=== PATIENT | male | born 1945 | race Caucasian/White ===

== ENCOUNTER → 2017-04-23 | Outpatient (CLI) | payer OTHER ==
[2017-04-23 12:50] LABS: Basophils # (A) 0.1 k/uL (0-0.2); Basophils % (A) 1 %; Eosinophils # (A) 0.3 k/uL (0-0.7); Eosinophils % (A) 4 %; HCT 44.3 % (39.0-53.0); Lymphocytes # (A) 2.4 k/uL (1.0-4.8); Lymphocytes % (A) 34 %; MCH 29.1 pg (25.0-35.0); MCHC 33.9 g/dL (31.0-37.0); Mean Platelet Volume 8.9; Monocytes # (A) 0.5 k/uL (0-1.0); Monocytes % (A) 7 %; Neutrophils # (A) 3.7 k/uL (1.3-7.7); Neutrophils % (A) 53 %; Platelet Count 172 k/uL (150-450); RBC 5.15 m/uL (4.30-5.90); RDW 13.3 % (11.5-15.5)
[2017-04-23 23:07] LABS: Hemoglobin A1C 8.1 % (4.0-6.0)
== END | disposition home or self-care (01) ==
LOC: LABWHC1 11:45
PROVIDERS: ATTEND Podiatrist
DX: E11.622 Type 2 diabetes mellitus with other skin ulcer (principal); L98.499 Non-pressure chronic ulcer of skin of other sites with unspecified severity
CPT/HCPCS: 36415; 83036; 84134; 85025

== ENCOUNTER 2018-03-17 07:01 | Day surgery (SDC) | payer OTHER ==
[2018-03-13 10:25] VITALS: BMI 36.6
[~2018-03-17 07:01] MED LIST: LACTATED RINGERS 1,000 ML IV SCH; LIDOCAINE 1% 20 ML VIAL (10MG/ML) FOR IV START INTRADERMA PRN
[2018-03-17 07:20] VITALS: TEMP 97.2
[2018-03-17 07:27] LABS: Glucose,Whole Blood 117 mg/dL (75-99)
[2018-03-17] MEDS ORDERED: PROPOFOL 10 MG/ML 20 ML VIAL IV ONE (08:02)
[2018-03-17] MEDS ORDERED: LIDOCAINE 1% INJ 10MG/ML (20 ML MDV) ONE (08:02)
--- NOTE | 2018-03-17 08:39 | P.PCN ---
Date of Procedure: 03/17/18 Procedure(s) Performed: Procedure: Total colonoscopy. Preoperative diagnosis: Screening for neoplasia, patient has history of polyps. Postoperative diagnosis: Poor preparation, otherwise, exam to the cecum show no obvious abnormalities. Preparation: HalfLytely prep. Sedation: Was provided by anesthesia. Brief clinical history: The patient is a 72-year-old male who is scheduled for this evaluation because of history of polyps for screening for neoplasia. His last exam was around 7 years ago. He has no abdominal complaints, bleeding or anemia. Procedure: With the patient on his left lateral decubitus position and after informed consent and adequate sedation, the perianal area was inspected and it did not show any fissures or fistulas. There were no masses felt on digital rectal examination. The Olympus CFH 190L video colonoscope was then inserted in the rectum in the usual fashion and advanced to the cecum. Unfortunately, the preparation was poor and things did not get any better as I continued to advance the endoscope. I tried to cleanse the bowel as I was withdrawing the endoscope. Where visualized, the mucosa appeared healthy. No significant polyps or tumors were seen. Certainly, with his poor preparation, small polyps and superficial pathology could have been missed. I retroflexed the endoscope in the rectum before the endoscope was withdrawn. The patient tolerated the procedure well. Plan: I summarized the findings to the patient. Because of his poor prep, I suggested repeat exam in around 2 years, possibly after a 2 day prep. He will follow up with you as planned.
[2018-03-17 08:55] VITALS: BP 150/89; PULSE 70; RESP 18
== END 2018-03-17 09:15 | disposition home or self-care (01) ==
LOC: ORWHC2ENDO 07:01
DX: Z12.11 Encounter for screening for malignant neoplasm of colon (principal); Z86.010 Personal history of colon polyps; E11.9 Type 2 diabetes mellitus without complications; E78.5 Hyperlipidemia, unspecified; I10 Essential (primary) hypertension; Z91.040 Latex allergy status; Z79.84 Long term (current) use of oral hypoglycemic drugs; Z79.1 Long term (current) use of non-steroidal anti-inflammatories (NSAID); Z79.899 Other long term (current) drug therapy
CPT/HCPCS: J2001; J2704; G0105; 45378

== ENCOUNTER → 2018-10-08 | Outpatient (CLI) | payer OTHER ==
--- NOTE | 2018-10-08 13:10 | CT ---
EXAMINATION TYPE: CT chest wo con DATE OF EXAM: 10/08/2018 COMPARISON: Chest x-ray 6 days ago. HISTORY: Shortness of breath CT DLP: 1743.4 mGycm. Automated Exposure Control for Dose Reduction was Utilized. TECHNIQUE: CT scan of the thorax is performed without IV contrast. High resolution protocol with 1 m m sequences obtained in 10 mm intervals in supine and prone technique FINDINGS: LUNGS: Right basilar linear scarring is present. Lateral lingular linear scarring is present. Backgro und mild underlying emphysematous change. No suspicious peripheral reticulation or fibrosis is identi fied. No pleural effusion or pneumothorax. No pulmonary masses. MEDIASTINUM: Lack of IV contrast is noted to limit evaluation for mediastinal and especially hilar a denopathy. There are no definitive greater than 1 cm hilar or mediastinal lymph nodes. No cardiomeg jerson is seen. Main pulmonary artery measures 3.2 cm diameter image 13, CT findings suggesting underlyi ng pulmonary artery hypertension. Adjacent ascending aorta measures 4.0 cm in diameter axial image 13 . Moderate three-vessel coronary artery calcification. Tiny pericardial effusion. OTHER: Partial visualization of cholecystectomy clips. Multilevel spurring in thoracic spine. IMPRESSION: No significant peripheral reticulation or fibrosis. Mild linear scarring right lower lobe at the diaphragm and lingula laterally. Mild underlying emphysematous change.
== END | disposition home or self-care (01) ==
LOC: RADCTMAIN 11:13
PROVIDERS: ATTEND Internal Medicine Critical Care Medicine
DX: J98.4 Other disorders of lung (principal)
CPT/HCPCS: 71250; 94060; 94726; 94729

== ENCOUNTER → 2019-01-14 | Outpatient (CLI) | payer OTHER ==
[2019-01-14 15:00] LABS: Potassium 4.4 mmol/L (3.5-5.1)
[2019-01-14 15:01] LABS: HCT 42.2 % (39.0-53.0); HGB 14.4 gm/dL (13.0-17.5); MCH 30.4 pg (25.0-35.0); MCHC 34.1 g/dL (31.0-37.0); MCV 88.9 fL (80.0-100.0); Platelet Count 198 k/uL (150-450); RBC 4.75 m/uL (4.30-5.90); RDW 12.1 % (11.5-15.5); WBC 8.1 k/uL (3.8-10.6)
== END | disposition home or self-care (01) ==
LOC: LABPAT 14:21
PROVIDERS: ATTEND Internal Medicine Interventional Cardiology
DX: Z01.812 Encounter for preprocedural laboratory examination (principal); R94.39 Abnormal result of other cardiovascular function study
CPT/HCPCS: 36415; 80051; 82565; 84520; 85027

== ENCOUNTER 2019-01-18 06:29 | Inpatient (IN) | payer OTHER ==
[~2019-01-18 06:29] MED LIST changes: +ALPRAZolam 0.25 MG TAB PO PRN; +ALPRAZolam 0.5 MG TAB PO PRN; +ASPIRIN 325 MG TAB PO STA; +ATORVASTATIN 80 MG TAB PO STA; -LACTATED RINGERS 1,000 ML IV SCH; -LIDOCAINE 1% 20 ML VIAL (10MG/ML) FOR IV START INTRADERMA PRN; +NITROGLYCERIN SL TABS 0.4 MG TAB SUBLINGUAL PRN; +SODIUM CHLORIDE 0.9% 1,000 ML in EMPTY BAG 1 BAG IV ONE
[2019-01-18 07:19] LABS: Glucose,Whole Blood 152 mg/dL (75-99)
[2019-01-18] MEDS ORDERED: SODIUM CHLORIDE 0.9% 1,000 ML IV ONE (07:21)
[2019-01-18] MEDS ORDERED: LIDOCAINE 1% INJ 10MG/ML (20 ML MDV) ONE (07:45)
[2019-01-18] MEDS ORDERED: VERAPAMIL 2.5 MG/ML 2 ML AMP ONE (07:45)
[2019-01-18] MEDS ORDERED: HEPARIN SODIUM 1,000 UN/ML (10ML VL) ONE (07:46)
[2019-01-18] MEDS ORDERED: MIDAZOLAM 2 MG/2 ML VIAL IV ONE (07:57)
[2019-01-18] MEDS ORDERED: fentaNYL (PF) 50 MCG/ML 2 ML AMP IV ONE (07:58)
[2019-01-18] MEDS ORDERED: LIDOCAINE 1% INJ 10MG/ML (20 ML MDV) SQ ONE (08:00)
[2019-01-18] MEDS: VERAPAMIL SYRINGE (5 MG/10 ML) INTRAARTER ONE ×2 (08:02→08:17)
[2019-01-18] MEDS ORDERED: HEPARIN SODIUM 1,000 UN/ML (10ML VL) IV ONE ×2 (08:02)
[2019-01-18] MEDS ORDERED: IOPAMIDOL-370 125ML BTL INJ ONE (08:18)
[2019-01-18] MEDS ORDERED: RX INFO: IV CONTRAST WAS GIVEN 1 EACH MISC MISCELLANE PRN (08:26)
[2019-01-18] MEDS ORDERED: SODIUM CHLORIDE 0.9% 1,000 ML IV SCH (08:30)
--- NOTE | 2019-01-18 09:02 | CC ---
CARDIAC CATHETERIZATION REPORT DATE OF SERVICE: January 18, 2019 PERFORMING PHYSICIAN: Bobby Koch MD. PROCEDURE PERFORMED: 1. Selective right and left coronary angiogram. 2. Left heart catheterization. INDICATION: This is a 73-year-old gentleman with diabetes, hypertension, and dyslipidemia, and family history of coronary artery disease, was experiencing symptoms of shortness of breath with exertion. He underwent myocardial perfusion imaging stress test and that revealed moderate-sized ischemia involving the anterior wall of the LV. Because of that, a heart catheterization was advised. APPROACH: Right radial artery. COMPLICATION: None. LEVEL OF SEDATION: Moderate with a sedation length of 21 minutes. PROCEDURE DESCRIPTION: After obtaining an informed consent, the patient was brought to the cardiac lab scientist. The right radial artery was cannulated using micropuncture technique, the micropuncture wire passed easily then I placed a 6-[place]izen [place] sheath in the right radial artery. After that I did give the patient 2 mg of verapamil IA and 10,000 units of heparin IV. Selective right and left coronary angiogram performed using JR4 and JL3.5 catheters. The left heart catheterization was performed using 5-[place]izen [place] pigtail catheter. The procedure was completed without any complication. SELECTIVE CORONARY ANGIOGRAM: 1. The right coronary artery is chronically occluded in the midportion and fills by collateral from the left coronary system. 2. The left main is angiographically normal. It bifurcates into left circumflex, which is a dominant left circumflex and left anterior descending artery. 3. The left circumflex is a large caliber vessel. It is a codominant vessel. The proximal circumflex appeared to have mild disease only. It gives rise into OM1, which has an ostial lesion appeared to be in the range of 80% to 90%. The mid left circumflex has a tight lesion appeared to be in the range of 99%. This is just distal to the bifurcation of second OM branch which appeared to have mild disease only. The circumflex distally appeared to be angiographically normal. 4. The LAD: The proximal LAD appeared to have mild disease only. The mid LAD appeared to have a lesion in the range of 99%. The LAD in the proximal portion gives rise into a diagonal branch which seems to be angiographically normal. The LAD distally appeared to be angiographically normal. HEMODYNAMICS: The LVEDP was 10 to 12 mmHg without significant gradient across aortic valve. CONCLUSION: 1. Severe triple-vessel coronary artery disease. 2. Normal left ventricular end-diastolic pressure. POSTPROCEDURE MANAGEMENT: 1. Consult surgery for evaluation of coronary artery bypass grafting. 2. Follow up with the patient. SHAKIRA / MARYN: [id number] /
--- NOTE | 2019-01-18 10:08 | P.GSCN ---
History of Present Illness Consult date: 01/18/19 Reason for Consult: Triple-vessel coronary artery disease Requesting physician: Bobby Koch History of present illness: This is a 73-year-old gentleman who follows on an outpatient basis at the [facility] with physician marketing assistant retail division Robyn Clemente. He has a previous medical history of hypertension, hyperlipidemia, type 2 diabetes, obesity, pancreatitis 10 years ago, kidney stones, previous tobacco dependence, and family history of premature coronary artery disease. The patient has had shortness of breath over the previous 2 years, getting progressively worse with activity. He denied shortness of breath at rest. Does state he is occasionally dizzy but denies any other symptomatology including no chest pain, no syncope, no lower extremity edema. He did have workup with Dr. Wood including pulmonary function test with FEV1 82% of predicted followed by 84% of predicted post bronchodilator. Chest x-ray demonstrated emphysematous changes. CT of the chest demonstrated triple- vessel coronary artery disease and emphysema. He was referred to Dr. Koch from [facility] for workup. He had a stress test which demonstrated reversible anterior ischemia. In addition, a transthoracic echocardiogram was completed in the cardiology office which demonstrated normal left ventricular systolic function with ejection fraction 55%, moderate concentric hypertrophy, no regional wall motion abnormalities, trace aortic regurgitation, mild mitral regurgitation, and mild tricuspid regurgitation. He was recommended to undergo heart catheterization which was completed today and which demonstrated complete occlusion of the right coronary artery, 90% stenosis of the circumflex, 80% proximal LAD stenosis with 70% mid LAD stenosis. Due to these findings Dr. Koch consulted Dr. Wiggins for recommendations for stenting versus open heart surgery. Review of Systems Review of systems was completed and was negative except as noted - Cardiovascular Reports dyspnea on exertion, Reports shortness of breath Past Medical History Past Medical History: Diabetes Mellitus, Hyperlipidemia, Hypertension Additional Past Medical History / Comment(s): PANCREATITIS (2008), SOB, kidney stones History of Any Multi-Drug Resistant Organisms: None Reported Past Surgical History: Cholecystectomy, Tonsillectomy Past Anesthesia/Blood Transfusion Reactions: No Reported Reaction Past Psychological History: No Psychological Hx Reported Smoking Status: Former smoker Past Alcohol Use History: Rare Past Drug Use History: None Reported - Past Family History Mother Family Medical History: Deep Vein Thrombosis (DVT) Sister(s) Family Medical History: Coronary Artery Disease (CAD), Deep Vein Thrombosis (DVT) Additional Family Medical History / Comment(s): sister with diagnosed coronary artery disease in her early 50s Medications and Allergies Home Medications Medication Instructions Recorded Confirmed Type Ascorbic Acid [Vitamin C] 1,000 mg PO DAILY 03/13/18 01/18/19 History Atorvastatin [Lipitor] 80 mg PO DAILY 03/13/18 01/18/19 History Fish Oil/Dha/Epa [Fish Oil 1,200 1,200 mg PO DAILY 03/13/18 01/18/19 History mg Fish Oil] Lisinopril 20 mg PO DAILY 03/13/18 01/18/19 History Multivit-Min/Folic/Vit K/Lycop 1 each PO DAILY 03/13/18 01/18/19 History [Men's Multivitamin Tablet] Naproxen 500 mg PO DAILY 03/13/18 01/18/19 History Potassium 99 mg PO DAILY 03/13/18 01/18/19 History Vitamin B Complex 1 each PO DAILY 03/13/18 01/18/19 History glipiZIDE [Glucotrol] 5 mg PO HS 03/13/18 01/18/19 History Aspirin [Adult Low Dose Aspirin EC] 81 mg PO HS 01/14/19 01/18/19 History Metoprolol Succinate (ER) [Toprol 12.5 mg PO HS 01/14/19 01/18/19 History XL] Allergies Allergy/AdvReac Type Severity Reaction Status Date / Time latex AdvReac Unknown Itching Verified 01/18/19 07:04 Surgical - Exam Vital Signs Temp Pulse Resp BP Pulse Ox 98.3 F 61 16 143/74 95 01/18/19 07:18 01/18/19 07:18 01/18/19 07:18 01/18/19 07:18 01/18/19 07:18 - General well developed, well nourished, no distress, no pain, obese - Eyes PERRL, normal ocular movement - ENT no hearing loss - Neck no masses, no bruits, trachea midline - Respiratory Lungs sounds clear bilaterally. Respirations even, nonlabored. Currently on room air with oxygen saturation 94%. No chest wall deformities. No clubbing or cyanosis present. - Cardiovascular S1, S2 present, no murmurs present. Regular rate and rhythm, sinus rhythm on telemetry. Palpable peripheral pulses bilaterally. No edema present. No calf pain or tenderness noted. Radial heart catheterization site with T band in place. - Abdomen Abdomen: soft, non tender, bowel sounds - Genitourinary Deferred - Rectum Deferred - Integumentary no rash, no growths - Neurologic normal coordination, normal sensation - Musculoskeletal normal posture - Psychiatric oriented to time, oriented to person, oriented to place, speech is normal, memory intact Results - Labs Abnormal Lab Results - Last 24 Hours (Table) 01/18/19 Range/Units 07:15 POC Glucose (mg/dL) 152 H (75-99) mg/dL - Imaging Chest x-ray: report reviewed, image reviewed CT scan - chest: report reviewed, image reviewed EKG: image reviewed Additional studies: Heart catheterization films reviewed Assessment and Plan Assessment: 1. Severe triple-vessel coronary artery disease 2. Hypertension 3. Hyperlipidemia 4. Type 2 diabetes, last hemoglobin A1c in our system 8.1% in April 2017 5. Obesity 6. Pancreatitis 10 years ago 7. Current kidney stones 8. Previous tobacco dependence with FEV1 82% of predicted, post bronchodilator 84% of predicted 9. Family history of premature coronary artery disease Plan: The patient was seen and examined at the bedside. Chart/diagnostics were reviewed. The case will be discussed in detail with Dr. Wiggins. The usual perioperative course of open heart surgery was discussed in detail with the patient and his , risks and benefits were reviewed, all questions were answered. The patient is hoping that the recommendation will be for stenting as he is not looking forward to the recovery from open heart surgery, however he does state that if he needs open heart surgery he would like to have it completed as quickly as possible. We recommend continuing to maximize medical management with aspirin, statin, beta cuauhtemoc therapy as well as BERHANE inhibitor. Patient's blood sugars need tight control. Preoperative testing was initiated. More recommendations once Dr. Wiggins has had the opportunity to review the patient's diagnostics. Thank you Dr. Koch for this consult. We look forward to working with you in the care of your patient. Time with Patient: Greater than 30
--- NOTE | 2019-01-18 10:49 | US ---
EXAMINATION TYPE: US carotid duplex BILAT DATE OF EXAM: 01/18/2019 COMPARISON: NONE CLINICAL HISTORY: preop cabg. Pre op cardiac surgery, exam done portable. EXAM MEASUREMENTS: RIGHT: Peak Systolic Velocity (PSV) cm/sec ----- Right CCA: 101.7 ----- Right ICA: 112.1 ----- Right ECA: 114.7 ICA/CCA ratio: 1.1 RIGHT: End Diastole cm/sec ----- Right CCA: 24.1 ----- Right ICA: 28.0 ----- Right ECA: 0.0 LEFT: Peak Systolic Velocity (PSV) cm/sec ----- Left CCA: 109.5 ----- Left ICA: 119.8 ----- Left ECA: 135.0 ICA/CCA ratio: 1.1 LEFT: End Diastole cm/sec ----- Left CCA: 24.1 ----- Left ICA: 43.5 ----- Left ECA: 15.5 VERTEBRALS (direction of flow): Right Vertebral: Antegrade Left Vertebral: Antegrade Rhythm: Normal Bilateral intimal thickening, no significant stenosis. IMPRESSION: Diffusely elevated velocities suggest underlying hypertension. Internal carotid artery, carotid artery ratios are within normal limits. No hemodynamically significant stenosis. Criteria for Assigning % of Stenosis / Diameter reduction (Estimation based on the indirect measurements of the internal carotid artery velocities (ICA PSV). 1. Normal (no stenosis)=ICA PSV < 125 cm/s: ratio < 2.0: ICA EDV<40 cm/s. 2. Less than 50% stenosis=ICA PSV < 125 cm/s: ratio < 2.0: ICA EDV<40 cm/s. 3. 50 to 69% stenosis=ICA PSV of 125 to 230 cm/s: ration 2.0 ? 4.0: ICA EDV 40-100 cm/s. 4. Greater than 70% stenosis to near occlusion= ICA PSV > 230 cm/s: ratio > 4.0: ICA EDV > 100 cm/s. 5. Near occlusion= ICA PSV velocities may be low or undetectable: variable ratio and ICA EDV. 6. Total occlusion=unable to detect flow.
[2019-01-18] MEDS ORDERED: MD COMMUNICATION TO PHARMACY 1 EACH MISC PO ONE ×2 (11:39)
[2019-01-18 14:10] LABS: Appearance,Urine Clear (Clear); Bacteria,Urine Rare /hpf; Bilirubin,Urine Negative (Negative); Blood,Urine Negative (Negative); Color,Urine Yellow; Glucose,Urine (UA) 3+ (Negative); Ketones,Urine Negative (Negative); Leukocyte Esterase,Urine Small (Negative); Mucus,Urine Rare /hpf; Nitrite,Urine Negative (Negative); PH, Urine 5.5 (5.0-8.0); Protein,Urine Negative (Negative); RBC,Urine 10 /hpf (0-5); Specific Gravity,Urine 1.045 (1.001-1.035)
[2019-01-18 14:47] LABS: HCT 40.3 % (39.0-53.0); HGB 14.3 gm/dL (13.0-17.5); MCH 31.6 pg (25.0-35.0); MCHC 35.6 g/dL (31.0-37.0); MCV 88.8 fL (80.0-100.0); Mean Platelet Volume 8.8; Platelet Count 176 k/uL (150-450); RBC 4.54 m/uL (4.30-5.90); RDW 12.2 % (11.5-15.5); WBC 5.6 k/uL (3.8-10.6)
--- NOTE | 2019-01-18 14:47 | P.PN ---
Progress Note - Text Progress Note Date: 01/18/19 5 meter walk test: #1 3.5 sec #2 3.44 sec #3 3.46 sec
[2019-01-18 14:54] LABS: Albumin 3.7 g/dL (3.5-5.0); Magnesium 1.9 mg/dL (1.6-2.3); Potassium 4.1 mmol/L (3.5-5.1); Total Bilirubin 1.1 mg/dL (0.2-1.3); Total Protein 6.4 g/dL (6.3-8.2)
[2019-01-18 15:06] LABS: Prothrombin Time 10.6 sec (9.0-12.0)
[2019-01-18 16:39] LABS: Glucose,Whole Blood 113 mg/dL (75-99)
[2019-01-18] MEDS: INSULIN ASPART (NovoLOG) 100 UNIT/ML VIAL SQ SCH ×2 (19:42→20:47)
[2019-01-18] MEDS: HEPARIN SODIUM,PORCINE 5,000 UNIT/ML 1 ML VIAL SQ SCH ×2 (19:53→23:41)
[2019-01-18 20:39] LABS: Glucose,Whole Blood 190 mg/dL (75-99)
[2019-01-18] MEDS ORDERED: glipiZIDE 5 MG TAB PO SCH (21:00)
[2019-01-18] MEDS ORDERED: ASPIRIN 81 MG PO SCH (21:00)
[2019-01-18] MEDS ORDERED: METOPROLOL SUCCINATE (ER) 25 MG TAB.ER.24H PO SCH (21:00)
[2019-01-18] MEDS: MUPIROCIN 2% OINT 22 GM TUBE NASAL SCH (21:30)
[2019-01-18 21:58] LABS: Hemoglobin A1C 6.3 % (4.0-6.0)
[2019-01-19 01:57] LABS: Hepatitis A Antibody IgM Non-Reactive (Non-Reactive); Hepatitis B Core IgM Non-Reactive (Non-Reactive); Hepatitis B Surface Antigen Non-Reactive (Non-Reactive); Hepatitis C IgG Antibody Non-Reactive (Non-Reactive)
[2019-01-19] MEDS ORDERED: CHLORHEXIDINE GLUCONATE 15 ML CUP MUCOUS MEM ONE (05:00)
[2019-01-19] MEDS ORDERED: MANNITOL 25% 12.5 GM/50 ML VIAL IV ONE ×2 (05:00)
[2019-01-19] MEDS ORDERED: CARDIOPLEGIC SOLN (K+ 16 MEQ/L 1,000 ML with SOD BICARB SYR 8.4% (1 MEQ/ML) 20 ML, LIDO... PERFUSION NR ×3 (05:00)
[2019-01-19] MEDS ORDERED: PROTAMINE SULFATE 250 MG in EMPTY BAG 1 BAG IV ONE (05:00)
[2019-01-19] MEDS ORDERED: ALBUMIN HUMAN 25% 50 ML in EMPTY BAG 1 BAG IVPB ONE (05:00)
[2019-01-19] MEDS ORDERED: PHENYLEPHRINE 10 MG/ML VIAL IV ONE (05:00)
[2019-01-19] MEDS ORDERED: PROPOFOL 1,000 MG in EMPTY BAG 1 BAG IV PRN (05:00)
[2019-01-19] MEDS ORDERED: LACTATED RINGERS 1,000 ML IV SCH (05:00)
[2019-01-19] MEDS ORDERED: ATORVASTATIN 10 MG TAB PO ONE (05:00)
[2019-01-19] MEDS ORDERED: METOPROLOL TARTRATE 12.5 MG TAB PO ONE (05:00)
[2019-01-19] MEDS ORDERED: CALCIUM CHLORIDE 100 MG/ML 10 ML SYRINGE IVP ONE (05:00)
[2019-01-19] MEDS ORDERED: HEPARIN SODIUM,PORCINE 5,000 UNIT in SODIUM CHLORIDE 0.9% 500 ML 500 ML IV NR (05:00)
[2019-01-19] MEDS ORDERED: PAPAVERINE 360 MG in SODIUM CHLORIDE 0.9% 90 ML IV ONE (05:00)
[2019-01-19] MEDS ORDERED: NOREPINEPHRINE 4 MG in SODIUM CHLORIDE 0.9% 250 ML IV SCH (05:00)
[2019-01-19] MEDS ORDERED: DILTIAZEM 125 MG in SODIUM CHLORIDE 0.9% 100 ML IV SCH ×2 (05:00→14:26)
[2019-01-19] MEDS ORDERED: ceFAZolin 2,000 MG in SODIUM CHLORIDE 0.9% 30 ML IVPB ONE (05:00)
[2019-01-19] MEDS ORDERED: PROTAMINE SULFATE 10 MG/ML 25 ML VIAL IV ONE ×2 (05:00→07:32)
[2019-01-19] MEDS ORDERED: TRANEXAMIC ACID 2,000 MG in SODIUM CHLORIDE 0.9% 80 ML IV ONE (05:00)
[2019-01-19] MEDS ORDERED: INSULIN REGULAR 100 UNIT in SODIUM CHLORIDE 0.9% 100 ML IV SCH (05:00)
[2019-01-19] MEDS ORDERED: ceFAZolin 3 GM in SODIUM CHLORIDE 0.9% 30 ML IVPB ONE (05:00)
[2019-01-19] MEDS ORDERED: NITROGLYCERIN-D5W PMX 25 MG/250 ML BTL IV ONE (05:00)
[2019-01-19] MEDS ORDERED: SODIUM BICARB 8.4% 50 ML SYR (1 MEQ/ML) IV ONE (05:00)
[2019-01-19] MEDS ORDERED: ALBUMIN HUMAN 5% 500 ML in EMPTY BAG 1 BAG IVPB ONE ×6 (05:00)
[2019-01-19] MEDS ORDERED: CLEVIDIPINE BUTYRATE 25 MG in EMPTY BAG 1 BAG IV SCH (05:00)
[2019-01-19] MEDS ORDERED: HEPARIN SODIUM 1,000 UN/ML (10ML VL) IV ONE (05:00)
[2019-01-19] MEDS ORDERED: ASPIRIN 81 MG PO ONE (05:00)
[2019-01-19] MEDS ORDERED: PHENYLEPHRINE 40 MG in SODIUM CHLORIDE 0.9% 250 ML IV ONE (05:00)
[2019-01-19] MEDS ORDERED: MAGNESIUM SULFATE SYG 4.06 MEQ/ML SYRINGE IV ONE (05:00)
[2019-01-19] MEDS ORDERED: ceFAZolin 1,000 MG in SODIUM CHLORIDE 0.9% IRRIGATIO 1,000 ML IRRIGATION ONE (05:00)
[2019-01-19 05:32] LABS: Basophils % (A) 1 %; Eosinophils # (A) 0.4 k/uL (0-0.7); Eosinophils % (A) 5 %; HCT 40.3 % (39.0-53.0); HGB 14.1 gm/dL (13.0-17.5); Lymphocytes # (A) 2.3 k/uL (1.0-4.8); Lymphocytes % (A) 31 %; MCHC 34.9 g/dL (31.0-37.0); Mean Platelet Volume 8.5; Monocytes # (A) 0.5 k/uL (0-1.0); Monocytes % (A) 6 %; Neutrophils # (A) 4.1 k/uL (1.3-7.7); Neutrophils % (A) 55 %; Platelet Count 163 k/uL (150-450); RBC 4.54 m/uL (4.30-5.90); RDW 12.1 % (11.5-15.5); WBC 7.5 k/uL (3.8-10.6)
[2019-01-19 05:40] LABS: Partial Thromboplastin Time 25.5 sec (22.0-30.0); Prothrombin Time 10.9 sec (9.0-12.0)
[2019-01-19 05:55] LABS: Albumin 3.7 g/dL (3.5-5.0); Calcium 9.1 mg/dL (8.4-10.2); Potassium 4.1 mmol/L (3.5-5.1); Total Bilirubin 1.4 mg/dL (0.2-1.3); Total Protein 6.3 g/dL (6.3-8.2)
[2019-01-19] MEDS ORDERED: PANTOPRAZOLE 40 MG TABLET PO SCH (07:30)
[2019-01-19] MEDS ORDERED: MIDAZOLAM 2 MG/2 ML VIAL ONE (07:32)
[2019-01-19] MEDS ORDERED: SUCCINYLCHOLINE CHLORIDE VIAL 200 MG/10 ML VIAL IV ONE (07:32)
[2019-01-19] MEDS ORDERED: PROPOFOL 10 MG/ML 20 ML VIAL IV ONE (07:32)
[2019-01-19] MEDS ORDERED: VECURONIUM 10 MG VIAL IV ONE (07:32)
[2019-01-19] MEDS ORDERED: SODIUM CHLORIDE 0.9% IRRIG 1,000 ML BTL IRRIGATION ONE (07:32)
[2019-01-19] MEDS ORDERED: ALBUMIN HUMAN 5% (25gm) 500 ML VIAL IVPB ONE (07:32)
[2019-01-19] MEDS ORDERED: POTASSIUM CHLORIDE OPEN HEART 20 MEQ/50 ML BAG IVPB ONE (07:32)
[2019-01-19] MEDS ORDERED: INSULIN REGULAR 100 UNIT/ML VIAL ONE (07:32)
[2019-01-19] MEDS ORDERED: NITROGLYCERIN-D5W PMX 50 MG/250 ML BOTTLE IV ONE (07:32)
[2019-01-19] MEDS ORDERED: fentaNYL (PF) 50 MCG/ML 50 ML VIAL ONE (07:32)
[2019-01-19] MEDS ORDERED: HEPARIN SODIUM,PORCINE 10,000 UNIT/ML 1 ML VIAL ONE (07:32)
--- NOTE | 2019-01-19 08:20 | P.CONS ---
History of Present Illness - History of Present Illness This is a pleasant 73 years old male with past medical history of coronary ar ritika disease, diabetes mellitus, hyperlipidemia, hypertension, kidney stone, HISTORY of pancreatitis, ex-smoker, pulmonary hypertension. patient was admitted for myocardial revascularization for his triple-vessel coronary artery disease. Patient has chronic dyspnea and his been evaluated by instructional technology specialist showing positive stress test with reversible anterior ischemia, ejection fraction of 55% with moderate concentric left ventricular hypertrophy. Recent cardiac cath showing 100% occlusion of the RCA, 90% stenosis of the circumflex artery, and 80% stenosis of the LAD. Patient is scheduled for surgery today, he has recent CAT scan of the chest showing moderate 3 vessel coronary artery calcification and pulmonary hypertension with emphysematous changes Carotid Doppler showing no significant stenosis, however there is no mention if there is a plaque or not. This morning patient denies chest pain or dyspnea. No abdominal pain or nausea vomiting. Vitas looks stable. Labs were reviewed showing unremarkable CBC, INR, BMP, liver enzymes. Bilirubin is 1.4, triglycerides 218. Hepatitis panel was nonreactive. Urinalysis showed specific gravity of 1.045 and small leukocyte esterase. Review of Systems CONSTITUTIONAL: No fever, no malaise, no fatigue. HEENT: No recent visual problems or hearing problems. Denied any sore throat. CARDIOVASCULAR: No orthopnea, PND, no palpitations, no syncope. PULMONARY: No shortness of breath, no cough, no hemoptysis. GASTROINTESTINAL: No diarrhea, no nausea, no vomiting, no abdominal pain. Normoactive bowel sounds. NEUROLOGICAL: No headaches, no weakness, no numbness. HEMATOLOGICAL: Denies any bleeding or petechiae. GENITOURINARY: Denies any burning micturition, frequency, or urgency. MUSCULOSKELETAL/RHEUMATOLOGICAL: Denies any joint pain, swelling, or any muscle pain. ENDOCRINE: Denies any polyuria or polydipsia. Past Medical History Past Medical History: Coronary Artery Disease (CAD), Diabetes Mellitus, Hyperlipidemia, Hypertension Additional Past Medical History / Comment(s): PANCREATITIS (2008), SOB, kidney stones History of Any Multi-Drug Resistant Organisms: None Reported Past Surgical History: Cholecystectomy, Tonsillectomy Past Anesthesia/Blood Transfusion Reactions: No Reported Reaction Past Psychological History: No Psychological Hx Reported Smoking Status: Former smoker Past Alcohol Use History: Rare Additional Past Alcohol Use History / Comment(s): QUIT SMOKING 10 YRS AGO (2008), was a "some day" smoker-since age 14 Past Drug Use History: None Reported - Past Family History Mother Family Medical History: Deep Vein Thrombosis (DVT) Sister(s) Family Medical History: Coronary Artery Disease (CAD), Deep Vein Thrombosis (DVT) Additional Family Medical History / Comment(s): sister with diagnosed coronary artery disease in her early 50s Father Family Medical History: Coronary Artery Disease (CAD), Hyperlipidemia, Hypertension Additional Family Medical History / Comment(s): CABG Medications and Allergies Home Medications Medication Instructions Recorded Confirmed Type Ascorbic Acid [Vitamin C] 1,000 mg PO DAILY 03/13/18 01/18/19 History Atorvastatin [Lipitor] 80 mg PO DAILY 03/13/18 01/18/19 History Fish Oil/Dha/Epa [Fish Oil 1,200 1,200 mg PO DAILY 03/13/18 01/18/19 History mg Fish Oil] Lisinopril 20 mg PO DAILY 03/13/18 01/18/19 History Multivit-Min/Folic/Vit K/Lycop 1 each PO DAILY 03/13/18 01/18/19 History [Men's Multivitamin Tablet] Naproxen 500 mg PO DAILY 03/13/18 01/18/19 History Potassium 99 mg PO DAILY 03/13/18 01/18/19 History Vitamin B Complex 1 each PO DAILY 03/13/18 01/18/19 History glipiZIDE [Glucotrol] 5 mg PO HS 03/13/18 01/18/19 History Aspirin [Adult Low Dose Aspirin EC] 81 mg PO HS 01/14/19 01/18/19 History Metoprolol Succinate (ER) [Toprol 12.5 mg PO HS 01/14/19 01/18/19 History XL] Allergies Allergy/AdvReac Type Severity Reaction Status Date / Time latex AdvReac Unknown Itching Verified 01/18/19 07:04 Physical Exam Vitals: Vital Signs Temp Pulse Pulse Pulse Resp BP BP 01/19/19 06:38 01/19/19 04:00 97.6 F 65 19 121/75 01/19/19 00:00 97.7 F 55 L 12 122/68 01/18/19 20:00 97.5 F L 57 L 12 127/67 01/18/19 18:00 61 21 124/82 01/18/19 17:00 58 L 14 127/68 01/18/19 16:00 58 L 56 L 16 123/64 01/18/19 15:07 62 16 123/64 01/18/19 12:11 62 16 135/67 01/18/19 11:11 60 16 123/73 01/18/19 10:11 62 16 126/72 01/18/19 09:41 60 16 128/70 01/18/19 09:11 64 16 124/68 01/18/19 08:56 64 16 124/68 01/18/19 08:41 58 L 16 125/67 01/18/19 08:27 61 16 129/65 01/18/19 07:18 98.3 F 61 16 143/74 BP BP BP Pulse Ox 01/19/19 06:38 150/75 142/72 01/19/19 04:00 96 01/19/19 00:00 95 01/18/19 20:00 95 01/18/19 18:00 96 01/18/19 17:00 96 01/18/19 16:00 96 01/18/19 15:07 94 L 01/18/19 12:11 96 01/18/19 11:11 97 01/18/19 10:11 96 01/18/19 09:41 96 01/18/19 09:11 95 01/18/19 08:56 94 L 01/18/19 08:41 01/18/19 08:27 92 L 01/18/19 07:18 146/79 95 Intake and Output 01/18/19 01/19/19 01/19/19 22:59 06:59 14:59 Intake Total 1500 50 Output Total 0 0 Balance 1500 50 Intake: IV 700 50 Intake, IV Titration 300 Amount Sodium Chloride 0.9% 1, 300 000 ml @ 75 mls/hr IV . [id number] [facility] Rx#:[id number] Oral 500 Output: Urine 0 0 Other: # Voids 2 Weight 124.8 kg GENERAL: The patient is alert and oriented x3, not in any acute distress. Well developed, well nourished. HEENT: Pupils are round and equally reacting to light. EOMI. No scleral icterus. No conjunctival pallor. Normocephalic, atraumatic. No pharyngeal erythema. No thyromegaly. CARDIOVASCULAR: S1 and S2 present. No murmurs, rubs, or gallops. PULMONARY: Chest is clear to auscultation, no wheezing or crackles. ABDOMEN: Soft, nontender, nondistended, normoactive bowel sounds. No palpable organomegaly. MUSCULOSKELETAL: No joint swelling or deformity. EXTREMITIES: No cyanosis, clubbing, or pedal edema. NEUROLOGICAL: Gross neurological examination did not reveal any focal deficits. SKIN: No rashes. No petechiae Results CBC & Chem 7: 01/19/19 05:21 01/19/19 05:21 Labs: Abnormal Lab Results - Last 24 Hours (Table) 01/18/19 01/18/19 01/18/19 Range/Units 07:15 13:10 14:10 Sodium (137-145) mmol/L Glucose (74-99) mg/dL POC Glucose (mg/dL) 152 H (75-99) mg/dL Hemoglobin A1c 6.3 H (4.0-6.0) % Total Bilirubin (0.2-1.3) mg/dL Triglycerides (<150) mg/dL HDL Cholesterol (40-60) mg/dL Ur Specific [place] 1.045 H (1.001-1.035) Urine Glucose (UA) 3+ H (Negative) Ur Leukocyte Esterase Small H (Negative) Urine RBC 10 H (0-5) /hpf Urine WBC 6 H (0-5) /hpf Urine Bacteria Rare H (None) /hpf Urine Mucus Rare H (None) /hpf Crossmatch 01/18/19 01/18/19 01/18/19 Range/Units 14:10 15:20 16:38 Sodium (137-145) mmol/L Glucose 147 H (74-99) mg/dL POC Glucose (mg/dL) 113 H (75-99) mg/dL Hemoglobin A1c (4.0-6.0) % Total Bilirubin (0.2-1.3) mg/dL Triglycerides (<150) mg/dL HDL Cholesterol (40-60) mg/dL Ur Specific [place] (1.001-1.035) Urine Glucose (UA) (Negative) Ur Leukocyte Esterase (Negative) Urine RBC (0-5) /hpf Urine WBC (0-5) /hpf Urine Bacteria (None) /hpf Urine Mucus (None) /hpf Crossmatch See Detail 01/18/19 01/19/19 Range/Units 20:38 05:21 Sodium 136 L (137-145) mmol/L Glucose 105 H (74-99) mg/dL POC Glucose (mg/dL) 190 H (75-99) mg/dL Hemoglobin A1c (4.0-6.0) % Total Bilirubin 1.4 H (0.2-1.3) mg/dL Triglycerides 218 H (<150) mg/dL HDL Cholesterol 25 L (40-60) mg/dL Ur Specific [place] (1.001-1.035) Urine Glucose (UA) (Negative) Ur Leukocyte Esterase (Negative) Urine RBC (0-5) /hpf Urine WBC (0-5) /hpf Urine Bacteria (None) /hpf Urine Mucus (None) /hpf Crossmatch Microbiology - Last 24 Hours (Table) 01/18/19 10:51 Nasal Screen MRSA/MSSA - Preliminary Nasal Swab Assessment and Plan Assessment: Triple-vessel coronary artery disease , plan to have cardiac revascularization surgery on 01/19/2019 Mild emphysema Pulmonary hypertension Diabetes mellitus Hypertension Hyperlipidemia History of coronary artery disease Kidney stones History of bowel obstruction History of cholecystectomy History of tonsillectomy Plan: This is a pleasant 73 years old male was scheduled for cardiac or vascular surgery today. Patient to have some risk from surgery. Labs and medication were reviewed.. Continue same treatment. Continue with symptomatic treatment. Resume home medication. Monitor lytes and vitals. DVT and GI prophylaxis. Further recommendations of the clinical course of the patient DVT prophylaxis: Subcutaneous heparin GI Prophylaxis Protonix Prognosis is guarded
[2019-01-19 08:43] LABS: ABG Glucose Whole Blood 131 mg/dL (75-99); ABG HCO3 26 mmol/L (21-25); ABG Ionized Calcium 4.6 mg/dL (4.5-5.3); ABG Lactic Acid Whole Blood 1.4 mmol/L (0.5-1.6); ABG PCO2 41 mmHg (35-45); ABG PH 7.41 (7.35-7.45); ABG PO2 83 mmHg (83-108); ABG Potassium Whole Blood 4.3 mmol/L (3.4-4.5); ABG Sodium Whole Blood 138 mmol/L (135-146); ABG TCO2 27 mmol/L (19-24)
[2019-01-19] MEDS ORDERED: NON FORMULARY DRUG (Vitamin B Complex [Vitamin B Complex] 1 EACH) PO SCH (09:00)
[2019-01-19] MEDS ORDERED: ATORVASTATIN 80 MG TAB PO SCH (09:00)
[2019-01-19] MEDS ORDERED: MULTIVITAMINS, THERA 1 EACH TAB PO SCH (09:00)
[2019-01-19] MEDS ORDERED: ASCORBIC ACID 500 MG TAB PO SCH (09:00)
[2019-01-19] MEDS ORDERED: POTASSIUM CHLORIDE ER 10 MEQ TAB.ER.PRT PO SCH (09:00)
[2019-01-19] MEDS ORDERED: DILTIAZEM 5 MG/ML 5 ML VIAL IVP STA (09:02)
[2019-01-19] MEDS ORDERED: DILTIAZEM 125 MG in SODIUM CHLORIDE 0.9% 100 ML IV ONE (09:15)
[2019-01-19 10:22] LABS: ABG Base Excess -0.6 mmol/L; ABG Glucose Whole Blood 222 mg/dL (75-99); ABG HCO3 26 mmol/L (21-25); ABG Hematocrit 39 % (34.0-46.0); ABG Ionized Calcium 4.7 mg/dL (4.5-5.3); ABG Lactic Acid Whole Blood 1.2 mmol/L (0.5-1.6); ABG Oxygen Saturation 99.3 % (94-97); ABG PCO2 49 mmHg (35-45); ABG PH 7.33 (7.35-7.45); ABG PO2 153 mmHg (83-108); ABG Potassium Whole Blood 4.6 mmol/L (3.4-4.5); ABG Sodium Whole Blood 138 mmol/L (135-146); ABG TCO2 27 mmol/L (19-24)
[2019-01-19 10:56] LABS: ABG Base Excess -0.5 mmol/L; ABG Glucose Whole Blood 222 mg/dL (75-99); ABG HCO3 25 mmol/L (21-25); ABG Hematocrit 39 % (34.0-46.0); ABG Ionized Calcium 4.6 mg/dL (4.5-5.3); ABG Lactic Acid Whole Blood 1.2 mmol/L (0.5-1.6); ABG Oxygen Saturation 99.4 % (94-97); ABG PCO2 43 mmHg (35-45); ABG PH 7.37 (7.35-7.45); ABG PO2 144 mmHg (83-108); ABG Potassium Whole Blood 4.2 mmol/L (3.4-4.5); ABG Sodium Whole Blood 138 mmol/L (135-146); ABG TCO2 26 mmol/L (19-24)
[2019-01-19 11:34] LABS: ABG Base Excess -1.3 mmol/L; ABG Glucose Whole Blood 202 mg/dL (75-99); ABG HCO3 25 mmol/L (21-25); ABG Hematocrit 36 % (34.0-46.0); ABG Ionized Calcium 4.5 mg/dL (4.5-5.3); ABG Oxygen Saturation 99.4 % (94-97); ABG PCO2 45 mmHg (35-45); ABG PH 7.35 (7.35-7.45); ABG PO2 137 mmHg (83-108); ABG Sodium Whole Blood 138 mmol/L (135-146); ABG TCO2 26 mmol/L (19-24)
[2019-01-19 12:05] LABS: ABG Glucose Whole Blood 190 mg/dL (75-99); ABG HCO3 24 mmol/L (21-25); ABG Hematocrit 35 % (34.0-46.0); ABG Ionized Calcium 4.5 mg/dL (4.5-5.3); ABG Lactic Acid Whole Blood 1.2 mmol/L (0.5-1.6); ABG Oxygen Saturation 99.5 % (94-97); ABG PCO2 42 mmHg (35-45); ABG PH 7.35 (7.35-7.45); ABG PO2 171 mmHg (83-108); ABG Potassium Whole Blood 3.8 mmol/L (3.4-4.5); ABG Sodium Whole Blood 139 mmol/L (135-146); ABG TCO2 25 mmol/L (19-24)
[2019-01-19] MEDS: HEPARIN SODIUM,PORCINE 5,000 UNIT/ML 1 ML VIAL SQ SCH ×3 (12:09→23:15)
[2019-01-19] MEDS: MUPIROCIN 2% OINT 22 GM TUBE NASAL SCH (12:10)
[2019-01-19 12:48] LABS: ABG Base Excess -1.4 mmol/L; ABG Glucose Whole Blood 167 mg/dL (75-99); ABG HCO3 24 mmol/L (21-25); ABG Hematocrit 34 % (34.0-46.0); ABG Ionized Calcium 4.5 mg/dL (4.5-5.3); ABG Lactic Acid Whole Blood 1.2 mmol/L (0.5-1.6); ABG Oxygen Saturation 99.7 % (94-97); ABG PCO2 43 mmHg (35-45); ABG PH 7.36 (7.35-7.45); ABG PO2 169 mmHg (83-108); ABG Potassium Whole Blood 4.1 mmol/L (3.4-4.5); ABG Sodium Whole Blood 139 mmol/L (135-146); ABG TCO2 26 mmol/L (19-24)
[2019-01-19] MEDS: NITROGLYCERIN-D5W PMX 50 MG in DEXTROSE/WATER 1 250ML.BAG IV SCH ×2 (13:28→16:06)
[2019-01-19] MEDS: INSULIN ASPART (NovoLOG) 100 UNIT/ML VIAL SQ SCH (13:33)
[2019-01-19 13:43] LABS: ABG Base Excess -2.8 mmol/L; ABG Glucose Whole Blood 139 mg/dL (75-99); ABG HCO3 24 mmol/L (21-25); ABG Hematocrit 33 % (34.0-46.0); ABG Ionized Calcium 4.5 mg/dL (4.5-5.3); ABG Lactic Acid Whole Blood 1.9 mmol/L (0.5-1.6); ABG Oxygen Saturation 98.4 % (94-97); ABG PCO2 46 mmHg (35-45); ABG PH 7.32 (7.35-7.45); ABG PO2 114 mmHg (83-108); ABG Potassium Whole Blood 3.7 mmol/L (3.4-4.5); ABG Sodium Whole Blood 140 mmol/L (135-146); ABG TCO2 25 mmol/L (19-24)
--- NOTE | 2019-01-19 14:15 | P.OP ---
Date of Procedure: 01/19/19 Preoperative Diagnosis: Coronary artery disease Postoperative Diagnosis: Same Procedure(s) Performed: Off pump coronary artery bypass grafting 5 with sequential SYLVESTER to LAD and first diagonal, sequential left radial artery to first and second obtuse shelton nal and saphenous vein graft to posterior lateral (distal circumflex) coronary arteries. Also endovascular vein harvest, endovascular radial artery harvest. Anesthesia: GETA (BECKY) Surgeon: Sylvester Wiggins Pompom Maker #1: Klever Soto Estimated Blood Loss (ml): 100 IV fluids (ml): 2,000 Urine output (ml): 500 Pathology: none sent Condition: stable Disposition: ICU Indications for Procedure: 73-year-old obese male presents with several month history of worsening dyspnea. He was first evaluated by pulmonary medicine and found mild obstructive lung disease but no explanation for his severe dyspneic symptomatology. He was then referred to cardiology had a positive stress test with anterior wall ischemia. He underwent invasive coronary imaging yesterday and was found to have severe three-vessel coronary artery disease. Patient requested surgery as soon as possible and given the impending holidays it was decided to operate the following day. Operative Findings: Excellent left radial artery and saphenous vein conduits were obtained. The left internal mammary artery was also a good conduit although somewhat small. It had excellent flow. Coronary targets were reasonable. There was some mild diffuse coronary artery disease. The LAD was 2 mm. The second obtuse marginal was 1.75. The first obtuse marginal and diagonal were both 1.5 mm vessels. Posterior lateral branch of the circumflex was the largest branch on the inferior wall and measured about 1.25 mm. Description of Procedure: The patient was brought to the operating room, placed supine on the operating table, anesthetized and intubated. [place]-Michael catheter had been placed in the preoperative holding area. BECKY probe was placed. The anterior torso lower extremities and left upper extremity were sterilely prepped and draped. Preoperative Rupert's testing and suggested ability to harvest the left radial artery without vascular injury to the hand. Left radial artery was harvested using endovascular harvest techniques. The left saphenous vein was greater saphenous vein was harvested from the mid calf to groin and was also of good quality. Endovascular vein harvest was used as well. Simultaneous midline sternotomy was performed and left hemisternum retracted upwards. The left internal mammary artery was harvested on a vascularized pedicle left intact on its origin from clavian. Left pleural space was drained with 32-Cam[place]onian chest tube. Standard sternal retractor was placed and the pericardium was opened in the midline. Once the conduits were ready we proceeded with coronary bypass surgery. The heart was exposed with cardial sutures and suction stabilization was used during distal anastomosis. We first constructed the sequential SYLVESTER to diagonal to LAD. The fzvo-ul-lita graft to the diagonal was performed first. The diagonal was a 1.5 mm vessel was FAIRLY proximally and blood flow control with a 1.5 mm flow through. [id number]-ku-luxk anastomosis was constructed with running 8-0 Prolene suture. On completion the anastomosis the flow through was removed effectively probing the proximal distal portion of the anastomosis. Excellent leading was noted out the abdomen the SYLVESTER and the bulldog clamp was removed from proximal to distal. The graft was noted to lay well with good length and without any evidence of kinking or narrowing of the conduit. The MELONIE pedicle was tacked surrounding epicardium with 6-0 silk. Next we stabilized the mid LAD and opened beyond the palpable disease. Was a 2 mm vessel. Blood flow was controlled with a 1.5 mm flow through an end-to-side anastomosis between the SYLVESTER and the LAD was performed with running 8-0 Prolene suture. On completion anastomosis the flow through was removed effectively probing the proximal distal portion anastomosis. Inflow was opened and excellent hemostasis was noted with good filling of the hooded no evidence of any kinking or narrowing an excellent lengths. The MELONIE pedicle was tacked surrounding epicardium with 6-0 silk. Next the lateral wall the heart was exposed. The second obtuse marginal was stabilized and opened first. Was a 1.75 mm vessel area in end-to-side anastomosis between the radial artery and the second obtuse marginal was performed with running 7-0 Prolene suture. On completion anastomosis flow through was removed effectively probing the proximal distal portion anastomosis. Suture was tied with good result and hemostasis. Good backbleeding was noted in the radial artery. This was controlled with a bulldog clamp and [id number] anastomosis between the radial artery and the first obtuse marginal was then performed. The first obtuse marginal was opened fairly proximally and blood fl ow control with a 1.5 mm flow through. Anastomosis was constructed with running 7-0 Prolene suture. Completion anastomosis the flow through was removed effectively probing the proximal distal portion anastomosis. Suture was tied with good resultant hemostasis. Good backbleeding was noted to the radial artery and the bulldog clamp was removed. The artery was of more than adequate length to reach the ascending aorta was brought beneath brought beneath the SYLVESTER graft. Next the inferior wall the heart was exposed. Vessels were all relatively small. The largest branch was the distal branch of the circumflex which was just under 1.5 mm in diameter. It was stabilized and opened. Blood flow was controlled 1 mm flow through. Saphenous vein was anastomosed in an inside fashion with running 7-0 Prolene suture. On completion anastomosis flow through was removed 50 probe the proximal distal portion anastomosis. Suture was tied with good result and hemostasis and good backbleeding was noted into the vein graft. Heart was lowered into anatomic position and the vein brought around to the ascending aorta. It was of more than adequate length. Both the vein and the radial artery were cut to appropriate length and backbleeding controlled with bulldog clamps. Blood pressure was controlled by anesthesia partial-occlusion clamp placed on the ascending aorta. 24 mm punch holes were c reated in the ascending aorta and the proximal anastomosis constructed with running 6-0 Prolene suture. On completion of the proximal anastomosis of the radial it was de-aired by backbleeding and on completion of the saphenous vein proximal anastomosis it was de-aired by needle holes. Partial-occlusion clamp was removed. Grafts were noted to lay well with more than adequate length. Distal anastomoses were all hemostatic. Heparin was reversed with protamine. Good hemostasis was obtained throughout. The mediastinum was drained with 36- [place] chest tube. Was irrigated with antibiotic solution of the sternum closed with 8 sternal wires. 3 double wires were used in the upper sternal body. Fascia was closed with 0 Ethibond subcutaneous and subcuticular layers in length arm and chest were closed with layers of Vicryl suture. Skin glue and dry sterile dressings were applied the patient was transferred to the CVICU in stable hemodynamic condition on no treatment dynamic support having received no blood transfusions other than his of Cell Saver blood back. This completes the dictation
[2019-01-19 14:20] LABS: ABG Base Excess 1.3 mmol/L
[2019-01-19 14:21] LABS: ABG Hematocrit 42 % (34.0-46.0); ABG Oxygen Saturation 96.3 % (94-97)
[2019-01-19] MEDS ORDERED: Phosphorus Replacement Protoco 1 EACH MISC MISCELLANE PRN (14:26)
[2019-01-19] MEDS ORDERED: Magnesium Replacement Protocol 1 EACH MISC MISCELLANE PRN (14:26)
[2019-01-19] MEDS ORDERED: DEXTROSE 5% IN WATER 100 ML with AMIODARONE 150 MG IV PRN (14:26)
[2019-01-19] MEDS ORDERED: CALCIUM GLUCONATE 2 GM in SODIUM CHLORIDE 0.9% 100 ML IVPB PRN (14:26)
[2019-01-19] MEDS ORDERED: BENZOCAINE/MENTHOL LOZENG 1 EACH LOZENGE MUCOUS MEM PRN (14:26)
[2019-01-19] MEDS ORDERED: AMIODARONE 360 MG in DEXTROSE 5% IN WATER 200 ML IV PRN ×2 (14:26)
[2019-01-19] MEDS ORDERED: IPRATROPIUM-ALBUTEROL 3 ML NEB INHALATION PRN (14:26)
[2019-01-19] MEDS ORDERED: PROPOFOL 1,000 MG in EMPTY BAG 1 BAG IV SCH (14:26)
[2019-01-19] MEDS ORDERED: Potassium Replacement Protocol 1 EACH MISC MISCELLANE PRN (14:26)
[2019-01-19] MEDS ORDERED: ONDANSETRON 4 MG/2 ML VIAL IVP PRN (14:26)
[2019-01-19] MEDS ORDERED: AMIODARONE 300 MG in DEXTROSE 5% IN WATER 250 ML IV PRN ×2 (14:26)
[2019-01-19] MEDS ORDERED: METOCLOPRAMIDE 5 MG/ML 2 ML VIAL IVP PRN (14:26)
[2019-01-19 14:30] LABS: ABG Base Excess -0.4 mmol/L; ABG Glucose Whole Blood 222 mg/dL (75-99); ABG HCO3 25 mmol/L (21-25); ABG Hematocrit 39 % (34.0-46.0); ABG Ionized Calcium 4.6 mg/dL (4.5-5.3); ABG Lactic Acid Whole Blood 1.2 mmol/L (0.5-1.6); ABG Oxygen Saturation 99.4 % (94-97); ABG PCO2 43 mmHg (35-45); ABG PH 7.37 (7.35-7.45); ABG PO2 144 mmHg (83-108); ABG Potassium Whole Blood 4.2 mmol/L (3.4-4.5); ABG Sodium Whole Blood 137 mmol/L (135-146); ABG TCO2 26 mmol/L (19-24)
[2019-01-19 14:45] LABS: Glucose,Whole Blood 118 mg/dL (75-99)
[2019-01-19 14:58] LABS: Ionized Calcium 4.9 mg/dL (4.5-5.3)
[2019-01-19 14:59] LABS: Basophils % (A) 0 %; Eosinophils # (A) 0.1 k/uL (0-0.7); Eosinophils % (A) 0 %; Lymphocytes # (A) 0.9 k/uL (1.0-4.8); Lymphocytes % (A) 6 %; MCH 31.5 pg (25.0-35.0); MCHC 35.2 g/dL (31.0-37.0); MCV 89.4 fL (80.0-100.0); Mean Platelet Volume 10.9; Monocytes # (A) 0.7 k/uL (0-1.0); Monocytes % (A) 5 %; Neutrophils # (A) 12.9 k/uL (1.3-7.7); Neutrophils % (A) 88 %; Platelet Count 104 k/uL (150-450); RBC 3.25 m/uL (4.30-5.90); RDW 12.3 % (11.5-15.5); WBC 14.6 k/uL (3.8-10.6)
[2019-01-19 15:01] LABS: HGB 10.2 gm/dL (13.0-17.5)
[2019-01-19 15:07] LABS: ALT 20 U/L (21-72); AST 23 U/L (17-59); African American GFR (CKD) >90 (>60 ml/min/1.73 sqM); Albumin 3.4 g/dL (3.5-5.0); Alkaline Phosphatase 48 U/L (38-126); Anion Gap 8 mmol/L; Blood Urea Nitrogen 18 mg/dL (9-20); Calcium 7.8 mg/dL (8.4-10.2); Carbon Dioxide 23 mmol/L (22-30); Chloride 108 mmol/L (98-107); Glucose 110 mg/dL (74-99); INR 1.2 (<1.2); Magnesium 1.6 mg/dL (1.6-2.3); Non-African American GFR(CKD) 87 (>60 ml/min/1.73 sqM); Partial Thromboplastin Time 23.6 sec (22.0-30.0); Prothrombin Time 12.6 sec (9.0-12.0); Sodium 139 mmol/L (137-145); Total Bilirubin 1.1 mg/dL (0.2-1.3); Total Protein 5.2 g/dL (6.3-8.2)
--- NOTE | 2019-01-19 15:07 | P.CNPUL ---
History of Present Illness Consult date: 01/19/19 Requesting physician: Sylvester Wiggins Reason for consult: other Chief complaint: Coronary artery disease, status post five-vessel bypass History of present illness: This is a 73-year-old white male patient of Robyn Osborn PA-C, out of [facility], medical history of hypertension, hyperlipidemia, type 2 diabetes mellitus, morbid obesity, previous history of tobacco dependence, currently in remission, and family history of premature coronary artery disease. Patient was evaluated for shortness of breath he's had for the past 2 years, essentially progressively worse with activity. Pulmonary workup by Dr. Dr. Wood revealed FEV1 of 82% of predicted no significant change post bronchodilator. Chest x-ray revealed emphysematous changes, CT of the chest completed demonstrating emphysema, and triple-vessel coronary artery disease. Stress test showed reversible anterior ischemia, patient had a preserved left ventricular systolic function with an EF of 55%,, trace aortic regurgitation, mild mitral regurgitation, mild tricuspid regurg, cardiac catheterization revealed multivessel coronary artery disease, including 90% circumflex, 80% proximal LAD, 70% mid LAD, and complete occlusion of the RCA. Surgical evaluation and intervention were recommended, and today on 01/19/2019 patient underwent 5 vessel coronary artery bypass grafting by Dr. Wiggins. It was done off pump, with sequential SYLVESTER to LAD and first diagonal, sequential left radial artery to first and second obtuse marginal and SVG to posterior lateral coronary arteries. He seen in the postoperative period in the ICU, he sedated, intubated. Current vent settings are assist control mode ventilation with a rate of 12, tidal vital of 550, FiO2 100%, and PEEP of 10. Patient is doing well, in sinus mechanism with a rate of 67, hemodynamically stable, maintenance IV fluids include lactated Ringer's a rate of 50, Cardizem is at 5 mg per hour, nitroglycerin as of 5 mics per kilo per minute, to prevent is at 10 mics per kilo per minute, insulin drip is at 10 units per hour. PA pressures of 43/17, with a CVP of 11, cardiac output is 8.6, cardiac index is 3.5. Mediastinal and left pleural chest tubes with scant amount of sanguinous output in the Pleur-evac. Postoperative blood gases are pending, postoperative work is pending. Review of Systems All systems: negative Constitutional: Denies chills, Denies fever Eyes: denies blurred vision, denies pain Ears, nose, mouth and throat: Denies headache, Denies sore throat Cardiovascular: Denies chest pain, Denies shortness of breath Respiratory: Reports dyspnea, Denies cough Gastrointestinal: Denies abdominal pain, Denies diarrhea, Denies nausea, Denies vomiting Musculoskeletal: Denies myalgias Integumentary: Denies pruritus, Denies rash Neurological: Denies numbness, Denies weakness Psychiatric: Denies anxiety, Denies depression Endocrine: Denies fatigue, Denies weight change Past Medical History Past Medical History: Coronary Artery Disease (CAD), Diabetes Mellitus, Hyperlipidemia, Hypertension Additional Past Medical History / Comment(s): PANCREATITIS (2008), SOB, kidney stones History of Any Multi-Drug Resistant Organisms: None Reported Past Surgical History: Cholecystectomy, Tonsillectomy Past Anesthesia/Blood Transfusion Reactions: No Reported Reaction Past Psychological History: No Psychological Hx Reported Smoking Status: Former smoker Past Alcohol Use History: Rare Additional Past Alcohol Use History / Comment(s): QUIT SMOKING 10 YRS AGO (2008), was a "some day" smoker-since age 14 Past Drug Use History: None Reported - Past Family History Mother Family Medical History: Deep Vein Thrombosis (DVT) Sister(s) Family Medical History: Coronary Artery Disease (CAD), Deep Vein Thrombosis (DVT) Additional Family Medical History / Comment(s): sister with diagnosed coronary artery disease in her early 50s Father Family Medical History: Coronary Artery Disease (CAD), Hyperlipidemia, Hypertension Additional Family Medical History / Comment(s): CABG Medications and Allergies Home Medications Medication Instructions Recorded Confirmed Type Ascorbic Acid [Vitamin C] 1,000 mg PO DAILY 03/13/18 01/18/19 History Atorvastatin [Lipitor] 80 mg PO DAILY 03/13/18 01/18/19 History Fish Oil/Dha/Epa [Fish Oil 1,200 1,200 mg PO DAILY 03/13/18 01/18/19 History mg Fish Oil] Lisinopril 20 mg PO DAILY 03/13/18 01/18/19 History Multivit-Min/Folic/Vit K/Lycop 1 each PO DAILY 03/13/18 01/18/19 History [Men's Multivitamin Tablet] Naproxen 500 mg PO DAILY 03/13/18 01/18/19 History Potassium 99 mg PO DAILY 03/13/18 01/18/19 History Vitamin B Complex 1 each PO DAILY 03/13/18 01/18/19 History glipiZIDE [Glucotrol] 5 mg PO HS 03/13/18 01/18/19 History Aspirin [Adult Low Dose Aspirin EC] 81 mg PO HS 01/14/19 01/18/19 History Metoprolol Succinate (ER) [Toprol 12.5 mg PO HS 01/14/19 01/18/19 History XL] Allergies Allergy/AdvReac Type Severity Reaction Status Date / Time latex AdvReac Unknown Itching Verified 01/18/19 07:04 Physical Exam Vitals: Vital Signs Temp Pulse Pulse Resp BP BP BP 01/19/19 06:38 150/75 142/72 01/19/19 04:00 97.6 F 65 19 121/75 01/19/19 00:00 97.7 F 55 L 12 122/68 01/18/19 20:00 97.5 F L 57 L 12 127/67 01/18/19 18:00 61 21 124/82 01/18/19 17:00 58 L 14 127/68 01/18/19 16:00 58 L 56 L 16 123/64 01/18/19 15:07 62 16 123/64 Pulse Ox 01/19/19 06:38 01/19/19 04:00 96 01/19/19 00:00 95 01/18/19 20:00 95 01/18/19 18:00 96 01/18/19 17:00 96 01/18/19 16:00 96 01/18/19 15:07 94 L Intake and Output 01/18/19 01/19/19 01/19/19 22:59 06:59 14:59 Intake Total 1500 50 34 Output Total 0 0 1975 Balance 1500 50 -1941 Intake: IV 700 50 34 Intake, IV Titration 300 Amount Sodium Chloride 0.9% 1, 300 000 ml @ 75 mls/hr IV . [id number] [facility] Rx#:[id number] Oral 500 Output: Urine 0 0 475 Estimated Blood Loss 1500 Other: # Voids 2 Weight 124.8 kg GENERAL EXAM: Today, intubated, 73-year-old obese white male, comfortable in no apparent distress. HEAD: Normocephalic/atraumatic. EYES: Normal reaction of pupils, equal size. Conjunctiva pink, sclera white. NOSE: Clear with pink turbinates. THROAT: No erythema or exudates. NECK: No masses, no JVD, no thyroid enlargement, no adenopathy. CHEST: No chest wall deformity. Symmetrical expansion. Midsternal chest incisions clean dry and intact, left pleural and mediastinal chest tubes are Y- connected together connected to Pleur-evac with scant amount of sanguinous output, no evidence of air leak LUNGS: Equal air entry with no crackles, wheeze, rhonchi or dullness. CVS: Regular rate and rhythm, normal S1 and S2, no gallops, no murmurs, no rubs ABDOMEN: Soft, nontender. No hepatosplenomegaly, normal bowel sounds, no guarding or rigidity. EXTREMITIES: No clubbing, no edema, no cyanosis, 2+ pulses and upper and lower extremities. Graft sites from left radial, and right Lower extremity with dressings, MUSCULOSKELETAL: Muscle strength and tone normal. SPINE: No scoliosis or deformity SKIN: No rashes CENTRAL NERVOUS SYSTEM: Sedated, intubated. No focal deficits, tone is normal in all 4 extremities. Results - Laboratory Findings CBC and BMP: 01/19/19 05:21 01/19/19 05:21 ABG ABG pH 7.32 (7.35-7.45) L 01/19/19 13:43 ABG pCO2 46 mmHg (35-45) H 01/19/19 13:43 ABG pO2 114 mmHg (83-108) H 01/19/19 13:43 ABG O2 Saturation 98.4 % (94-97) H 01/19/19 13:43 PT/INR, D-dimer PT 10.9 sec (9.0-12.0) 01/19/19 05:21 INR 1.0 (<1.2) 01/19/19 05:21 Abnormal lab findings: Abnormal Labs 01/18/19 01/18/19 01/18/19 07:15 13:10 14:10 ABG pH ABG pCO2 ABG pO2 ABG HCO3 ABG Total CO2 ABG O2 Saturation ABG Hematocrit ABG Potassium ABG Glucose ABG Lactic Acid Hemoglobin Sodium Glucose POC Glucose (mg/dL) 152 H Hemoglobin A1c 6.3 H Total Bilirubin Triglycerides HDL Cholesterol Arterial Blood Potassium Arterial Blood Glucose Ur Specific [place] 1.045 H Urine Glucose (UA) 3+ H Ur Leukocyte Esterase Small H Urine RBC 10 H Urine WBC 6 H Urine Bacteria Rare H Urine Mucus Rare H Crossmatch 01/18/19 01/18/19 01/18/19 14:10 15:20 16:38 ABG pH ABG pCO2 ABG pO2 ABG HCO3 ABG Total CO2 ABG O2 Saturation ABG Hematocrit ABG Potassium ABG Glucose ABG Lactic Acid Hemoglobin Sodium Glucose 147 H POC Glucose (mg/dL) 113 H Hemoglobin A1c Total Bilirubin Triglycerides HDL Cholesterol Arterial Blood Potassium Arterial Blood Glucose Ur Specific [place] Urine Glucose (UA) Ur Leukocyte Esterase Urine RBC Urine WBC Urine Bacteria Urine Mucus Crossmatch See Detail 01/18/19 01/19/19 01/19/19 20:38 05:21 08:43 ABG pH ABG pCO2 ABG pO2 ABG HCO3 26 H ABG Total CO2 27 H ABG O2 Saturation ABG Hematocrit ABG Potassium ABG Glucose 131 H ABG Lactic Acid Hemoglobin Sodium 136 L Glucose 105 H POC Glucose (mg/dL) 190 H Hemoglobin A1c Total Bilirubin 1.4 H Triglycerides 218 H HDL Cholesterol 25 L Arterial Blood Potassium Arterial Blood Glucose 131 H Ur Specific [place] Urine Glucose (UA) Ur Leukocyte Esterase Urine RBC Urine WBC Urine Bacteria Urine Mucus Crossmatch 01/19/19 01/19/19 01/19/19 10:22 10:56 10:56 ABG pH 7.33 L ABG pCO2 49 H ABG pO2 153 H 144 H 144 H ABG HCO3 26 H ABG Total CO2 27 H 26 H 26 H ABG O2 Saturation 99.3 H 99.4 H 99.4 H ABG Hematocrit ABG Potassium 4.6 H ABG Glucose 222 H 222 H 222 H ABG Lactic Acid Hemoglobin 12.8 L 12.6 L 12.5 L Sodium Glucose POC Glucose (mg/dL) Hemoglobin A1c Total Bilirubin Triglycerides HDL Cholesterol Arterial Blood Potassium 4.6 H Arterial Blood Glucose 222 H 222 H 222 H Ur Specific [place] Urine Glucose (UA) Ur Leukocyte Esterase Urine RBC Urine WBC Urine Bacteria Urine Mucus Crossmatch 01/19/19 01/19/19 01/19/19 11:34 12:05 12:48 ABG pH ABG pCO2 ABG pO2 137 H 171 H 169 H ABG HCO3 ABG Total CO2 26 H 25 H 26 H ABG O2 Saturation 99.4 H 99.5 H 99.7 H ABG Hematocrit ABG Potassium ABG Glucose 202 H 190 H 167 H ABG Lactic Acid Hemoglobin 11.6 L 11.3 L 11.1 L Sodium Glucose POC Glucose (mg/dL) Hemoglobin A1c Total Bilirubin Triglycerides HDL Cholesterol Arterial Blood Potassium Arterial Blood Glucose 202 H 190 H 167 H Ur Specific [place] Urine Glucose (UA) Ur Leukocyte Esterase Urine RBC Urine WBC Urine Bacteria Urine Mucus Crossmatch 01/19/19 01/19/19 13:43 14:43 ABG pH 7.32 L ABG pCO2 46 H ABG pO2 114 H ABG HCO3 ABG Total CO2 25 H ABG O2 Saturation 98.4 H ABG Hematocrit 33 L ABG Potassium ABG Glucose 139 H ABG Lactic Acid 1.9 H Hemoglobin 10.9 L Sodium Glucose POC Glucose (mg/dL) 118 H Hemoglobin A1c Total Bilirubin Triglycerides HDL Cholesterol Arterial Blood Potassium Arterial Blood Glucose 139 H Ur Specific [place] Urine Glucose (UA) Ur Leukocyte Esterase Urine RBC Urine WBC Urine Bacteria Urine Mucus Crossmatch - Diagnostic Findings Chest x-ray: report reviewed, image reviewed Assessment and Plan Plan: Assessment: #1. Coronary artery disease, that is post 5 vessel coronary artery bypass grafting, postoperative day 0 #2. History of mild COPD, with the preoperative FEV1 of 82% of predicted #3. Potential #4. Hyperlipidemia #5. Diabetes mellitus #6. Previous history of tobacco dependence, currently in remission #7. History of family history of premature coronary artery disease #8. Morbid obesity Plan: Will obtain postoperative blood gases, postoperative chest x-ray has been reviewed showing small left pleural effusion, catheters and ET tube are in the appropriate positions. No pneumothorax. Hemodynamically patient is stable, minimal output from the left pleural and mediastinal chest tube, awaiting postoperative blood work, we'll proceed with spontaneous awakening and spontan eous breathing trials was the patient is awake. Continue close hemodynamic monitoring, incentive spirometry to the bedside after extubation, daily chest x- ray days with labs, nebulized bronchodilators, we'll continue to follow I performed a history & physical examination of the patient and discussed their management with my nurse practitioner, Argentina Barkley. I reviewed the nurse practitioner's note and agree with the documented findings and plan of care. Lung sounds are positive for diminished breath sounds. The findings and the impression was discussed with the patient. I attest to the documentation by the nurse practitioner. Time with Patient: Greater than 30
--- NOTE | 2019-01-19 15:10 | XR ---
EXAMINATION TYPE: XR chest 1V portable DATE OF EXAM: 01/19/2019 COMPARISON: 10/02/2018 HISTORY: Post cardiac surgery. TECHNIQUE: Single frontal view of the chest is obtained. FINDINGS: ET tube approximately 3 cm above luba. NG tube noted. Mediastinal drain and left-sided c hest tube seen with [place]-Michael catheter seen with the tip overlying the proximal pulmonary outflow tra ct. Bilateral consolidation and pleural effusion. No sizable pneumothorax. Subcutaneous emphysema on the left noted. IMPRESSION: 1. Postsurgical changes with bilateral consolidation and pleural effusion.
[2019-01-19 15:23] LABS: ABG Base Excess -2.6 mmol/L; ABG HCO3 25 mmol/L (21-25); ABG Oxygen Saturation 99.3 % (94-97); ABG PCO2 58 mmHg (35-45); ABG PH 7.24 (7.35-7.45); ABG PO2 231 mmHg (83-108); ABG TCO2 27 mmol/L (19-24)
[2019-01-19 15:32] LABS: Allen Test Performed? yes
[2019-01-19] MEDS: LACTATED RINGERS 1,000 ML IV SCH (15:34)
[2019-01-19] MEDS: ALBUMIN HUMAN 5% 250 ML in EMPTY BAG 1 BAG IVPB PRN ×3 (15:35→17:54)
[2019-01-19] MEDS: CLEVIDIPINE BUTYRATE 25 MG in EMPTY BAG 1 BAG IV SCH ×3 (15:37→20:14)
[2019-01-19] MEDS ORDERED: hydrALAZINE HCL 20 MG/ML 1 ML VIAL IVP PRN (15:57)
[2019-01-19] MEDS: IPRATROPIUM-ALBUTEROL 3 ML NEB INHALATION SCH ×3 (15:57→20:15)
[2019-01-19] MEDS: INSULIN REGULAR 100 UNIT in SODIUM CHLORIDE 0.9% 100 ML IV SCH (16:08)
[2019-01-19 16:12] LABS: Glucose,Whole Blood 101 mg/dL (75-99)
[2019-01-19 17:07] LABS: Glucose,Whole Blood 127 mg/dL (75-99)
[2019-01-19] MEDS: ACETAMINOPHEN IV (For NPO) 1,000 MG in EMPTY BAG 1 BAG IVPB SCH ×2 (17:23→23:17)
[2019-01-19] MEDS: KETOROLAC 30 MG/ML 1 ML VIAL IVP SCH ×2 (17:24→23:58)
[2019-01-19 17:50] LABS: Basophils % (A) 0 %; Eosinophils % (A) 0 %; HCT 29.3 % (39.0-53.0); HGB 10.3 gm/dL (13.0-17.5); Lymphocytes # (A) 0.9 k/uL (1.0-4.8); Lymphocytes % (A) 7 %; MCH 31.1 pg (25.0-35.0); MCHC 35.1 g/dL (31.0-37.0); MCV 88.7 fL (80.0-100.0); Mean Platelet Volume 9.7; Monocytes # (A) 0.8 k/uL (0-1.0); Monocytes % (A) 6 %; Neutrophils % (A) 86 %; Platelet Count 127 k/uL (150-450); RDW 12.1 % (11.5-15.5); WBC 13.9 k/uL (3.8-10.6)
[2019-01-19 18:05] LABS: Glucose,Whole Blood 156 mg/dL (75-99)
[2019-01-19] MEDS: MAGNESIUM SULFATE-D5W PMX 1 GM in DEXTROSE/WATER 1 100ML.BAG IVPB SCH ×2 (18:18→20:10)
[2019-01-19 19:05] LABS: Glucose,Whole Blood 171 mg/dL (75-99)
[2019-01-19 19:09] LABS: ABG Base Excess -2.1 mmol/L; ABG HCO3 23 mmol/L (21-25); ABG Oxygen Saturation 96.7 % (94-97); ABG PCO2 40 mmHg (35-45); ABG PH 7.37 (7.35-7.45); ABG PO2 85 mmHg (83-108); ABG TCO2 24 mmol/L (19-24); Allen Test Performed? Yes
[2019-01-19 19:59] LABS: Glucose,Whole Blood 164 mg/dL (75-99)
[2019-01-19 20:15] LABS: Basophils % (A) 0 %; Eosinophils % (A) 0 %; HCT 29.8 % (39.0-53.0); HGB 10.5 gm/dL (13.0-17.5); Lymphocytes # (A) 0.5 k/uL (1.0-4.8); Lymphocytes % (A) 5 %; MCH 31.1 pg (25.0-35.0); MCHC 35.2 g/dL (31.0-37.0); MCV 88.2 fL (80.0-100.0); Mean Platelet Volume 10.1; Monocytes # (A) 0.5 k/uL (0-1.0); Monocytes % (A) 4 %; Neutrophils # (A) 9.1 k/uL (1.3-7.7); Neutrophils % (A) 90 %; Platelet Count 119 k/uL (150-450); RBC 3.37 m/uL (4.30-5.90); WBC 10.2 k/uL (3.8-10.6)
[2019-01-19] MEDS: METOPROLOL TARTRATE 12.5 MG TAB PO SCH (20:56)
[2019-01-19] MEDS ORDERED: MUPIROCIN 2% OINT 22 GM TUBE NASAL SCH (21:00)
[2019-01-19 21:07] LABS: Glucose,Whole Blood 173 mg/dL (75-99)
[2019-01-19 21:56] LABS: Glucose,Whole Blood 154 mg/dL (75-99)
[2019-01-19 22:59] LABS: Glucose,Whole Blood 140 mg/dL (75-99)
[2019-01-20 00:05] LABS: Glucose,Whole Blood 113 mg/dL (75-99)
[2019-01-20 01:09] LABS: Glucose,Whole Blood 133 mg/dL (75-99)
[2019-01-20] MEDS ORDERED: HYDROcodone/APAP 5-325MG 1 EACH TAB PO PRN (02:06)
[2019-01-20 02:10] LABS: Glucose,Whole Blood 131 mg/dL (75-99)
[2019-01-20 02:55] LABS: Glucose,Whole Blood 123 mg/dL (75-99)
[2019-01-20 03:56] LABS: Glucose,Whole Blood 115 mg/dL (75-99)
[2019-01-20 04:24] LABS: Basophils % (A) 0 %; Eosinophils # (A) 0.1 k/uL (0-0.7); Eosinophils % (A) 1 %; HCT 29.9 % (39.0-53.0); HGB 10.6 gm/dL (13.0-17.5); Lymphocytes # (A) 1.2 k/uL (1.0-4.8); Lymphocytes % (A) 15 %; MCH 31.1 pg (25.0-35.0); MCHC 35.3 g/dL (31.0-37.0); MCV 87.9 fL (80.0-100.0); Mean Platelet Volume 10.8; Monocytes # (A) 0.5 k/uL (0-1.0); Monocytes % (A) 6 %; Neutrophils # (A) 6.3 k/uL (1.3-7.7); Neutrophils % (A) 77 %; Platelet Count 112 k/uL (150-450); RDW 12.2 % (11.5-15.5); WBC 8.2 k/uL (3.8-10.6)
[2019-01-20 04:28] LABS: Ionized Calcium 4.6 mg/dL (4.5-5.3)
[2019-01-20 04:37] LABS: ALT 20 U/L (21-72); AST 29 U/L (17-59); African American GFR (CKD) >90 (>60 ml/min/1.73 sqM); Albumin 3.5 g/dL (3.5-5.0); Alkaline Phosphatase 51 U/L (38-126); Anion Gap 7 mmol/L; Blood Urea Nitrogen 19 mg/dL (9-20); Calcium 8.3 mg/dL (8.4-10.2); Carbon Dioxide 24 mmol/L (22-30); Chloride 106 mmol/L (98-107); Glucose 115 mg/dL (74-99); Non-African American GFR(CKD) 79 (>60 ml/min/1.73 sqM); Potassium 4.1 mmol/L (3.5-5.1); Sodium 137 mmol/L (137-145); Total Protein 5.3 g/dL (6.3-8.2)
[2019-01-20] MEDS: HYDROcodone/APAP 5-325MG 1 EACH TAB PO PRN ×3 (04:57→20:10)
[2019-01-20] MEDS: ALBUMIN HUMAN 5% 250 ML in EMPTY BAG 1 BAG IVPB PRN (05:50)
[2019-01-20] MEDS: KETOROLAC 30 MG/ML 1 ML VIAL IVP SCH ×3 (05:52→18:14)
[2019-01-20 06:12] LABS: Glucose,Whole Blood 145 mg/dL (75-99)
[2019-01-20] MEDS ORDERED: ACETAMINOPHEN TAB 500 MG TAB PO PRN (06:56)
[2019-01-20 07:01] LABS: Glucose,Whole Blood 146 mg/dL (75-99)
--- NOTE | 2019-01-20 07:18 | XR ---
EXAMINATION TYPE: XR chest 1V portable DATE OF EXAM: 01/20/2019 COMPARISON: 01/19/2019 HISTORY: Status post cardiac surgery TECHNIQUE: Single frontal view of the chest is obtained. FINDINGS: Right-sided internal jugular [place]-Michael catheter is mildly kinked at the neck but similar i n position distally. Left thoracostomy tube is stable. No sizable pneumothorax. Improved subcutaneous emphysema of the left chest wall. Worsening right basilar opacity and stable left basilar opacity. M ediastinal drain is unchanged. Enlarged cardiac mediastinal silhouette with post CABG change. IMPRESSION: 1. Worsening trace right pleural effusion and right basilar airspace disease with stable left basilar airspace disease. 2. Lines and tubes are stable. Of note the fenestrated portion of the left chest tube is at the chest wall and the superficial portion of the right [place]-Michael catheter is present.
--- NOTE | 2019-01-20 07:47 | P.PN ---
Subjective Progress Note Date: 01/20/19 Principal diagnosis: Severe triple vessel coronary artery disease. Previous medical history of hypertension, hyperlipidemia, type 2 diabetes with current hemoglobin A1c 6.3%, obesity, pancreatitis 10 years ago, recurrent kidney stones, previous tobacco dependence with preoperative FEV1 82% of predicted, and family history of premature coronary artery disease. POD #1 urgent off-pump coronary artery bypass grafting 5 with sequential left internal mammary artery to the left anterior descending artery and first diagonal artery, sequential left radial artery to the first and second obtuse marginal artery and reverse saphenous vein graft to the posterior lateral branch of the circumflex coronary artery. Endovascular vein harvest of the left greater saphenous vein from mid calf to the groin. Endovascular radial artery harvest. Intraoperative transesophageal echocardiogram. The patient's currently sitting up in a recliner in the intensive care unit in no acute distress. He was successfully extubated last night at 19:17 p.m. Does complain of a post surgical pain controlled on current medication regimen, denies shortness of breath. Currently in normal sinus rhythm, hemodynamically stable on no inotropes or pressors. Right internal jugular Corn/Cordis, right r adial arterial line present, mediastinal and left pleural chest tubes present. Patient is attempting incentive spirometry use. No new concerns. Objective - Vital Signs Vital signs: Vital Signs Temp 98.3 F 01/20/19 04:00 Pulse 68 01/20/19 07:01 Resp 21 01/20/19 07:01 BP 115/63 01/20/19 05:30 Pulse Ox 96 01/20/19 07:01 Intake & Output 01/19/19 01/20/19 01/20/19 18:59 06:59 18:59 Intake Total 6925.780 0546.185 59 Output Total 2506 1630 70 Balance -1261.506 -541.815 -11 Weight 151 kg Intake: IV 34 819 59 Lactated Ringers 1,000 ml 550 50 @ 20 mls/hr IV .Q24H DEX Rx#:[id number] co/ci 170 pressure bag 99 9 Intake, IV Titration 1210.494 269.185 Amount ACETAMINOPHEN IV (For NPO 100 ) 1,000 mg In Empty Bag 1 bag @ 400 mls/hr IVPB Q6HR DEX Rx#:[id number] Albumin Human 5% 250 ml 750 In Empty Bag 1 bag @ 250 mls/hr IVPB Q1HR PRN Rx#: [id number] Clevidipine Butyrate 25 12 6 mg In Empty Bag 1 bag @ 1 MG/HR 2 mls/hr IV .Q24H DEX Rx#:[id number] Clevidipine Butyrate 25 9.767 50.734 mg In Empty Bag 1 bag @ 1 MG/HR 2 mls/hr IV .Q24H DEX Rx#:[id number] Diltiazem 125 mg In 20 5 Sodium Chloride 0.9% 100 ml @ 5 MG/HR 5 mls/hr IV .Q24H DEX Rx#:[id number] Insulin Regular 100 unit 30.891 33.701 In Sodium Chloride 0.9% 100 ml @ Per Protocol IV .Q0M DEX Rx#:[id number] Lactated Ringers 1,000 ml 200 50 @ 20 mls/hr IV .Q24H DEX Rx#:[id number] Magnesium Sulfate-D5w Pmx 100 1 gm In Dextrose/Water 1 100ml.bag @ 100 mls/hr IVPB Q1H DEX Rx#: [id number] Nitroglycerin-D5w Pmx 50 6.0 23.75 mg In Dextrose/Water 1 250ml.bag @ 5 MCG/MIN 1.5 mls/hr IV .Q24H DEX Rx#: [id number] Propofol 1,000 mg In 31.836 Empty Bag 1 bag @ Titrate IV .Q0M DEX Rx#: [id number] ceFAZolin 2 gm In Sodium 50 Chloride 0.9% 50 ml @ 100 mls/hr IVPB Q8HR DEX Rx# :[id number] Output: Chest Tube Drainage 228 790 40 Left Pleural/Mediastinal 228 790 40 Drainage 30 Left Arm 30 Urine 778 810 30 Estimated Blood Loss 1500 Other: Voiding Method Indwelling Catheter Indwelling Catheter ABP, PAP, CO, CI - Last Documented Arterial Blood Pressure 96/41 Pulmonary Artery Pressure 22/5 Cardiac Output 7 Cardiac Index 2.8 - Constitutional General appearance: Present: cooperative, no acute distress, obese - Respiratory Details: Lungs sounds diminished bilaterally. Respirations even, nonlabored. Currently on 3 L nasal cannula with oxygen saturation 95%. Able to achieve 750 mL on his incentive spirometry. Strong cough. Mediastinal/left pleural chest tube to continuous wall suction, 530 mL serosanguineous drainage overnight, 1050 mL since surgery, no air leak present. - Cardiovascular Details: S1, S2 present, no murmur present. Regular rate and rhythm, sinus rhythm on telemetry. Palpable peripheral pulses bilaterally. No edema present. No calf pain or tenderness noted. Right internal jugular Corn/Cordis, right radial ar terial line present. Last CO/CI 7.0/2.8 on no inotropes or pressors. Heart hugger in place with patient demonstrating appropriate use. Antiembolism stockings, SCDs present. - Gastrointestinal Gastrointestinal Comment(s): Abdomen soft, nontender, nondistended. Hypoactive bowel sounds present 4 quadrants. Tolerating clear liquids. Denies flatus. Denies nausea. - Genitourinary Genitourinary Comment(s): Dozier present draining clear, yellow urine. Output overnight 30-50 mL per hour. - Integumentary Integumentary Comment(s): Skin is warm and dry with evidence of good perfusion. Anterior chest incision well approximated and covered with dry intact dressing. Left radial artery harvest site well approximated, SARAH drain present with minimal serosanguineous drainage. Patient does have full motion of his left hand, skin is warm with good cap refill, patient denies numbness or tingling except his pinky finger which he said has been chronic for years. Left lower extremity EVH site well approximated. - Neurologic Neurologic: Present: CNII-XII intact - Musculoskeletal Musculoskeletal: Present: strength equal bilaterally - Psychiatric Psychiatric: Present: A&O x's 3, appropriate affect, intact judgment & insight - Allied health notes Allied health notes reviewed: nursing - Labs CBC & Chem 7: 01/20/19 04:15 01/20/19 04:15 Labs: Abnormal Lab Results - Last 24 Hours (Table) 01/18/19 01/19/19 01/19/19 Range/Units 15:20 08:43 10:22 WBC (3.8-10.6) k/uL RBC (4.30-5.90) m/uL Hgb (13.0-17.5) gm/dL Hct (39.0-53.0) % Plt Count (150-450) k/uL Neutrophils # (1.3-7.7) k/uL Lymphocytes # (1.0-4.8) k/uL PT (9.0-12.0) sec INR (<1.2) ABG pH 7.33 L (7.35-7.45) ABG pCO2 49 H (35-45) mmHg ABG pO2 153 H (83-108) mmHg ABG HCO3 26 H 26 H (21-25) mmol/L ABG Total CO2 27 H 27 H (19-24) mmol/L ABG O2 Saturation 99.3 H (94-97) % ABG Hematocrit (34.0-46.0) % ABG Potassium 4.6 H (3.4-4.5) mmol/L ABG Glucose 131 H 222 H (75-99) mg/dL ABG Lactic Acid (0.5-1.6) mmol/L Hemoglobin 12.8 L (13.0-17.5) gm/dL Chloride (98-107) mmol/L Glucose (74-99) mg/dL POC Glucose (mg/dL) (75-99) mg/dL Calcium (8.4-10.2) mg/dL Total Bilirubin (0.2-1.3) mg/dL ALT (21-72) U/L Total Protein (6.3-8.2) g/dL Albumin (3.5-5.0) g/dL Arterial Blood Potassium 4.6 H (3.4-4.5) mmol/L Arterial Blood Glucose 131 H 222 H (75-99) mg/dL Crossmatch See Detail 01/19/19 01/19/19 01/19/19 Range/Units 10:56 10:56 11:34 WBC (3.8-10.6) k/uL RBC (4.30-5.90) m/uL Hgb (13.0-17.5) gm/dL Hct (39.0-53.0) % Plt Count (150-450) k/uL Neutrophils # (1.3-7.7) k/uL Lymphocytes # (1.0-4.8) k/uL PT (9.0-12.0) sec INR (<1.2) ABG pH (7.35-7.45) ABG pCO2 (35-45) mmHg ABG pO2 144 H 144 H 137 H (83-108) mmHg ABG HCO3 (21-25) mmol/L ABG Total CO2 26 H 26 H 26 H (19-24) mmol/L ABG O2 Saturation 99.4 H 99.4 H 99.4 H (94-97) % ABG Hematocrit (34.0-46.0) % ABG Potassium (3.4-4.5) mmol/L ABG Glucose 222 H 222 H 202 H (75-99) mg/dL ABG Lactic Acid (0.5-1.6) mmol/L Hemoglobin 12.6 L 12.5 L 11.6 L (13.0-17.5) gm/dL Chloride (98-107) mmol/L Glucose (74-99) mg/dL POC Glucose (mg/dL) (75-99) mg/dL Calcium (8.4-10.2) mg/dL Total Bilirubin (0.2-1.3) mg/dL ALT (21-72) U/L Total Protein (6.3-8.2) g/dL Albumin (3.5-5.0) g/dL Arterial Blood Potassium (3.4-4.5) mmol/L Arterial Blood Glucose 222 H 222 H 202 H (75-99) mg/dL Crossmatch 01/19/19 01/19/19 01/19/19 Range/Units 12:05 12:48 13:43 WBC (3.8-10.6) k/uL RBC (4.30-5.90) m/uL Hgb (13.0-17.5) gm/dL Hct (39.0-53.0) % Plt Count (150-450) k/uL Neutrophils # (1.3-7.7) k/uL Lymphocytes # (1.0-4.8) k/uL PT (9.0-12.0) sec INR (<1.2) ABG pH 7.32 L (7.35-7.45) ABG pCO2 46 H (35-45) mmHg ABG pO2 171 H 169 H 114 H (83-108) mmHg ABG HCO3 (21-25) mmol/L ABG Total CO2 25 H 26 H 25 H (19-24) mmol/L ABG O2 Saturation 99.5 H 99.7 H 98.4 H (94-97) % ABG Hematocrit 33 L (34.0-46.0) % ABG Potassium (3.4-4.5) mmol/L ABG Glucose 190 H 167 H 139 H (75-99) mg/dL ABG Lactic Acid 1.9 H (0.5-1.6) mmol/L Hemoglobin 11.3 L 11.1 L 10.9 L (13.0-17.5) gm/dL Chloride (98-107) mmol/L Glucose (74-99) mg/dL POC Glucose (mg/dL) (75-99) mg/dL Calcium (8.4-10.2) mg/dL Total Bilirubin (0.2-1.3) mg/dL ALT (21-72) U/L Total Protein (6.3-8.2) g/dL Albumin (3.5-5.0) g/dL Arterial Blood Potassium (3.4-4.5) mmol/L Arterial Blood Glucose 190 H 167 H 139 H (75-99) mg/dL Crossmatch 01/19/19 01/19/19 01/19/19 Range/Units 14:43 14:45 14:45 WBC 14.6 H (3.8-10.6) k/uL RBC 3.25 L (4.30-5.90) m/uL Hgb 10.2 L D (13.0-17.5) gm/dL Hct 29.0 L (39.0-53.0) % Plt Count 104 L (150-450) k/uL Neutrophils # 12.9 H (1.3-7.7) k/uL Lymphocytes # 0.9 L (1.0-4.8) k/uL PT (9.0-12.0) sec INR (<1.2) ABG pH (7.35-7.45) ABG pCO2 (35-45) mmHg ABG pO2 (83-108) mmHg ABG HCO3 (21-25) mmol/L ABG Total CO2 (19-24) mmol/L ABG O2 Saturation (94-97) % ABG Hematocrit (34.0-46.0) % ABG Potassium (3.4-4.5) mmol/L ABG Glucose (75-99) mg/dL ABG Lactic Acid (0.5-1.6) mmol/L Hemoglobin (13.0-17.5) gm/dL Chloride 108 H (98-107) mmol/L Glucose 110 H (74-99) mg/dL POC Glucose (mg/dL) 118 H (75-99) mg/dL Calcium 7.8 L (8.4-10.2) mg/dL Total Bilirubin (0.2-1.3) mg/dL ALT 20 L (21-72) U/L Total Protein 5.2 L (6.3-8.2) g/dL Albumin 3.4 L (3.5-5.0) g/dL Arterial Blood Potassium (3.4-4.5) mmol/L Arterial Blood Glucose (75-99) mg/dL Crossmatch 01/19/19 01/19/19 01/19/19 Range/Units 14:45 15:20 16:11 WBC (3.8-10.6) k/uL RBC (4.30-5.90) m/uL Hgb (13.0-17.5) gm/dL Hct (39.0-53.0) % Plt Count (150-450) k/uL Neutrophils # (1.3-7.7) k/uL Lymphocytes # (1.0-4.8) k/uL PT 12.6 H (9.0-12.0) sec INR 1.2 H (<1.2) ABG pH 7.24 L (7.35-7.45) ABG pCO2 58 H (35-45) mmHg ABG pO2 231 H (83-108) mmHg ABG HCO3 (21-25) mmol/L ABG Total CO2 27 H (19-24) mmol/L ABG O2 Saturation 99.3 H (94-97) % ABG Hematocrit (34.0-46.0) % ABG Potassium (3.4-4.5) mmol/L ABG Glucose (75-99) mg/dL ABG Lactic Acid (0.5-1.6) mmol/L Hemoglobin (13.0-17.5) gm/dL Chloride (98-107) mmol/L Glucose (74-99) mg/dL POC Glucose (mg/dL) 101 H (75-99) mg/dL Calcium (8.4-10.2) mg/dL Total Bilirubin (0.2-1.3) mg/dL ALT (21-72) U/L Total Protein (6.3-8.2) g/dL Albumin (3.5-5.0) g/dL Arterial Blood Potassium (3.4-4.5) mmol/L Arterial Blood Glucose (75-99) mg/dL Crossmatch 01/19/19 01/19/19 01/19/19 Range/Units 17:05 17:35 18:03 WBC 13.9 H (3.8-10.6) k/uL RBC 3.30 L (4.30-5.90) m/uL Hgb 10.3 L (13.0-17.5) gm/dL Hct 29.3 L (39.0-53.0) % Plt Count 127 L (150-450) k/uL Neutrophils # 12.0 H (1.3-7.7) k/uL Lymphocytes # 0.9 L (1.0-4.8) k/uL PT (9.0-12.0) sec INR (<1.2) ABG pH (7.35-7.45) ABG pCO2 (35-45) mmHg ABG pO2 (83-108) mmHg ABG HCO3 (21-25) mmol/L ABG Total CO2 (19-24) mmol/L ABG O2 Saturation (94-97) % ABG Hematocrit (34.0-46.0) % ABG Potassium (3.4-4.5) mmol/L ABG Glucose (75-99) mg/dL ABG Lactic Acid (0.5-1.6) mmol/L Hemoglobin (13.0-17.5) gm/dL Chloride (98-107) mmol/L Glucose (74-99) mg/dL POC Glucose (mg/dL) 127 H 156 H (75-99) mg/dL Calcium (8.4-10.2) mg/dL Total Bilirubin (0.2-1.3) mg/dL ALT (21-72) U/L Total Protein (6.3-8.2) g/dL Albumin (3.5-5.0) g/dL Arterial Blood Potassium (3.4-4.5) mmol/L Arterial Blood Glucose (75-99) mg/dL Crossmatch 01/19/19 01/19/19 01/19/19 Range/Units 19:04 19:58 20:05 WBC (3.8-10.6) k/uL RBC 3.37 L (4.30-5.90) m/uL Hgb 10.5 L (13.0-17.5) gm/dL Hct 29.8 L (39.0-53.0) % Plt Count 119 L (150-450) k/uL Neutrophils # 9.1 H (1.3-7.7) k/uL Lymphocytes # 0.5 L (1.0-4.8) k/uL PT (9.0-12.0) sec INR (<1.2) ABG pH (7.35-7.45) ABG pCO2 (35-45) mmHg ABG pO2 (83-108) mmHg ABG HCO3 (21-25) mmol/L ABG Total CO2 (19-24) mmol/L ABG O2 Saturation (94-97) % ABG Hematocrit (34.0-46.0) % ABG Potassium (3.4-4.5) mmol/L ABG Glucose (75-99) mg/dL ABG Lactic Acid (0.5-1.6) mmol/L Hemoglobin (13.0-17.5) gm/dL Chloride (98-107) mmol/L Glucose (74-99) mg/dL POC Glucose (mg/dL) 171 H 164 H (75-99) mg/dL Calcium (8.4-10.2) mg/dL Total Bilirubin (0.2-1.3) mg/dL ALT (21-72) U/L Total Protein (6.3-8.2) g/dL Albumin (3.5-5.0) g/dL Arterial Blood Potassium (3.4-4.5) mmol/L Arterial Blood Glucose (75-99) mg/dL Crossmatch 01/19/19 01/19/19 01/19/19 Range/Units 21:06 21:55 22:59 WBC (3.8-10.6) k/uL RBC (4.30-5.90) m/uL Hgb (13.0-17.5) gm/dL Hct (39.0-53.0) % Plt Count (150-450) k/uL Neutrophils # (1.3-7.7) k/uL Lymphocytes # (1.0-4.8) k/uL PT (9.0-12.0) sec INR (<1.2) ABG pH (7.35-7.45) ABG pCO2 (35-45) mmHg ABG pO2 (83-108) mmHg ABG HCO3 (21-25) mmol/L ABG Total CO2 (19-24) mmol/L ABG O2 Saturation (94-97) % ABG Hematocrit (34.0-46.0) % ABG Potassium (3.4-4.5) mmol/L ABG Glucose (75-99) mg/dL ABG Lactic Acid (0.5-1.6) mmol/L Hemoglobin (13.0-17.5) gm/dL Chloride (98-107) mmol/L Glucose (74-99) mg/dL POC Glucose (mg/dL) 173 H 154 H 140 H (75-99) mg/dL Calcium (8.4-10.2) mg/dL Total Bilirubin (0.2-1.3) mg/dL ALT (21-72) U/L Total Protein (6.3-8.2) g/dL Albumin (3.5-5.0) g/dL Arterial Blood Potassium (3.4-4.5) mmol/L Arterial Blood Glucose (75-99) mg/dL Crossmatch 01/20/19 01/20/19 01/20/19 Range/Units 00:03 01:07 02:09 WBC (3.8-10.6) k/uL RBC (4.30-5.90) m/uL Hgb (13.0-17.5) gm/dL Hct (39.0-53.0) % Plt Count (150-450) k/uL Neutrophils # (1.3-7.7) k/uL Lymphocytes # (1.0-4.8) k/uL PT (9.0-12.0) sec INR (<1.2) ABG pH (7.35-7.45) ABG pCO2 (35-45) mmHg ABG pO2 (83-108) mmHg ABG HCO3 (21-25) mmol/L ABG Total CO2 (19-24) mmol/L ABG O2 Saturation (94-97) % ABG Hematocrit (34.0-46.0) % ABG Potassium (3.4-4.5) mmol/L ABG Glucose (75-99) mg/dL ABG Lactic Acid (0.5-1.6) mmol/L Hemoglobin (13.0-17.5) gm/dL Chloride (98-107) mmol/L Glucose (74-99) mg/dL POC Glucose (mg/dL) 113 H 133 H 131 H (75-99) mg/dL Calcium (8.4-10.2) mg/dL Total Bilirubin (0.2-1.3) mg/dL ALT (21-72) U/L Total Protein (6.3-8.2) g/dL Albumin (3.5-5.0) g/dL Arterial Blood Potassium (3.4-4.5) mmol/L Arterial Blood Glucose (75-99) mg/dL Crossmatch 01/20/19 01/20/19 01/20/19 Range/Units 02:54 03:55 04:15 WBC (3.8-10.6) k/uL RBC 3.40 L (4.30-5.90) m/uL Hgb 10.6 L (13.0-17.5) gm/dL Hct 29.9 L (39.0-53.0) % Plt Count 112 L (150-450) k/uL Neutrophils # (1.3-7.7) k/uL Lymphocytes # (1.0-4.8) k/uL PT (9.0-12.0) sec INR (<1.2) ABG pH (7.35-7.45) ABG pCO2 (35-45) mmHg ABG pO2 (83-108) mmHg ABG HCO3 (21-25) mmol/L ABG Total CO2 (19-24) mmol/L ABG O2 Saturation (94-97) % ABG Hematocrit (34.0-46.0) % ABG Potassium (3.4-4.5) mmol/L ABG Glucose (75-99) mg/dL ABG Lactic Acid (0.5-1.6) mmol/L Hemoglobin (13.0-17.5) gm/dL Chloride (98-107) mmol/L Glucose (74-99) mg/dL POC Glucose (mg/dL) 123 H 115 H (75-99) mg/dL Calcium (8.4-10.2) mg/dL Total Bilirubin (0.2-1.3) mg/dL ALT (21-72) U/L Total Protein (6.3-8.2) g/dL Albumin (3.5-5.0) g/dL Arterial Blood Potassium (3.4-4.5) mmol/L Arterial Blood Glucose (75-99) mg/dL Crossmatch 01/20/19 01/20/19 01/20/19 Range/Units 04:15 06:10 06:59 WBC (3.8-10.6) k/uL RBC (4.30-5.90) m/uL Hgb (13.0-17.5) gm/dL Hct (39.0-53.0) % Plt Count (150-450) k/uL Neutrophils # (1.3-7.7) k/uL Lymphocytes # (1.0-4.8) k/uL PT (9.0-12.0) sec INR (<1.2) ABG pH (7.35-7.45) ABG pCO2 (35-45) mmHg ABG pO2 (83-108) mmHg ABG HCO3 (21-25) mmol/L ABG Total CO2 (19-24) mmol/L ABG O2 Saturation (94-97) % ABG Hematocrit (34.0-46.0) % ABG Potassium (3.4-4.5) mmol/L ABG Glucose (75-99) mg/dL ABG Lactic Acid (0.5-1.6) mmol/L Hemoglobin (13.0-17.5) gm/dL Chloride (98-107) mmol/L Glucose 115 H (74-99) mg/dL POC Glucose (mg/dL) 145 H 146 H (75-99) mg/dL Calcium 8.3 L (8.4-10.2) mg/dL Total Bilirubin 2.0 H (0.2-1.3) mg/dL ALT 20 L (21-72) U/L Total Protein 5.3 L (6.3-8.2) g/dL Albumin (3.5-5.0) g/dL Arterial Blood Potassium (3.4-4.5) mmol/L Arterial Blood Glucose (75-99) mg/dL Crossmatch Microbiology - Last 24 Hours (Table) 01/18/19 10:51 Nasal Screen MRSA/MSSA - Final Nasal Swab - Imaging and Cardiology Chest x-ray: report reviewed Assessment and Plan Assessment: 1. Severe triple-vessel coronary artery disease, status post 5 vessel off-pump CABG 2. Hypertension 3. Hyperlipidemia 4. Type 2 diabetes, current hemoglobin A1c 6.3% 5. Obesity 6. Pancreatitis 10 years ago 7. Current kidney stones 8. Previous tobacco dependence with FEV1 82% of predicted, post bronchodilator 84% of predicted 9. Family history of premature coronary artery disease Plan: 1. Continue aspirin, statin, Plavix, beta cuauhtemoc therapy. Will increase beta cuauhtemoc therapy as tolerated. Discontinue IV nitro 2. Wean O2 as tolerated. Bronchodilators per pulmonology. Encourage incentive spirometry is 10 times every hour while awake 3. Increase activity, ambulate as tolerated. PT/OT/cardiac rehab following 4. Will monitor daily labs and x-rays. Electro replacement per protocol. Will give 20 mg IVP lasix today 5. Insulin management per primary care service 6. Pain control with current medication regimen. Oral Tylenol added, Toradol added last night 7. Will add oral Cardizem for radial artery spasm. Discontinue IV Cardizem 30 minutes after first oral dose. Do not discontinue Cardizem without discussed with cardiothoracic surgery 8. Discontinue Corn-Michael catheter. Connected Cordis to continue CVP monitoring 9. Will keep chest tubes, Cordis, arterial line, Dozier for another 24 hours 10. More recommendations to follow based on patient's progress Time with Patient: Greater than 30
--- NOTE | 2019-01-20 08:01 | P.PN ---
Subjective This is a pleasant 73 years old male with past medical history of coronary artery disease, diabetes mellitus, hyperlipidemia, hypertension, kidney stone, HISTORY of pancreatitis, ex-smoker, pulmonary hypertension. patient was admitted for myocardial revascularization for his triple-vessel coronary artery disease. Patient has chronic dyspnea and his been evaluated by maintenance construction helper showing positive stress test with reversible anterior ischemia, ejection fraction of 55% with moderate concentric left ventricular hypertrophy. Recent cardiac cath showing 100% occlusion of the RCA, 90% stenosis of the circumflex artery, and 80% stenosis of the LAD. Patient is scheduled for surgery today, he has recent CAT scan of the chest showing moderate 3 vessel coronary artery calcification and pulmonary hypertension with emphysematous changes Carotid Doppler showing no significant stenosis, however there is no mention if there is a plaque or not. This morning patient denies chest pain or dyspnea. No abdominal pain or nausea vomiting. Vitas looks stable. Labs were reviewed showing unremarkable CBC, INR, BMP, liver enzymes. Bilirubin is 1.4, triglycerides 218. Hepatitis panel was nonreactive. Urinalysis showed specific gravity of 1.045 and small leukocyte esterase. 01/20/2019 Patient seen and examined in the ICU, is fully awake and oriented. He is status post coronary artery bypass grafting 5. Today is postoperative day #1. Patient denies chest pain or dyspnea. No other new complaints. He had small breakfast this morning which is his norm. He remains on Cardizem and insulin drip. However he was started on oral Cardizem as well. As well as on IV fluids. Vitas looks stable with blood pressure of 115/63, breathing rate 21. Patient is afebrile. He is saturating 94% on 3 L oxygen via nasal cannula. Heart rate is 68 BPM. Hemoglobin stable at 10.6. No leukocytosis. BMP is unremarkable with normal electrolytes and creatinine 0.97. Sugar is controlled 115-146. Liver enzymes not elevated. View of systems CONSTITUTIONAL: No fever, no malaise, no fatigue. HEENT: No recent visual problems or hearing problems. Denied any sore throat. CARDIOVASCULAR: No orthopnea, PND, no palpitations, no syncope. PULMONARY: No shortness of breath, no cough, no hemoptysis. GASTROINTESTINAL: No diarrhea, no nausea, no vomiting, no abdominal pain. Normoactive bowel sounds. NEUROLOGICAL: No headaches, no weakness, no numbness. HEMATOLOGICAL: Denies any bleeding or petechiae. GENITOURINARY: Denies any burning micturition, frequency, or urgency. MUSCULOSKELETAL/RHEUMATOLOGICAL: Denies any joint pain, swelling, or any muscle pain. ENDOCRINE: Denies any polyuria or polydipsia. Objective - Vital Signs Vital signs: Vital Signs Temp 98.3 F 01/20/19 04:00 Pulse 68 01/20/19 07:01 Resp 21 01/20/19 07:01 BP 115/63 01/20/19 05:30 Pulse Ox 96 01/20/19 07:01 Intake & Output 01/19/19 01/20/19 01/20/19 18:59 06:59 18:59 Intake Total 6055.774 6526.185 59 Output Total 2506 1630 70 Balance -1261.506 -541.815 -11 Weight 151 kg Intake: IV 34 819 59 Lactated Ringers 1,000 ml 550 50 @ 20 mls/hr IV .Q24H DEX Rx#:[id number] co/ci 170 pressure bag 99 9 Intake, IV Titration 1210.494 269.185 Amount ACETAMINOPHEN IV (For NPO 100 ) 1,000 mg In Empty Bag 1 bag @ 400 mls/hr IVPB Q6HR DEX Rx#:[id number] Albumin Human 5% 250 ml 750 In Empty Bag 1 bag @ 250 mls/hr IVPB Q1HR PRN Rx#: [id number] Clevidipine Butyrate 25 12 6 mg In Empty Bag 1 bag @ 1 MG/HR 2 mls/hr IV .Q24H DEX Rx#:[id number] Clevidipine Butyrate 25 9.767 50.734 mg In Empty Bag 1 bag @ 1 MG/HR 2 mls/hr IV .Q24H DEX Rx#:[id number] Diltiazem 125 mg In 20 5 Sodium Chloride 0.9% 100 ml @ 5 MG/HR 5 mls/hr IV .Q24H DEX Rx#:[id number] Insulin Regular 100 unit 30.891 33.701 In Sodium Chloride 0.9% 100 ml @ Per Protocol IV .Q0M DEX Rx#:[id number] Lactated Ringers 1,000 ml 200 50 @ 20 mls/hr IV .Q24H DEX Rx#:[id number] Magnesium Sulfate-D5w Pmx 100 1 gm In Dextrose/Water 1 100ml.bag @ 100 mls/hr IVPB Q1H DEX Rx#: [id number] Nitroglycerin-D5w Pmx 50 6.0 23.75 mg In Dextrose/Water 1 250ml.bag @ 5 MCG/MIN 1.5 mls/hr IV .Q24H DEX Rx#: [id number] Propofol 1,000 mg In 31.836 Empty Bag 1 bag @ Titrate IV .Q0M DEX Rx#: [id number] ceFAZolin 2 gm In Sodium 50 Chloride 0.9% 50 ml @ 100 mls/hr IVPB Q8HR DEX Rx# :[id number] Output: Chest Tube Drainage 228 790 40 Left Pleural/Mediastinal 228 790 40 Drainage 30 Left Arm 30 Urine 778 810 30 Estimated Blood Loss 1500 Other: Voiding Method Indwelling Catheter Indwelling Catheter ABP, PAP, CO, CI - Last Documented Arterial Blood Pressure 96/41 Pulmonary Artery Pressure 22/5 Cardiac Output 7 Cardiac Index 2.8 - Exam GENERAL: The patient is alert and oriented x3, not in any acute distress. Well developed, well nourished. HEENT: Pupils are round and equally reacting to light. EOMI. No scleral icterus. No conjunctival pallor. Normocephalic, atraumatic. No pharyngeal erythema. No thyromegaly. -CARDIOVASCULAR: S1 and S2 present. No murmurs, rubs, or gallops. Surgical wound with dressing is in place PULMONARY: Chest is clear to auscultation, no wheezing or crackles. ABDOMEN: Soft, nontender, nondistended, normoactive bowel sounds. No palpable organomegaly. MUSCULOSKELETAL: No joint swelling or deformity. EXTREMITIES: No cyanosis, clubbing, or pedal edema. NEUROLOGICAL: Gross neurological examination did not reveal any focal deficits. SKIN: No rashes. No petechiae - Labs CBC & Chem 7: 01/20/19 04:15 01/20/19 04:15 Labs: Abnormal Lab Results - Last 24 Hours (Table) 01/18/19 01/19/19 01/19/19 Range/Units 15:20 08:43 10:22 WBC (3.8-10.6) k/uL RBC (4.30-5.90) m/uL Hgb (13.0-17.5) gm/dL Hct (39.0-53.0) % Plt Count (150-450) k/uL Neutrophils # (1.3-7.7) k/uL Lymphocytes # (1.0-4.8) k/uL PT (9.0-12.0) sec INR (<1.2) ABG pH 7.33 L (7.35-7.45) ABG pCO2 49 H (35-45) mmHg ABG pO2 153 H (83-108) mmHg ABG HCO3 26 H 26 H (21-25) mmol/L ABG Total CO2 27 H 27 H (19-24) mmol/L ABG O2 Saturation 99.3 H (94-97) % ABG Hematocrit (34.0-46.0) % ABG Potassium 4.6 H (3.4-4.5) mmol/L ABG Glucose 131 H 222 H (75-99) mg/dL ABG Lactic Acid (0.5-1.6) mmol/L Hemoglobin 12.8 L (13.0-17.5) gm/dL Chloride (98-107) mmol/L Glucose (74-99) mg/dL POC Glucose (mg/dL) (75-99) mg/dL Calcium (8.4-10.2) mg/dL Total Bilirubin (0.2-1.3) mg/dL ALT (21-72) U/L Total Protein (6.3-8.2) g/dL Albumin (3.5-5.0) g/dL Arterial Blood Potassium 4.6 H (3.4-4.5) mmol/L Arterial Blood Glucose 131 H 222 H (75-99) mg/dL Crossmatch See Detail 01/19/19 01/19/19 01/19/19 Range/Units 10:56 10:56 11:34 WBC (3.8-10.6) k/uL RBC (4.30-5.90) m/uL Hgb (13.0-17.5) gm/dL Hct (39.0-53.0) % Plt Count (150-450) k/uL Neutrophils # (1.3-7.7) k/uL Lymphocytes # (1.0-4.8) k/uL PT (9.0-12.0) sec INR (<1.2) ABG pH (7.35-7.45) ABG pCO2 (35-45) mmHg ABG pO2 144 H 144 H 137 H (83-108) mmHg ABG HCO3 (21-25) mmol/L ABG Total CO2 26 H 26 H 26 H (19-24) mmol/L ABG O2 Saturation 99.4 H 99.4 H 99.4 H (94-97) % ABG Hematocrit (34.0-46.0) % ABG Potassium (3.4-4.5) mmol/L ABG Glucose 222 H 222 H 202 H (75-99) mg/dL ABG Lactic Acid (0.5-1.6) mmol/L Hemoglobin 12.6 L 12.5 L 11.6 L (13.0-17.5) gm/dL Chloride (98-107) mmol/L Glucose (74-99) mg/dL POC Glucose (mg/dL) (75-99) mg/dL Calcium (8.4-10.2) mg/dL Total Bilirubin (0.2-1.3) mg/dL ALT (21-72) U/L Total Protein (6.3-8.2) g/dL Albumin (3.5-5.0) g/dL Arterial Blood Potassium (3.4-4.5) mmol/L Arterial Blood Glucose 222 H 222 H 202 H (75-99) mg/dL Crossmatch 01/19/19 01/19/19 01/19/19 Range/Units 12:05 12:48 13:43 WBC (3.8-10.6) k/uL RBC (4.30-5.90) m/uL Hgb (13.0-17.5) gm/dL Hct (39.0-53.0) % Plt Count (150-450) k/uL Neutrophils # (1.3-7.7) k/uL Lymphocytes # (1.0-4.8) k/uL PT (9.0-12.0) sec INR (<1.2) ABG pH 7.32 L (7.35-7.45) ABG pCO2 46 H (35-45) mmHg ABG pO2 171 H 169 H 114 H (83-108) mmHg ABG HCO3 (21-25) mmol/L ABG Total CO2 25 H 26 H 25 H (19-24) mmol/L ABG O2 Saturation 99.5 H 99.7 H 98.4 H (94-97) % ABG Hematocrit 33 L (34.0-46.0) % ABG Potassium (3.4-4.5) mmol/L ABG Glucose 190 H 167 H 139 H (75-99) mg/dL ABG Lactic Acid 1.9 H (0.5-1.6) mmol/L Hemoglobin 11.3 L 11.1 L 10.9 L (13.0-17.5) gm/dL Chloride (98-107) mmol/L Glucose (74-99) mg/dL POC Glucose (mg/dL) (75-99) mg/dL Calcium (8.4-10.2) mg/dL Total Bilirubin (0.2-1.3) mg/dL ALT (21-72) U/L Total Protein (6.3-8.2) g/dL Albumin (3.5-5.0) g/dL Arterial Blood Potassium (3.4-4.5) mmol/L Arterial Blood Glucose 190 H 167 H 139 H (75-99) mg/dL Crossmatch 01/19/19 01/19/19 01/19/19 Range/Units 14:43 14:45 14:45 WBC 14.6 H (3.8-10.6) k/uL RBC 3.25 L (4.30-5.90) m/uL Hgb 10.2 L D (13.0-17.5) gm/dL Hct 29.0 L (39.0-53.0) % Plt Count 104 L (150-450) k/uL Neutrophils # 12.9 H (1.3-7.7) k/uL Lymphocytes # 0.9 L (1.0-4.8) k/uL PT (9.0-12.0) sec INR (<1.2) ABG pH (7.35-7.45) ABG pCO2 (35-45) mmHg ABG pO2 (83-108) mmHg ABG HCO3 (21-25) mmol/L ABG Total CO2 (19-24) mmol/L ABG O2 Saturation (94-97) % ABG Hematocrit (34.0-46.0) % ABG Potassium (3.4-4.5) mmol/L ABG Glucose (75-99) mg/dL ABG Lactic Acid (0.5-1.6) mmol/L Hemoglobin (13.0-17.5) gm/dL Chloride 108 H (98-107) mmol/L Glucose 110 H (74-99) mg/dL POC Glucose (mg/dL) 118 H (75-99) mg/dL Calcium 7.8 L (8.4-10.2) mg/dL Total Bilirubin (0.2-1.3) mg/dL ALT 20 L (21-72) U/L Total Protein 5.2 L (6.3-8.2) g/dL Albumin 3.4 L (3.5-5.0) g/dL Arterial Blood Potassium (3.4-4.5) mmol/L Arterial Blood Glucose (75-99) mg/dL Crossmatch 01/19/19 01/19/19 01/19/19 Range/Units 14:45 15:20 16:11 WBC (3.8-10.6) k/uL RBC (4.30-5.90) m/uL Hgb (13.0-17.5) gm/dL Hct (39.0-53.0) % Plt Count (150-450) k/uL Neutrophils # (1.3-7.7) k/uL Lymphocytes # (1.0-4.8) k/uL PT 12.6 H (9.0-12.0) sec INR 1.2 H (<1.2) ABG pH 7.24 L (7.35-7.45) ABG pCO2 58 H (35-45) mmHg ABG pO2 231 H (83-108) mmHg ABG HCO3 (21-25) mmol/L ABG Total CO2 27 H (19-24) mmol/L ABG O2 Saturation 99.3 H (94-97) % ABG Hematocrit (34.0-46.0) % ABG Potassium (3.4-4.5) mmol/L ABG Glucose (75-99) mg/dL ABG Lactic Acid (0.5-1.6) mmol/L Hemoglobin (13.0-17.5) gm/dL Chloride (98-107) mmol/L Glucose (74-99) mg/dL POC Glucose (mg/dL) 101 H (75-99) mg/dL Calcium (8.4-10.2) mg/dL Total Bilirubin (0.2-1.3) mg/dL ALT (21-72) U/L Total Protein (6.3-8.2) g/dL Albumin (3.5-5.0) g/dL Arterial Blood Potassium (3.4-4.5) mmol/L Arterial Blood Glucose (75-99) mg/dL Crossmatch 01/19/19 01/19/19 01/19/19 Range/Units 17:05 17:35 18:03 WBC 13.9 H (3.8-10.6) k/uL RBC 3.30 L (4.30-5.90) m/uL Hgb 10.3 L (13.0-17.5) gm/dL Hct 29.3 L (39.0-53.0) % Plt Count 127 L (150-450) k/uL Neutrophils # 12.0 H (1.3-7.7) k/uL Lymphocytes # 0.9 L (1.0-4.8) k/uL PT (9.0-12.0) sec INR (<1.2) ABG pH (7.35-7.45) ABG pCO2 (35-45) mmHg ABG pO2 (83-108) mmHg ABG HCO3 (21-25) mmol/L ABG Total CO2 (19-24) mmol/L ABG O2 Saturation (94-97) % ABG Hematocrit (34.0-46.0) % ABG Potassium (3.4-4.5) mmol/L ABG Glucose (75-99) mg/dL ABG Lactic Acid (0.5-1.6) mmol/L Hemoglobin (13.0-17.5) gm/dL Chloride (98-107) mmol/L Glucose (74-99) mg/dL POC Glucose (mg/dL) 127 H 156 H (75-99) mg/dL Calcium (8.4-10.2) mg/dL Total Bilirubin (0.2-1.3) mg/dL ALT (21-72) U/L Total Protein (6.3-8.2) g/dL Albumin (3.5-5.0) g/dL Arterial Blood Potassium (3.4-4.5) mmol/L Arterial Blood Glucose (75-99) mg/dL Crossmatch 01/19/19 01/19/19 01/19/19 Range/Units 19:04 19:58 20:05 WBC (3.8-10.6) k/uL RBC 3.37 L (4.30-5.90) m/uL Hgb 10.5 L (13.0-17.5) gm/dL Hct 29.8 L (39.0-53.0) % Plt Count 119 L (150-450) k/uL Neutrophils # 9.1 H (1.3-7.7) k/uL Lymphocytes # 0.5 L (1.0-4.8) k/uL PT (9.0-12.0) sec INR (<1.2) ABG pH (7.35-7.45) ABG pCO2 (35-45) mmHg ABG pO2 (83-108) mmHg ABG HCO3 (21-25) mmol/L ABG Total CO2 (19-24) mmol/L ABG O2 Saturation (94-97) % ABG Hematocrit (34.0-46.0) % ABG Potassium (3.4-4.5) mmol/L ABG Glucose (75-99) mg/dL ABG Lactic Acid (0.5-1.6) mmol/L Hemoglobin (13.0-17.5) gm/dL Chloride (98-107) mmol/L Glucose (74-99) mg/dL POC Glucose (mg/dL) 171 H 164 H (75-99) mg/dL Calcium (8.4-10.2) mg/dL Total Bilirubin (0.2-1.3) mg/dL ALT (21-72) U/L Total Protein (6.3-8.2) g/dL Albumin (3.5-5.0) g/dL Arterial Blood Potassium (3.4-4.5) mmol/L Arterial Blood Glucose (75-99) mg/dL Crossmatch 01/19/19 01/19/19 01/19/19 Range/Units 21:06 21:55 22:59 WBC (3.8-10.6) k/uL RBC (4.30-5.90) m/uL Hgb (13.0-17.5) gm/dL Hct (39.0-53.0) % Plt Count (150-450) k/uL Neutrophils # (1.3-7.7) k/uL Lymphocytes # (1.0-4.8) k/uL PT (9.0-12.0) sec INR (<1.2) ABG pH (7.35-7.45) ABG pCO2 (35-45) mmHg ABG pO2 (83-108) mmHg ABG HCO3 (21-25) mmol/L ABG Total CO2 (19-24) mmol/L ABG O2 Saturation (94-97) % ABG Hematocrit (34.0-46.0) % ABG Potassium (3.4-4.5) mmol/L ABG Glucose (75-99) mg/dL ABG Lactic Acid (0.5-1.6) mmol/L Hemoglobin (13.0-17.5) gm/dL Chloride (98-107) mmol/L Glucose (74-99) mg/dL POC Glucose (mg/dL) 173 H 154 H 140 H (75-99) mg/dL Calcium (8.4-10.2) mg/dL Total Bilirubin (0.2-1.3) mg/dL ALT (21-72) U/L Total Protein (6.3-8.2) g/dL Albumin (3.5-5.0) g/dL Arterial Blood Potassium (3.4-4.5) mmol/L Arterial Blood Glucose (75-99) mg/dL Crossmatch 01/20/19 01/20/19 01/20/19 Range/Units 00:03 01:07 02:09 WBC (3.8-10.6) k/uL RBC (4.30-5.90) m/uL Hgb (13.0-17.5) gm/dL Hct (39.0-53.0) % Plt Count (150-450) k/uL Neutrophils # (1.3-7.7) k/uL Lymphocytes # (1.0-4.8) k/uL PT (9.0-12.0) sec INR (<1.2) ABG pH (7.35-7.45) ABG pCO2 (35-45) mmHg ABG pO2 (83-108) mmHg ABG HCO3 (21-25) mmol/L ABG Total CO2 (19-24) mmol/L ABG O2 Saturation (94-97) % ABG Hematocrit (34.0-46.0) % ABG Potassium (3.4-4.5) mmol/L ABG Glucose (75-99) mg/dL ABG Lactic Acid (0.5-1.6) mmol/L Hemoglobin (13.0-17.5) gm/dL Chloride (98-107) mmol/L Glucose (74-99) mg/dL POC Glucose (mg/dL) 113 H 133 H 131 H (75-99) mg/dL Calcium (8.4-10.2) mg/dL Total Bilirubin (0.2-1.3) mg/dL ALT (21-72) U/L Total Protein (6.3-8.2) g/dL Albumin (3.5-5.0) g/dL Arterial Blood Potassium (3.4-4.5) mmol/L Arterial Blood Glucose (75-99) mg/dL Crossmatch 01/20/19 01/20/19 01/20/19 Range/Units 02:54 03:55 04:15 WBC (3.8-10.6) k/uL RBC 3.40 L (4.30-5.90) m/uL Hgb 10.6 L (13.0-17.5) gm/dL Hct 29.9 L (39.0-53.0) % Plt Count 112 L (150-450) k/uL Neutrophils # (1.3-7.7) k/uL Lymphocytes # (1.0-4.8) k/uL PT (9.0-12.0) sec INR (<1.2) ABG pH (7.35-7.45) ABG pCO2 (35-45) mmHg ABG pO2 (83-108) mmHg ABG HCO3 (21-25) mmol/L ABG Total CO2 (19-24) mmol/L ABG O2 Saturation (94-97) % ABG Hematocrit (34.0-46.0) % ABG Potassium (3.4-4.5) mmol/L ABG Glucose (75-99) mg/dL ABG Lactic Acid (0.5-1.6) mmol/L Hemoglobin (13.0-17.5) gm/dL Chloride (98-107) mmol/L Glucose (74-99) mg/dL POC Glucose (mg/dL) 123 H 115 H (75-99) mg/dL Calcium (8.4-10.2) mg/dL Total Bilirubin (0.2-1.3) mg/dL ALT (21-72) U/L Total Protein (6.3-8.2) g/dL Albumin (3.5-5.0) g/dL Arterial Blood Potassium (3.4-4.5) mmol/L Arterial Blood Glucose (75-99) mg/dL Crossmatch 01/20/19 01/20/19 01/20/19 Range/Units 04:15 06:10 06:59 WBC (3.8-10.6) k/uL RBC (4.30-5.90) m/uL Hgb (13.0-17.5) gm/dL Hct (39.0-53.0) % Plt Count (150-450) k/uL Neutrophils # (1.3-7.7) k/uL Lymphocytes # (1.0-4.8) k/uL PT (9.0-12.0) sec INR (<1.2) ABG pH (7.35-7.45) ABG pCO2 (35-45) mmHg ABG pO2 (83-108) mmHg ABG HCO3 (21-25) mmol/L ABG Total CO2 (19-24) mmol/L ABG O2 Saturation (94-97) % ABG Hematocrit (34.0-46.0) % ABG Potassium (3.4-4.5) mmol/L ABG Glucose (75-99) mg/dL ABG Lactic Acid (0.5-1.6) mmol/L Hemoglobin (13.0-17.5) gm/dL Chloride (98-107) mmol/L Glucose 115 H (74-99) mg/dL POC Glucose (mg/dL) 145 H 146 H (75-99) mg/dL Calcium 8.3 L (8.4-10.2) mg/dL Total Bilirubin 2.0 H (0.2-1.3) mg/dL ALT 20 L (21-72) U/L Total Protein 5.3 L (6.3-8.2) g/dL Albumin (3.5-5.0) g/dL Arterial Blood Potassium (3.4-4.5) mmol/L Arterial Blood Glucose (75-99) mg/dL Crossmatch Microbiology - Last 24 Hours (Table) 01/18/19 10:51 Nasal Screen MRSA/MSSA - Final Nasal Swab Assessment and Plan Assessment: Triple-vessel coronary artery disease , status post coronary artery bypass grafting 5 Mild emphysema Pulmonary hypertension Diabetes mellitus Hypertension Hyperlipidemia History of coronary artery disease Kidney stones History of bowel obstruction History of cholecystectomy History of tonsillectomy Plan: This is a pleasant 73 years old male with triple-vessel coronary artery disease status post Surgery. Continue with Cardizem, continue with insulin. Encourage hydration. Continue with aspirin and Plavix. Labs and medication were reviewed.. Continue same treatment. Continue with symptomatic treatment. Resume home medication. Monitor lytes and vitals. DVT and GI prophylaxis. Further recommendations of the clinical course of the patient DVT prophylaxis: Subcutaneous heparin GI Prophylaxis Protonix Prognosis is guarded
[2019-01-20 08:04] LABS: Glucose,Whole Blood 151 mg/dL (75-99)
[2019-01-20] MEDS: DILTIAZEM ORAL 30 MG TAB PO SCH ×4 (08:04→23:59)
[2019-01-20] MEDS: CLOPIDOGREL 75 MG TAB PO SCH (08:05)
[2019-01-20] MEDS: METOPROLOL TARTRATE 12.5 MG TAB PO SCH ×2 (08:05→20:11)
[2019-01-20] MEDS: ATORVASTATIN 40 MG TAB PO SCH (08:05)
[2019-01-20] MEDS: HEPARIN SODIUM,PORCINE 5,000 UNIT/ML 1 ML VIAL SQ SCH ×3 (08:05→23:59)
[2019-01-20] MEDS: ASPIRIN 325 MG TAB PO SCH (08:06)
[2019-01-20] MEDS: IPRATROPIUM-ALBUTEROL 3 ML NEB INHALATION SCH ×4 (08:54→19:37)
[2019-01-20] MEDS ORDERED: PANTOPRAZOLE 40 MG/10 ML VIAL IVP SCH (09:00)
[2019-01-20] MEDS ORDERED: MAGNESIUM HYDROXIDE 2,400 MG/10 ML CUP PO PRN (09:00)
[2019-01-20] MEDS ORDERED: METOPROLOL TARTRATE 12.5 MG TAB PO SCH (09:00)
[2019-01-20] MEDS ORDERED: BISACODYL 10 MG SUPP RECTAL PRN (09:00)
[2019-01-20 09:04] LABS: Glucose,Whole Blood 137 mg/dL (75-99)
--- NOTE | 2019-01-20 09:49 | P.PN ---
Subjective Progress Note Date: 01/20/19 Principal diagnosis: Coronary artery disease, status post 5 vessel bypass This is a 73-year-old white male patient of Robyn Osborn PA-C, out of [facility], medical history of hypertension, hyperlipidemia, type 2 diabetes mellitus, morbid obesity, previous history of tobacco dependence, currently in remission, and family history of premature coronary artery disease. Patient was evaluated for shortness of breath he's had for the past 2 years, essentially progressively worse with activity. Pulmonary workup by Dr. Dr. Wood revealed FEV1 of 82% of predicted no significant change post bronchodilator. Chest x-ray revealed emphysematous changes, CT of the chest completed demonstrating emphysema, and triple-vessel coronary artery disease. Stress test showed reversible anterior ischemia, patient had a preserved left ventricular systolic function with an EF of 55%,, trace aortic regurgitation, mild mitral regurgitation, mild tricuspid regurg, cardiac catheterization revealed multivessel coronary artery disease, including 90% circumflex, 80% proximal LAD, 70% mid LAD, and complete occlusion of the RCA. Surgical evaluation and intervention were recommended, and today on 01/19/2019 patient underwent 5 vessel coronary artery bypass grafting by Dr. Wiggins. It was done off pump, with sequential SYLVESTER to LAD and first diagonal, sequential left radial artery to first and second obtuse marginal and SVG to posterior lateral coronary arteries. He seen in the postoperative period in the ICU, he sedated, intubated. Current vent settings are assist control mode ventilation with a rate of 12, tidal vital of 550, FiO2 100%, and PEEP of 10. Patient is doing well, in sinus mechanism with a rate of 67, hemodynamically stable, maintenance IV fluids include lactated Ringer's a rate of 50, Cardizem is at 5 mg per hour, nitroglycerin as of 5 mics per kilo per minute, to prevent is at 10 mics per kilo per minute, insulin drip is at 10 units per hour. PA pressures of 43/17, with a CVP of 11, cardiac output is 8.6, cardiac index is 3.5. Mediastinal and left pleural chest tubes with scant amount of sanguinous output in the Pleur-evac. Postoperative blood gases are pending, postoperative work is pending. On 01/20/2019 patient seen in follow-up in the intensive care unit, this is postoperative day 1, status post 5 vessel coronary artery bypass grafting that was done off pump. Patient extubated it 191 last night on 01/19/2019, OR exit time was 1428, patient was extubated in less than 5 hours after OR exit. This morning he seen sitting up in the chair, in no acute distress, he is on 3 L of oxygen his pulse ox is 96-98%, hemodynamically patient is stable, sinus mechanism on the monitor, maintenance IV fluids are LR at 50, insulin drip is at 3 units per hour, and Cardizem drip is at 5 mg per hour. X-ray has been reviewed, showing worsening trace right pleural effusion and right basilar airspace disease, stable left basilar airspace disease. Today's labs have been reviewed, showing white blood cell count of 8.2, hemoglobin of 10.6, platelet co unt is 112, electrolytes and renal profile were within normal limits. Hemodynamically patient has been stable, PA pressures are 19/6, CVP is 1, cardiac output is 7.0, cardiac index is 2.8. Mediastinal left pleural chest tube with large thin serosanguineous output, patient had 1018 mL of output in the last 24 hours out of his chest tubes. Objective - Vital Signs Vital signs: Vital Signs Temp 99.9 F H 01/20/19 08:00 Pulse 63 01/20/19 09:00 Resp 17 01/20/19 09:00 BP 109/62 01/20/19 08:30 Pulse Ox 98 01/20/19 09:00 Intake & Output 01/19/19 01/20/19 01/20/19 18:59 06:59 18:59 Intake Total 1498.596 6336.185 126.141 Output Total 2506 1630 200 Balance -1261.506 -541.815 -73.859 Weight 151 kg Intake: IV 34 819 117 Lactated Ringers 1,000 ml 550 90 @ 20 mls/hr IV .Q24H DEX Rx#:[id number] co/ci 170 pressure bag 99 27 Intake, IV Titration 1210.494 269.185 9.141 Amount ACETAMINOPHEN IV (For NPO 100 ) 1,000 mg In Empty Bag 1 bag @ 400 mls/hr IVPB Q6HR DEX Rx#:[id number] Albumin Human 5% 250 ml 750 In Empty Bag 1 bag @ 250 mls/hr IVPB Q1HR PRN Rx#: [id number] Clevidipine Butyrate 25 12 6 mg In Empty Bag 1 bag @ 1 MG/HR 2 mls/hr IV .Q24H DEX Rx#:[id number] Clevidipine Butyrate 25 9.767 50.734 mg In Empty Bag 1 bag @ 1 MG/HR 2 mls/hr IV .Q24H DEX Rx#:[id number] Diltiazem 125 mg In 20 5 Sodium Chloride 0.9% 100 ml @ 5 MG/HR 5 mls/hr IV .Q24H DEX Rx#:[id number] Insulin Regular 100 unit 30.891 33.701 9.141 In Sodium Chloride 0.9% 100 ml @ Per Protocol IV .Q0M DEX Rx#:[id number] Lactated Ringers 1,000 ml 200 50 @ 20 mls/hr IV .Q24H DEX Rx#:[id number] Magnesium Sulfate-D5w Pmx 100 1 gm In Dextrose/Water 1 100ml.bag @ 100 mls/hr IVPB Q1H DEX Rx#: [id number] Nitroglycerin-D5w Pmx 50 6.0 23.75 mg In Dextrose/Water 1 250ml.bag @ 5 MCG/MIN 1.5 mls/hr IV .Q24H DEX Rx#: [id number] Propofol 1,000 mg In 31.836 Empty Bag 1 bag @ Titrate IV .Q0M DEX Rx#: [id number] ceFAZolin 2 gm In Sodium 50 Chloride 0.9% 50 ml @ 100 mls/hr IVPB Q8HR DEX Rx# :[id number] Output: Chest Tube Drainage 228 790 110 Left Pleural/Mediastinal 228 790 110 Drainage 30 Left Arm 30 Urine 778 810 90 Estimated Blood Loss 1500 Other: Voiding Method Indwelling Catheter Indwelling Catheter ABP, PAP, CO, CI - Last Documented Arterial Blood Pressure 95/40 Pulmonary Artery Pressure 20/4 Cardiac Output 7 Cardiac Index 2.8 - Exam GENERAL EXAM: Very pleasant 73-year-old obese white male on 3 l/min, comfortable in no apparent distress. HEAD: Normocephalic/atraumatic. EYES: Normal reaction of pupils, equal size. Conjunctiva pink, sclera white. NOSE: Clear with pink turbinates. THROAT: No erythema or exudates. NECK: No masses, no JVD, no thyroid enlargement, no adenopathy. CHEST: No chest wall deformity. Symmetrical expansion. Midsternal chest incisions clean dry and intact, left pleural and mediastinal chest tubes are Y- connected together connected to Pleur-evac with thin large amount of sanguinous output, no evidence of air leak LUNGS: Equal air entry with no crackles, wheeze, rhonchi or dullness. CVS: Regular rate and rhythm, normal S1 and S2, no gallops, no murmurs, no rubs ABDOMEN: Soft, nontender. No hepatosplenomegaly, normal bowel sounds, no guarding or rigidity. EXTREMITIES: No clubbing, no edema, no cyanosis, 2+ pulses and upper and lower extremities. Graft sites from left radial, and right Lower extremity with dressings, MUSCULOSKELETAL: Muscle strength and tone normal. SPINE: No scoliosis or deformity SKIN: No rashes CENTRAL NERVOUS SYSTEM: Sedated, intubated. No focal deficits, tone is normal in all 4 extremities. - Labs CBC & Chem 7: 01/20/19 04:15 01/20/19 04:15 Labs: Abnormal Lab Results - Last 24 Hours (Table) 01/18/19 01/19/19 01/19/19 Range/Units 15:20 08:43 10:22 WBC (3.8-10.6) k/uL RBC (4.30-5.90) m/uL Hgb (13.0-17.5) gm/dL Hct (39.0-53.0) % Plt Count (150-450) k/uL Neutrophils # (1.3-7.7) k/uL Lymphocytes # (1.0-4.8) k/uL PT (9.0-12.0) sec INR (<1.2) ABG pH 7.33 L (7.35-7.45) ABG pCO2 49 H (35-45) mmHg ABG pO2 153 H (83-108) mmHg ABG HCO3 26 H 26 H (21-25) mmol/L ABG Total CO2 27 H 27 H (19-24) mmol/L ABG O2 Saturation 99.3 H (94-97) % ABG Hematocrit (34.0-46.0) % ABG Potassium 4.6 H (3.4-4.5) mmol/L ABG Glucose 131 H 222 H (75-99) mg/dL ABG Lactic Acid (0.5-1.6) mmol/L Hemoglobin 12.8 L (13.0-17.5) gm/dL Chloride (98-107) mmol/L Glucose (74-99) mg/dL POC Glucose (mg/dL) (75-99) mg/dL Calcium (8.4-10.2) mg/dL Total Bilirubin (0.2-1.3) mg/dL ALT (21-72) U/L Total Protein (6.3-8.2) g/dL Albumin (3.5-5.0) g/dL Arterial Blood Potassium 4.6 H (3.4-4.5) mmol/L Arterial Blood Glucose 131 H 222 H (75-99) mg/dL Crossmatch See Detail 01/19/19 01/19/19 01/19/19 Range/Units 10:56 10:56 11:34 WBC (3.8-10.6) k/uL RBC (4.30-5.90) m/uL Hgb (13.0-17.5) gm/dL Hct (39.0-53.0) % Plt Count (150-450) k/uL Neutrophils # (1.3-7.7) k/uL Lymphocytes # (1.0-4.8) k/uL PT (9.0-12.0) sec INR (<1.2) ABG pH (7.35-7.45) ABG pCO2 (35-45) mmHg ABG pO2 144 H 144 H 137 H (83-108) mmHg ABG HCO3 (21-25) mmol/L ABG Total CO2 26 H 26 H 26 H (19-24) mmol/L ABG O2 Saturation 99.4 H 99.4 H 99.4 H (94-97) % ABG Hematocrit (34.0-46.0) % ABG Potassium (3.4-4.5) mmol/L ABG Glucose 222 H 222 H 202 H (75-99) mg/dL ABG Lactic Acid (0.5-1.6) mmol/L Hemoglobin 12.6 L 12.5 L 11.6 L (13.0-17.5) gm/dL Chloride (98-107) mmol/L Glucose (74-99) mg/dL POC Glucose (mg/dL) (75-99) mg/dL Calcium (8.4-10.2) mg/dL Total Bilirubin (0.2-1.3) mg/dL ALT (21-72) U/L Total Protein (6.3-8.2) g/dL Albumin (3.5-5.0) g/dL Arterial Blood Potassium (3.4-4.5) mmol/L Arterial Blood Glucose 222 H 222 H 202 H (75-99) mg/dL Crossmatch 01/19/19 01/19/19 01/19/19 Range/Units 12:05 12:48 13:43 WBC (3.8-10.6) k/uL RBC (4.30-5.90) m/uL Hgb (13.0-17.5) gm/dL Hct (39.0-53.0) % Plt Count (150-450) k/uL Neutrophils # (1.3-7.7) k/uL Lymphocytes # (1.0-4.8) k/uL PT (9.0-12.0) sec INR (<1.2) ABG pH 7.32 L (7.35-7.45) ABG pCO2 46 H (35-45) mmHg ABG pO2 171 H 169 H 114 H (83-108) mmHg ABG HCO3 (21-25) mmol/L ABG Total CO2 25 H 26 H 25 H (19-24) mmol/L ABG O2 Saturation 99.5 H 99.7 H 98.4 H (94-97) % ABG Hematocrit 33 L (34.0-46.0) % ABG Potassium (3.4-4.5) mmol/L ABG Glucose 190 H 167 H 139 H (75-99) mg/dL ABG Lactic Acid 1.9 H (0.5-1.6) mmol/L Hemoglobin 11.3 L 11.1 L 10.9 L (13.0-17.5) gm/dL Chloride (98-107) mmol/L Glucose (74-99) mg/dL POC Glucose (mg/dL) (75-99) mg/dL Calcium (8.4-10.2) mg/dL Total Bilirubin (0.2-1.3) mg/dL ALT (21-72) U/L Total Protein (6.3-8.2) g/dL Albumin (3.5-5.0) g/dL Arterial Blood Potassium (3.4-4.5) mmol/L Arterial Blood Glucose 190 H 167 H 139 H (75-99) mg/dL Crossmatch 01/19/19 01/19/19 01/19/19 Range/Units 14:43 14:45 14:45 WBC 14.6 H (3.8-10.6) k/uL RBC 3.25 L (4.30-5.90) m/uL Hgb 10.2 L D (13.0-17.5) gm/dL Hct 29.0 L (39.0-53.0) % Plt Count 104 L (150-450) k/uL Neutrophils # 12.9 H (1.3-7.7) k/uL Lymphocytes # 0.9 L (1.0-4.8) k/uL PT (9.0-12.0) sec INR (<1.2) ABG pH (7.35-7.45) ABG pCO2 (35-45) mmHg ABG pO2 (83-108) mmHg ABG HCO3 (21-25) mmol/L ABG Total CO2 (19-24) mmol/L ABG O2 Saturation (94-97) % ABG Hematocrit (34.0-46.0) % ABG Potassium (3.4-4.5) mmol/L ABG Glucose (75-99) mg/dL ABG Lactic Acid (0.5-1.6) mmol/L Hemoglobin (13.0-17.5) gm/dL Chloride 108 H (98-107) mmol/L Glucose 110 H (74-99) mg/dL POC Glucose (mg/dL) 118 H (75-99) mg/dL Calcium 7.8 L (8.4-10.2) mg/dL Total Bilirubin (0.2-1.3) mg/dL ALT 20 L (21-72) U/L Total Protein 5.2 L (6.3-8.2) g/dL Albumin 3.4 L (3.5-5.0) g/dL Arterial Blood Potassium (3.4-4.5) mmol/L Arterial Blood Glucose (75-99) mg/dL Crossmatch 01/19/19 01/19/19 01/19/19 Range/Units 14:45 15:20 16:11 WBC (3.8-10.6) k/uL RBC (4.30-5.90) m/uL Hgb (13.0-17.5) gm/dL Hct (39.0-53.0) % Plt Count (150-450) k/uL Neutrophils # (1.3-7.7) k/uL Lymphocytes # (1.0-4.8) k/uL PT 12.6 H (9.0-12.0) sec INR 1.2 H (<1.2) ABG pH 7.24 L (7.35-7.45) ABG pCO2 58 H (35-45) mmHg ABG pO2 231 H (83-108) mmHg ABG HCO3 (21-25) mmol/L ABG Total CO2 27 H (19-24) mmol/L ABG O2 Saturation 99.3 H (94-97) % ABG Hematocrit (34.0-46.0) % ABG Potassium (3.4-4.5) mmol/L ABG Glucose (75-99) mg/dL ABG Lactic Acid (0.5-1.6) mmol/L Hemoglobin (13.0-17.5) gm/dL Chloride (98-107) mmol/L Glucose (74-99) mg/dL POC Glucose (mg/dL) 101 H (75-99) mg/dL Calcium (8.4-10.2) mg/dL Total Bilirubin (0.2-1.3) mg/dL ALT (21-72) U/L Total Protein (6.3-8.2) g/dL Albumin (3.5-5.0) g/dL Arterial Blood Potassium (3.4-4.5) mmol/L Arterial Blood Glucose (75-99) mg/dL Crossmatch 01/19/19 01/19/19 01/19/19 Range/Units 17:05 17:35 18:03 WBC 13.9 H (3.8-10.6) k/uL RBC 3.30 L (4.30-5.90) m/uL Hgb 10.3 L (13.0-17.5) gm/dL Hct 29.3 L (39.0-53.0) % Plt Count 127 L (150-450) k/uL Neutrophils # 12.0 H (1.3-7.7) k/uL Lymphocytes # 0.9 L (1.0-4.8) k/uL PT (9.0-12.0) sec INR (<1.2) ABG pH (7.35-7.45) ABG pCO2 (35-45) mmHg ABG pO2 (83-108) mmHg ABG HCO3 (21-25) mmol/L ABG Total CO2 (19-24) mmol/L ABG O2 Saturation (94-97) % ABG Hematocrit (34.0-46.0) % ABG Potassium (3.4-4.5) mmol/L ABG Glucose (75-99) mg/dL ABG Lactic Acid (0.5-1.6) mmol/L Hemoglobin (13.0-17.5) gm/dL Chloride (98-107) mmol/L Glucose (74-99) mg/dL POC Glucose (mg/dL) 127 H 156 H (75-99) mg/dL Calcium (8.4-10.2) mg/dL Total Bilirubin (0.2-1.3) mg/dL ALT (21-72) U/L Total Protein (6.3-8.2) g/dL Albumin (3.5-5.0) g/dL Arterial Blood Potassium (3.4-4.5) mmol/L Arterial Blood Glucose (75-99) mg/dL Crossmatch 01/19/19 01/19/19 01/19/19 Range/Units 19:04 19:58 20:05 WBC (3.8-10.6) k/uL RBC 3.37 L (4.30-5.90) m/uL Hgb 10.5 L (13.0-17.5) gm/dL Hct 29.8 L (39.0-53.0) % Plt Count 119 L (150-450) k/uL Neutrophils # 9.1 H (1.3-7.7) k/uL Lymphocytes # 0.5 L (1.0-4.8) k/uL PT (9.0-12.0) sec INR (<1.2) ABG pH (7.35-7.45) ABG pCO2 (35-45) mmHg ABG pO2 (83-108) mmHg ABG HCO3 (21-25) mmol/L ABG Total CO2 (19-24) mmol/L ABG O2 Saturation (94-97) % ABG Hematocrit (34.0-46.0) % ABG Potassium (3.4-4.5) mmol/L ABG Glucose (75-99) mg/dL ABG Lactic Acid (0.5-1.6) mmol/L Hemoglobin (13.0-17.5) gm/dL Chloride (98-107) mmol/L Glucose (74-99) mg/dL POC Glucose (mg/dL) 171 H 164 H (75-99) mg/dL Calcium (8.4-10.2) mg/dL Total Bilirubin (0.2-1.3) mg/dL ALT (21-72) U/L Total Protein (6.3-8.2) g/dL Albumin (3.5-5.0) g/dL Arterial Blood Potassium (3.4-4.5) mmol/L Arterial Blood Glucose (75-99) mg/dL Crossmatch 01/19/19 01/19/19 01/19/19 Range/Units 21:06 21:55 22:59 WBC (3.8-10.6) k/uL RBC (4.30-5.90) m/uL Hgb (13.0-17.5) gm/dL Hct (39.0-53.0) % Plt Count (150-450) k/uL Neutrophils # (1.3-7.7) k/uL Lymphocytes # (1.0-4.8) k/uL PT (9.0-12.0) sec INR (<1.2) ABG pH (7.35-7.45) ABG pCO2 (35-45) mmHg ABG pO2 (83-108) mmHg ABG HCO3 (21-25) mmol/L ABG Total CO2 (19-24) mmol/L ABG O2 Saturation (94-97) % ABG Hematocrit (34.0-46.0) % ABG Potassium (3.4-4.5) mmol/L ABG Glucose (75-99) mg/dL ABG Lactic Acid (0.5-1.6) mmol/L Hemoglobin (13.0-17.5) gm/dL Chloride (98-107) mmol/L Glucose (74-99) mg/dL POC Glucose (mg/dL) 173 H 154 H 140 H (75-99) mg/dL Calcium (8.4-10.2) mg/dL Total Bilirubin (0.2-1.3) mg/dL ALT (21-72) U/L Total Protein (6.3-8.2) g/dL Albumin (3.5-5.0) g/dL Arterial Blood Potassium (3.4-4.5) mmol/L Arterial Blood Glucose (75-99) mg/dL Crossmatch 01/20/19 01/20/19 01/20/19 Range/Units 00:03 01:07 02:09 WBC (3.8-10.6) k/uL RBC (4.30-5.90) m/uL Hgb (13.0-17.5) gm/dL Hct (39.0-53.0) % Plt Count (150-450) k/uL Neutrophils # (1.3-7.7) k/uL Lymphocytes # (1.0-4.8) k/uL PT (9.0-12.0) sec INR (<1.2) ABG pH (7.35-7.45) ABG pCO2 (35-45) mmHg ABG pO2 (83-108) mmHg ABG HCO3 (21-25) mmol/L ABG Total CO2 (19-24) mmol/L ABG O2 Saturation (94-97) % ABG Hematocrit (34.0-46.0) % ABG Potassium (3.4-4.5) mmol/L ABG Glucose (75-99) mg/dL ABG Lactic Acid (0.5-1.6) mmol/L Hemoglobin (13.0-17.5) gm/dL Chloride (98-107) mmol/L Glucose (74-99) mg/dL POC Glucose (mg/dL) 113 H 133 H 131 H (75-99) mg/dL Calcium (8.4-10.2) mg/dL Total Bilirubin (0.2-1.3) mg/dL ALT (21-72) U/L Total Protein (6.3-8.2) g/dL Albumin (3.5-5.0) g/dL Arterial Blood Potassium (3.4-4.5) mmol/L Arterial Blood Glucose (75-99) mg/dL Crossmatch 01/20/19 01/20/19 01/20/19 Range/Units 02:54 03:55 04:15 WBC (3.8-10.6) k/uL RBC 3.40 L (4.30-5.90) m/uL Hgb 10.6 L (13.0-17.5) gm/dL Hct 29.9 L (39.0-53.0) % Plt Count 112 L (150-450) k/uL Neutrophils # (1.3-7.7) k/uL Lymphocytes # (1.0-4.8) k/uL PT (9.0-12.0) sec INR (<1.2) ABG pH (7.35-7.45) ABG pCO2 (35-45) mmHg ABG pO2 (83-108) mmHg ABG HCO3 (21-25) mmol/L ABG Total CO2 (19-24) mmol/L ABG O2 Saturation (94-97) % ABG Hematocrit (34.0-46.0) % ABG Potassium (3.4-4.5) mmol/L ABG Glucose (75-99) mg/dL ABG Lactic Acid (0.5-1.6) mmol/L Hemoglobin (13.0-17.5) gm/dL Chloride (98-107) mmol/L Glucose (74-99) mg/dL POC Glucose (mg/dL) 123 H 115 H (75-99) mg/dL Calcium (8.4-10.2) mg/dL Total Bilirubin (0.2-1.3) mg/dL ALT (21-72) U/L Total Protein (6.3-8.2) g/dL Albumin (3.5-5.0) g/dL Arterial Blood Potassium (3.4-4.5) mmol/L Arterial Blood Glucose (75-99) mg/dL Crossmatch 01/20/19 01/20/19 01/20/19 Range/Units 04:15 06:10 06:59 WBC (3.8-10.6) k/uL RBC (4.30-5.90) m/uL Hgb (13.0-17.5) gm/dL Hct (39.0-53.0) % Plt Count (150-450) k/uL Neutrophils # (1.3-7.7) k/uL Lymphocytes # (1.0-4.8) k/uL PT (9.0-12.0) sec INR (<1.2) ABG pH (7.35-7.45) ABG pCO2 (35-45) mmHg ABG pO2 (83-108) mmHg ABG HCO3 (21-25) mmol/L ABG Total CO2 (19-24) mmol/L ABG O2 Saturation (94-97) % ABG Hematocrit (34.0-46.0) % ABG Potassium (3.4-4.5) mmol/L ABG Glucose (75-99) mg/dL ABG Lactic Acid (0.5-1.6) mmol/L Hemoglobin (13.0-17.5) gm/dL Chloride (98-107) mmol/L Glucose 115 H (74-99) mg/dL POC Glucose (mg/dL) 145 H 146 H (75-99) mg/dL Calcium 8.3 L (8.4-10.2) mg/dL Total Bilirubin 2.0 H (0.2-1.3) mg/dL ALT 20 L (21-72) U/L Total Protein 5.3 L (6.3-8.2) g/dL Albumin (3.5-5.0) g/dL Arterial Blood Potassium (3.4-4.5) mmol/L Arterial Blood Glucose (75-99) mg/dL Crossmatch 01/20/19 01/20/19 Range/Units 08:03 09:03 WBC (3.8-10.6) k/uL RBC (4.30-5.90) m/uL Hgb (13.0-17.5) gm/dL Hct (39.0-53.0) % Plt Count (150-450) k/uL Neutrophils # (1.3-7.7) k/uL Lymphocytes # (1.0-4.8) k/uL PT (9.0-12.0) sec INR (<1.2) ABG pH (7.35-7.45) ABG pCO2 (35-45) mmHg ABG pO2 (83-108) mmHg ABG HCO3 (21-25) mmol/L ABG Total CO2 (19-24) mmol/L ABG O2 Saturation (94-97) % ABG Hematocrit (34.0-46.0) % ABG Potassium (3.4-4.5) mmol/L ABG Glucose (75-99) mg/dL ABG Lactic Acid (0.5-1.6) mmol/L Hemoglobin (13.0-17.5) gm/dL Chloride (98-107) mmol/L Glucose (74-99) mg/dL POC Glucose (mg/dL) 151 H 137 H (75-99) mg/dL Calcium (8.4-10.2) mg/dL Total Bilirubin (0.2-1.3) mg/dL ALT (21-72) U/L Total Protein (6.3-8.2) g/dL Albumin (3.5-5.0) g/dL Arterial Blood Potassium (3.4-4.5) mmol/L Arterial Blood Glucose (75-99) mg/dL Crossmatch Microbiology - Last 24 Hours (Table) 01/18/19 10:51 Nasal Screen MRSA/MSSA - Final Nasal Swab Assessment and Plan Plan: Assessment: #1. Coronary artery disease, that is post 5 vessel coronary artery bypass grafting, postoperative day 1 #2. History of mild COPD, with the preoperative FEV1 of 82% of predicted #3. Routine postoperative ventilator management, and patient was extubated in less than 5 hours after OR exit time #4. Hyperlipidemia #5. Diabetes mellitus #6. Previous history of tobacco dependence, currently in remission #7. History of family history of premature coronary artery disease #8. Morbid obesity Plan: Patient is doing well, he was successfully extubated last night, he is on 3 L of oxygen, tolerating it very well, he is working on incentive spirometer, hemodynamically patient is stable, no acute issues overnight, today's chest x- ray has been reviewed, showing worsening trace right pleural effusion and right basilar airspace disease with stable left basilar air space disease. Patient is maintaining stable oxygenation, his chest tubes are still putting out large amount of thin serosanguineous output, will likely to stay in today, patient is nonoliguric, he is tolerating oral intake, his pain is reasonably controlled, continue encouraging deep breathing and coughing, we'll continue to follow I performed a history & physical examination of the patient and discussed their management with my nurse practitioner, Argentina Barkley. I reviewed the nurse practitioner's note and agree with the documented findings and plan of care. Lung sounds are positive for diminished breath sounds. The findings and the impression was discussed with the patient. I attest to the documentation by the nurse practitioner. Time with Patient: Less than 30
[2019-01-20 09:57] LABS: Glucose,Whole Blood 142 mg/dL (75-99)
[2019-01-20 10:55] VITALS: BMI 43.9
[2019-01-20 11:00] LABS: Glucose,Whole Blood 153 mg/dL (75-99)
[2019-01-20] MEDS: MULTIVITAMINS, THERA 1 EACH TAB PO SCH (11:02)
[2019-01-20] MEDS: LACTATED RINGERS 1,000 ML IV SCH (11:04)
[2019-01-20 11:56] LABS: Glucose,Whole Blood 156 mg/dL (75-99)
--- NOTE | 2019-01-20 12:27 | PN ---
PROGRESS NOTE This patient's electronic medical record is reviewed. This patient underwent coronary artery bypass surgery. Patient was extubated yesterday. He was walking in the hallway comfortably and no respiratory distress is noted. Patient currently remains in normal sinus rhythm and hemodynamically stable. The patient is currently not on any inotropes. The patient is afebrile. Respiratory rate is 21, blood pressure is 115/68 mmHg. First and second heart sounds are normal. Lungs reveal a few scattered wheezes. Electrolytes are normal. Creatinine is 0.97. Hemoglobin is 10.6. ASSESSMENT AND PLAN: This patient is status post coronary artery bypass surgery. The patient is stable hemodynamically. We will continue the current medications. MMODL / IJN: [id number] /
[2019-01-20] MEDS ORDERED: FUROSEMIDE 10 MG/ML 2 ML VIAL IV ONE (12:33)
[2019-01-20 13:09] LABS: Glucose,Whole Blood 190 mg/dL (75-99)
[2019-01-20 14:03] LABS: Glucose,Whole Blood 179 mg/dL (75-99)
[2019-01-20 15:21] LABS: Glucose,Whole Blood 135 mg/dL (75-99)
[2019-01-20 17:08] LABS: Glucose,Whole Blood 131 mg/dL (75-99)
[2019-01-20 18:29] LABS: Glucose,Whole Blood 191 mg/dL (75-99)
[2019-01-20 20:00] LABS: Glucose,Whole Blood 145 mg/dL (75-99)
[2019-01-20] MEDS: SENNOSIDES-DOCUSATE SODIUM 1 EACH TAB PO SCH (20:11)
[2019-01-20 21:00] LABS: Glucose,Whole Blood 123 mg/dL (75-99)
[2019-01-20] MEDS: INSULIN REGULAR 100 UNIT in SODIUM CHLORIDE 0.9% 100 ML IV SCH (21:02)
[2019-01-20 23:03] LABS: Glucose,Whole Blood 128 mg/dL (75-99)
[2019-01-21 02:00] LABS: Glucose,Whole Blood 115 mg/dL (75-99)
[2019-01-21 04:02] LABS: Glucose,Whole Blood 121 mg/dL (75-99)
[2019-01-21 04:51] LABS: Glucose,Whole Blood 127 mg/dL (75-99)
[2019-01-21 05:12] LABS: Basophils % (A) 0 %; Eosinophils # (A) 0.2 k/uL (0-0.7); Eosinophils % (A) 3 %; HCT 26.8 % (39.0-53.0); HGB 9.4 gm/dL (13.0-17.5); Lymphocytes # (A) 1.3 k/uL (1.0-4.8); Lymphocytes % (A) 20 %; MCH 31.3 pg (25.0-35.0); MCHC 35.2 g/dL (31.0-37.0); MCV 88.8 fL (80.0-100.0); Mean Platelet Volume 9.5; Monocytes # (A) 0.4 k/uL (0-1.0); Monocytes % (A) 7 %; Neutrophils # (A) 4.3 k/uL (1.3-7.7); Neutrophils % (A) 68 %; Platelet Count 114 k/uL (150-450); RBC 3.02 m/uL (4.30-5.90); RDW 12.4 % (11.5-15.5); WBC 6.3 k/uL (3.8-10.6)
[2019-01-21 05:57] LABS: Glucose,Whole Blood 134 mg/dL (75-99)
[2019-01-21] MEDS: PANTOPRAZOLE 40 MG TABLET PO SCH (06:19)
[2019-01-21] MEDS: KETOROLAC 30 MG/ML 1 ML VIAL IVP SCH ×5 (06:19→23:40)
[2019-01-21] MEDS: DILTIAZEM ORAL 30 MG TAB PO SCH ×4 (06:19→23:40)
[2019-01-21 07:13] LABS: Ionized Calcium 4.8 mg/dL (4.5-5.3)
[2019-01-21 07:31] LABS: Calcium 8.5 mg/dL (8.4-10.2); Potassium 3.9 mmol/L (3.5-5.1); Total Bilirubin 2.3 mg/dL (0.2-1.3)
--- NOTE | 2019-01-21 07:31 | XR ---
EXAMINATION TYPE: XR chest 1V portable DATE OF EXAM: 01/21/2019 COMPARISON: 01/20/2019 HISTORY: SOB, Follow Up FINDINGS: [place] catheter has been removed. Right IJ sheath is in place. Left basilar chest tube remains in place. No sizable pneumothorax. No change in bibasilar opacities. Stable appearance of the cardio-mediastinal structures at this time. Pleural effusion unchanged. IMPRESSION: 1. Stable portable chest. Clinical correlation and follow up until resolution is recommended.
[2019-01-21] MEDS: IPRATROPIUM-ALBUTEROL 3 ML NEB INHALATION SCH ×4 (07:50→19:55)
[2019-01-21] MEDS: ATORVASTATIN 40 MG TAB PO SCH (08:08)
[2019-01-21] MEDS: HEPARIN SODIUM,PORCINE 5,000 UNIT/ML 1 ML VIAL SQ SCH ×3 (08:08→23:40)
[2019-01-21 08:09] LABS: Glucose,Whole Blood 176 mg/dL (75-99)
[2019-01-21] MEDS: CLOPIDOGREL 75 MG TAB PO SCH (08:09)
[2019-01-21] MEDS: ASPIRIN 325 MG TAB PO SCH (08:09)
[2019-01-21] MEDS: METOPROLOL TARTRATE 12.5 MG TAB PO SCH ×2 (08:09→20:25)
[2019-01-21] MEDS ORDERED: FUROSEMIDE 10 MG/ML 2 ML VIAL IV ONE (08:33)
--- NOTE | 2019-01-21 08:49 | P.PN ---
Subjective Progress Note Date: 01/21/19 Principal diagnosis: Severe triple vessel coronary artery disease. Previous medical history of hypertension, hyperlipidemia, type 2 diabetes with current hemoglobin A1c 6.3%, obesity, pancreatitis 10 years ago, recurrent kidney stones, previous tobacco dependence with preoperative FEV1 82% of predicted, and family history of premature coronary artery disease. POD #2 urgent off-pump coronary artery bypass grafting 5 with sequential left internal mammary artery to the left anterior descending artery and first diagonal artery, sequential left radial artery to the first and second obtuse marginal artery and reverse saphenous vein graft to the posterior lateral branch of the circumflex coronary artery. Endovascular vein harvest of the left greater saphenous vein from mid calf to the groin. Endovascular radial artery harvest. Intraoperative transesophageal echocardiogram. The patient's currently sitting up in a recliner in the intensive care unit in no acute distress. States post surgical pain controlled on current medication regimen, denies shortness of breath. Remains in normal sinus rhythm, hemodynamically stable on no inotropes or pressors. Right internal jugular Cordis, right radial arterial line present, mediastinal and left pleural chest tubes present. Patient actively using incentive spirometry. Ambulated in hallway yesterday without difficulty. No new concerns. Objective - Vital Signs Vital signs: Vital Signs Temp 98.7 F 01/21/19 08:00 Pulse 73 01/21/19 08:00 Resp 10 L 01/21/19 08:00 BP 111/61 01/21/19 08:00 Pulse Ox 96 01/21/19 08:00 Intake & Output 01/20/19 01/21/19 01/21/19 18:59 06:59 18:59 Intake Total 846.143 313.860 53.511 Output Total 1480 540 60 Balance -633.857 -226.140 -6.489 Weight 151 kg 131.4 kg Intake: IV 354 286 49 Lactated Ringers 1,000 ml 270 220 40 @ 20 mls/hr IV .Q24H DEX Rx#:[id number] pressure bag 84 66 9 Intake, IV Titration 42.143 27.860 4.511 Amount Insulin Regular 100 unit 42.143 27.860 4.511 In Sodium Chloride 0.9% 100 ml @ Per Protocol IV .Q0M DEX Rx#:[id number] Oral 450 Output: Chest Tube Drainage 330 190 10 Left Pleural/Mediastinal 330 190 10 Drainage 30 20 Left Arm 30 20 Urine 1120 330 50 Other: Voiding Method Indwelling Catheter Indwelling Catheter # Voids 2 ABP, PAP, CO, CI - Last Documented Arterial Blood Pressure 117/76 Pulmonary Artery Pressure 20/4 Cardiac Output 7 Cardiac Index 2.8 - Constitutional General appearance: Present: cooperative, no acute distress, obese - Respiratory Details: Lungs sounds diminished bilaterally. Respirations even, nonlabored. Currently on 3 L nasal cannula with oxygen saturation 95%. Able to achieve 1000 mL on his incentive spirometry. Strong cough. Mediastinal/left pleural chest tube to continuous wall suction, 100 mL serosanguineous drainage overnight, 550 mL in the last 24 hours, no air leak present. - Cardiovascular Details: S1, S2 present, no murmur present. Regular rate and rhythm, sinus rhythm on telemetry. Palpable peripheral pulses bilaterally. No edema present. No calf pain or tenderness noted. Right internal jugular Cordis, right radial arterial line present. Heart hugger in place with patient demonstrating appropriate use. Antiembolism stockings, SCDs present. - Gastrointestinal Gastrointestinal Comment(s): Abdomen soft, nontender, nondistended. Active bowel sounds present 4 quadra nts. Tolerating diet. Positive flatus, negative bowel movement. - Genitourinary Genitourinary Comment(s): Snyder present draining clear, yellow urine. Output overnight 25-30 mL per hour, 825 mL after IV lasix yesterday, 1395 mL in the last 24 hours. - Integumentary Integumentary Comment(s): Skin is warm and dry with evidence of good perfusion. Anterior chest incision well approximated and covered with dry intact dressing. Left radial artery harvest site well approximated, SARAH drain present with minimal serosanguineous drainage. Patient does have full motion of his left hand, skin is warm with good cap refill, patient denies numbness or tingling except his pinky finger which he said has been chronic for years. Left lower extremity EVH site well approximated. - Neurologic Neurologic: Present: CNII-XII intact - Musculoskeletal Musculoskeletal: Present: gait normal, strength equal bilaterally - Psychiatric Psychiatric: Present: A&O x's 3, appropriate affect, intact judgment & insight - Allied health notes Allied health notes reviewed: nursing - Labs CBC & Chem 7: 01/21/19 04:45 01/21/19 04:45 Labs: Abnormal Lab Results - Last 24 Hours (Table) 01/20/19 01/20/19 01/20/19 Range/Units 09:03 09:56 10:59 RBC (4.30-5.90) m/uL Hgb (13.0-17.5) gm/dL Hct (39.0-53.0) % Plt Count (150-450) k/uL BUN (9-20) mg/dL Glucose (74-99) mg/dL POC Glucose (mg/dL) 137 H 142 H 153 H (75-99) mg/dL Total Bilirubin (0.2-1.3) mg/dL Total Protein (6.3-8.2) g/dL Albumin (3.5-5.0) g/dL 01/20/19 01/20/19 01/20/19 Range/Units 11:55 13:08 14:01 RBC (4.30-5.90) m/uL Hgb (13.0-17.5) gm/dL Hct (39.0-53.0) % Plt Count (150-450) k/uL BUN (9-20) mg/dL Glucose (74-99) mg/dL POC Glucose (mg/dL) 156 H 190 H 179 H (75-99) mg/dL Total Bilirubin (0.2-1.3) mg/dL Total Protein (6.3-8.2) g/dL Albumin (3.5-5.0) g/dL 01/20/19 01/20/19 01/20/19 Range/Units 15:19 17:07 18:29 RBC (4.30-5.90) m/uL Hgb (13.0-17.5) gm/dL Hct (39.0-53.0) % Plt Count (150-450) k/uL BUN (9-20) mg/dL Glucose (74-99) mg/dL POC Glucose (mg/dL) 135 H 131 H 191 H (75-99) mg/dL Total Bilirubin (0.2-1.3) mg/dL Total Protein (6.3-8.2) g/dL Albumin (3.5-5.0) g/dL 01/20/19 01/20/19 01/20/19 Range/Units 19:59 20:59 23:02 RBC (4.30-5.90) m/uL Hgb (13.0-17.5) gm/dL Hct (39.0-53.0) % Plt Count (150-450) k/uL BUN (9-20) mg/dL Glucose (74-99) mg/dL POC Glucose (mg/dL) 145 H 123 H 128 H (75-99) mg/dL Total Bilirubin (0.2-1.3) mg/dL Total Protein (6.3-8.2) g/dL Albumin (3.5-5.0) g/dL 01/21/19 01/21/19 01/21/19 Range/Units 01:59 04:00 04:45 RBC 3.02 L (4.30-5.90) m/uL Hgb 9.4 L (13.0-17.5) gm/dL Hct 26.8 L (39.0-53.0) % Plt Count 114 L (150-450) k/uL BUN (9-20) mg/dL Glucose (74-99) mg/dL POC Glucose (mg/dL) 115 H 121 H (75-99) mg/dL Total Bilirubin (0.2-1.3) mg/dL Total Protein (6.3-8.2) g/dL Albumin (3.5-5.0) g/dL 01/21/19 01/21/19 01/21/19 Range/Units 04:45 04:49 05:56 RBC (4.30-5.90) m/uL Hgb (13.0-17.5) gm/dL Hct (39.0-53.0) % Plt Count (150-450) k/uL BUN 24 H (9-20) mg/dL Glucose 115 H (74-99) mg/dL POC Glucose (mg/dL) 127 H 134 H (75-99) mg/dL Total Bilirubin 2.3 H (0.2-1.3) mg/dL Total Protein 5.0 L (6.3-8.2) g/dL Albumin 3.0 L (3.5-5.0) g/dL 01/21/19 Range/Units 08:08 RBC (4.30-5.90) m/uL Hgb (13.0-17.5) gm/dL Hct (39.0-53.0) % Plt Count (150-450) k/uL BUN (9-20) mg/dL Glucose (74-99) mg/dL POC Glucose (mg/dL) 176 H (75-99) mg/dL Total Bilirubin (0.2-1.3) mg/dL Total Protein (6.3-8.2) g/dL Albumin (3.5-5.0) g/dL - Imaging and Cardiology Chest x-ray: report reviewed, image reviewed Assessment and Plan Assessment: 1. Severe triple-vessel coronary artery disease, status post 5 vessel off-pump CABG 2. Hypertension 3. Hyperlipidemia 4. Type 2 diabetes, current hemoglobin A1c 6.3% 5. Obesity 6. Pancreatitis 10 years ago 7. Current kidney stones 8. Previous tobacco dependence with FEV1 82% of predicted, post bronchodilator 84% of predicted 9. Family history of premature coronary artery disease Plan: 1. Continue aspirin, statin, Plavix, beta cuauhtemoc therapy. Will increase beta cuauhtemoc therapy as tolerated. 2. Wean O2 as tolerated. Bronchodilators per pulmonology. Encourage incentive spirometry is 10 times every hour while awake 3. Increase activity, ambulate as tolerated. PT/OT/cardiac rehab following 4. Will monitor daily labs and x-rays. Electro replacement per protocol. Will give 20 mg IVP lasix today 5. Insulin management per primary care service 6. Pain control with current medication regimen. 7. Continue Cardizem for radial artery spasm. Do not discontinue Cardizem without discussing with cardiothoracic surgery 8. Discontinue Cordis, arterial line, SARAH drain 9. Will discontinue chest tubes. 10. Will discontinue snyder after diuresis from lasix. Bladder scan every 6 hours as needed, may straight cath for >[address] transfer orders for 3S cardiac step-down. May transfer when bed available 12. Discharge planning in progress. Anticipate DC to home with home care in the next 48-72 hours. 13. More recommendations to follow based on patient's progress Time with Patient: Greater than 30
--- NOTE | 2019-01-21 09:13 | P.PN ---
Subjective Progress Note Date: 01/21/19 Principal diagnosis: Coronary artery disease, status post 5 vessel bypass This is a 73-year-old white male patient of Robyn Osborn PA-C, out of [facility], medical history of hypertension, hyperlipidemia, type 2 diabetes mellitus, morbid obesity, previous history of tobacco dependence, currently in remission, and family history of premature coronary artery disease. Patient was evaluated for shortness of breath he's had for the past 2 years, essentially progressively worse with activity. Pulmonary workup by Dr. Dr. Wood revealed FEV1 of 82% of predicted no significant change post bronchodilator. Chest x-ray revealed emphysematous changes, CT of the chest completed demonstrating emphysema, and triple-vessel coronary artery disease. Stress test showed reversible anterior ischemia, patient had a preserved left ventricular systolic function with an EF of 55%,, trace aortic regurgitation, mild mitral regurgitation, mild tricuspid regurg, cardiac catheterization revealed multivessel coronary artery disease, including 90% circumflex, 80% proximal LAD, 70% mid LAD, and complete occlusion of the RCA. Surgical evaluation and intervention were recommended, and today on 01/19/2019 patient underwent 5 vessel coronary artery bypass grafting by Dr. Wiggins. It was done off pump, with sequential SYLVESTER to LAD and first diagonal, sequential left radial artery to first and second obtuse marginal and SVG to posterior lateral coronary arteries. He seen in the postoperative period in the ICU, he sedated, intubated. Current vent settings are assist control mode ventilation with a rate of 12, tidal vital of 550, FiO2 100%, and PEEP of 10. Patient is doing well, in sinus mechanism with a rate of 67, hemodynamically stable, maintenance IV fluids include lactated Ringer's a rate of 50, Cardizem is at 5 mg per hour, nitroglycerin as of 5 mics per kilo per minute, to prevent is at 10 mics per kilo per minute, insulin drip is at 10 units per hour. PA pressures of 43/17, with a CVP of 11, cardiac output is 8.6, cardiac index is 3.5. Mediastinal and left pleural chest tubes with scant amount of sanguinous output in the Pleur-evac. Postoperative blood gases are pending, postoperative work is pending. On 01/20/2019 patient seen in follow-up in the intensive care unit, this is postoperative day 1, status post 5 vessel coronary artery bypass grafting that was done off pump. Patient extubated it 191 last night on 01/19/2019, OR exit time was 1428, patient was extubated in less than 5 hours after OR exit. This morning he seen sitting up in the chair, in no acute distress, he is on 3 L of oxygen his pulse ox is 96-98%, hemodynamically patient is stable, sinus mechanism on the monitor, maintenance IV fluids are LR at 50, insulin drip is at 3 units per hour, and Cardizem drip is at 5 mg per hour. X-ray has been reviewed, showing worsening trace right pleural effusion and right basilar airspace disease, stable left basilar airspace disease. Today's labs have been reviewed, showing white blood cell count of 8.2, hemoglobin of 10.6, platelet co unt is 112, electrolytes and renal profile were within normal limits. Hemodynamically patient has been stable, PA pressures are 19/6, CVP is 1, cardiac output is 7.0, cardiac index is 2.8. Mediastinal left pleural chest tube with large thin serosanguineous output, patient had 1018 mL of output in the last 24 hours out of his chest tubes. On 01/21/2019 patient seen in follow-up in intensive care unit, this is postoperative day 2, status post 5 vessel coronary artery bypass grafting that was done off pump, patient is seen sitting up in the recliner, he is currently on 3 L of oxygen, his pulse ox is 96%, he states he is feeling a little more sore today but otherwise no acute distress, denies any dyspnea, he is working and NSAIDs prominent, he is achieving 6571-4967 mL on the today, afebrile, hemodynamically stable, he is 1 and a line catheters have been discontinued, Dozier catheter remains in place, and patient was a little oliguric this morning, mediastinal left pleural chest tube remains in place with thin serosanguineous output, and her 520 mL out of it in the last 24 hours, IV fluids include lactated Ringer's at a rate of 20 ML per hour, and insulin drip at 3 units per hour, patient was given IV dose of Lasix yesterday, and another one today per CT surgery, that his chest x-ray has been reviewed showing worsening right pleural effusion and right basilar airspace disease was stable left basilar airspace disease likely related to small pleural effusions and bibasilar atelectasis. Objective - Vital Signs Vital signs: Vital Signs Temp 98.7 F 01/21/19 08:00 Pulse 73 01/21/19 08:00 Resp 10 L 01/21/19 08:00 BP 111/61 01/21/19 08:00 Pulse Ox 96 01/21/19 08:00 Intake & Output 01/20/19 01/21/19 01/21/19 18:59 06:59 18:59 Intake Total 846.143 313.860 53.511 Output Total 1480 540 60 Balance -633.857 -226.140 -6.489 Weight 151 kg 131.4 kg Intake: IV 354 286 49 Lactated Ringers 1,000 ml 270 220 40 @ 20 mls/hr IV .Q24H DEX Rx#:[id number] pressure bag 84 66 9 Intake, IV Titration 42.143 27.860 4.511 Amount Insulin Regular 100 unit 42.143 27.860 4.511 In Sodium Chloride 0.9% 100 ml @ Per Protocol IV .Q0M DEX Rx#:[id number] Oral 450 Output: Chest Tube Drainage 330 190 10 Left Pleural/Mediastinal 330 190 10 Drainage 30 20 Left Arm 30 20 Urine 1120 330 50 Other: Voiding Method Indwelling Catheter Indwelling Catheter # Voids 2 ABP, PAP, CO, CI - Last Documented Arterial Blood Pressure 117/76 Pulmonary Artery Pressure 20/4 Cardiac Output 7 Cardiac Index 2.8 - Exam GENERAL EXAM: Very pleasant 73-year-old obese white male on 3 l/min, comfortable in no apparent distress. HEAD: Normocephalic/atraumatic. EYES: Normal reaction of pupils, equal size. Conjunctiva pink, sclera white. NOSE: Clear with pink turbinates. THROAT: No erythema or exudates. NECK: No masses, no JVD, no thyroid enlargement, no adenopathy. CHEST: No chest wall deformity. Symmetrical expansion. Midsternal chest incisions clean dry and intact, left pleural and mediastinal chest tubes are Y-connected together connected to Pleur-evac with thin large amount of sanguinous output, no evidence of air leak LUNGS: Equal air entry with no crackles, wheeze, rhonchi or dullness. CVS: Regular rate and rhythm, normal S1 and S2, no gallops, no murmurs, no rubs ABDOMEN: Soft, nontender. No hepatosplenomegaly, normal bowel sounds, no guarding or rigidity. EXTREMITIES: No clubbing, no edema, no cyanosis, 2+ pulses and upper and lower extremities. Graft sites from left radial, and right Lower extremity with dressings, MUSCULOSKELETAL: Muscle strength and tone normal. SPINE: No scoliosis or deformity SKIN: No rashes CENTRAL NERVOUS SYSTEM: Sedated, intubated. No focal deficits, tone is normal in all 4 extremities. - Labs CBC & Chem 7: 01/21/19 04:45 01/21/19 04:45 Labs: Abnormal Lab Results - Last 24 Hours (Table) 01/20/19 01/20/19 01/20/19 Range/Units 09:56 10:59 11:55 RBC (4.30-5.90) m/uL Hgb (13.0-17.5) gm/dL Hct (39.0-53.0) % Plt Count (150-450) k/uL BUN (9-20) mg/dL Glucose (74-99) mg/dL POC Glucose (mg/dL) 142 H 153 H 156 H (75-99) mg/dL Total Bilirubin (0.2-1.3) mg/dL Total Protein (6.3-8.2) g/dL Albumin (3.5-5.0) g/dL 01/20/19 01/20/19 01/20/19 Range/Units 13:08 14:01 15:19 RBC (4.30-5.90) m/uL Hgb (13.0-17.5) gm/dL Hct (39.0-53.0) % Plt Count (150-450) k/uL BUN (9-20) mg/dL Glucose (74-99) mg/dL POC Glucose (mg/dL) 190 H 179 H 135 H (75-99) mg/dL Total Bilirubin (0.2-1.3) mg/dL Total Protein (6.3-8.2) g/dL Albumin (3.5-5.0) g/dL 01/20/19 01/20/19 01/20/19 Range/Units 17:07 18:29 19:59 RBC (4.30-5.90) m/uL Hgb (13.0-17.5) gm/dL Hct (39.0-53.0) % Plt Count (150-450) k/uL BUN (9-20) mg/dL Glucose (74-99) mg/dL POC Glucose (mg/dL) 131 H 191 H 145 H (75-99) mg/dL Total Bilirubin (0.2-1.3) mg/dL Total Protein (6.3-8.2) g/dL Albumin (3.5-5.0) g/dL 01/20/19 01/20/19 01/21/19 Range/Units 20:59 23:02 01:59 RBC (4.30-5.90) m/uL Hgb (13.0-17.5) gm/dL Hct (39.0-53.0) % Plt Count (150-450) k/uL BUN (9-20) mg/dL Glucose (74-99) mg/dL POC Glucose (mg/dL) 123 H 128 H 115 H (75-99) mg/dL Total Bilirubin (0.2-1.3) mg/dL Total Protein (6.3-8.2) g/dL Albumin (3.5-5.0) g/dL 01/21/19 01/21/19 01/21/19 Range/Units 04:00 04:45 04:45 RBC 3.02 L (4.30-5.90) m/uL Hgb 9.4 L (13.0-17.5) gm/dL Hct 26.8 L (39.0-53.0) % Plt Count 114 L (150-450) k/uL BUN 24 H (9-20) mg/dL Glucose 115 H (74-99) mg/dL POC Glucose (mg/dL) 121 H (75-99) mg/dL Total Bilirubin 2.3 H (0.2-1.3) mg/dL Total Protein 5.0 L (6.3-8.2) g/dL Albumin 3.0 L (3.5-5.0) g/dL 01/21/19 01/21/19 01/21/19 Range/Units 04:49 05:56 08:08 RBC (4.30-5.90) m/uL Hgb (13.0-17.5) gm/dL Hct (39.0-53.0) % Plt Count (150-450) k/uL BUN (9-20) mg/dL Glucose (74-99) mg/dL POC Glucose (mg/dL) 127 H 134 H 176 H (75-99) mg/dL Total Bilirubin (0.2-1.3) mg/dL Total Protein (6.3-8.2) g/dL Albumin (3.5-5.0) g/dL Assessment and Plan Plan: Assessment: #1. Coronary artery disease, that is post 5 vessel coronary artery bypass grafting, postoperative day 2 #2. History of mild COPD, with the preoperative FEV1 of 82% of predicted #3. Routine postoperative ventilator management, and patient was extubated in less than 5 hours after OR exit time #4. Hyperlipidemia #5. Diabetes mellitus #6. Previous history of tobacco dependence, currently in remission #7. History of family history of premature coronary artery disease #8. Morbid obesity #9. small pleural effusions and bibasilar atelectasis, patient has received diuretics, maintaining stable oxygenation on 3 L Plan: Continue encouraging deep breathing and coughing, today's chest x-ray has been reviewed, showing small pleural effusions and bibasilar atelectasis, patient has received on the dose of Lasix. CT surgery today, he is maintaining stable oxygenation on 3 L of oxygen, no acute distress, patient has ambulated, tolerated activity very well, hemodynamically patient remains stable, no acute issues overnight, continue pain control, deep breathing and coughing, and incentive spirometry use. I performed a history & physical examination of the patient and discussed their management with my nurse practitioner, Argentina Barkley. I reviewed the nurse practitioner's note and agree with the documented findings and plan of care. Lung sounds are positive for diminished breath sounds. The findings and the impression was discussed with the patient. I attest to the documentation by the nurse practitioner. Time with Patient: Less than 30
[2019-01-21 09:18] LABS: Glucose,Whole Blood 196 mg/dL (75-99)
[2019-01-21 10:00] LABS: Glucose,Whole Blood 196 mg/dL (75-99)
--- NOTE | 2019-01-21 11:41 | PN ---
PROGRESS NOTE This patient is status post coronary artery bypass surgery. Patient remains hemodynamically stable. However, patient has a significant weight gain and positive fluid balance and has been getting IV Lasix. He is comfortable. Denies any respiratory distress. The patient is afebrile. Respiratory rate is 15. Heart rate is 73 per minute. First and second heart sounds are normal. Lungs reveal few scattered wheezes. ASSESSMENT AND PLAN: This patient is status post coronary artery bypass surgery with a history of hypertension and hyperlipidemia. The patient remains fairly stable, has been getting Lasix with a good response because of fluid overload. MMODL / IJN: [id number] /
[2019-01-21 12:04] LABS: Glucose,Whole Blood 194 mg/dL (75-99)
--- NOTE | 2019-01-21 12:21 | P.PN ---
Subjective This is a pleasant 73 years old male with past medical history of coronary artery disease, diabetes mellitus, hyperlipidemia, hypertension, kidney stone, HISTORY of pancreatitis, ex-smoker, pulmonary hypertension. patient was admitted for myocardial revascularization for his triple-vessel coronary artery disease. Patient has chronic dyspnea and his been evaluated by egg separator showing positive stress test with reversible anterior ischemia, ejection fraction of 55% with moderate concentric left ventricular hypertrophy. Recent cardiac cath showing 100% occlusion of the RCA, 90% stenosis of the circumflex artery, and 80% stenosis of the LAD. Patient is scheduled for surgery today, he has recent CAT scan of the chest showing moderate 3 vessel coronary artery calcification and pulmonary hypertension with emphysematous changes Carotid Doppler showing no significant stenosis, however there is no mention if there is a plaque or not. This morning patient denies chest pain or dyspnea. No abdominal pain or nausea vomiting. Vitas looks stable. Labs were reviewed showing unremarkable CBC, INR, BMP, liver enzymes. Bilirubin is 1.4, triglycerides 218. Hepatitis panel was nonreactive. Urinalysis showed specific gravity of 1.045 and small leukocyte esterase. 01/20/2019 Patient seen and examined in the ICU, is fully awake and oriented. He is status post coronary artery bypass grafting 5. Today is postoperative day #1. Patient denies chest pain or dyspnea. No other new complaints. He had small breakfast this morning which is his norm. He remains on Cardizem and insulin drip. However he was started on oral Cardizem as well. As well as on IV fluids. Vitas looks stable with blood pressure of 115/63, breathing rate 21. Patient is afebrile. He is saturating 94% on 3 L oxygen via nasal cannula. Heart rate is 68 BPM. Hemoglobin stable at 10.6. No leukocytosis. BMP is unremarkable with normal electrolytes and creatinine 0.97. Sugar is controlled 115-146. Liver enzymes not elevated. 01/21/2019 Patient remains in the ICU. He denies chest pain or dyspnea. His started on diet today. Vitas looks stable and he is saturating 96% on 3 L. CBC and BMP looks his stable. Sugar controlled. He remains on Protonix and insulin. Patient is followed by several consultants including cardiology and pulmonary Objective - Vital Signs Vital signs: Vital Signs Temp 98.7 F 01/21/19 08:00 Pulse 76 01/21/19 12:04 Resp 10 L 01/21/19 08:00 BP 111/61 01/21/19 08:00 Pulse Ox 96 01/21/19 08:00 Intake & Output 01/20/19 01/21/19 01/21/19 18:59 06:59 18:59 Intake Total 846.143 313.860 61.928 Output Total 1480 540 60 Balance -633.857 -226.140 1.928 Weight 151 kg 131.4 kg Intake: IV 354 286 49 Lactated Ringers 1,000 ml 270 220 40 @ 20 mls/hr IV .Q24H DEX Rx#:[id number] pressure bag 84 66 9 Intake, IV Titration 42.143 27.860 12.928 Amount Insulin Regular 100 unit 42.143 27.860 12.928 In Sodium Chloride 0.9% 100 ml @ Per Protocol IV .Q0M DEX Rx#:[id number] Oral 450 Output: Chest Tube Drainage 330 190 10 Left Pleural/Mediastinal 330 190 10 Drainage 30 20 Left Arm 30 20 Urine 1120 330 50 Other: Voiding Method Indwelling Catheter Indwelling Catheter # Voids 2 ABP, PAP, CO, CI - Last Documented Arterial Blood Pressure 117/76 Pulmonary Artery Pressure 20/4 Cardiac Output 7 Cardiac Index 2.8 - Exam GENERAL: The patient is alert and oriented x3, not in any acute distress. Well developed, well nourished. HEENT: Pupils are round and equally reacting to light. EOMI. No scleral icterus. No conjunctival pallor. Normocephalic, atraumatic. No pharyngeal erythema. No thyromegaly. -CARDIOVASCULAR: S1 and S2 present. No murmurs, rubs, or gallops. Surgical wound with dressing is in place PULMONARY: Chest is clear to auscultation, no wheezing or crackles. ABDOMEN: Soft, nontender, nondistended, normoactive bowel sounds. No palpable organomegaly. MUSCULOSKELETAL: No joint swelling or deformity. EXTREMITIES: No cyanosis, clubbing, or pedal edema. NEUROLOGICAL: Gross neurological examination did not reveal any focal deficits. SKIN: No rashes. No petechiae - Labs CBC & Chem 7: 01/21/19 04:45 01/21/19 04:45 Labs: Abnormal Lab Results - Last 24 Hours (Table) 01/20/19 01/20/19 01/20/19 Range/Units 13:08 14:01 15:19 RBC (4.30-5.90) m/uL Hgb (13.0-17.5) gm/dL Hct (39.0-53.0) % Plt Count (150-450) k/uL BUN (9-20) mg/dL Glucose (74-99) mg/dL POC Glucose (mg/dL) 190 H 179 H 135 H (75-99) mg/dL Total Bilirubin (0.2-1.3) mg/dL Total Protein (6.3-8.2) g/dL Albumin (3.5-5.0) g/dL 01/20/19 01/20/19 01/20/19 Range/Units 17:07 18:29 19:59 RBC (4.30-5.90) m/uL Hgb (13.0-17.5) gm/dL Hct (39.0-53.0) % Plt Count (150-450) k/uL BUN (9-20) mg/dL Glucose (74-99) mg/dL POC Glucose (mg/dL) 131 H 191 H 145 H (75-99) mg/dL Total Bilirubin (0.2-1.3) mg/dL Total Protein (6.3-8.2) g/dL Albumin (3.5-5.0) g/dL 01/20/19 01/20/19 01/21/19 Range/Units 20:59 23:02 01:59 RBC (4.30-5.90) m/uL Hgb (13.0-17.5) gm/dL Hct (39.0-53.0) % Plt Count (150-450) k/uL BUN (9-20) mg/dL Glucose (74-99) mg/dL POC Glucose (mg/dL) 123 H 128 H 115 H (75-99) mg/dL Total Bilirubin (0.2-1.3) mg/dL Total Protein (6.3-8.2) g/dL Albumin (3.5-5.0) g/dL 01/21/19 01/21/19 01/21/19 Range/Units 04:00 04:45 04:45 RBC 3.02 L (4.30-5.90) m/uL Hgb 9.4 L (13.0-17.5) gm/dL Hct 26.8 L (39.0-53.0) % Plt Count 114 L (150-450) k/uL BUN 24 H (9-20) mg/dL Glucose 115 H (74-99) mg/dL POC Glucose (mg/dL) 121 H (75-99) mg/dL Total Bilirubin 2.3 H (0.2-1.3) mg/dL Total Protein 5.0 L (6.3-8.2) g/dL Albumin 3.0 L (3.5-5.0) g/dL 01/21/19 01/21/19 01/21/19 Range/Units 04:49 05:56 08:08 RBC (4.30-5.90) m/uL Hgb (13.0-17.5) gm/dL Hct (39.0-53.0) % Plt Count (150-450) k/uL BUN (9-20) mg/dL Glucose (74-99) mg/dL POC Glucose (mg/dL) 127 H 134 H 176 H (75-99) mg/dL Total Bilirubin (0.2-1.3) mg/dL Total Protein (6.3-8.2) g/dL Albumin (3.5-5.0) g/dL 01/21/19 01/21/19 01/21/19 Range/Units 09:17 09:58 12:02 RBC (4.30-5.90) m/uL Hgb (13.0-17.5) gm/dL Hct (39.0-53.0) % Plt Count (150-450) k/uL BUN (9-20) mg/dL Glucose (74-99) mg/dL POC Glucose (mg/dL) 196 H 196 H 194 H (75-99) mg/dL Total Bilirubin (0.2-1.3) mg/dL Total Protein (6.3-8.2) g/dL Albumin (3.5-5.0) g/dL Assessment and Plan Assessment: Triple-vessel coronary artery disease , status post coronary artery bypass grafting 5 Mild emphysema Pulmonary hypertension Diabetes mellitus Hypertension Hyperlipidemia History of coronary artery disease Kidney stones History of bowel obstruction History of cholecystectomy History of tonsillectomy Plan: This is a pleasant 73 years old male with triple-vessel coronary artery disease status post Surgery. Continue with Cardizem, continue with insulin. Encourage hydration. Continue with aspirin and Plavix. Labs and medication were reviewed.. Continue same treatment. Continue with symptomatic treatment. Resume home medication. Monitor lytes and vitals. DVT and GI prophylaxis. Further recommendations of the clinical course of the patie nt DVT prophylaxis: Subcutaneous heparin GI Prophylaxis Protonix Prognosis is guarded
[2019-01-21] MEDS: INSULIN ASPART (NovoLOG) 100 UNIT/ML VIAL SQ SCH ×4 (12:27→20:30)
[2019-01-21] MEDS: MULTIVITAMINS, THERA 1 EACH TAB PO SCH (12:27)
[2019-01-21 16:43] LABS: Glucose,Whole Blood 198 mg/dL (75-99)
[2019-01-21 20:23] LABS: Glucose,Whole Blood 233 mg/dL (75-99)
[2019-01-21] MEDS: SENNOSIDES-DOCUSATE SODIUM 1 EACH TAB PO SCH (20:26)
[2019-01-21] MEDS: INSULIN NPH 300 UNIT/3 ML VIAL SQ SCH (20:31)
[2019-01-22 01:58] LABS: Glucose,Whole Blood 138 mg/dL (75-99)
[2019-01-22 06:15] LABS: Glucose,Whole Blood 152 mg/dL (75-99)
[2019-01-22] MEDS: DILTIAZEM ORAL 30 MG TAB PO SCH (06:31)
[2019-01-22] MEDS: KETOROLAC 30 MG/ML 1 ML VIAL IVP SCH ×4 (06:31→23:29)
[2019-01-22] MEDS: PANTOPRAZOLE 40 MG TABLET PO SCH (06:31)
[2019-01-22] MEDS: INSULIN ASPART (NovoLOG) 100 UNIT/ML VIAL SQ SCH ×5 (06:32→20:59)
[2019-01-22 06:50] LABS: HCT 30.6 % (39.0-53.0); HGB 10.4 gm/dL (13.0-17.5); MCH 30.7 pg (25.0-35.0); MCHC 34.1 g/dL (31.0-37.0); MCV 90.1 fL (80.0-100.0); Platelet Count 127 k/uL (150-450); RDW 12.3 % (11.5-15.5)
[2019-01-22] MEDS: INSULN ASP PRT/INSULIN ASPART 100 UNIT/ML 10 ML VIAL SQ SCH (07:12)
[2019-01-22] MEDS ORDERED: MAGNESIUM HYDROXIDE 2,400 MG/10 ML CUP PO STA (07:25)
--- NOTE | 2019-01-22 07:32 | P.PN ---
Subjective Progress Note Date: 01/22/19 Principal diagnosis: Severe triple vessel coronary artery disease. Previous medical history of hypertension, hyperlipidemia, type 2 diabetes with current hemoglobin A1c 6.3%, obesity, pancreatitis 10 years ago, recurrent kidney stones, previous tobacco dependence with preoperative FEV1 82% of predicted, and family history of premature coronary artery disease. POD #3 urgent off-pump coronary artery bypass grafting 5 with sequential left internal mammary artery to the left anterior descending artery and first diagonal artery, sequential left radial artery to the first and second obtuse marginal artery and reverse saphenous vein graft to the posterior lateral branch of the circumflex coronary artery. Endovascular vein harvest of the left greater saphenous vein from mid calf to the groin. Endovascular radial artery harvest. Intraoperative transesophageal echocardiogram. The patient's currently sitting up in a recliner on the cardiac stepdown unit in no acute distress. Denies pain, shortness of breath. Remains in normal sinus rhythm, hemodynamically stable. Right internal jugular Cordis, right radial arterial line, mediastinal and left pleural chest tubes discontinued yesterday. Dozier discontinued, patient had difficulty urinating and needed straight cat heterization 1 this morning. Patient actively using incentive spirometry. Ambulated in hallway yesterday without difficulty. Objective - Vital Signs Vital signs: Vital Signs Temp 97.9 F 01/22/19 04:00 Pulse 65 01/22/19 04:00 Resp 18 01/22/19 04:00 BP 136/72 01/22/19 04:00 Pulse Ox 96 01/22/19 06:47 Intake & Output 01/21/19 01/22/19 01/22/19 18:59 06:59 18:59 Intake Total 110.928 Output Total 710 600 Balance -599.072 -600 Weight 127.6 kg Intake: IV 98 Lactated Ringers 1,000 ml 80 @ 20 mls/hr IV .Q24H DEX Rx#:[id number] pressure bag 18 Intake, IV Titration 12.928 Amount Insulin Regular 100 unit 12.928 In Sodium Chloride 0.9% 100 ml @ Per Protocol IV .Q0M DEX Rx#:[id number] Output: Chest Tube Drainage 70 Left Pleural/Mediastinal 70 Urine 640 600 Uretheral (Dozier) 600 Post Void Residual 0 Other: Voiding Method Indwelling Catheter # Voids 2 0 ABP, PAP, CO, CI - Last Documented Arterial Blood Pressure 117/76 Pulmonary Artery Pressure 20/4 Cardiac Output 7 Cardiac Index 2.8 - Constitutional General appearance: Present: cooperative, no acute distress, obese - Respiratory Details: Lungs sounds diminished bilaterally. Respirations even, nonlabored. Currently on room air with oxygen saturation 96%. Able to achieve 1500 mL on his incentive spirometry. Strong cough. - Cardiovascular Details: S1, S2 present, no murmur present. Regular rate and rhythm, sinus rhythm on telemetry. Palpable peripheral pulses bilaterally. Trace lower extremity edema present. No calf pain or tenderness noted. Heart hugger in place with patient demonstrating appropriate use. Antiembolism stockings, SCDs present. - Gastrointestinal Gastrointestinal Comment(s): Abdomen soft, nontender, nondistended. Active bowel sounds present 4 quadrants. Tolerating diet. Positive flatus, negative bowel movement. - Genitourinary Genitourinary Comment(s): Dozier catheter discontinued yesterday. Patient did feel the urge to void but was unable, straight catheterization 1 with 600 mL output. - Integumentary Integumentary Comment(s): Skin is warm and dry with evidence of good perfusion. Anterior chest incision well approximated and covered with dry intact dressing. Left radial artery harvest site well approximated. Patient does have full motion of his left hand, skin is warm with good cap refill, patient denies numbness or tingling except his pinky finger which he said has been chronic for years. Left lower extremity EVH site well approximated. - Neurologic Neurologic: Present: CNII-XII intact - Musculoskeletal Musculoskeletal: Present: gait normal, strength equal bilaterally - Psychiatric Psychiatric: Present: A&O x's 3, appropriate affect, intact judgment & insight - Allied health notes Allied health notes reviewed: nursing - Labs CBC & Chem 7: 01/22/19 06:33 01/22/19 06:33 Labs: Abnormal Lab Results - Last 24 Hours (Table) 01/21/19 01/21/19 01/21/19 Range/Units 04:45 08:08 09:17 RBC (4.30-5.90) m/uL Hgb (13.0-17.5) gm/dL Hct (39.0-53.0) % Plt Count (150-450) k/uL BUN 24 H (9-20) mg/dL Glucose 115 H (74-99) mg/dL POC Glucose (mg/dL) 176 H 196 H (75-99) mg/dL Total Bilirubin 2.3 H (0.2-1.3) mg/dL Total Protein 5.0 L (6.3-8.2) g/dL Albumin 3.0 L (3.5-5.0) g/dL 01/21/19 01/21/19 01/21/19 Range/Units 09:58 12:02 16:41 RBC (4.30-5.90) m/uL Hgb (13.0-17.5) gm/dL Hct (39.0-53.0) % Plt Count (150-450) k/uL BUN (9-20) mg/dL Glucose (74-99) mg/dL POC Glucose (mg/dL) 196 H 194 H 198 H (75-99) mg/dL Total Bilirubin (0.2-1.3) mg/dL Total Protein (6.3-8.2) g/dL Albumin (3.5-5.0) g/dL 01/21/19 01/22/19 01/22/19 Range/Units 20:22 01:57 06:14 RBC (4.30-5.90) m/uL Hgb (13.0-17.5) gm/dL Hct (39.0-53.0) % Plt Count (150-450) k/uL BUN (9-20) mg/dL Glucose (74-99) mg/dL POC Glucose (mg/dL) 233 H 138 H 152 H (75-99) mg/dL Total Bilirubin (0.2-1.3) mg/dL Total Protein (6.3-8.2) g/dL Albumin (3.5-5.0) g/dL 01/22/19 01/22/19 Range/Units 06:33 06:33 RBC 3.40 L (4.30-5.90) m/uL Hgb 10.4 L (13.0-17.5) gm/dL Hct 30.6 L (39.0-53.0) % Plt Count 127 L (150-450) k/uL BUN 31 H (9-20) mg/dL Glucose 143 H (74-99) mg/dL POC Glucose (mg/dL) (75-99) mg/dL Total Bilirubin (0.2-1.3) mg/dL Total Protein (6.3-8.2) g/dL Albumin (3.5-5.0) g/dL - Imaging and Cardiology Chest x-ray: image reviewed Assessment and Plan Assessment: 1. Severe triple-vessel coronary artery disease, status post 5 vessel off-pump CABG 2. Hypertension 3. Hyperlipidemia 4. Type 2 diabetes, current hemoglobin A1c 6.3% 5. Obesity 6. Pancreatitis 10 years ago 7. Current kidney stones 8. Previous tobacco dependence with FEV1 82% of predicted, post bronchodilator 84% of predicted 9. Family history of premature coronary artery disease Plan: 1. Continue aspirin, statin, Plavix, beta cuauhtemoc therapy. Will increase beta cuauhtemoc therapy as tolerated. Will add BERHANE inhibitor for afterload reduction 2. Bronchodilators per pulmonology. Encourage incentive spirometry is 10 times every hour while awake 3. Increase activity, ambulate as tolerated. PT/OT/cardiac rehab following 4. Will monitor daily labs and x-rays. Electro replacement per protocol. Will give 20 mg IVP lasix x 1 today 5. Insulin management per primary care service 6. Pain control with current medication regimen. 7. Continue Cardizem for radial artery spasm. Do not discontinue Cardizem without discussing with cardiothoracic surgery 8. Will initiate Flomax. Bladder scan every 6 hours as needed, may straight cath for >300 mL residual 9. Discharge planning in progress. Anticipate DC to home with home care in the next 24-48 hours. 10. More recommendations to follow based on patient's progress Time with Patient: Greater than 30
[2019-01-22] MEDS: IPRATROPIUM-ALBUTEROL 3 ML NEB INHALATION SCH ×4 (07:59→20:20)
[2019-01-22] MEDS ORDERED: FUROSEMIDE 10 MG/ML 2 ML VIAL IV ONE (08:33)
--- NOTE | 2019-01-22 09:14 | XR ---
EXAMINATION TYPE: XR chest 2V DATE OF EXAM: 01/22/2019 COMPARISON: 01/21/2019 HISTORY: Status post cardiac surgery TECHNIQUE: Frontal and lateral views of the chest are obtained. FINDINGS: Left thoracostomy tube has been removed. No pneumothorax is appreciated. Cardia mediastina l silhouette is enlarged with postoperative change. There is a focal retrocardiac opacity on the late ral view questionably of the right lower lobe behind the right atrium on the frontal view as this abu ts the right hemidiaphragm. This is rounded and masslike. Diffuse osseous demineralization. IMPRESSION: 1. On the lateral view there is a rounded area of airspace disease. This may represent residual atele ctasis, pneumonia or nodule. Short-term follow-up chest x-rays recommended to ensure resolution. 2. Status post left thoracostomy tube removal with no residual pneumothorax seen.
[2019-01-22] MEDS: ASPIRIN 325 MG TAB PO SCH (09:52)
[2019-01-22] MEDS: METOPROLOL TARTRATE 12.5 MG TAB PO SCH ×2 (09:52→20:59)
[2019-01-22] MEDS: MULTIVITAMINS, THERA 1 EACH TAB PO SCH (09:52)
[2019-01-22] MEDS: ATORVASTATIN 40 MG TAB PO SCH (09:52)
[2019-01-22] MEDS: CLOPIDOGREL 75 MG TAB PO SCH (09:52)
[2019-01-22] MEDS: DILTIAZEM CD 120 MG CAP.ER.24H PO SCH (09:52)
[2019-01-22] MEDS: TAMSULOSIN 0.4 MG CAP.ER.24H PO SCH (09:53)
[2019-01-22] MEDS: HEPARIN SODIUM,PORCINE 5,000 UNIT/ML 1 ML VIAL SQ SCH ×3 (10:01→23:30)
--- NOTE | 2019-01-22 11:34 | P.PN ---
Subjective This is a pleasant 73 years old male with past medical history of coronary artery disease, diabetes mellitus, hyperlipidemia, hypertension, kidney stone, HISTORY of pancreatitis, ex-smoker, pulmonary hypertension. patient was admitted for myocardial revascularization for his triple-vessel coronary artery disease. Patient has chronic dyspnea and his been evaluated by carbon printer showing positive stress test with reversible anterior ischemia, ejection fraction of 55% with moderate concentric left ventricular hypertrophy. Recent cardiac cath showing 100% occlusion of the RCA, 90% stenosis of the circumflex artery, and 80% stenosis of the LAD. Patient is scheduled for surgery today, he has recent CAT scan of the chest showing moderate 3 vessel coronary artery calcification and pulmonary hypertension with emphysematous changes Carotid Doppler showing no significant stenosis, however there is no mention if there is a plaque or not. This morning patient denies chest pain or dyspnea. No abdominal pain or nausea vomiting. Vitas looks stable. Labs were reviewed showing unremarkable CBC, INR, BMP, liver enzymes. Bilirubin is 1.4, triglycerides 218. Hepatitis panel was nonreactive. Urinalysis showed specific gravity of 1.045 and small leukocyte esterase. 01/20/2019 Patient seen and examined in the ICU, is fully awake and oriented. He is status post coronary artery bypass grafting 5. Today is postoperative day #1. Patient denies chest pain or dyspnea. No other new complaints. He had small breakfast this morning which is his norm. He remains on Cardizem and insulin drip. However he was started on oral Cardizem as well. As well as on IV fluids. Vitas looks stable with blood pressure of 115/63, breathing rate 21. Patient is afebrile. He is saturating 94% on 3 L oxygen via nasal cannula. Heart rate is 68 BPM. Hemoglobin stable at 10.6. No leukocytosis. BMP is unremarkable with normal electrolytes and creatinine 0.97. Sugar is controlled 115-146. Liver enzymes not elevated. 01/21/2019 Patient remains in the ICU. He denies chest pain or dyspnea. His started on diet today. Vitas looks stable and he is saturating 96% on 3 L. CBC and BMP looks his stable. Sugar controlled. He remains on Protonix and insulin. Patient is followed by several consultants including cardiology and pulmonary 01/22/2019 Patient lying in bed comfortable. He denies dyspnea. He denies dyspnea. No other new complaint. He has regular bowel movement with no vomiting and is tolerating that well. Vitas looks stable. Labs reviewed. Patient is followed up by several consultants. Patient remains on aspirin and Plavix. Also is on Cardizem Objective - Vital Signs Vital signs: Vital Signs Temp 98.9 F 01/22/19 08:00 Pulse 66 01/22/19 08:09 Resp 20 01/22/19 08:00 BP 106/65 01/22/19 08:00 Pulse Ox 95 01/22/19 08:00 Intake & Output 01/21/19 01/22/19 01/22/19 18:59 06:59 18:59 Intake Total 110.928 0 Output Total 710 600 Balance -599.072 -600 0 Weight 127.6 kg Intake: IV 98 Lactated Ringers 1,000 ml 80 @ 20 mls/hr IV .Q24H DEX Rx#:[id number] pressure bag 18 Intake, IV Titration 12.928 Amount Insulin Regular 100 unit 12.928 In Sodium Chloride 0.9% 100 ml @ Per Protocol IV .Q0M DEX Rx#:[id number] Oral 0 Output: Chest Tube Drainage 70 Left Pleural/Mediastinal 70 Urine 640 600 Uretheral (Dozier) 600 Post Void Residual 0 Other: Voiding Method Indwelling Catheter # Voids 2 0 ABP, PAP, CO, CI - Last Documented Arterial Blood Pressure 117/76 Pulmonary Artery Pressure 20/4 Cardiac Output 7 Cardiac Index 2.8 - Exam GENERAL: The patient is alert and oriented x3, not in any acute distress. Well developed, well nourished. HEENT: Pupils are round and equally reacting to light. EOMI. No scleral icterus. No conjunctival pallor. Normocephalic, atraumatic. No pharyngeal erythema. No thyromegaly. -CARDIOVASCULAR: S1 and S2 present. No murmurs, rubs, or gallops. Surgical wound with dressing is in place PULMONARY: Chest is clear to auscultation, no wheezing or crackles. ABDOMEN: Soft, nontender, nondistended, normoactive bowel sounds. No palpable organomegaly. MUSCULOSKELETAL: No joint swelling or deformity. EXTREMITIES: No cyanosis, clubbing, or pedal edema. NEUROLOGICAL: Gross neurological examination did not reveal any focal deficits. SKIN: No rashes. No petechiae - Labs CBC & Chem 7: 01/22/19 06:33 01/22/19 06:33 Labs: Abnormal Lab Results - Last 24 Hours (Table) 01/21/19 01/21/19 01/21/19 Range/Units 12:02 16:41 20:22 RBC (4.30-5.90) m/uL Hgb (13.0-17.5) gm/dL Hct (39.0-53.0) % Plt Count (150-450) k/uL BUN (9-20) mg/dL Glucose (74-99) mg/dL POC Glucose (mg/dL) 194 H 198 H 233 H (75-99) mg/dL 01/22/19 01/22/19 01/22/19 Range/Units 01:57 06:14 06:33 RBC 3.40 L (4.30-5.90) m/uL Hgb 10.4 L (13.0-17.5) gm/dL Hct 30.6 L (39.0-53.0) % Plt Count 127 L (150-450) k/uL BUN (9-20) mg/dL Glucose (74-99) mg/dL POC Glucose (mg/dL) 138 H 152 H (75-99) mg/dL 01/22/19 Range/Units 06:33 RBC (4.30-5.90) m/uL Hgb (13.0-17.5) gm/dL Hct (39.0-53.0) % Plt Count (150-450) k/uL BUN 31 H (9-20) mg/dL Glucose 143 H (74-99) mg/dL POC Glucose (mg/dL) (75-99) mg/dL Assessment and Plan Assessment: Triple-vessel coronary artery disease , status post coronary artery bypass grafting 5 Mild emphysema Pulmonary hypertension Diabetes mellitus Hypertension Hyperlipidemia History of coronary artery disease Kidney stones History of bowel obstruction History of cholecystectomy History of tonsillectomy Plan: This is a pleasant 73 years old male with triple-vessel coronary artery disease status post Surgery. Continue with Cardizem, continue with insulin. Encourage hydration. Continue with aspirin and Plavix. Labs and medication were reviewed.. Continue same treatment. Continue with symptomatic treatment. Resume home medication. Monitor lytes and vitals. DVT and GI prophylaxis. Further recommendations of the clinical course of the patient DVT prophylaxis: Subcutaneous heparin GI Prophylaxis Protonix Prognosis is guarded
[2019-01-22 11:49] LABS: Glucose,Whole Blood 153 mg/dL (75-99)
--- NOTE | 2019-01-22 11:51 | P.PN ---
Subjective Progress Note Date: 01/22/19 Principal diagnosis: Coronary artery disease, status post 5 vessel bypass This is a 73-year-old white male patient of Robyn Osborn PA-C, out of [facility], medical history of hypertension, hyperlipidemia, type 2 diabetes mellitus, morbid obesity, previous history of tobacco dependence, currently in remission, and family history of premature coronary artery disease. Patient was evaluated for shortness of breath he's had for the past 2 years, essentially progressively worse with activity. Pulmonary workup by Dr. Dr. Wood revealed FEV1 of 82% of predicted no significant change post bronchodilator. Chest x-ray revealed emphysematous changes, CT of the chest completed demonstrating emphysema, and triple-vessel coronary artery disease. Stress test showed reversible anterior ischemia, patient had a preserved left ventricular systolic function with an EF of 55%,, trace aortic regurgitation, mild mitral regurgitation, mild tricuspid regurg, cardiac catheterization revealed multivessel coronary artery disease, including 90% circumflex, 80% proximal LAD, 70% mid LAD, and complete occlusion of the RCA. Surgical evaluation and intervention were recommended, and today on 01/19/2019 patient underwent 5 vessel coronary artery bypass grafting by Dr. Wiggins. It was done off pump, with sequential SYLVESTER to LAD and first diagonal, sequential left radial artery to first and second obtuse marginal and SVG to posterior lateral coronary arteries. He seen in the postoperative period in the ICU, he sedated, intubated. Current vent settings are assist control mode ventilation with a rate of 12, tidal vital of 550, FiO2 100%, and PEEP of 10. Patient is doing well, in sinus mechanism with a rate of 67, hemodynamically stable, maintenance IV fluids include lactated Ringer's a rate of 50, Cardizem is at 5 mg per hour, nitroglycerin as of 5 mics per kilo per minute, to prevent is at 10 mics per kilo per minute, insulin drip is at 10 units per hour. PA pressures of 43/17, with a CVP of 11, cardiac output is 8.6, cardiac index is 3.5. Mediastinal and left pleural chest tubes with scant amount of sanguinous output in the Pleur-evac. Postoperative blood gases are pending, postoperative work is pending. On 01/20/2019 patient seen in follow-up in the intensive care unit, this is postoperative day 1, status post 5 vessel coronary artery bypass grafting that was done off pump. Patient extubated it 191 last night on 01/19/2019, OR exit time was 1428, patient was extubated in less than 5 hours after OR exit. This morning he seen sitting up in the chair, in no acute distress, he is on 3 L of oxygen his pulse ox is 96-98%, hemodynamically patient is stable, sinus mechanism on the monitor, maintenance IV fluids are LR at 50, insulin drip is at 3 units per hour, and Cardizem drip is at 5 mg per hour. X-ray has been reviewed, showing worsening trace right pleural effusion and right basilar airspace disease, stable left basilar airspace disease. Today's labs have been reviewed, showing white blood cell count of 8.2, hemoglobin of 10.6, platelet co unt is 112, electrolytes and renal profile were within normal limits. Hemodynamically patient has been stable, PA pressures are 19/6, CVP is 1, cardiac output is 7.0, cardiac index is 2.8. Mediastinal left pleural chest tube with large thin serosanguineous output, patient had 1018 mL of output in the last 24 hours out of his chest tubes. On 01/21/2019 patient seen in follow-up in intensive care unit, this is postoperative day 2, status post 5 vessel coronary artery bypass grafting that was done off pump, patient is seen sitting up in the recliner, he is currently on 3 L of oxygen, his pulse ox is 96%, he states he is feeling a little more sore today but otherwise no acute distress, denies any dyspnea, he is working and NSAIDs prominent, he is achieving 8430-1880 mL on the today, afebrile, hemodynamically stable, he is 1 and a line catheters have been discontinued, Doizer catheter remains in place, and patient was a little oliguric this morning, mediastinal left pleural chest tube remains in place with thin serosanguineous output, and her 520 mL out of it in the last 24 hours, IV fluids include lactated Ringer's at a rate of 20 ML per hour, and insulin drip at 3 units per hour, patient was given IV dose of Lasix yesterday, and another one today per CT surgery, that his chest x-ray has been reviewed showing worsening right pleural effusion and right basilar airspace disease was stable left basilar airspace disease likely related to small pleural effusions and bibasilar atelectasis. On 01/22/2019 patient is seen in follow-up on several to care unit, this is postoperative day 3 status post four-vessel coronary artery bypass grafting, off pump, patient is doing extremely well, patient is sitting up in the recliner, he is in no acute distress, he is on room air OF 95%, hemodynamically stable, no fever. Lung sounds reveal minimal crackles at the bases, no rhonchi, no wheezing, patient has been pulling 1500 on his incentive spirometer, all of his chest tubes have been discontinued, vitals have been stable, he is been tolerating ambulation, and he is anticipated to be discharged home tomorrow Objective - Vital Signs Vital signs: Vital Signs Temp 98.9 F 01/22/19 08:00 Pulse 72 01/22/19 11:41 Resp 20 01/22/19 08:00 BP 106/65 01/22/19 08:00 Pulse Ox 95 01/22/19 08:00 Intake & Output 01/21/19 01/22/19 01/22/19 18:59 06:59 18:59 Intake Total 110.928 0 Output Total 710 600 Balance -599.072 -600 0 Weight 127.6 kg Intake: IV 98 Lactated Ringers 1,000 ml 80 @ 20 mls/hr IV .Q24H DEX Rx#:[id number] pressure bag 18 Intake, IV Titration 12.928 Amount Insulin Regular 100 unit 12.928 In Sodium Chloride 0.9% 100 ml @ Per Protocol IV .Q0M DEX Rx#:[id number] Oral 0 Output: Chest Tube Drainage 70 Left Pleural/Mediastinal 70 Urine 640 600 Uretheral (Dozier) 600 Post Void Residual 0 Other: Voiding Method Indwelling Catheter # Voids 2 0 ABP, PAP, CO, CI - Last Documented Arterial Blood Pressure 117/76 Pulmonary Artery Pressure 20/4 Cardiac Output 7 Cardiac Index 2.8 - Exam GENERAL EXAM: Very pleasant 73-year-old obese white male on 3 l/min, comf ortable in no apparent distress. HEAD: Normocephalic/atraumatic. EYES: Normal reaction of pupils, equal size. Conjunctiva pink, sclera white. NOSE: Clear with pink turbinates. THROAT: No erythema or exudates. NECK: No masses, no JVD, no thyroid enlargement, no adenopathy. CHEST: No chest wall deformity. Symmetrical expansion. Midsternal chest incisions clean dry and intact, interval removal of left pleural and mediastinal chest tubes LUNGS: Equal air entry with no crackles, wheeze, rhonchi or dullness. CVS: Regular rate and rhythm, normal S1 and S2, no gallops, no murmurs, no rubs ABDOMEN: Soft, nontender. No hepatosplenomegaly, normal bowel sounds, no guarding or rigidity. EXTREMITIES: No clubbing, no edema, no cyanosis, 2+ pulses and upper and lower extremities. Graft sites from left radial, and right Lower extremity with dressings. MUSCULOSKELETAL: Muscle strength and tone normal. SPINE: No scoliosis or deformity SKIN: No rashes CENTRAL NERVOUS SYSTEM: Sedated, intubated. No focal deficits, tone is normal in all 4 extremities. - Labs CBC & Chem 7: 01/22/19 06:33 01/22/19 06:33 Labs: Abnormal Lab Results - Last 24 Hours (Table) 01/21/19 01/21/19 01/21/19 Range/Units 12:02 16:41 20:22 RBC (4.30-5.90) m/uL Hgb (13.0-17.5) gm/dL Hct (39.0-53.0) % Plt Count (150-450) k/uL BUN (9-20) mg/dL Glucose (74-99) mg/dL POC Glucose (mg/dL) 194 H 198 H 233 H (75-99) mg/dL 01/22/19 01/22/19 01/22/19 Range/Units 01:57 06:14 06:33 RBC 3.40 L (4.30-5.90) m/uL Hgb 10.4 L (13.0-17.5) gm/dL Hct 30.6 L (39.0-53.0) % Plt Count 127 L (150-450) k/uL BUN (9-20) mg/dL Glucose (74-99) mg/dL POC Glucose (mg/dL) 138 H 152 H (75-99) mg/dL 01/22/19 Range/Units 06:33 RBC (4.30-5.90) m/uL Hgb (13.0-17.5) gm/dL Hct (39.0-53.0) % Plt Count (150-450) k/uL BUN 31 H (9-20) mg/dL Glucose 143 H (74-99) mg/dL POC Glucose (mg/dL) (75-99) mg/dL Assessment and Plan Plan: Assessment: #1. Coronary artery disease, that is post 5 vessel coronary artery bypass grafting, postoperative day 3 #2. History of mild COPD, with the preoperative FEV1 of 82% of predicted #3. Routine postoperative ventilator management, and patient was extubated in less than 5 hours after OR exit time #4. Hyperlipidemia #5. Diabetes mellitus #6. Previous history of tobacco dependence, currently in remission #7. History of family history of premature coronary artery disease #8. Morbid obesity #9. small pleural effusions and bibasilar atelectasis, patient has received diuretics, maintaining stable oxygenation on 3 L Plan: Continue encouraging deep breathing and coughing, today's chest x-ray has been reviewed showing residual atelectasis in the right lower lobe, clinically patient remains stable, breathing is stable, he is working on incentive spirometer, tolerating ambulation, no acute events overnight, all of his chest tubes have been discontinued, today's labs have been reviewed. Doing well, anticipated to be discharged home tomorrow. I performed a history & physical examination of the patient and discussed their management with my nurse practitioner, Argentina Barkley. I reviewed the nurse practitioner's note and agree with the documented findings and plan of care. Lung sounds are positive for diminished breath sounds. The findings and the impression was discussed with the patient. I attest to the documentation by the nurse practitioner. Time with Patient: Less than 30
[2019-01-22] MEDS ORDERED: LISINOPRIL 5 MG TAB PO SCH (12:00)
[2019-01-22] MEDS ORDERED: LISINOPRIL 2.5 MG TAB PO SCH (12:00)
--- NOTE | 2019-01-22 12:14 | CONS ---
CONSULTATION This patient's electronic medical records as well as the lab tests reviewed. The patient is status post coronary artery bypass surgery. The patient has a history of diabetes. He is sitting comfortably in the chair and no respiratory distress or cough is noted. Patient is afebrile. Blood pressure is 106/65 mmHg. First and second heart sounds are normal. Lungs are fairly clear to auscultation and percussion. Patient's hemoglobin is 10.4, BUN is 31. Blood sugar is 153. IMPRESSION: Status post coronary artery bypass surgery, hypertension and diabetes, hyperlipidemia. We would recommend to consider the patient either on Farxiga or Jardiance for the cardioprotective effect. MMODL / IJN: [id number] /
--- NOTE | 2019-01-22 15:13 | P.GSCN ---
History of Present Illness Consult date: 01/22/19 History of present illness: The patient is a pleasant 73-year-old gentleman who is in the hospital for open heart surgery. This was done on 01/19/2019. He has had problems urinating postoperatively. He has had to be catheterized intermittently. It was asked to see the patient. I've seen the patient in the past for kidney stones. Prior to the surgery he denies problems urinating. He has not been on any medication to assist in urination. His flows an adequate. Urination is 0-1 time per night. There's been no infection bleeding pain he has urinated in between the time of the consult order and my visit in the patient. He states that he voided about 4-500 mL. Review of Systems All systems: negative - Constitutional Denies fever, Denies weight loss - EENT Eyes: denies blurred vision Ears, nose, mouth and throat: Denies dysphagia - Cardiovascular Denies chest pain, Denies shortness of breath - Respiratory Denies cough, Denies 7 - Gastrointestinal Reports as per HPI - Genitourinary Denies dysuria, Denies hematuria - Integumentary Denies rash, Denies unusual bruising - Neurological Denies headaches, Denies syncope - Hematologic/Lymphatic Denies easy bleeding, Denies easy bruising Past Medical History Past Medical History: Coronary Artery Disease (CAD), Diabetes Mellitus, Hyperlipidemia, Hypertension Additional Past Medical History / Comment(s): PANCREATITIS (2008), SOB, kidney stones History of Any Multi-Drug Resistant Organisms: None Reported Past Surgical History: Cholecystectomy, Tonsillectomy Past Anesthesia/Blood Transfusion Reactions: No Reported Reaction Past Psychological History: No Psychological Hx Reported Smoking Status: Former smoker Past Alcohol Use History: Rare Additional Past Alcohol Use History / Comment(s): QUIT SMOKING 10 YRS AGO (2008), was a "some day" smoker-since age 14 Past Drug Use History: None Reported - Past Family History Mother Family Medical History: Deep Vein Thrombosis (DVT) Sister(s) Family Medical History: Coronary Artery Disease (CAD), Deep Vein Thrombosis (DVT) Additional Family Medical History / Comment(s): sister with diagnosed coronary artery disease in her early 50s Father Family Medical History: Coronary Artery Disease (CAD), Hyperlipidemia, Hypertension Additional Family Medical History / Comment(s): CABG Medications and Allergies Home Medications Medication Instructions Recorded Confirmed Type Ascorbic Acid [Vitamin C] 1,000 mg PO DAILY 03/13/18 01/18/19 History Atorvastatin [Lipitor] 80 mg PO DAILY 03/13/18 01/18/19 History Fish Oil/Dha/Epa [Fish Oil 1,200 1,200 mg PO DAILY 03/13/18 01/18/19 History mg Fish Oil] Lisinopril 20 mg PO DAILY 03/13/18 01/18/19 History Multivit-Min/Folic/Vit K/Lycop 1 each PO DAILY 03/13/18 01/18/19 History [Men's Multivitamin Tablet] Naproxen 500 mg PO DAILY 03/13/18 01/18/19 History Potassium 99 mg PO DAILY 03/13/18 01/18/19 History Vitamin B Complex 1 each PO DAILY 03/13/18 01/18/19 History glipiZIDE [Glucotrol] 5 mg PO HS 03/13/18 01/18/19 History Aspirin [Adult Low Dose Aspirin EC] 81 mg PO HS 01/14/19 01/18/19 History Metoprolol Succinate (ER) [Toprol 12.5 mg PO HS 01/14/19 01/18/19 History XL] Allergies Allergy/AdvReac Type Severity Reaction Status Date / Time latex AdvReac Unknown Itching Verified 01/18/19 07:04 Surgical - Exam Vital Signs Temp Pulse Resp BP Pulse Ox 98.3 F 61 16 143/74 95 01/18/19 07:18 01/18/19 07:18 01/18/19 07:18 01/18/19 07:18 01/18/19 07:18 - General well developed, well nourished, no distress - Eyes PERRL - ENT no hearing loss - Neck no masses - Respiratory normal expansion, normal respiratory effort - Cardiovascular Rhythm: regular - Abdomen Abdomen: soft, non tender - Genitourinary normal penis with no external lesions, testicles present - Neurologic normal coordination, normal sensation - Musculoskeletal normal posture - Psychiatric oriented to time, oriented to person, oriented to place, speech is normal, memory intact Results - Labs 01/22/19 06:33 01/22/19 06:33 Abnormal Lab Results - Last 24 Hours (Table) 01/21/19 01/21/19 01/22/19 Range/Units 16:41 20:22 01:57 RBC (4.30-5.90) m/uL Hgb (13.0-17.5) gm/dL Hct (39.0-53.0) % Plt Count (150-450) k/uL BUN (9-20) mg/dL Glucose (74-99) mg/dL POC Glucose (mg/dL) 198 H 233 H 138 H (75-99) mg/dL 01/22/19 01/22/19 01/22/19 Range/Units 06:14 06:33 06:33 RBC 3.40 L (4.30-5.90) m/uL Hgb 10.4 L (13.0-17.5) gm/dL Hct 30.6 L (39.0-53.0) % Plt Count 127 L (150-450) k/uL BUN 31 H (9-20) mg/dL Glucose 143 H (74-99) mg/dL POC Glucose (mg/dL) 152 H (75-99) mg/dL 01/22/19 Range/Units 11:46 RBC (4.30-5.90) m/uL Hgb (13.0-17.5) gm/dL Hct (39.0-53.0) % Plt Count (150-450) k/uL BUN (9-20) mg/dL Glucose (74-99) mg/dL POC Glucose (mg/dL) 153 H (75-99) mg/dL Diabetes panel 01/22/19 Range/Units 06:33 Sodium 139 (137-145) mmol/L Potassium 4.0 (3.5-5.1) mmol/L Chloride 105 (98-107) mmol/L Carbon Dioxide 24 (22-30) mmol/L BUN 31 H (9-20) mg/dL Creatinine 1.10 (0.66-1.25) mg/dL Glucose 143 H (74-99) mg/dL Calcium 9.0 (8.4-10.2) mg/dL Calcium panel 01/22/19 Range/Units 06:33 Calcium 9.0 (8.4-10.2) mg/dL Pituitary panel 01/22/19 Range/Units 06:33 Sodium 139 (137-145) mmol/L Potassium 4.0 (3.5-5.1) mmol/L Chloride 105 (98-107) mmol/L Carbon Dioxide 24 (22-30) mmol/L BUN 31 H (9-20) mg/dL Creatinine 1.10 (0.66-1.25) mg/dL Glucose 143 H (74-99) mg/dL Calcium 9.0 (8.4-10.2) mg/dL Adrenal panel 01/22/19 Range/Units 06:33 Sodium 139 (137-145) mmol/L Potassium 4.0 (3.5-5.1) mmol/L Chloride 105 (98-107) mmol/L Carbon Dioxide 24 (22-30) mmol/L BUN 31 H (9-20) mg/dL Creatinine 1.10 (0.66-1.25) mg/dL Glucose 143 H (74-99) mg/dL Calcium 9.0 (8.4-10.2) mg/dL Assessment and Plan Assessment: Impression: Postoperative urinary retention. Recommendations: Patient does not sound as if he had any significant problems voiding preoperatively. Most commonly the retention is due to fluid shifts, pain, narcotics, immobility. He seems to be voiding without difficulty. I recommend bladder scan residuals over the next couple of voids. If he seems to be emptying adequately can be discharged home tomorrow from urologic standpoint.
[2019-01-22 17:21] LABS: Glucose,Whole Blood 177 mg/dL (75-99)
[2019-01-22 20:38] LABS: Glucose,Whole Blood 181 mg/dL (75-99)
[2019-01-22] MEDS: SENNOSIDES-DOCUSATE SODIUM 1 EACH TAB PO SCH (21:00)
[2019-01-22] MEDS: INSULIN NPH 300 UNIT/3 ML VIAL SQ SCH (21:00)
[2019-01-23 01:59] LABS: Glucose,Whole Blood 84 mg/dL (75-99)
[2019-01-23 05:19] VITALS: RESP 18
[2019-01-23 06:15] LABS: HCT 28.7 % (39.0-53.0); MCH 31.2 pg (25.0-35.0); MCHC 34.9 g/dL (31.0-37.0); MCV 89.4 fL (80.0-100.0); Mean Platelet Volume 8.9; Platelet Count 158 k/uL (150-450); RBC 3.21 m/uL (4.30-5.90); RDW 12.4 % (11.5-15.5); WBC 6.5 k/uL (3.8-10.6)
[2019-01-23 06:20] LABS: Glucose,Whole Blood 150 mg/dL (75-99)
[2019-01-23 06:36] LABS: Calcium 8.8 mg/dL (8.4-10.2); Potassium 3.7 mmol/L (3.5-5.1)
--- NOTE | 2019-01-23 06:49 | XR ---
EXAMINATION TYPE: XR chest 2V DATE OF EXAM: 01/23/2019 HISTORY: post cardiac surgery. REFERENCE: Previous study dated 01/22/2019. FINDINGS: There has been a midline sternotomy. The heart is enlarged. There is some right basilar atelectasis as well as some left basilar atelectas is. The lungs are otherwise clear. Blunting of the right CP angle. I could not exclude a small right effusion. IMPRESSION: NO SIGNIFICANT INTERVAL CHANGE. CHEST.
[2019-01-23] MEDS: KETOROLAC 30 MG/ML 1 ML VIAL IVP SCH ×2 (07:01→13:45)
[2019-01-23] MEDS: PANTOPRAZOLE 40 MG TABLET PO SCH (07:02)
[2019-01-23] MEDS: INSULIN ASPART (NovoLOG) 100 UNIT/ML VIAL SQ SCH ×2 (07:03→13:46)
[2019-01-23] MEDS: IPRATROPIUM-ALBUTEROL 3 ML NEB INHALATION SCH ×2 (08:09→13:14)
[2019-01-23] MEDS: DILTIAZEM CD 120 MG CAP.ER.24H PO SCH (08:30)
[2019-01-23] MEDS: ATORVASTATIN 40 MG TAB PO SCH (08:30)
[2019-01-23] MEDS: HEPARIN SODIUM,PORCINE 5,000 UNIT/ML 1 ML VIAL SQ SCH (08:30)
[2019-01-23] MEDS: CLOPIDOGREL 75 MG TAB PO SCH (08:30)
[2019-01-23] MEDS: METOPROLOL TARTRATE 12.5 MG TAB PO SCH (08:30)
[2019-01-23] MEDS: ASPIRIN 325 MG TAB PO SCH (08:30)
[2019-01-23] MEDS: INSULN ASP PRT/INSULIN ASPART 100 UNIT/ML 10 ML VIAL SQ SCH (08:31)
--- NOTE | 2019-01-23 08:36 | P.PN ---
Subjective Progress Note Date: 01/23/19 Principal diagnosis: Severe triple vessel coronary artery disease. Previous medical history of hypertension, hyperlipidemia, type 2 diabetes with current hemoglobin A1c 6.3%, obesity, pancreatitis 10 years ago, recurrent kidney stones, previous tobacco dependence with preoperative FEV1 82% of predicted, and family history of premature coronary artery disease. POD #4 urgent off-pump coronary artery bypass grafting 5 with sequential left internal mammary artery to the left anterior descending artery and first diagonal artery, sequential left radial artery to the first and second obtuse marginal artery and reverse saphenous vein graft to the posterior lateral branch of the circumflex coronary artery. Endovascular vein harvest of the left greater saphenous vein from mid calf to the groin. Endovascular radial artery harvest. Intraoperative transesophageal echocardiogram. The patient's currently sitting up in a recliner on the cardiac stepdown unit in no acute distress eating breakfast. Denies pain, shortness of breath. Remains in normal sinus rhythm, hemodynamically stable. Patient actively using incentive spirometry. Ambulated in hallway yesterday without difficulty, had first postoperative shower yesterday. Urology did see patient, patient has been able to void without needing straight catheterization. No new concerns Objective - Vital Signs Vital signs: Vital Signs Temp 97.9 F 01/23/19 04:00 Pulse 76 01/23/19 08:16 Resp 18 01/23/19 04:00 BP 130/65 01/23/19 04:00 Pulse Ox 94 L 01/23/19 04:00 Intake & Output 01/22/19 01/23/19 01/23/19 18:59 06:59 18:59 Intake Total 0 Balance 0 Weight 128.4 kg Intake: Oral 0 Other: Voiding Method Indwelling Catheter # Voids 0 1 # Bowel Movements 1 ABP, PAP, CO, CI - Last Documented Arterial Blood Pressure 117/76 Pulmonary Artery Pressure 20/4 Cardiac Output 7 Cardiac Index 2.8 - Constitutional General appearance: Present: cooperative, no acute distress, obese - Respiratory Details: Lungs sounds diminished bilaterally. Respirations even, nonlabored. Currently on room air with oxygen saturation 94%. Able to achieve 1500 mL on his incentive spirometry. Strong cough. - Cardiovascular Details: S1, S2 present, no murmur present. Regular rate and rhythm, sinus rhythm on telemetry. Palpable peripheral pulses bilaterally. Trace lower extremity edema present. No calf pain or tenderness noted. Heart hugger in place with patient demonstrating appropriate use. Antiembolism stockings, SCDs present. - Gastrointestinal Gastrointestinal Comment(s): Abdomen soft, nontender, nondistended. Active bowel sounds present 4 quadrants. Tolerating diet. Positive bowel movement. - Genitourinary Genitourinary Comment(s): Continues to void - Integumentary Integumentary Comment(s): Skin is warm and dry with evidence of good perfusion. Anterior chest incision well approximated with Dermabond. Left radial artery harvest site well approximated. Patient does have full motion of his left hand, skin is warm with good cap refill, patient denies numbness or tingling except his pinky finger which he said has been chronic for years. Left lower extremity EVH site well approximated. - Neurologic Neurologic: Present: CNII-XII intact - Musculoskeletal Musculoskeletal: Present: gait normal, strength equal bilaterally - Psychiatric Psychiatric: Present: A&O x's 3, appropriate affect, intact judgment & insight - Allied health notes Allied health notes reviewed: nursing - Labs CBC & Chem 7: 01/23/19 05:51 01/23/19 05:51 Labs: Abnormal Lab Results - Last 24 Hours (Table) 01/22/19 01/22/19 01/22/19 Range/Units 11:46 17:16 20:29 RBC (4.30-5.90) m/uL Hgb (13.0-17.5) gm/dL Hct (39.0-53.0) % BUN (9-20) mg/dL Glucose (74-99) mg/dL POC Glucose (mg/dL) 153 H 177 H 181 H (75-99) mg/dL 01/23/19 01/23/19 01/23/19 Range/Units 05:51 05:51 06:19 RBC 3.21 L (4.30-5.90) m/uL Hgb 10.0 L (13.0-17.5) gm/dL Hct 28.7 L (39.0-53.0) % BUN 36 H (9-20) mg/dL Glucose 123 H (74-99) mg/dL POC Glucose (mg/dL) 150 H (75-99) mg/dL - Imaging and Cardiology Chest x-ray: report reviewed, image reviewed Assessment and Plan Assessment: 1. Severe triple-vessel coronary artery disease, status post 5 vessel off-pump CABG 2. Hypertension 3. Hyperlipidemia 4. Type 2 diabetes, current hemoglobin A1c 6.3% 5. Obesity 6. Pancreatitis 10 years ago 7. Current kidney stones 8. Previous tobacco dependence with FEV1 82% of predicted, post bronchodilator 84% of predicted 9. Family history of premature coronary artery disease Plan: 1. Continue aspirin, statin, Plavix, beta cuauhtemoc therapy. BERHANE inhibitor increased 2. Bronchodilators per pulmonology. Encourage incentive spirometry is 10 times every hour while awake 3. Increase activity, ambulate as tolerated. PT/OT/cardiac rehab following 4. Will monitor daily labs and x-rays. Electro replacement per protocol. Will add daily oral Lasix 5. Insulin management per primary care service 6. Pain control with current medication regimen. 7. Continue Cardizem for radial artery spasm. Do not discontinue Cardizem without discussing with cardiothoracic surgery 8. Continue Flomax. Bladder scan every 6 hours as needed, may straight cath for >300 mL residual 9. Discharge planning in progress. Anticipate DC to home with home care today 10. More recommendations to follow based on patient's progress Time with Patient: Greater than 30
--- NOTE | 2019-01-23 08:50 | P.PN ---
Subjective This is a pleasant 73 years old male with past medical history of coronary artery disease, diabetes mellitus, hyperlipidemia, hypertension, kidney stone, HISTORY of pancreatitis, ex-smoker, pulmonary hypertension. patient was admitted for myocardial revascularization for his triple-vessel coronary artery disease. Patient has chronic dyspnea and his been evaluated by occupational nurse showing positive stress test with reversible anterior ischemia, ejection fraction of 55% with moderate concentric left ventricular hypertrophy. Recent cardiac cath showing 100% occlusion of the RCA, 90% stenosis of the circumflex artery, and 80% stenosis of the LAD. Patient is scheduled for surgery today, he has recent CAT scan of the chest showing moderate 3 vessel coronary artery calcification and pulmonary hypertension with emphysematous changes Carotid Doppler showing no significant stenosis, however there is no mention if there is a plaque or not. This morning patient denies chest pain or dyspnea. No abdominal pain or nausea vomiting. Vitas looks stable. Labs were reviewed showing unremarkable CBC, INR, BMP, liver enzymes. Bilirubin is 1.4, triglycerides 218. Hepatitis panel was nonreactive. Urinalysis showed specific gravity of 1.045 and small leukocyte esterase. 01/20/2019 Patient seen and examined in the ICU, is fully awake and oriented. He is status post coronary artery bypass grafting 5. Today is postoperative day #1. Patient denies chest pain or dyspnea. No other new complaints. He had small breakfast this morning which is his norm. He remains on Cardizem and insulin drip. However he was started on oral Cardizem as well. As well as on IV fluids. Vitas looks stable with blood pressure of 115/63, breathing rate 21. Patient is afebrile. He is saturating 94% on 3 L oxygen via nasal cannula. Heart rate is 68 BPM. Hemoglobin stable at 10.6. No leukocytosis. BMP is unremarkable with normal electrolytes and creatinine 0.97. Sugar is controlled 115-146. Liver enzymes not elevated. 01/21/2019 Patient remains in the ICU. He denies chest pain or dyspnea. His started on diet today. Vitas looks stable and he is saturating 96% on 3 L. CBC and BMP looks his stable. Sugar controlled. He remains on Protonix and insulin. Patient is followed by several consultants including cardiology and pulmonary 01/22/2019 Patient lying in bed comfortable. He denies dyspnea. He denies dyspnea. No other new complaint. He has regular bowel movement with no vomiting and is tolerating that well. Vitas looks stable. Labs reviewed. Patient is followed up by several consultants. Patient remains on aspirin and Plavix. Also is on Cardizem 01/23/2019 Patient is doing well postoperatively, no new complaint. He denies chest pain or dyspnea. He is fully awake and oriented. No dizziness. He is tolerating that well with no pain or vomiting. he has no problem with his bowel or urinary habits.sugar is controlled.vitals are stable. He is saturating 94% on room air.labs reviewed from today including CBC and BMP showing unremarkable except for mild anemia with hemoglobin stable at 10.0. Patient is currently on Cardizem for surgical team. Is also started in the hospital on insulin 70:30 at 53 units and insulin aspart 13 units at supper and insulin NPH 30 units at bedtime. At home he was taking metformin 1000 mg twice a day and glyburide at bedtime. We checked lactic acid. Objective - Vital Signs Vital signs: Vital Signs Temp 97.9 F 01/23/19 04:00 Pulse 76 01/23/19 08:16 Resp 18 01/23/19 04:00 BP 130/65 01/23/19 04:00 Pulse Ox 94 L 01/23/19 04:00 Intake & Output 01/22/19 01/23/19 01/23/19 18:59 06:59 18:59 Intake Total 0 Balance 0 Weight 128.4 kg Intake: Oral 0 Other: Voiding Method Indwelling Catheter # Voids 0 1 # Bowel Movements 1 ABP, PAP, CO, CI - Last Documented Arterial Blood Pressure 117/76 Pulmonary Artery Pressure 20/4 Cardiac Output 7 Cardiac Index 2.8 - Exam GENERAL: The patient is alert and oriented x3, not in any acute distress. Well developed, well nourished. HEENT: Pupils are round and equally reacting to light. EOMI. No scleral icterus. No conjunctival pallor. Normocephalic, atraumatic. No pharyngeal erythema. No thyromegaly. -CARDIOVASCULAR: S1 and S2 present. No murmurs, rubs, or gallops. Surgical wound with dressing is in place PULMONARY: Chest is clear to auscultation, no wheezing or crackles. ABDOMEN: Soft, nontender, nondistended, normoactive bowel sounds. No palpable organomegaly. MUSCULOSKELETAL: No joint swelling or deformity. EXTREMITIES: No cyanosis, clubbing, or pedal edema. NEUROLOGICAL: Gross neurological examination did not reveal any focal deficits. SKIN: No rashes. No petechiae - Labs CBC & Chem 7: 01/23/19 05:51 01/23/19 05:51 Labs: Abnormal Lab Results - Last 24 Hours (Table) 01/22/19 01/22/19 01/22/19 Range/Units 11:46 17:16 20:29 RBC (4.30-5.90) m/uL Hgb (13.0-17.5) gm/dL Hct (39.0-53.0) % BUN (9-20) mg/dL Glucose (74-99) mg/dL POC Glucose (mg/dL) 153 H 177 H 181 H (75-99) mg/dL 01/23/19 01/23/19 01/23/19 Range/Units 05:51 05:51 06:19 RBC 3.21 L (4.30-5.90) m/uL Hgb 10.0 L (13.0-17.5) gm/dL Hct 28.7 L (39.0-53.0) % BUN 36 H (9-20) mg/dL Glucose 123 H (74-99) mg/dL POC Glucose (mg/dL) 150 H (75-99) mg/dL Assessment and Plan Assessment: Triple-vessel coronary artery disease , status post coronary artery bypass grafting 5 Mild emphysema Pulmonary hypertension Diabetes mellitus Hypertension Hyperlipidemia History of coronary artery disease Kidney stones History of bowel obstruction History of cholecystectomy History of tonsillectomy Plan: This is a pleasant 73 years old male with triple-vessel coronary artery disease status post Surgery. Continue with Cardizem, continue with insulinto discharge after that he can go back to his oral regimen upon discharge as long as his lactic acid is within normal limits. Encourage hydration. Continue with aspirin and Plavix.patient is counseled about compliance Labs and medication were reviewed.. Continue same treatment. Continue with symptomatic treatment. Resume home medication. Monitor lytes and vitals. DVT and GI prophylaxis. Further recommendations of the clinical course of the patient DVT prophylaxis: Subcutaneous heparin GI Prophylaxis Protonix patient was consults and instructed to follow up with his PCP in one week as well as with his other doctors including the occupational nurse and the cardiothoracic surgeon and he agrees Thank you for consulting us. Please feel free to contact us for any further question or concern
[2019-01-23] MEDS ORDERED: FUROSEMIDE 20 MG TAB PO SCH (09:00)
--- NOTE | 2019-01-23 09:07 | P.DS ---
Providers Date of admission: 01/19/19 01:22 Expected date of discharge: 01/23/19 Attending physician: Sylvester Wiggins Consults: 01/18/19 10:21 Consult Physician Urgent Consulting Provider: Sylvester Wiggins Consult Reason/Comments: CABG Do you want consulting provider notified?: Already Contacted 01/18/19 11:39 Consult Physician Routine Consulting Provider: Ambrose Wood Consult Reason/Comments: manager renewable energy mgmt, cabg Do you want consulting provider notified?: Yes Consult to Anesthesia Routine Consulting Provider: Anesthesia,Services Consult Reason/Comments: Cardiac Surgery Pre-Op 01/18/19 13:59 Consult Physician Routine Consulting Provider: Nathalia Levi Consult Reason/Comments: medical managment, preop cabg Do you want consulting provider notified?: Yes 01/19/19 14:26 Consult Physician Routine Consulting Provider: Bobby Koch Consult Reason/Comments: Docketing Specialist Consult: post cardiac surgery Do you want consulting provider notified?: Already Contacted 01/22/19 08:58 Consult Physician Routine Consulting Provider: Guille Levine Consult Reason/Comments: urinary retention post cabg Do you want consulting provider notified?: Yes Primary care physician: [facility] Hospital Course: FINAL DIAGNOSIS: 1. Severe triple-vessel coronary artery disease 2. Hypertension 3. Hyperlipidemia 4. Type 2 diabetes with current hemoglobin A1c 6.3% 5. Obesity 6. Pancreatitis 10 years ago 7. Recurrent kidney stones 8. Previous tobacco dependence with preoperative FEV1 82% of predicted 9. Family history of premature coronary artery disease PRINCIPAL PROCEDURE: 1. Left heart catheterization 2. Urgent off-pump coronary artery bypass grafting 5 with sequential left internal mammary artery to the left anterior descending artery and first diagonal artery, sequential left radial artery to the first and second obtuse marginal artery and reverse saphenous vein graft to the posterior lateral branch of the circumflex coronary artery 3. Endovascular vein harvest of the left greater saphenous vein from mid calf to the groin 4. Endovascular left radial artery harvest 5. Intraoperative transesophageal echocardiogram HISTORY OF PRESENT ILLNESS: This is a 73-year-old gentleman who follows on an outpatient basis at the [facility] with physician assistant men's lacrosse coach Robyn Clemente. He complained of shortness of breath over the previous 2 years, progressively getting worse with activity. He denied shortness of breath at rest. He denied any other symptomatology of chest pain, syncope, or lower extremity edema. He received workup with Dr. Wood from pulmonology including pulmonary function test with FEV1 82% of predicted followed by 84% predicted post bronchodilator. Chest x-ray demonstrated emphysematous changes. CT of the chest demonstrated triple-vessel coronary artery disease and emphysema. He was referred to Dr. Koch from [facility] for workup where he had a stress test demonstrating reversible anterior wall ischemia. In addition, a transthoracic echocardiogram was completed which demonstrated normal left ventricular systolic function with ejection fraction 55%, moderate concentric hypertrophy, no regional wall motion abnormalities, trace aortic regurgitation, mild mitral regurgitation, and mild tricuspid regurgitation. He was recommended to undergo heart catheterization which demonstrated complete occlusion of the right coronary artery, 90% stenosis of the circumflex, 80% proximal LAD stenosis with 70% mid LAD stenosis. Consultation was placed to Dr. Wiggins from cardiothoracic surgery. He was recommended to undergo urgent coronary artery bypass grafting. The usual perioperative course was discussed in detail with the patient and his family, all risks and benefits were explained, all questions were answered, and consent was obtained to proceed with surgery. The patient was kept inpatient due to the nature of his disease process. HOSPITAL COURSE: The patient was brought to the preoperative area on 01/19/2019, prepared in the usual fashion, and subsequently taken to the operating room where Dr. Wiggins performed urgent five-vessel CABG. Upon completion of surgery the patient was transferred to the cardiovascular intensive care unit where he was recovered, monitored hemodynamically, and where he progressed to cardiac rehabilitation phase 1. He was extubated, all lines, tubes, and drips were discontinued when appropriate, and he was transferred to 3 S. cardiac stepdown unit for further monitoring and rehabilitation. His oxygen was titrated down, he continued to work with physical and occupational therapy, he was tolerating oral diet, his pain was controlled, and he was ready to be discharged to home with [facility] care on postoperative day #4. He received written and verbal instruction regarding his medications, activity restrictions, signs and symptoms requiring physician notification, and follow-up appointments. COMPLICATIONS: The patient experienced no postoperative complications. Patient Condition at Discharge: Stable Plan - Discharge Summary Discharge Rx Participant: Yes New Discharge Prescriptions: New Aspirin 325 mg PO DAILY #30 tab Diltiazem Cd [Cardizem CD] 120 mg PO DAILY #30 cap.er.24h Ipratropium-Albuterol Nebulize [Duoneb 0.5 mg-3 mg/3 ml Soln] 3 ml INHALATION RT-QID ampul.neb Tamsulosin [Flomax] 0.4 mg PO PC-BRKFST #30 cap.er.24h Furosemide [Lasix] 20 mg PO DAILY #30 tab Metoprolol Tartrate [Lopressor] 12.5 mg PO BID #60 tab Clopidogrel [Plavix] 75 mg PO DAILY #30 tab Pantoprazole [Protonix] 40 mg PO AC-BRKFST #30 tablet.dr Cortes-Docusate Sodium [Senokot-S] 2 each PO HS PRN tab PRN Reason: Constipation Acetaminophen Tab [Tylenol] 1,000 mg PO Q6HR PRN tab PRN Reason: Fever And/ Or Pain Lisinopril [Zestril] 5 mg PO DAILY@1200 #30 tab glipiZIDE [Glucotrol] 5 mg PO AC-BID #30 tab Continue Multivit-Min/Folic/Vit K/Lycop [Men's Multivitamin Tablet] 1 each PO DAILY Fish Oil/Dha/Epa [Fish Oil 1,200 mg Fish Oil] 1,200 mg PO DAILY Atorvastatin [Lipitor] 80 mg PO DAILY Ascorbic Acid [Vitamin C] 1,000 mg PO DAILY Vitamin B Complex 1 each PO DAILY Discontinued Naproxen 500 mg PO DAILY Lisinopril 20 mg PO DAILY Potassium 99 mg PO DAILY metFORMIN HCL 1,000 mg PO BID Metoprolol Succinate (ER) [Toprol XL] 12.5 mg PO HS Aspirin [Adult Low Dose Aspirin EC] 81 mg PO HS Discharge Medication List Ascorbic Acid [Vitamin C] 1,000 mg PO DAILY 03/13/18 [History] Atorvastatin [Lipitor] 80 mg PO DAILY 03/13/18 [History] Fish Oil/Dha/Epa [Fish Oil 1,200 mg Fish Oil] 1,200 mg PO DAILY 03/13/18 [History] Multivit-Min/Folic/Vit K/Lycop [Men's Multivitamin Tablet] 1 each PO DAILY 03/13/18 [History] Vitamin B Complex 1 each PO DAILY 03/13/18 [History] Acetaminophen Tab [Tylenol] 1,000 mg PO Q6HR PRN tab 01/23/19 [Rx] Aspirin 325 mg PO DAILY #30 tab 01/23/19 [Rx] Clopidogrel [Plavix] 75 mg PO DAILY #30 tab 01/23/19 [Rx] Diltiazem Cd [Cardizem CD] 120 mg PO DAILY #30 cap.er.24h 01/23/19 [Rx] Furosemide [Lasix] 20 mg PO DAILY #30 tab 01/23/19 [Rx] Ipratropium-Albuterol Nebulize [Duoneb 0.5 mg-3 mg/3 ml Soln] 3 ml INHALATION RT-QID ampul.neb 01/23/19 [Rx] Lisinopril [Zestril] 5 mg PO DAILY@1200 #30 tab 01/23/19 [Rx] Metoprolol Tartrate [Lopressor] 12.5 mg PO BID #60 tab 01/23/19 [Rx] Pantoprazole [Protonix] 40 mg PO AC-BRKFST #30 tablet.dr 01/23/19 [Rx] Sennosides-Docusate Sodium [Senokot-S] 2 each PO HS PRN tab 01/23/19 [Rx] Tamsulosin [Flomax] 0.4 mg PO PC-BRKFST #30 cap.er.24h 01/23/19 [Rx] glipiZIDE [Glucotrol] 5 mg PO AC-BID #30 tab 01/23/19 [Rx] Follow up Appointment(s)/Referral(s): Bobby Koch MD [STAFF PHYSICIAN] - 01/28/19 2:15 pm () [facility] [NON-STAFF] - 01/24/19 Sylvester Wiggins MD [STAFF PHYSICIAN] - 02/18/19 1:00 pm Ambrose Wood DO [Doctor of Osteopathic Medicine] - 02/15/19 9:00 am [facility] [Primary Care Provider] - 01/27/19 3:00 pm (AGAPITO Clemente) Sade Jay NPC [Nurse Practitioner] - 01/29/19 11:00 am Ambulatory/Diagnostic Orders: Complete Blood Count w/diff [LAB.AMB] Time Frame: 3 Days, Location: None Selected Comprehensive Metabolic Panel [LAB.AMB] Time Frame: 3 Days, Location: None Selected Patient Instructions/Handouts: Sternal Precautions (GEN), CABG (Coronary Artery Bypass Graft) (DC) Activity/Diet/Wound Care/Special Instructions: DISCHARGE INSTRUCTIONS: 1. No driving for 4 weeks, or until physician gives their ok. 2. The patient should sleep in their own bed, no medical bed needed. 3. Stairs are not an issue. If the bedroom is upstairs, it is advised that the patient go up at night and down in the morning for the first week. Go slowly, using handrail and take 1 step at a time. 4. SURENDRA hose are to be worn for 30 days or until physician discontinues. 5. Heart hugger is to be worn 100% of the time until physician discontinues.(except when showering) 6. No lifting, pushing, or pulling more than 10 pounds for 12 weeks. The physician will advise of any restriction changes. 7. The patient is expected to continue the prescribed walking program. 8. Continue pain control per as needed orders. 9. Continue with incentive spirometry and splinting/heart hugger until otherwise directed by the physician. 10. Must shower daily using liquid antibacterial soap and a separate white washcloth for each individual incision. 11. Routine sternal incision care. No powders, lotions, ointments on incisions. No dressings are necessary on incisions unless they are draining. Dermabond tape is to remain on sternal incision until surgeon follow-up. 12. Please call surgeon/COUNSELING DEPARTMENT CHAIR for temp greater than 101 F or purulent drainage from incisions. 13. All prescriptions given by surgeon for 30 days. Refills need to be filled through quality improvement analyst/primary care physician. 14. A Red armband has been placed on the patient. It should be worn for 30 days post surgery and will be removed by the cardiac surgeons. If an ER visit is necessary, please make sure the number on the Red armband is called. HOME HEALTH SERVICES TO PROVIDE: RN SKILLED HOME CARE SERVICES FOR POST-OP SURGICAL PATIENTS WITH THE FOLLOWING: Coronary Artery Bypass Surgery (CABG), Mitral Valve Replacement/Repair ( MVR), Aortic Valve Replacement/Repair (AVR) RN TO CONTINUE EDUCATION FROM ``ROAD TO A HEALTH HEART PATIENT EDUCATION MANUAL (GIVEN TO PATIENT IN THE HOSPITAL) MEDICATION RECONCILIATION WITH EDUCATION NEEDED ON FIRST HOME VISIT EMPHASIZE IMPORTANCE OF WEARING BREAST SUPPORT/HEART HUGGER ENCOURAGE USE OF INCENTIVE SPIROMETER 10 X EVERY HOUR WHILE AWAKE ENCOURAGE UTILIZATION OF LOWER EXTREMITY COMPRESSION STOCKINGS/SURENDRA HOSE and ELEVATE LEGS ABOVE LEVEL OF HEART WHILE AT REST. ENCOURAGE AMBULATION 3-5x/day INCREASING TOLERATES, WHILE AVOID EXTREMES IN TEMPERATURE FREQUENCY: RN TO OPEN THE PATIENT WITHIN 24 HOURS OF DISCHARGE FROM THE HOSPITAL WITH TELEHEALTH INSTALLED AT [facility] [place], RN TO VISIT 2-3 X A WEEK FOR 4 WEEKS ESTABLISHED BY PATIENT NEEDS. LABORATORY: CBC, CMP TO BE DRAWN ON THE THIRD DAY HOME, (RAN STAT) FAX RESULTS TO [phone]. TELEHEALTH PARAMETERS: WEIGHT: NOTIFY MD OF WEIGHT GAIN OF 2 LBS IN 24 HOURS OR 5 LBS IN ONE WEEK HR: NOTIFY MD OF HR <55 BPM OR HR>100 BPM BP: NOTIFY MD IF BP <90/55 OR BP>140/100 O2 SAT: NOTIFY MD IF PO2<93% ON ROOM AIR SEND TELEHEALTH REPORT TO SKEIN WINDER AND CARDIOVASCULAR SURGEON THE FIRST WEEK OF CARE AND THEN BI-WEEKLY. PLEASE ADDITIONALLY COMMUNICATE ANY ABNORMALS AND NEW FINDINGS TO THE SURGEONS OFFICE. FOR ANY QUESTIONS OR CONCERNS PLEASE CALL identifier horse Sade @ or [email or web address] @
[2019-01-23] MEDS ORDERED: LISINOPRIL 5 MG TAB PO SCH (12:00)
[2019-01-23 12:05] VITALS: BP 110/64; PULSE 96; TEMP 98.3
--- NOTE | 2019-01-23 12:11 | P.PN ---
Subjective Progress Note Date: 01/23/19 his is a pleasant 73-year-old gentleman with history of hypertension, hyperlipidemia, diabetes, morbid obesity, prior tobacco use, family history of premature coronary artery disease who is status post 5 vessel coronary artery bypass grafting surgery that was done off pump, seen and examined on the cardiac unit today. Overall doing very well, sitting up in his recliner at the time of my examination.blood pressure 110/60with a heart rate in the 70s this morning.White blood cell count 6.5, hemoglobin 10.0, platelet count 158. Sodium 139, potassium 3.7, BUN 36, creatinine 1.0. Objective - Vital Signs Vital signs: Vital Signs Temp 98.3 F 01/23/19 08:00 Pulse 76 01/23/19 08:16 Resp 18 01/23/19 08:00 BP 110/64 01/23/19 08:00 Pulse Ox 93 L 01/23/19 08:00 Intake & Output 01/22/19 01/23/19 01/23/19 18:59 06:59 18:59 Intake Total 0 118 Balance 0 118 Weight 128.4 kg Intake: Oral 0 118 Other: Voiding Method Indwelling Catheter # Voids 0 1 # Bowel Movements 1 ABP, PAP, CO, CI - Last Documented Arterial Blood Pressure 117/76 Pulmonary Artery Pressure 20/4 Cardiac Output 7 Cardiac Index 2.8 - Exam HEAD: Normocephalic/atraumatic. EYES: Normal reaction of pupils, equal size. Conjunctiva pink, sclera white. NOSE: Clear with pink turbinates. THROAT: No erythema or exudates. NECK: No masses, no JVD, no thyroid enlargement, no adenopathy. CHEST: No chest wall deformity. Symmetrical expansion. Midsternal chest incisions clean dry and intact, interval removal of left pleural and mediastinal chest tubes LUNGS: Equal air entry with no crackles, wheeze, rhonchi or dullness. CVS: Regular rate and rhythm, normal S1 and S2, no gallops, no murmurs, no rubs ABDOMEN: Soft, nontender. No hepatosplenomegaly, normal bowel sounds, no guarding or rigidity. EXTREMITIES: No clubbing, no edema, no cyanosis, 2+ pulses and upper and lower extremities. Graft sites from left radial, and right Lower extremity with dressings. MUSCULOSKELETAL: Muscle strength and tone normal. SPINE: No scoliosis or deformity SKIN: No rashes CENTRAL NERVOUS SYSTEM: Sedated, intubated. No focal deficits, tone is normal in all 4 extremities. - Labs CBC & Chem 7: 01/23/19 05:51 01/23/19 05:51 Labs: Abnormal Lab Results - Last 24 Hours (Table) 01/22/19 01/22/19 01/23/19 Range/Units 17:16 20:29 05:51 RBC 3.21 L (4.30-5.90) m/uL Hgb 10.0 L (13.0-17.5) gm/dL Hct 28.7 L (39.0-53.0) % BUN (9-20) mg/dL Glucose (74-99) mg/dL POC Glucose (mg/dL) 177 H 181 H (75-99) mg/dL Plasma Lactic Acid Vivek (0.7-2.0) mmol/L 01/23/19 01/23/19 01/23/19 Range/Units 05:51 06:19 08:16 RBC (4.30-5.90) m/uL Hgb (13.0-17.5) gm/dL Hct (39.0-53.0) % BUN 36 H (9-20) mg/dL Glucose 123 H (74-99) mg/dL POC Glucose (mg/dL) 150 H (75-99) mg/dL Plasma Lactic Acid Ivvek 2.2 H* (0.7-2.0) mmol/L Assessment and Plan Plan: Assessment: #1. Coronary artery disease, s/p 5 vessel coronary artery bypass grafting #2. History of mild COPD #3. Hypertension #4. Hyperlipidemia #5. Diabetes mellitus #6. Previous history of tobacco dependence, currently in remission #7. History of family history of premature coronary artery disease #8. Morbid obesity plan Arrangements are made for the patient to be discharged home today. He will have a follow-up appointment in the office with cardiology 2 weeks post discharge. DNP note has been reviewed, I agree with a documented findings and plan of care. Patient was seen and examined.
[2019-01-23 12:19] LABS: Glucose,Whole Blood 102 mg/dL (75-99)
[2019-01-23] MEDS: TAMSULOSIN 0.4 MG CAP.ER.24H PO SCH (13:44)
[2019-01-23] MEDS: MULTIVITAMINS, THERA 1 EACH TAB PO SCH (13:47)
--- NOTE | 2019-01-23 13:52 | P.PN ---
Subjective Progress Note Date: 01/23/19 Principal diagnosis: Coronary artery disease status post 5 vessel bypass This a very pleasant 73-year-old gentleman with a known history of coronary artery disease and is now status post coronary artery bypass grafting 5. He is seen today in follow-up on the selective care unit. Currently sitting up in a chair at the bedside. Awake and alert in no acute distress. He's been up ambulating in the flores. Maintain O2 saturations in the 90s on room air. Afebrile. Hemodynamically stable. Objective - Vital Signs Vital signs: Vital Signs Temp 98.3 F 01/23/19 08:00 Pulse 76 01/23/19 08:16 Resp 18 01/23/19 08:00 BP 110/64 01/23/19 08:00 Pulse Ox 93 L 01/23/19 08:00 Intake & Output 01/22/19 01/23/19 01/23/19 18:59 06:59 18:59 Intake Total 0 118 Balance 0 118 Weight 128.4 kg Intake: Oral 0 118 Other: Voiding Method Indwelling Catheter # Voids 0 1 # Bowel Movements 1 ABP, PAP, CO, CI - Last Documented Arterial Blood Pressure 117/76 Pulmonary Artery Pressure 20/4 Cardiac Output 7 Cardiac Index 2.8 - Exam GENERAL EXAM: Alert pleasant 73-year-old male patient on room air, comfortable in no apparent distress. HEAD: Normocephalic/atraumatic. EYES: Normal reaction of pupils, equal size. Conjunctiva pink, sclera white. NOSE: Clear with pink turbinates. THROAT: No erythema or exudates. NECK: No masses, no JVD, no thyroid enlargement, no adenopathy. CHEST: No chest wall deformity. Symmetrical expansion. Midsternal chest incisions clean dry and intact LUNGS: Equal air entry with no crackles, wheeze, rhonchi or dullness. CVS: Regular rate and rhythm, normal S1 and S2, no gallops, no murmurs, no rubs ABDOMEN: Soft, nontender. No hepatosplenomegaly, normal bowel sounds, no guarding or rigidity. EXTREMITIES: No clubbing, no edema, no cyanosis, 2+ pulses and upper and lower extremities. Graft sites from left radial, and right Lower extremity with dressings. MUSCULOSKELETAL: Muscle strength and tone normal. SPINE: No scoliosis or deformity SKIN: No rashes CENTRAL NERVOUS SYSTEM: Sedated, intubated. No focal deficits, tone is normal in all 4 extremities. - Labs CBC & Chem 7: 01/23/19 05:51 01/23/19 05:51 Labs: Abnormal Lab Results - Last 24 Hours (Table) 01/22/19 01/22/19 01/23/19 Range/Units 17:16 20:29 05:51 RBC 3.21 L (4.30-5.90) m/uL Hgb 10.0 L (13.0-17.5) gm/dL Hct 28.7 L (39.0-53.0) % BUN (9-20) mg/dL Glucose (74-99) mg/dL POC Glucose (mg/dL) 177 H 181 H (75-99) mg/dL Plasma Lactic Acid Vivek (0.7-2.0) mmol/L 01/23/19 01/23/19 01/23/19 Range/Units 05:51 06:19 08:16 RBC (4.30-5.90) m/uL Hgb (13.0-17.5) gm/dL Hct (39.0-53.0) % BUN 36 H (9-20) mg/dL Glucose 123 H (74-99) mg/dL POC Glucose (mg/dL) 150 H (75-99) mg/dL Plasma Lactic Acid Vivek 2.2 H* (0.7-2.0) mmol/L 01/23/19 Range/Units 12:17 RBC (4.30-5.90) m/uL Hgb (13.0-17.5) gm/dL Hct (39.0-53.0) % BUN (9-20) mg/dL Glucose (74-99) mg/dL POC Glucose (mg/dL) 102 H (75-99) mg/dL Plasma Lactic Acid Vivek (0.7-2.0) mmol/L Assessment and Plan Assessment: #1. Coronary artery disease, that is post 5 vessel coronary artery bypass grafting, postoperative day 4 #2. History of mild COPD, with the preoperative FEV1 of 82% of predicted #3. Routine postoperative ventilator management, and patient was extubated in less than 5 hours after OR exit time #4. Hyperlipidemia #5. Diabetes mellitus #6. Previous history of tobacco dependence, currently in remission #7. History of family history of premature coronary artery disease #8. Morbid obesity #9. small pleural effusions and bibasilar atelectasis, patient has received diuretics, maintaining stable oxygenation on 3 L Plan: The patient was seen and evaluated by Dr. Wood. Chest x-ray was reviewed. The plan is for discharge home today. He'll follow-up in our office in 1-2 weeks' time. We'll repeat a chest x-ray then. He is encouraged to call sooner with any pulmonary issues or concerns. I, the cosigning physician, performed a history & physical examination of the patient. Lungs sounds with faint crackles in the posterior bases. Maintaining good O2 saturations in the 90s on room air. I discussed the assessment and plan of care with my nurse practitioner, Ericka Greenberg. I attest to the above note as dictated by her.
== END 2019-01-23 14:05 | disposition home or self-care (01) | DRG 234 ==
LOC: CATHCVL 06:29 → 2SICU 14:35 → CATHCVL 01-19 01:21 → 2SICU 01-19 01:22 → 3SCARD 01-21 18:59 → UNDODISIN 01-21 19:00 → 3SCARD 01-21 19:10
PROVIDERS: ADMIT Internal Medicine Interventional Cardiology; ATTEND Thoracic Surgery (Cardiothoracic Vascular Surgery)
PROC: B2111ZZ Fluoroscopy of Multiple Coronary Arteries using Low Osmolar Contrast (ICD-10-PCS; 2019-01-18)
PROC: B2151ZZ Fluoroscopy of Left Heart using Low Osmolar Contrast (ICD-10-PCS; 2019-01-18)
PROC: 06BQ4ZZ Excision of Left Saphenous Vein, Percutaneous Endoscopic Approach (ICD-10-PCS; 2019-01-19)
PROC: 03BC4ZZ Excision of Left Radial Artery, Percutaneous Endoscopic Approach (ICD-10-PCS; 2019-01-19)
PROC: 5A1221Z Performance of Cardiac Output, Continuous (ICD-10-PCS; 2019-01-19)
PROC: B246ZZ4 Ultrasonography of Right and Left Heart, Transesophageal (ICD-10-PCS; 2019-01-19)
PROC: 02100Z9 Bypass Coronary Artery, One Artery from Left Internal Mammary, Open Approach (ICD-10-PCS; principal; 2019-01-19 08:00)
PROC: 4A023N7 Measurement of Cardiac Sampling and Pressure, Left Heart, Percutaneous Approach (ICD-10-PCS; 2019-01-19 08:00)
PROC: 021309W Bypass Coronary Artery, Four or More Arteries from Aorta with Autologous Venous Tissue, Open Approach (ICD-10-PCS; 2019-01-19 08:00)
DX: I25.10 Atherosclerotic heart disease of native coronary artery without angina pectoris (principal); I48.92 Unspecified atrial flutter; J90 Pleural effusion, not elsewhere classified; J98.11 Atelectasis; E87.2 Acidosis; I25.82 Chronic total occlusion of coronary artery; E11.9 Type 2 diabetes mellitus without complications; E66.01 Morbid (severe) obesity due to excess calories; Z68.37 Body mass index [BMI] 37.0-37.9, adult; D64.9 Anemia, unspecified; E78.5 Hyperlipidemia, unspecified; E87.70 Fluid overload, unspecified; I10 Essential (primary) hypertension; I27.20 Pulmonary hypertension, unspecified; I48.91 Unspecified atrial fibrillation; J43.9 Emphysema, unspecified; K59.00 Constipation, unspecified; Z87.442 Personal history of urinary calculi; T50.2X5A Adverse effect of carbonic-anhydrase inhibitors, benzothiadiazides and other diuretics, initial encounter; Z79.4 Long term (current) use of insulin; Z79.82 Long term (current) use of aspirin; Z79.899 Other long term (current) drug therapy; Z82.49 Family history of ischemic heart disease and other diseases of the circulatory system; Z87.891 Personal history of nicotine dependence; Z90.49 Acquired absence of other specified parts of digestive tract; R33.9 Retention of urine, unspecified; Z91.040 Latex allergy status; Z83.2 Family history of diseases of the blood and blood-forming organs and certain disorders involving the immune mechanism; Z87.19 Personal history of other diseases of the digestive system
CPT/HCPCS: 71045; 71046; 80048; 80053; 80061; 80074; 81001; 82330; 82805; 83036; 83605; 83735; 84132; 84443; 85025; 85027; 85520; 85610; 85730; 86850; 86891; 86900; 86901; 86920; 87070; 93458; 93880; 93970; 94002; 94640

== ENCOUNTER 2019-08-22 17:14 | Observation (INO) | payer OTHER ==
[2019-08-22] MEDS ORDERED: PIPERACILLIN-TAZOBACTAM 3.375 GM in SODIUM CHLORIDE 0.9% 100 ML IVPB STA (17:41)
[2019-08-22] MEDS ORDERED: SODIUM CHLORIDE 0.9% 1,000 ML IV ONE (17:41)
--- NOTE | 2019-08-22 18:23 | ED ---
Skin/Abscess/FB HPI - General Chief complaint: Skin/Abscess/Foreign Body Stated complaint: Blisters on feet Time Seen by Provider: 08/22/19 17:31 Source: patient, family, RN notes reviewed, old records reviewed Mode of arrival: ambulatory Limitations: no limitations - History of Present Illness Initial comments: 74-year-old male who presents the emergency department today for evaluation for concern for multiple blisters and infection over bilateral feet. Patient reports he noticed it last week after wearing boots while walking. Patient is a diabetic. - Related Data Home Medications Medication Instructions Recorded Confirmed Ascorbic Acid [Vitamin C] 1,000 mg PO DAILY 03/13/18 01/18/19 Atorvastatin [Lipitor] 80 mg PO DAILY 03/13/18 01/18/19 Fish Oil/Dha/Epa [Fish Oil 1,200 1,200 mg PO DAILY 03/13/18 01/18/19 mg Fish Oil] Multivit-Min/Folic/Vit K/Lycop 1 each PO DAILY 03/13/18 01/18/19 [Men's Multivitamin Tablet] Vitamin B Complex 1 each PO DAILY 03/13/18 01/18/19 Previous Rx's Medication Instructions Recorded Acetaminophen Tab [Tylenol] 1,000 mg PO Q6HR PRN tab 01/23/19 Aspirin 325 mg PO DAILY #30 tab 01/23/19 Clopidogrel [Plavix] 75 mg PO DAILY #30 tab 01/23/19 Diltiazem Cd [Cardizem CD] 120 mg PO DAILY #30 cap.er.24h 01/23/19 Furosemide [Lasix] 20 mg PO DAILY #30 tab 01/23/19 Lisinopril [Zestril] 5 mg PO DAILY@1200 #30 tab 01/23/19 Metoprolol Tartrate [Lopressor] 12.5 mg PO BID #60 tab 01/23/19 Pantoprazole [Protonix] 40 mg PO AC-BRKFST #30 tablet.dr 01/23/19 Sennosides-Docusate Sodium 2 each PO HS PRN tab 01/23/19 [Senokot-S] Tamsulosin [Flomax] 0.4 mg PO PC-BRKFST #30 cap.er.24h 01/23/19 glipiZIDE [Glucotrol] 5 mg PO AC-BID #30 tab 01/23/19 Allergies Allergy/AdvReac Type Severity Reaction Status Date / Time latex AdvReac Unknown Itching Verified 08/22/19 17:19 Review of Systems ROS Statement: Those systems with pertinent positive or pertinent negative responses have been documented in the HPI. ROS Other: All systems not noted in ROS Statement are negative. Past Medical History Past Medical History: Coronary Artery Disease (CAD), Diabetes Mellitus, Hyperlipidemia, Hypertension Additional Past Medical History / Comment(s): PANCREATITIS (2009), SOB, kidney stones, neuropathy History of Any Multi-Drug Resistant Organisms: None Reported Past Surgical History: Cholecystectomy, Coronary Bypass/CABG, Tonsillectomy Past Anesthesia/Blood Transfusion Reactions: No Reported Reaction Past Psychological History: No Psychological Hx Reported Smoking Status: Former smoker Past Alcohol Use History: Rare Past Drug Use History: None Reported - Past Family History Mother Family Medical History: Deep Vein Thrombosis (DVT) Sister(s) Family Medical History: Coronary Artery Disease (CAD), Deep Vein Thrombosis (DVT) Additional Family Medical History / Comment(s): sister with diagnosed coronary artery disease in her early 50s Father Family Medical History: Coronary Artery Disease (CAD), Hyperlipidemia, Hypertension Additional Family Medical History / Comment(s): CABG General Exam - General Exam Comments Initial Comments: 74-year-old male. Alert and oriented 3. Patient appears in no acute distress. Limitations: no limitations Head exam: Present: atraumatic Eye exam: Present: normal appearance, PERRL, EOMI. Absent: scleral icterus, conjunctival injection, periorbital swelling ENT exam: Present: normal exam, mucous membranes moist Neck exam: Present: normal inspection. Absent: tenderness, meningismus, lymphadenopathy Respiratory exam: Present: normal lung sounds bilaterally. Absent: respiratory distress, wheezes, rales, rhonchi, stridor Cardiovascular Exam: Present: regular rate, normal rhythm, normal heart sounds. Absent: systolic murmur, diastolic murmur, rubs, gallop, clicks GI/Abdominal exam: Present: soft, normal bowel sounds. Absent: distended, tenderness, guarding, rebound, rigid Left Foot/Toe exam: Present: full ROM, ecchymosis. Absent: normal inspection Neurovascular tendon exam: Present: no vascular compromise Gait: observed and normal 1 - fat exposed ulcer measuring 4cm by 3cm 2 - 2cm fat exposed ulcer 3 - 3cm fat exposed ulcer Back exam: Present: normal inspection Neurological exam: Present: alert, oriented X3, CN II-XII intact Psychiatric exam: Present: normal affect, normal mood Skin exam: Present: warm, dry, intact, normal color. Absent: rash Course Vital Signs 08/22/19 08/22/19 17:16 19:31 Temperature 98.6 F 98.1 F Pulse Rate 64 66 Respiratory 20 16 Rate Blood Pressure 120/76 136/70 O2 Sat by Pulse 98 97 Oximetry Medical Decision Making - Medical Decision Making Patient is a 74-year-old male with diabetes presents emergency room today with 1 week of bilateral blistering over his feet and now turned into fat exposed ulcers. He has 2 on the left foot at the distal first and fifth phalanx. And Patient has ulceration over the left fifth metatarsal. Patient has diabetic neuropathy. He has normal pulses distally. At this time patient's labs reveal mildly unremarkable. X-rays show no evidence of osteomyelitis. I discussed her and the Patient on antibiotics and tonsils to wound care services. Patient is agreeable to this plan. Patient started on Zosyn and vancomycin. - Lab Data Result diagrams: 08/22/19 18:25 08/22/19 18:25 Lab Results 08/22/19 08/22/19 08/22/19 Range/Units 18:25 18:25 18:25 WBC 5.8 (3.8-10.6) k/uL RBC 4.55 (4.30-5.90) m/uL Hgb 12.7 L (13.0-17.5) gm/dL Hct 39.3 (39.0-53.0) % MCV 86.2 (80.0-100.0) fL MCH 27.8 (25.0-35.0) pg MCHC 32.3 (31.0-37.0) g/dL RDW 14.5 (11.5-15.5) % Plt Count 197 (150-450) k/uL Neutrophils % 61 % Lymphocytes % 22 % Monocytes % 7 % Eosinophils % 7 % Basophils % 1 % Neutrophils # 3.6 (1.3-7.7) k/uL Lymphocytes # 1.3 (1.0-4.8) k/uL Monocytes # 0.4 (0-1.0) k/uL Eosinophils # 0.4 (0-0.7) k/uL Basophils # 0.1 (0-0.2) k/uL Sodium 136 L (137-145) mmol/L Potassium 4.1 (3.5-5.1) mmol/L Chloride 102 (98-107) mmol/L Carbon Dioxide 28 (22-30) mmol/L Anion Gap 6 mmol/L BUN 15 (9-20) mg/dL Creatinine 1.00 (0.66-1.25) mg/dL Est GFR (CKD-EPI)AfAm 87 (>60 ml/min/1.73 sqM) Est GFR (CKD-EPI)NonAf 75 (>60 ml/min/1.73 sqM) Glucose 114 H (74-99) mg/dL POC Glucose (mg/dL) (75-99) mg/dL POC Glu [employer] ID Plasma Lactic Acid Vivek 1.1 (0.7-2.0) mmol/L Calcium 8.9 (8.4-10.2) mg/dL Total Bilirubin 1.1 (0.2-1.3) mg/dL AST 17 (17-59) U/L ALT 13 (4-49) U/L Alkaline Phosphatase 109 (38-126) U/L Total Protein 6.1 L (6.3-8.2) g/dL Albumin 3.6 (3.5-5.0) g/dL 08/22/19 Range/Units 19:25 WBC (3.8-10.6) k/uL RBC (4.30-5.90) m/uL Hgb (13.0-17.5) gm/dL Hct (39.0-53.0) % MCV (80.0-100.0) fL MCH (25.0-35.0) pg MCHC (31.0-37.0) g/dL RDW (11.5-15.5) % Plt Count (150-450) k/uL Neutrophils % % Lymphocytes % % Monocytes % % Eosinophils % % Basophils % % Neutrophils # (1.3-7.7) k/uL Lymphocytes # (1.0-4.8) k/uL Monocytes # (0-1.0) k/uL Eosinophils # (0-0.7) k/uL Basophils # (0-0.2) k/uL Sodium (137-145) mmol/L Potassium (3.5-5.1) mmol/L Chloride (98-107) mmol/L Carbon Dioxide (22-30) mmol/L Anion Gap mmol/L BUN (9-20) mg/dL Creatinine (0.66-1.25) mg/dL Est GFR (CKD-EPI)AfAm (>60 ml/min/1.73 sqM) Est GFR (CKD-EPI)NonAf (>60 ml/min/1.73 sqM) Glucose (74-99) mg/dL POC Glucose (mg/dL) 95 (75-99) mg/dL POC Glu [employer] ID Diana Hernandez Plasma Lactic Acid Vivek (0.7-2.0) mmol/L Calcium (8.4-10.2) mg/dL Total Bilirubin (0.2-1.3) mg/dL AST (17-59) U/L ALT (4-49) U/L Alkaline Phosphatase (38-126) U/L Total Protein (6.3-8.2) g/dL Albumin (3.5-5.0) g/dL - Radiology Data Radiology results: report reviewed X-ray shows calcaneal spurring. No fracture. A arthritis. No evidence for inflammatory arthritis. Soft tissue swelling noted. Disposition Clinical Impression: Foot ulcer, left, Foot ulcer, right, Diabetes Disposition: HOME SELF-CARE Condition: Good Is patient prescribed a controlled substance at d/c from ED?: No Referrals: [facility],Clinic [Primary Care Provider] - 1-2 days Time of Disposition: 20:05
[2019-08-22 18:35] LABS: Basophils # (A) 0.1 k/uL (0-0.2); Basophils % (A) 1 %; Eosinophils # (A) 0.4 k/uL (0-0.7); Eosinophils % (A) 7 %; HCT 39.3 % (39.0-53.0); HGB 12.7 gm/dL (13.0-17.5); Lymphocytes # (A) 1.3 k/uL (1.0-4.8); Lymphocytes % (A) 22 %; MCH 27.8 pg (25.0-35.0); MCHC 32.3 g/dL (31.0-37.0); MCV 86.2 fL (80.0-100.0); Mean Platelet Volume 8.5; Monocytes # (A) 0.4 k/uL (0-1.0); Monocytes % (A) 7 %; Neutrophils # (A) 3.6 k/uL (1.3-7.7); Neutrophils % (A) 61 %; Platelet Count 197 k/uL (150-450); RBC 4.55 m/uL (4.30-5.90); RDW 14.5 % (11.5-15.5); WBC 5.8 k/uL (3.8-10.6)
[2019-08-22] MEDS: SODIUM CHLORIDE 0.9% 1,000 ML IV SCH (18:44)
[2019-08-22 18:45] LABS: Albumin 3.6 g/dL (3.5-5.0); Calcium 8.9 mg/dL (8.4-10.2); Potassium 4.1 mmol/L (3.5-5.1); Total Bilirubin 1.1 mg/dL (0.2-1.3); Total Protein 6.1 g/dL (6.3-8.2)
--- NOTE | 2019-08-22 19:16 | XR ---
EXAMINATION TYPE: XR foot complete bilateral DATE OF EXAM: 08/22/2019 COMPARISON: NONE HISTORY: Foot pain TECHNIQUE: 3 views each foot FINDINGS: There is right-sided hallux valgus. There is bilateral narrowing and spurring at the first MP joints. There is vascular calcification. There is right foot multiple hammertoe deformity. There i s soft tissue swelling of the right and left forefoot. There is bilateral plantar and Achilles calcan eal spur formation. I see no focal bone destruction. IMPRESSION: Calcaneal spurring. No fracture seen. Osteoarthritis. I do not see evidence for inflammat ory arthritis. Soft tissue swelling.
[2019-08-22 19:26] LABS: Glucose,Whole Blood 95 mg/dL (75-99)
[2019-08-22] MEDS ORDERED: VANCOMYCIN IV PER PHARMACY 1 EACH MISC MISCELLANE PRN (20:04)
[2019-08-22] MEDS ORDERED: ACETAMINOPHEN TAB 325 MG TAB PO PRN (20:25)
[2019-08-22] MEDS ORDERED: ONDANSETRON 4 MG/2 ML VIAL IVP PRN (20:25)
[2019-08-22] MEDS ORDERED: NALOXONE 0.4 MG/ML 1 ML VIAL IV PRN (20:25)
[2019-08-22] MEDS ORDERED: IBUPROFEN 400 MG TAB PO PRN (20:25)
[2019-08-22] MEDS ORDERED: KETOROLAC 30 MG/ML 1 ML VIAL IVP PRN (20:25)
[2019-08-22] MEDS ORDERED: VANCOMYCIN 2,000 MG in SODIUM CHLORIDE 0.9% 500 ML 500 ML IVPB ONE (20:30)
[2019-08-22] MEDS ORDERED: ACETAMINOPHEN TAB 500 MG TAB PO PRN (22:40)
[2019-08-22] MEDS ORDERED: NON FORMULARY DRUG (Ubidecarenone [Co Q-10] 100 MG) PO SCH (22:45)
[2019-08-22] MEDS ORDERED: SENNOSIDES-DOCUSATE SODIUM 1 EACH TAB PO PRN (23:00)
[2019-08-22] MEDS: LISINOPRIL 5 MG TAB PO SCH (23:23)
[2019-08-22] MEDS: FUROSEMIDE 20 MG TAB PO SCH (23:23)
[2019-08-22] MEDS: glipiZIDE 5 MG TAB PO SCH (23:23)
[2019-08-22] MEDS: metFORMIN 500 MG TAB PO SCH (23:23)
[2019-08-22] MEDS: METOPROLOL TARTRATE 12.5 MG TAB PO SCH (23:25)
[2019-08-22] MEDS: TAMSULOSIN 0.4 MG CAP.ER.24H PO SCH (23:27)
[2019-08-23] MEDS: PIPERACILLIN-TAZOBACTAM 3.375 GM in SODIUM CHLORIDE 0.9% 100 ML IVPB SCH ×2 (02:14→07:52)
[2019-08-23 06:55] LABS: Glucose,Whole Blood 152 mg/dL (75-99)
[2019-08-23] MEDS: glipiZIDE 5 MG TAB PO SCH ×2 (07:45→17:21)
[2019-08-23] MEDS: ASPIRIN 325 MG TAB PO SCH (07:45)
[2019-08-23] MEDS: FUROSEMIDE 20 MG TAB PO SCH ×2 (07:45→22:28)
[2019-08-23] MEDS: METOPROLOL TARTRATE 12.5 MG TAB PO SCH ×2 (07:45→22:28)
[2019-08-23] MEDS: FOLIC ACID-VIT B COMPLEX-VIT C 1 CAP PO SCH (07:45)
[2019-08-23] MEDS: SODIUM CHLORIDE 0.9% 1,000 ML IV SCH ×2 (07:46→15:33)
[2019-08-23] MEDS: DILTIAZEM CD 120 MG CAP.ER.24H PO SCH (07:46)
[2019-08-23] MEDS: PANTOPRAZOLE 40 MG TABLET PO SCH ×2 (07:46→07:49)
[2019-08-23] MEDS: ASCORBIC ACID 500 MG TAB PO SCH (07:46)
[2019-08-23] MEDS: MULTIVITAMINS, THERA 1 EACH TAB PO SCH (07:46)
[2019-08-23] MEDS: TAMSULOSIN 0.4 MG CAP.ER.24H PO SCH (07:46)
[2019-08-23] MEDS: metFORMIN 500 MG TAB PO SCH ×2 (07:46→22:28)
[2019-08-23] MEDS ORDERED: EPA PO SCH (09:00)
[2019-08-23] MEDS ORDERED: PANTOPRAZOLE 40 MG/10 ML VIAL IV SCH (09:00)
[2019-08-23] MEDS ORDERED: FISH OIL PO SCH (09:00)
[2019-08-23] MEDS ORDERED: DHA PO SCH (09:00)
[2019-08-23] MEDS ORDERED: VANCOMYCIN 2,000 MG in SODIUM CHLORIDE 0.9% 500 ML 500 ML IVPB SCH (09:00)
[2019-08-23 11:33] LABS: Glucose,Whole Blood 185 mg/dL (75-99)
--- NOTE | 2019-08-23 12:22 | P.HPIM ---
History of Present Illness 74-year-old pleasant male has an ulcer in the left medial aspect of the tarsometatarsal joint area has been there and patient was being treated by podiatry and wound care. Patient came to the hospital yesterday as the lateral aspect of that foot and the lateral aspect of the right foot started looking red and infected. There is a small ulcer on the lateral aspect of the left foot and a very small ulcer that last up to the right foot as well patient does have full deformities. Patient may have cellulitis in the big ulcer area on that'll left medial aspect of the foot. Patient was started on broad-spectrum antibiotics and infectious disease was consulted. Wound cultures were obtained Past Medical History Past Medical History: Coronary Artery Disease (CAD), Diabetes Mellitus, Hyp erlipidemia, Hypertension Additional Past Medical History / Comment(s): PANCREATITIS (2008), SOB, kidney stones, neuropathy History of Any Multi-Drug Resistant Organisms: None Reported Past Surgical History: Cholecystectomy, Coronary Bypass/CABG, Tonsillectomy Past Anesthesia/Blood Transfusion Reactions: No Reported Reaction Past Psychological History: No Psychological Hx Reported Smoking Status: Never smoker Past Alcohol Use History: Rare Additional Past Alcohol Use History / Comment(s): QUIT SMOKING 10 YRS AGO (2008), was a "some day" smoker-since age 14 Past Drug Use History: None Reported - Past Family History Mother Family Medical History: Deep Vein Thrombosis (DVT) Sister(s) Family Medical History: Coronary Artery Disease (CAD), Deep Vein Thrombosis (DVT) Additional Family Medical History / Comment(s): sister with diagnosed coronary artery disease in her early 50s Father Family Medical History: Coronary Artery Disease (CAD), Hyperlipidemia, Hypertension Additional Family Medical History / Comment(s): CABG Medications and Allergies Home Medications Medication Instructions Recorded Confirmed Type Ascorbic Acid [Vitamin C] 1,000 mg PO DAILY 03/13/18 08/22/19 History Atorvastatin [Lipitor] 80 mg PO HS 03/13/18 08/22/19 History Fish Oil/Dha/Epa [Fish Oil 1,200 1,200 mg PO DAILY 03/13/18 08/22/19 History mg Fish Oil] Multivit-Min/Folic/Vit K/Lycop 1 tab PO DAILY 03/13/18 08/22/19 History [Men's Multivitamin Tablet] Vitamin B Complex 1 cap PO DAILY 03/13/18 08/22/19 History Clopidogrel [Plavix] 75 mg PO DAILY #30 tab 01/23/19 08/22/19 Rx Diltiazem Cd [Cardizem CD] 120 mg PO DAILY #30 cap.er.24h 01/23/19 08/22/19 Rx Pantoprazole [Protonix] 40 mg PO AC-BRKFST #30 tablet.dr 01/23/19 08/22/19 Rx Tamsulosin [Flomax] 0.4 mg PO PC-BRKFST #30 cap.er.24h 01/23/19 08/22/19 Rx glipiZIDE [Glucotrol] 5 mg PO AC-BID #30 tab 01/23/19 08/22/19 Rx Acetaminophen Tab [Tylenol] 1,000 mg PO Q6HR PRN 08/22/19 08/22/19 History Aspirin EC [Ecotrin] 325 mg PO DAILY 08/22/19 08/22/19 History Furosemide [Lasix] 20 mg PO BID 08/22/19 08/22/19 History Ipratropium-Albuterol Nebulize 3 ml INHALATION RT-QID PRN 08/22/19 08/22/19 History [Duoneb 0.5 mg-3 mg/3 ml Soln] Lisinopril [Zestril] 5 mg PO HS 08/22/19 08/22/19 History Metoprolol Tartrate [Lopressor] 12.5 mg PO BID 08/22/19 08/22/19 History Sennosides-Docusate Sodium 2 tab PO HS PRN 08/22/19 08/22/19 History [Senokot-S] Ubidecarenone [Co Q-10] 100 mg PO DAILY 08/22/19 08/22/19 History metFORMIN HCL [Glucophage] 500 mg PO BID 08/22/19 08/22/19 History Allergies Allergy/AdvReac Type Severity Reaction Status Date / Time latex AdvReac Unknown Itching Verified 08/22/19 20:46 Physical Exam Vitals: Vital Signs Temp Pulse Pulse Resp BP BP Pulse Ox 08/23/19 07:57 68 17 08/23/19 07:00 98.5 F 68 17 133/76 96 08/22/19 21:32 98.3 F 77 138/83 97 08/22/19 21:14 98.1 F 75 16 132/74 97 08/22/19 19:31 98.1 F 66 16 136/70 97 08/22/19 17:16 98.6 F 64 20 120/76 98 Intake and Output 08/22/19 08/23/19 08/23/19 22:59 06:59 14:59 Other: # Voids 1 Weight 122.47 kg PHYSICAL EXAMINATION: GENERAL: The patient is alert and oriented x3, not in any acute distress. Well developed, well nourished. HEENT: Pupils are round and equally reacting to light. EOMI. No scleral icterus. No conjunctival pallor. Normocephalic, atraumatic. No pharyngeal erythema. No thyromegaly. CARDIOVASCULAR: S1 and S2 present. No murmurs, rubs, or gallops. PULMONARY: Chest is clear to auscultation, no wheezing or crackles. ABDOMEN: Soft, nontender, nondistended, normoactive bowel sounds. No palpable organomegaly. MUSCULOSKELETAL: No joint swelling or deformity. EXTREMITIES: No cyanosis, clubbing, or pedal edema. NEUROLOGICAL: Gross neurological examination did not reveal any focal deficits. SKIN: A large ulcer in the medial aspect of the left foot appears to be stage III of 4 ulcer with mild redness. There is redness in the lateral aspect of the left foot as well with a smaller ulcer which may be around stage III as well there is a small ulcer probably stage II in the lateral aspect of the right foot with some redness surrounding it without any local is of temperature Results CBC & Chem 7: 08/22/19 18:25 08/22/19 18:25 Labs: Abnormal Lab Results - Last 24 Hours (Table) 08/22/19 08/22/19 08/23/19 Range/Units 18:25 18:25 06:54 Hgb 12.7 L (13.0-17.5) gm/dL Sodium 136 L (137-145) mmol/L Glucose 114 H (74-99) mg/dL POC Glucose (mg/dL) 152 H (75-99) mg/dL Total Protein 6.1 L (6.3-8.2) g/dL 08/23/19 Range/Units 11:31 Hgb (13.0-17.5) gm/dL Sodium (137-145) mmol/L Glucose (74-99) mg/dL POC Glucose (mg/dL) 185 H (75-99) mg/dL Total Protein (6.3-8.2) g/dL Microbiology - Last 24 Hours (Table) 08/22/19 18:44 Gram Stain - Preliminary Foot - Right Wound Culture - Preliminary Thrombosis Risk Factor Assmnt - Choose All That Apply Any of the Below Risk Factors Present?: No Other Risk Factors: No Other congenital or acquired thrombophilia - If yes, enter type in comment: No Thrombosis Risk Factor Assessment Level: Very Low Risk Assessment and Plan Plan: -Bilateral foot ulcers with possible cellulitis of the left lower extremity: Patient is on Zosyn and vancomycin and Zosyn is being switched to Unasyn. -Type 2 diabetes mellitus patient will be resumed on home regimen along with sliding scale -Hypertension -Coronary artery disease status post CABG. -hyperlipidemia -Due to prophylaxis with Lovenox GI prophylaxis with Pepcid
[2019-08-23] MEDS ORDERED: AMPICILLIN-SULBACTAM 3 GM in SODIUM CHLORIDE 0.9% 100 ML IVPB SCH (12:30)
[2019-08-23 14:36] VITALS: BMI 36.6
[2019-08-23 14:37] VITALS: RESP 18
[2019-08-23 16:22] LABS: Glucose,Whole Blood 164 mg/dL (75-99)
[2019-08-23] MEDS ORDERED: ATORVASTATIN 80 MG TAB PO SCH (21:00)
[2019-08-23] MEDS: FAMOTIDINE 20 MG TAB PO SCH (22:28)
[2019-08-23] MEDS: LISINOPRIL 5 MG TAB PO SCH (22:28)
[2019-08-23] MEDS: AMPICILLIN-SULBACTAM 3 GM in SODIUM CHLORIDE 0.9% 100 ML IVPB SCH (22:29)
--- NOTE | 2019-08-24 00:02 | P.CONS ---
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 The symptom the patient presented to the hospital Patient was evaluated by the ER physician patient did have x-rays of the foot which did not show any bony changes, patient did not have any fever or elevated white count he was started on vancomycin and Zosyn has been admitted to the hospital infectious disease was consulted for further management of antibiotic any for local wound care Review of Systems Positive point has been mentioned in the HPI rest of the systems are negative Past Medical History Past Medical History: Coronary Artery Disease (CAD), Diabetes Mellitus, Hyperlipidemia, Hypertension Additional Past Medical History / Comment(s): PANCREATITIS (2008), SOB, kidney stones, neuropathy History of Any Multi-Drug Resistant Organisms: None Reported Past Surgical History: Cholecystectomy, Coronary Bypass/CABG, Tonsillectomy Past Anesthesia/Blood Transfusion Reactions: No Reported Reaction Past Psychological History: No Psychological Hx Reported Smoking Status: Never smoker Past Alcohol Use History: Rare Additional Past Alcohol Use History / Comment(s): QUIT SMOKING 10 YRS AGO (2008), was a "some day" smoker-since age 14 Past Drug Use History: None Reported - Past Family History Mother Family Medical History: Deep Vein Thrombosis (DVT) Sister(s) Family Medical History: Coronary Artery Disease (CAD), Deep Vein Thrombosis (DVT) Additional Family Medical History / Comment(s): sister with diagnosed coronary artery disease in her early 50s Father Family Medical History: Coronary Artery Disease (CAD), Hyperlipidemia, Hypertension Additional Family Medical History / Comment(s): CABG Medications and Allergies Home Medications Medication Instructions Recorded Confirmed Type Ascorbic Acid [Vitamin C] 1,000 mg PO DAILY 03/13/18 08/22/19 History Atorvastatin [Lipitor] 80 mg PO HS 03/13/18 08/22/19 History Fish Oil/Dha/Epa [Fish Oil 1,200 1,200 mg PO DAILY 03/13/18 08/22/19 History mg Fish Oil] Multivit-Min/Folic/Vit K/Lycop 1 tab PO DAILY 03/13/18 08/22/19 History [Men's Multivitamin Tablet] Vitamin B Complex 1 cap PO DAILY 03/13/18 08/22/19 History Clopidogrel [Plavix] 75 mg PO DAILY #30 tab 01/23/19 08/22/19 Rx Diltiazem Cd [Cardizem CD] 120 mg PO DAILY #30 cap.er.24h 01/23/19 08/22/19 Rx Pantoprazole [Protonix] 40 mg PO AC-BRKFST #30 tablet.dr 01/23/19 08/22/19 Rx Tamsulosin [Flomax] 0.4 mg PO PC-BRKFST #30 cap.er.24h 01/23/19 08/22/19 Rx glipiZIDE [Glucotrol] 5 mg PO AC-BID #30 tab 01/23/19 08/22/19 Rx Acetaminophen Tab [Tylenol] 1,000 mg PO Q6HR PRN 08/22/19 08/22/19 History Aspirin EC [Ecotrin] 325 mg PO DAILY 08/22/19 08/22/19 History Furosemide [Lasix] 20 mg PO BID 08/22/19 08/22/19 History Ipratropium-Albuterol Nebulize 3 ml INHALATION RT-QID PRN 08/22/19 08/22/19 History [Duoneb 0.5 mg-3 mg/3 ml Soln] Lisinopril [Zestril] 5 mg PO HS 08/22/19 08/22/19 History Metoprolol Tartrate [Lopressor] 12.5 mg PO BID 08/22/19 08/22/19 History Sennosides-Docusate Sodium 2 tab PO HS PRN 08/22/19 08/22/19 History [Senokot-S] Ubidecarenone [Co Q-10] 100 mg PO DAILY 08/22/19 08/22/19 History metFORMIN HCL [Glucophage] 500 mg PO BID 08/22/19 08/22/19 History Allergies Allergy/AdvReac Type Severity Reaction Status Date / Time latex AdvReac Unknown Itching Verified 08/22/19 20:46 Physical Exam Vitals: Vital Signs Temp Pulse Pulse Resp BP BP Pulse Ox 08/23/19 07:57 68 17 08/23/19 07:00 98.5 F 68 17 133/76 96 08/22/19 21:32 98.3 F 77 138/83 97 08/22/19 21:14 98.1 F 75 16 132/74 97 08/22/19 19:31 98.1 F 66 16 136/70 97 08/22/19 17:16 98.6 F 64 20 120/76 98 Intake and Output 08/22/19 08/23/19 08/23/19 22:59 06:59 14:59 Other: # Voids 1 Weight 122.47 kg GENERAL DESCRIPTION: Elderly male lying in bed, no distress. No tachypnea or accessory muscle of respiration use. HEENT: Shows Pallor , no scleral icterus. Oral mucous membrane is dry. No pharyngeal erythema or thrush NECK: Trachea central, no thyromegaly. LUNGS: Unlabored breathing. Clear to auscultation anteriorly. No wheeze or crackle. HEART: S1, S2, regular rate and rhythm. No loud murmur ABDOMEN: Soft, no tenderness , guarding or rigidity, no organomegaly EXTREMITIES: Bilateral feet both medial and lateral border dried-up blisters minimal redness no foul-smelling drainage SKIN: No rash, no masses palpable. NEUROLOGICAL: The patient is awake, alert, oriented x3, mood and affect normal. Results CBC & Chem 7: 08/22/19 18:25 08/22/19 18:25 Labs: Abnormal Lab Results - Last 24 Hours (Table) 08/22/19 08/22/19 08/23/19 Range/Units 18:25 18:25 06:54 Hgb 12.7 L (13.0-17.5) gm/dL Sodium 136 L (137-145) mmol/L Glucose 114 H (74-99) mg/dL POC Glucose (mg/dL) 152 H (75-99) mg/dL Total Protein 6.1 L (6.3-8.2) g/dL 08/23/19 Range/Units 11:31 Hgb (13.0-17.5) gm/dL Sodium (137-145) mmol/L Glucose (74-99) mg/dL POC Glucose (mg/dL) 185 H (75-99) mg/dL Total Protein (6.3-8.2) g/dL Microbiology - Last 24 Hours (Table) 08/22/19 18:44 Gram Stain - Preliminary Foot - Right Wound Culture - Preliminary Assessment and Plan Assessment: 1- patient with bilateral diabetic foot ulcers/blisters with mild cellulitis likely from gram-positive skin qing clinically doubt deep infection or osteomyelitis and no clinical suspicious for resistant gram-positive or gram- negative infection in this patient who has not been on antibiotics in the recent past (1) Diabetic infection of left foot Current Visit: Yes Status: Acute Code(s): E11.628 - TYPE 2 DIABETES MELLITUS WITH OTHER SKIN COMPLICATIONS; L08.9 - LOCAL INFECTION OF THE SKIN AND SUBCUTANEOUS TISSUE, UNSP SNOMED Code(s): 15958220 (2) Diabetic infection of right foot Current Visit: Yes Status: Acute Code(s): E11.628 - TYPE 2 DIABETES MELLITUS WITH OTHER SKIN COMPLICATIONS; L08.9 - LOCAL INFECTION OF THE SKIN AND SUBCUTANEOUS TISSUE, UNSP SNOMED Code(s): 47477248 Plan: 1- discontinue vancomycin and Zosyn 2-study the patient on Unasyn 3 g every 6 hours Tova patient show clinical improvement to finish therapy with short course of oral Augmentin this has been discussed in detail with the admitting physician We will follow on clinical condition and cultures to further adjust medication if needed Thank you for this consultation will follow this patient with you Time with Patient: Greater than 30
[2019-08-24] MEDS: SODIUM CHLORIDE 0.9% 1,000 ML IV SCH (02:30)
[2019-08-24] MEDS: AMPICILLIN-SULBACTAM 3 GM in SODIUM CHLORIDE 0.9% 100 ML IVPB SCH ×2 (02:30→07:39)
[2019-08-24 07:10] LABS: Glucose,Whole Blood 116 mg/dL (75-99)
[2019-08-24] MEDS: FOLIC ACID-VIT B COMPLEX-VIT C 1 CAP PO SCH (07:34)
[2019-08-24] MEDS: ASPIRIN 325 MG TAB PO SCH (07:34)
[2019-08-24] MEDS: METOPROLOL TARTRATE 12.5 MG TAB PO SCH (07:34)
[2019-08-24] MEDS: metFORMIN 500 MG TAB PO SCH (07:35)
[2019-08-24] MEDS: PANTOPRAZOLE 40 MG TABLET PO SCH (07:35)
[2019-08-24] MEDS: ASCORBIC ACID 500 MG TAB PO SCH (07:35)
[2019-08-24] MEDS: glipiZIDE 5 MG TAB PO SCH (07:35)
[2019-08-24] MEDS: TAMSULOSIN 0.4 MG CAP.ER.24H PO SCH (07:35)
[2019-08-24] MEDS: DILTIAZEM CD 120 MG CAP.ER.24H PO SCH (07:35)
[2019-08-24] MEDS: FAMOTIDINE 20 MG TAB PO SCH (07:35)
[2019-08-24] MEDS: MULTIVITAMINS, THERA 1 EACH TAB PO SCH (07:35)
[2019-08-24] MEDS: FUROSEMIDE 20 MG TAB PO SCH (07:37)
[2019-08-24 07:45] VITALS: BP 126/65; PULSE 65; TEMP 97.8
[2019-08-24 08:12] LABS: Basophils # (A) 0.1 k/uL (0-0.2); Basophils % (A) 1 %; Eosinophils # (A) 0.4 k/uL (0-0.7); Eosinophils % (A) 7 %; HCT 39.3 % (39.0-53.0); HGB 12.7 gm/dL (13.0-17.5); Lymphocytes # (A) 1.4 k/uL (1.0-4.8); Lymphocytes % (A) 22 %; MCHC 32.4 g/dL (31.0-37.0); MCV 86.5 fL (80.0-100.0); Mean Platelet Volume 8.3; Monocytes # (A) 0.4 k/uL (0-1.0); Monocytes % (A) 7 %; Neutrophils # (A) 3.9 k/uL (1.3-7.7); Neutrophils % (A) 62 %; Platelet Count 186 k/uL (150-450); RBC 4.54 m/uL (4.30-5.90); RDW 14.8 % (11.5-15.5); WBC 6.3 k/uL (3.8-10.6)
[2019-08-24 08:20] LABS: African American GFR (CKD) >90 (>60 ml/min/1.73 sqM); Anion Gap 6 mmol/L; Blood Urea Nitrogen 14 mg/dL (9-20); Calcium 8.9 mg/dL (8.4-10.2); Carbon Dioxide 27 mmol/L (22-30); Chloride 105 mmol/L (98-107); Glucose 106 mg/dL (74-99); Non-African American GFR(CKD) 80 (>60 ml/min/1.73 sqM); Potassium 4.2 mmol/L (3.5-5.1); Sodium 138 mmol/L (137-145)
[2019-08-24] MEDS ORDERED: ENOXAPARIN 40 MG/0.4 ML SYRINGE SQ SCH (09:00)
[2019-08-24 12:06] LABS: Glucose,Whole Blood 114 mg/dL (75-99)
--- NOTE | 2019-08-24 12:56 | PN ---
PROGRESS NOTE DATE OF SERVICE: 08/24/2019 REASON FOR FOLLOWUP: Bilateral diabetic foot ulcer and cellulitis. INTERVAL HISTORY: Patient is currently afebrile. He was seen on rounds this morning. Overall, he is feeling better. Breathing comfortably. Pain and discomfort to the bilateral feet has decreased. No chest pain or cough, no abdominal pain, no diarrhea. PHYSICAL EXAMINATION: Blood pressure 126/65 with a pulse of 65, temperature is 97.8, he is 95% on room air. General description is an elderly male, lying in bed in no distress. RESPIRATORY SYSTEM: Unlabored breathing, clear to auscultation anteriorly. HEART: S1, S2. Regular rate and rhythm. ABDOMEN: Soft, no tenderness. Bilateral feet currently with no significant redness or any drainage. LABS: White count normal at 6.3, local wound cultures are currently pending. Blood culture has been negative. DIAGNOSTIC IMPRESSION AND PLAN: Patient with bilateral diabetic foot ulcer with cellulitis, right greater than left. The patient seemed to have shown some clinical improvement on IV Unasyn. He will finish therapy with oral Augmentin. Has been advised to follow up [facility] next week for continued local wound care and close outpatient followup. MMODL / IJN: [id number] /
--- NOTE | 2019-08-24 13:43 | P.DS ---
Providers Date of admission: 08/22/19 19:35 Expected date of discharge: 08/24/19 Attending physician: Nathalia Levi Consults: 08/22/19 20:25 Consult Physician Stat Consulting Provider: Tram Barrios Consult Reason/Comments: Diabetic wound care Do you want consulting provider notified?: Yes Primary care physician: [facility] Hospital Course: Final diagnosis -Bilateral foot ulcers with possible cellulitis of the left lower extremity -Type 2 diabetes mellitus -Hypertension -Coronary artery disease status post CABG. -hyperlipidemia -DVT prophylaxis -GI prophylaxis Discharge disposition Patient is being discharged in a stable condition with guarded prognosis to home. Patient will follow-up with [facility] in the outpatient setting upon discharge. Patient also instructed to follow-up with the wound center and/or social insurance adviser he has been seeing in the outpatient setting. Patient will continue on oral Augmentin twice daily for the next 10 days. Total time taken is 35 minutes. History of present illness This is a 74-year-old male who was recently admitted with an ulcer of the left medial aspect of the metatarsal joint area and was being closely monitored. Patient was initiated on broad-spectrum IV antibiotics and evaluated by infectious disease. Patient was continued on Unasyn which showed some clinical improvement. Patient was seeing podiatry by referral of the [facility] in the outpatient setting but due to the current Covid 19 pandemic was lost to follow- up. Patient will continue on oral Augmentin twice daily for the next 10 days. Patient is also diabetic and instructed to monitor blood sugars and keep a diary for primary care follow-up. Patient currently taking oral antidiabetic medications. Currently no reports of chest pain, shortness of breath, or palpitations. Patient is afebrile. No reports of nausea or vomiting and patient is tolerating diet. Patient is being discharged home today On exam vital signs are stable. Temp is 97.8F, pulse is 65, respirations are 18, blood pressure is 126/65, oxygen saturation is 95% on room air. Cardio S1, S2 are muffled. Respiratory system shows clear to auscultation. Abdomen is soft and nontender. Nervous system no focal deficits. Please refer to medication reconciliation sheet for a list of medications. Patient Condition at Discharge: Good Plan - Discharge Summary Discharge Rx Participant: No New Discharge Prescriptions: New Amoxic-Pot Clav 875-125Mg [Augmentin 875-125] 1 tab PO Q12HR 10 Days #20 tab Continue Multivit-Min/Folic/Vit K/Lycop [Men's Multivitamin Tablet] 1 tab PO DAILY Fish Oil/Dha/Epa [Fish Oil 1,200 mg Fish Oil] 1,200 mg PO DAILY Atorvastatin [Lipitor] 80 mg PO HS Ascorbic Acid [Vitamin C] 1,000 mg PO DAILY Vitamin B Complex 1 cap PO DAILY Diltiazem Cd [Cardizem CD] 120 mg PO DAILY #30 cap.er.24h Tamsulosin [Flomax] 0.4 mg PO PC-BRKFST #30 cap.er.24h Clopidogrel [Plavix] 75 mg PO DAILY #30 tab Pantoprazole [Protonix] 40 mg PO AC-BRKFST #30 tablet. glipiZIDE [Glucotrol] 5 mg PO AC-BID #30 tab metFORMIN HCL [Glucophage] 500 mg PO BID Sennosides-Docusate Sodium [Senokot-S] 2 tab PO HS PRN PRN Reason: Constipation Acetaminophen Tab [Tylenol] 1,000 mg PO Q6HR PRN PRN Reason: Pain Metoprolol Tartrate [Lopressor] 12.5 mg PO BID Aspirin EC [Ecotrin] 325 mg PO DAILY Ubidecarenone [Co Q-10] 100 mg PO DAILY Lisinopril [Zestril] 5 mg PO HS Furosemide [Lasix] 20 mg PO BID Ipratropium-Albuterol Nebulize [Duoneb 0.5 mg-3 mg/3 ml Soln] 3 ml INHALATION RT-QID PRN PRN Reason: Shortness Of Breath Discharge Medication List Ascorbic Acid [Vitamin C] 1,000 mg PO DAILY 03/13/18 [History] Atorvastatin [Lipitor] 80 mg PO HS 03/13/18 [History] Fish Oil/Dha/Epa [Fish Oil 1,200 mg Fish Oil] 1,200 mg PO DAILY 03/13/18 [History] Multivit-Min/Folic/Vit K/Lycop [Men's Multivitamin Tablet] 1 tab PO DAILY 03/13/18 [History] Vitamin B Complex 1 cap PO DAILY 03/13/18 [History] Clopidogrel [Plavix] 75 mg PO DAILY #30 tab 01/23/19 [Rx] Diltiazem Cd [Cardizem CD] 120 mg PO DAILY #30 cap.er.24h 01/23/19 [Rx] Pantoprazole [Protonix] 40 mg PO AC-BRKFST #30 tablet.dr 01/23/19 [Rx] Tamsulosin [Flomax] 0.4 mg PO PC-BRKFST #30 cap.er.24h 01/23/19 [Rx] glipiZIDE [Glucotrol] 5 mg PO AC-BID #30 tab 01/23/19 [Rx] Acetaminophen Tab [Tylenol] 1,000 mg PO Q6HR PRN 08/22/19 [History] Aspirin EC [Ecotrin] 325 mg PO DAILY 08/22/19 [History] Furosemide [Lasix] 20 mg PO BID 08/22/19 [History] Ipratropium-Albuterol Nebulize [Duoneb 0.5 mg-3 mg/3 ml Soln] 3 ml INHALATION RT-QID PRN 08/22/19 [History] Lisinopril [Zestril] 5 mg PO HS 08/22/19 [History] Metoprolol Tartrate [Lopressor] 12.5 mg PO BID 08/22/19 [History] Sennosides-Docusate Sodium [Senokot-S] 2 tab PO HS PRN 08/22/19 [History] Ubidecarenone [Co Q-10] 100 mg PO DAILY 08/22/19 [History] metFORMIN HCL [Glucophage] 500 mg PO BID 08/22/19 [History] Amoxic-Pot Clav 875-125Mg [Augmentin 875-125] 1 tab PO Q12HR 10 Days #20 tab 08/24/19 [Rx] Follow up Appointment(s)/Referral(s): [facility],Clinic [Primary Care Provider] - 1-2 days (office will call with appointment time) Patient Instructions/Handouts: Diabetic Foot Ulcers (DC) Activity/Diet/Wound Care/Special Instructions: Activity Limited until follow-up Follow-up with primary care provider upon discharge Continue to monitor blood sugars and keep a diary for primary care follow-up Follow-up with wound care center Continue antibiotics for 10 days until finished Follow-up with podiatry in the outpatient setting Discharge Disposition: HOME SELF-CARE
== END 2019-08-24 13:02 | disposition home or self-care (01) ==
LOC: EC 17:14 → 4SSUR 19:35
PROVIDERS: ADMIT Internal Medicine; ATTEND Internal Medicine
DX: E11.621 Type 2 diabetes mellitus with foot ulcer (principal); L97.522 Non-pressure chronic ulcer of other part of left foot with fat layer exposed; L97.512 Non-pressure chronic ulcer of other part of right foot with fat layer exposed; E11.40 Type 2 diabetes mellitus with diabetic neuropathy, unspecified; E78.5 Hyperlipidemia, unspecified; I10 Essential (primary) hypertension; I25.10 Atherosclerotic heart disease of native coronary artery without angina pectoris; Z79.02 Long term (current) use of antithrombotics/antiplatelets; Z79.82 Long term (current) use of aspirin; Z79.84 Long term (current) use of oral hypoglycemic drugs; Z79.899 Other long term (current) drug therapy; Z82.49 Family history of ischemic heart disease and other diseases of the circulatory system; Z87.442 Personal history of urinary calculi; Z87.891 Personal history of nicotine dependence; Z95.1 Presence of aortocoronary bypass graft; Z03.818 Encounter for observation for suspected exposure to other biological agents ruled out; Z91.040 Latex allergy status; Z90.49 Acquired absence of other specified parts of digestive tract
CPT/HCPCS: 96366 ×4; 96367 ×2; 96365; 99285; 36415; 80053; 80048; 83605; 85025 ×2; 87040; 87070; 87205; 73630; G0378 ×3; U0003; J2543 ×2; J3370 ×2; J1650; J0295 ×2

== ENCOUNTER 2019-10-02 09:42 | Inpatient (IN) | payer OTHER, MEDICARE ==
[2019-10-02] MEDS ORDERED: SODIUM CHLORIDE 0.9% 500 ML 500 ML IV STA (10:15)
[2019-10-02] MEDS ORDERED: cefTRIAXone IN SWFI 1,000 MG/10 ML SYRINGE IVP STA (10:15)
--- NOTE | 2019-10-02 10:25 | ED ---
Skin/Abscess/FB HPI - General Chief complaint: Skin/Abscess/Foreign Body Stated complaint: blisters on feet Time Seen by Provider: 10/02/19 10:00 Source: patient Limitations: no limitations - History of Present Illness Initial comments: patient is a 74-year-old male, with history of diabetes, heart disease, hypertension, presenting to emergency Department with complaints of worsening sores on both of his feet. Patient has been going to the wound clinic and seen Dr. Barrios for diabetic ulcers on both feet but they are worse on the left foot. Patient states the last 2 days he has been having high fevers at home from 101- 102 degrees. Patient states he last took ibuprofen at approximately 4 AM this morning. Patient states his left foot is becoming more painful, red and s wollen. Patient states he was hardly able to walk yesterday secondary to the pain. His last follow-up with Dr. Barrios was on Friday. He has not been on antibiotics for his foot in a few weeks. He denies any chest pain, shortness of breath, cough, nausea, vomiting, urinary complaints. he has no further complaints at this time. Upon arrival to the ER, his vital signs are currently stable. - Related Data Home Medications Medication Instructions Recorded Confirmed Ascorbic Acid [Vitamin C] 1,000 mg PO DAILY 03/13/18 08/22/19 Atorvastatin [Lipitor] 80 mg PO HS 03/13/18 08/22/19 Fish Oil/Dha/Epa [Fish Oil 1,200 1,200 mg PO DAILY 03/13/18 08/22/19 mg Fish Oil] Multivit-Min/Folic/Vit K/Lycop 1 tab PO DAILY 03/13/18 08/22/19 [Men's Multivitamin Tablet] Vitamin B Complex 1 cap PO DAILY 03/13/18 08/22/19 Acetaminophen Tab [Tylenol] 1,000 mg PO Q6HR PRN 08/22/19 08/22/19 Aspirin EC [Ecotrin] 325 mg PO DAILY 08/22/19 08/22/19 Furosemide [Lasix] 20 mg PO BID 08/22/19 08/22/19 Ipratropium-Albuterol Nebulize 3 ml INHALATION RT-QID PRN 08/22/19 08/22/19 [Duoneb 0.5 mg-3 mg/3 ml Soln] Metoprolol Tartrate [Lopressor] 12.5 mg PO BID 08/22/19 08/22/19 Sennosides-Docusate Sodium 2 tab PO HS PRN 08/22/19 08/22/19 [Senokot-S] Ubidecarenone [Co Q-10] 100 mg PO DAILY 08/22/19 08/22/19 lisinopriL [Zestril] 5 mg PO HS 08/22/19 08/22/19 metFORMIN HCL [Glucophage] 500 mg PO BID 08/22/19 08/22/19 Previous Rx's Medication Instructions Recorded Clopidogrel [Plavix] 75 mg PO DAILY #30 tab 01/23/19 Diltiazem Cd [Cardizem CD] 120 mg PO DAILY #30 cap.er.24h 01/23/19 Pantoprazole [Protonix] 40 mg PO AC-BRKFST #30 tablet. 01/23/19 Tamsulosin [Flomax] 0.4 mg PO PC-BRKFST #30 cap.er.24h 01/23/19 glipiZIDE [Glucotrol] 5 mg PO AC-BID #30 tab 01/23/19 Amoxic-Pot Clav 875-125Mg 1 tab PO Q12HR 10 Days #20 tab 08/24/19 [Augmentin 875-125] Allergies Allergy/AdvReac Type Severity Reaction Status Date / Time adhesive tape Allergy Rash/Hives Verified 10/02/19 09:49 latex AdvReac Unknown Itching Verified 08/22/19 20:46 Review of Systems ROS Statement: Those systems with pertinent positive or pertinent negative responses have been documented in the HPI. ROS Other: All systems not noted in ROS Statement are negative. Past Medical History Past Medical History: Coronary Artery Disease (CAD), Diabetes Mellitus, Hyperlipidemia, Hypertension Additional Past Medical History / Comment(s): PANCREATITIS (2008), SOB, kidney stones, neuropathy History of Any Multi-Drug Resistant Organisms: None Reported Past Surgical History: Cholecystectomy, Coronary Bypass/CABG, Tonsillectomy Past Anesthesia/Blood Transfusion Reactions: No Reported Reaction Past Psychological History: No Psychological Hx Reported Smoking Status: Never smoker Past Alcohol Use History: Occasional Past Drug Use History: None Reported - Past Family History Mother Family Medical History: Deep Vein Thrombosis (DVT) Sister(s) Family Medical History: Coronary Artery Disease (CAD), Deep Vein Thrombosis (DVT) Additional Family Medical History / Comment(s): sister with diagnosed coronary artery disease in her early 50s Father Family Medical History: Coronary Artery Disease (CAD), Hyperlipidemia, Hypertension Additional Family Medical History / Comment(s): CABG General Exam - General Exam Comments Initial Comments: GENERAL: Patient is well-developed and well-nourished. Patient is nontoxic and in no acute distress. HEAD: Atraumatic, normocephalic. EYES: Pupils equal round and reactive to light, extraocular movements intact, sclera anicteric, conjunctiva are normal. Eyelids were unremarkable. ENT: TMs normal, nares patent, oropharynx clear without exudates. Moist mucous membranes. NECK: Normal range of motion, supple without lymphadenopathy or JVD. LUNGS: Unlabored respirations. Breath sounds clear to auscultation bilaterally and equal. No wheezes rales or rhonchi. HEART: Regular rate and rhythm without murmurs, rubs or gallops. ABDOMEN: Soft, nontender, normoactive bowel sounds. No guarding, no rebound. No masses appreciated. : Deferred MUSCULOSKELETAL: Normal extremities with adequate strength and normal range of motion. No clubbi ng or cyanosis. NEUROLOGICAL: Patient is alert and oriented x 3. Motor and sensory are also intact. Cranial nerves II through XII grossly intact. Symmetrical smile. Normal speech, normal gait. PSYCH: Normal mood, normal affect. SKIN: Warm, Dry, normal turgor. left foot is worse than right foot. On the right foot, patient has 2 areas, approximately 1 cm in diameter of superficial ulcers,with no surrounding erythema, very little active drainage, no pain with palpation around the sores. On the left foot, patient has a 3cm stage II ulcer on the medial aspect near the great toe is erythematous, painful with palpation. He also has a 1 cm superficial ulcer on the lateral aspect of the foot near the fifth toe is also erythematous, painful with palpation with mild drainage. patient has erythema spreading over his entire left foot, warm to the touch as well as swelling up to the middle of the lower leg. He has neurovascular intact to lower extremities bilaterally. His sensation is equal and bilateral. Limitations: no limitations Course Vital Signs 10/02/19 10/02/19 09:44 11:18 Temperature 98.1 F Pulse Rate 70 86 Respiratory 16 16 Rate Blood Pressure 131/68 132/86 O2 Sat by Pulse 96 99 Oximetry Medical Decision Making - Medical Decision Making patient is 74-year-old male with multiple comorbidities here for diabetic ulcers on his bilateral feet, worse on the left foot. Left foot appears red, swollen, warm to the touch with 2 ulcers on either side of the foot. He has neurovascular intact bilaterally. Patient's vital signs are stable but he has been febrile last 2 days at home. Laboratory shows white count of 12, lactic acid is normal at 1.2, CRP is elevated at 187. X-ray of the left foot reveals no evidence of osteomyelitis. Patient was given 1 g of Rocephin in the ER, I will also add Vanco. Patient will be admitted for IV antibiotics and consult to infectious disease. patient is declining anything for pain at this time.Patient is agreement with this plan of care. Case discussed with Dr. Hernandez. Patient was accepted by Dr. De Luna. - Lab Data Result diagrams: 10/02/19 10:27 10/02/19 10:27 Lab Results 10/02/19 10/02/19 10/02/19 Range/Units 10:27 10:27 10:27 WBC 12.1 H (3.8-10.6) k/uL RBC 4.47 (4.30-5.90) m/uL Hgb 13.2 (13.0-17.5) gm/dL Hct 38.5 L (39.0-53.0) % MCV 86.1 (80.0-100.0) fL MCH 29.5 (25.0-35.0) pg MCHC 34.2 (31.0-37.0) g/dL RDW 13.0 (11.5-15.5) % Plt Count 191 (150-450) k/uL Neutrophils % 77 % Lymphocytes % 12 % Monocytes % 6 % Eosinophils % 2 % Basophils % 0 % Neutrophils # 9.4 H (1.3-7.7) k/uL Lymphocytes # 1.5 (1.0-4.8) k/uL Monocytes # 0.8 (0-1.0) k/uL Eosinophils # 0.3 (0-0.7) k/uL Basophils # 0.0 (0-0.2) k/uL PT 11.0 (9.0-12.0) sec INR 1.1 (<1.2) APTT 25.3 (22.0-30.0) sec Sodium 137 (137-145) mmol/L Potassium 3.9 (3.5-5.1) mmol/L Chloride 103 (98-107) mmol/L Carbon Dioxide 23 (22-30) mmol/L Anion Gap 11 mmol/L BUN 14 (9-20) mg/dL Creatinine 0.91 (0.66-1.25) mg/dL Est GFR (CKD-EPI)AfAm >90 (>60 ml/min/1.73 sqM) Est GFR (CKD-EPI)NonAf 84 (>60 ml/min/1.73 sqM) Glucose 230 H (74-99) mg/dL POC Glucose (mg/dL) (75-99) mg/dL POC Glu Toter ID Plasma Lactic Acid Vivek (0.7-2.0) mmol/L Calcium 8.5 (8.4-10.2) mg/dL Total Bilirubin 1.9 H (0.2-1.3) mg/dL AST 18 (17-59) U/L ALT 12 (4-49) U/L Alkaline Phosphatase 106 (38-126) U/L C-Reactive Protein 187.4 H (<10.0) mg/L Total Protein 6.3 (6.3-8.2) g/dL Albumin 3.5 (3.5-5.0) g/dL 10/02/19 10/02/19 Range/Units 10:27 12:08 WBC (3.8-10.6) k/uL RBC (4.30-5.90) m/uL Hgb (13.0-17.5) gm/dL Hct (39.0-53.0) % MCV (80.0-100.0) fL MCH (25.0-35.0) pg MCHC (31.0-37.0) g/dL RDW (11.5-15.5) % Plt Count (150-450) k/uL Neutrophils % % Lymphocytes % % Monocytes % % Eosinophils % % Basophils % % Neutrophils # (1.3-7.7) k/uL Lymphocytes # (1.0-4.8) k/uL Monocytes # (0-1.0) k/uL Eosinophils # (0-0.7) k/uL Basophils # (0-0.2) k/uL PT (9.0-12.0) sec INR (<1.2) APTT (22.0-30.0) sec Sodium (137-145) mmol/L Potassium (3.5-5.1) mmol/L Chloride (98-107) mmol/L Carbon Dioxide (22-30) mmol/L Anion Gap mmol/L BUN (9-20) mg/dL Creatinine (0.66-1.25) mg/dL Est GFR (CKD-EPI)AfAm (>60 ml/min/1.73 sqM) Est GFR (CKD-EPI)NonAf (>60 ml/min/1.73 sqM) Glucose (74-99) mg/dL POC Glucose (mg/dL) 207 H (75-99) mg/dL POC Glu Toter ID Keziart, Nathaly Plasma Lactic Acid Vivek 1.2 (0.7-2.0) mmol/L Calcium (8.4-10.2) mg/dL Total Bilirubin (0.2-1.3) mg/dL AST (17-59) U/L ALT (4-49) U/L Alkaline Phosphatase (38-126) U/L C-Reactive Protein (<10.0) mg/L Total Protein (6.3-8.2) g/dL Albumin (3.5-5.0) g/dL Disposition Clinical Impression: Foot ulcer, left, Foot ulcer, right, Diabetes, Diabetic infection of left foot, Cellulitis of left foot Disposition: ADMITTED IP TO THIS [facility] Condition: Good Referrals: [facility],Clinic [Primary Care Provider] - 1-2 days Decision Date: 10/02/19 Decision Time: 12:11
[2019-10-02 10:38] LABS: Basophils % (A) 0 %; Eosinophils # (A) 0.3 k/uL (0-0.7); Eosinophils % (A) 2 %; HCT 38.5 % (39.0-53.0); HGB 13.2 gm/dL (13.0-17.5); Lymphocytes # (A) 1.5 k/uL (1.0-4.8); Lymphocytes % (A) 12 %; MCH 29.5 pg (25.0-35.0); MCHC 34.2 g/dL (31.0-37.0); MCV 86.1 fL (80.0-100.0); Mean Platelet Volume 8.8; Monocytes # (A) 0.8 k/uL (0-1.0); Monocytes % (A) 6 %; Neutrophils # (A) 9.4 k/uL (1.3-7.7); Neutrophils % (A) 77 %; Platelet Count 191 k/uL (150-450); RBC 4.47 m/uL (4.30-5.90); WBC 12.1 k/uL (3.8-10.6)
[2019-10-02 10:48] LABS: ALT 12 U/L (4-49); AST 18 U/L (17-59); African American GFR (CKD) >90 (>60 ml/min/1.73 sqM); Albumin 3.5 g/dL (3.5-5.0); Alkaline Phosphatase 106 U/L (38-126); Anion Gap 11 mmol/L; Blood Urea Nitrogen 14 mg/dL (9-20); Calcium 8.5 mg/dL (8.4-10.2); Carbon Dioxide 23 mmol/L (22-30); Chloride 103 mmol/L (98-107); Glucose 230 mg/dL (74-99); Non-African American GFR(CKD) 84 (>60 ml/min/1.73 sqM); Potassium 3.9 mmol/L (3.5-5.1); Sodium 137 mmol/L (137-145); Total Bilirubin 1.9 mg/dL (0.2-1.3); Total Protein 6.3 g/dL (6.3-8.2)
[2019-10-02 11:10] LABS: INR 1.1 (<1.2); Partial Thromboplastin Time 25.3 sec (22.0-30.0)
[2019-10-02 11:26] LABS: C Reactive Protein 187.4 mg/L (<10.0)
--- NOTE | 2019-10-02 11:38 | XR ---
EXAMINATION TYPE: XR foot complete LT DATE OF EXAM: 10/02/2019 CLINICAL HISTORY: pain TECHNIQUE: Frontal, lateral and oblique images of the left foot are obtained. COMPARISON: 08/22/2019 FINDINGS: There is no acute fracture/dislocation evident. The joint spaces appear within normal vizcaino its. There is evidence of soft tissue swelling with ulceration noted about the great toe. No evidence for osteomyelitis at this time. IMPRESSION: There is no acute fracture or dislocation. ICD 10 NO FRACTURE, INITIAL EVALUATION
[2019-10-02] MEDS ORDERED: ACETAMINOPHEN TAB 325 MG TAB PO PRN (12:08)
[2019-10-02] MEDS ORDERED: NALOXONE 0.4 MG/ML 1 ML VIAL IV PRN (12:08)
[2019-10-02] MEDS ORDERED: ONDANSETRON 4 MG/2 ML VIAL IVP PRN (12:08)
[2019-10-02] MEDS ORDERED: MORPHINE SULFATE 4 MG/ML SYRINGE IV PRN (12:08)
[2019-10-02 12:10] LABS: Glucose,Whole Blood 207 mg/dL (75-99)
[2019-10-02] MEDS ORDERED: VANCOMYCIN IV PER PHARMACY 1 EACH MISC MISCELLANE PRN (12:10)
[2019-10-02] MEDS ORDERED: VANCOMYCIN 2,250 MG in SODIUM CHLORIDE 0.9% 500 ML 500 ML IVPB ONE (12:45)
[2019-10-02 12:47] LABS: Erythrocyte Sedimentation Rate 74 mm/hr (0-15)
[2019-10-02] MEDS: SODIUM CHLORIDE 0.9% 1,000 ML IV SCH (15:16)
--- NOTE | 2019-10-02 16:47 | CT ---
EXAMINATION TYPE: CT foot LT w con DATE OF EXAM: 10/02/2019 COMPARISON: None HISTORY: non-healing wounds to left foot CT DLP: 321.4 mGycm Automated exposure control for dose reduction was used. CONTRAST: Performed with IV Contrast, patient injected with 100 mL of Isovue 300. Multiple axial sections were obtained from the level of the distal tibia to the bottom of the foot wi thout contrast. FINDINGS: The metatarsals are intact. Tarsal bones are intact. There is plantar and Achilles calcaneal spurring . Joint spaces overall are fairly well-maintained. The toes appear intact. 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 I see no focal bone destruction. There is some soft tissue swe lling over the forefoot. IMPRESSION: Soft tissue swelling and subcutaneous edema. No fracture. No evidence of osteomyelitis.
[2019-10-02 17:19] LABS: Glucose,Whole Blood 187 mg/dL (75-99)
[2019-10-02] MEDS: glipiZIDE 5 MG TAB PO SCH (17:32)
[2019-10-02] MEDS: AMPICILLIN-SULBACTAM 3 GM in SODIUM CHLORIDE 0.9% 100 ML IVPB SCH ×2 (17:32→23:18)
[2019-10-02] MEDS: traMADol 50 MG TAB PO PRN ×2 (17:34→23:18)
--- NOTE | 2019-10-02 19:44 | P.HPIM ---
History of Present Illness This is a pleasant 74 years old male with past medical history of coronary artery disease and diabetes mellitus, hyperlipidemia, hypertension. His PCP is Dr. Cary at the [facility] and he is been seen by Dr. Elizondo before. This problem started in his both feet about 7 weeks ago when he was working in the garden wearing his diabetic boot, and he developed blisters in his feet which opened up and towards and ulcer, nonhealing however the last few days he noticed redness in the distal part of the left forefoot, with pain, redness swelling and tenderness. Knee has 3 blisters on the lateral side of distal foot bilaterally and on the medial side of the distal left foot. He denies smoking, alcohol or illicit drugs Vitals are stable and patient is afebrile. He has mild leukocytosis at 12.1 K, rest of CBC, BMP and never enzymes were unremarkable Elevated ESR of 74 Sugar on the high side 187-207 CT of the left foot with contrast showing soft tissue swelling and subcutaneous edema with no fracture or evidence of osteomyelitis On admission he was started on Unasyn per ID team recommendation. And IV vancomycin with normal saline at 60 mL per hour Review of Systems CONSTITUTIONAL: No fever, no malaise, no fatigue. HEENT: No recent visual problems or hearing problems. Denied any sore throat. CARDIOVASCULAR: No orthopnea, PND, no palpitations, no syncope. PULMONARY: No shortness of breath, no cough, no hemoptysis. GASTROINTESTINAL: No diarrhea, no nausea, no vomiting, no abdominal pain. Normoactive bowel sounds. NEUROLOGICAL: No headaches, no weakness, no numbness. HEMATOLOGICAL: Denies any bleeding or petechiae. GENITOURINARY: Denies any burning micturition, frequency, or urgency. MUSCULOSKELETAL/RHEUMATOLOGICAL: Denies any joint pain, swelling, or any muscle pain. ENDOCRINE: Denies any polyuria or polydipsia. Past Medical History Past Medical History: Coronary Artery Disease (CAD), Diabetes Mellitus, Hyperlipidemia, Hypertension Additional Past Medical History / Comment(s): PANCREATITIS (2008), SOB, kidney stones, neuropathy History of Any Multi-Drug Resistant Organisms: None Reported Past Surgical History: Cholecystectomy, Coronary Bypass/CABG, Tonsillectomy Past Anesthesia/Blood Transfusion Reactions: No Reported Reaction Past Psychological History: No Psychological Hx Reported Smoking Status: Never smoker Past Alcohol Use History: Occasional Additional Past Alcohol Use History / Comment(s): QUIT SMOKING 10 YRS AGO (2008), was a "some day" smoker-since age 14 Past Drug Use History: None Reported - Past Family History Mother Family Medical History: Deep Vein Thrombosis (DVT) Sister(s) Family Medical History: Coronary Artery Disease (CAD), Deep Vein Thrombosis (DVT) Additional Family Medical History / Comment(s): sister with diagnosed coronary artery disease in her early 50s Father Family Medical History: Coronary Artery Disease (CAD), Hyperlipidemia, Hypertension Additional Family Medical History / Comment(s): CABG Medications and Allergies Home Medications Medication Instructions Recorded Confirmed Type Ascorbic Acid [Vitamin C] 1,000 mg PO DAILY 03/13/18 10/02/19 History Atorvastatin [Lipitor] 80 mg PO HS 03/13/18 10/02/19 History Fish Oil/Dha/Epa [Fish Oil 1,200 1,200 mg PO DAILY 03/13/18 10/02/19 History mg Fish Oil] Multivit-Min/Folic/Vit K/Lycop 1 tab PO DAILY 03/13/18 10/02/19 History [Men's Multivitamin Tablet] Vitamin B Complex 1 cap PO DAILY 03/13/18 10/02/19 History Clopidogrel [Plavix] 75 mg PO DAILY #30 tab 01/23/19 10/02/19 Rx Diltiazem Cd [Cardizem CD] 120 mg PO DAILY #30 cap.er.24h 01/23/19 10/02/19 Rx Pantoprazole [Protonix] 40 mg PO AC-BRKFST #30 tablet.dr 01/23/19 10/02/19 Rx Tamsulosin [Flomax] 0.4 mg PO PC-BRKFST #30 cap.er.24h 01/23/19 10/02/19 Rx glipiZIDE [Glucotrol] 5 mg PO AC-BID #30 tab 01/23/19 10/02/19 Rx Acetaminophen Tab [Tylenol] 1,000 mg PO Q6HR PRN 08/22/19 10/02/19 History Aspirin EC [Ecotrin] 325 mg PO DAILY 08/22/19 10/02/19 History Furosemide [Lasix] 20 mg PO BID 08/22/19 10/02/19 History Ipratropium-Albuterol Nebulize 3 ml INHALATION RT-QID PRN 08/22/19 10/02/19 History [Duoneb 0.5 mg-3 mg/3 ml Soln] Metoprolol Tartrate [Lopressor] 12.5 mg PO BID 08/22/19 10/02/19 History Sennosides-Docusate Sodium 2 tab PO HS PRN 08/22/19 10/02/19 History [Senokot-S] Ubidecarenone [Co Q-10] 100 mg PO DAILY 08/22/19 10/02/19 History lisinopriL [Zestril] 5 mg PO HS 08/22/19 10/02/19 History metFORMIN HCL [Glucophage] 500 mg PO BID 08/22/19 10/02/19 History Allergies Allergy/AdvReac Type Severity Reaction Status Date / Time adhesive tape Allergy Rash/Hives Verified 10/02/19 12:38 latex AdvReac Unknown Itching Verified 10/02/19 12:38 Physical Exam Vitals: Vital Signs Temp Pulse Pulse Resp BP BP Pulse Ox 10/02/19 15:00 98.3 F 63 18 119/60 98 10/02/19 11:18 86 16 132/86 99 10/02/19 09:44 98.1 F 70 16 131/68 96 Intake and Output 10/02/19 10/02/19 10/02/19 06:59 14:59 22:59 Other: Weight 122.47 kg GENERAL: The patient is alert and oriented x3, not in any acute distress. Well developed, well nourished. HEENT: Pupils are round and equally reacting to light. EOMI. No scleral icterus. No conjunctival pallor. Normocephalic, atraumatic. No pharyngeal erythema. No thyromegaly. CARDIOVASCULAR: S1 and S2 present. No murmurs, rubs, or gallops. PULMONARY: Chest is clear to auscultation, no wheezing or crackles. ABDOMEN: Soft, nontender, nondistended, normoactive bowel sounds. No palpable organomegaly. MUSCULOSKELETAL: No joint swelling or deformity. -EXTREMITIES: No cyanosis, clubbing, or pedal edema. Diabetic foot ulcers on either side of the distal part of the left foot, and on the lateral side of the distal part of the right foot. Signs of cellulitis on the distal half of the left forefoot, with redness swelling, tenderness NEUROLOGICAL: Gross neurological examination did not reveal any focal deficits. SKIN: No rashes. No petechiae Results CBC & Chem 7: 10/02/19 10:27 10/02/19 10:27 Labs: Abnormal Lab Results - Last 24 Hours (Table) 10/02/19 10/02/19 10/02/19 Range/Units 10:27 10:27 12:08 WBC 12.1 H (3.8-10.6) k/uL Hct 38.5 L (39.0-53.0) % Neutrophils # 9.4 H (1.3-7.7) k/uL ESR 74 H (0-15) mm/hr Glucose 230 H (74-99) mg/dL POC Glucose (mg/dL) 207 H (75-99) mg/dL Total Bilirubin 1.9 H (0.2-1.3) mg/dL C-Reactive Protein 187.4 H (<10.0) mg/L 10/02/19 Range/Units 16:57 WBC (3.8-10.6) k/uL Hct (39.0-53.0) % Neutrophils # (1.3-7.7) k/uL ESR (0-15) mm/hr Glucose (74-99) mg/dL POC Glucose (mg/dL) 187 H (75-99) mg/dL Total Bilirubin (0.2-1.3) mg/dL C-Reactive Protein (<10.0) mg/L Microbiology - Last 24 Hours (Table) 10/02/19 10:27 Wound Culture - Preliminary Ankle - Left Thrombosis Risk Factor Assmnt - Choose All That Apply Each Factor Represents 1 point: Obesity (BMI >25) Other Risk Factors: Yes Each Risk Factor Represents 2 Points: Age 61-74 years Thrombosis Risk Factor Assessment Total Risk Factor Score: 3 Thrombosis Risk Factor Assessment Level: Moderate Risk Assessment and Plan Assessment: Multiple diabetic foot ulcers, 2 on the left distal foot and one on the distal right foot Cellulitis of the distal part of the left foot Diabetes mellitus with hyperglycemia Hypertension Hyperlipidemia History of coronary artery disease Plan: This is a pleasant 75 years old male who presents with left foot cellulitis and diabetic foot ulcers on both sides. Continue with antibiotic Unasyn and vancomycin as per ID team recommendation. Continue with insulin and sliding scale Labs and medication were reviewed.. Continue same treatment. Continue with symptomatic treatment. Resume home medication. Monitor lytes and vitals. DVT and GI prophylaxis. Further recommendations of the clinical course of the patient DVT prophylaxis: Subcutaneous heparin GI Prophylaxis: Pepcid PT/OT: Pending
[2019-10-02] MEDS: FUROSEMIDE 20 MG TAB PO SCH (20:13)
[2019-10-02] MEDS: ATORVASTATIN 80 MG TAB PO SCH (20:13)
[2019-10-02] MEDS: METOPROLOL TARTRATE 12.5 MG TAB PO SCH (20:13)
[2019-10-02] MEDS: lisinopriL 5 MG TAB PO SCH (20:13)
[2019-10-02 20:25] LABS: Glucose,Whole Blood 199 mg/dL (75-99)
[2019-10-02] MEDS ORDERED: metFORMIN 500 MG TAB PO SCH (21:00)
--- NOTE | 2019-10-03 00:12 | P.CONS ---
History of Present Illness - Reason for Consult Consult date: 10/02/19 Left diabetic foot infection Requesting physician: Zeeshan E Sheet - Chief Complaint Fever left foot pain swelling and redness x few days - History of Present Illness Patient is a 74-year-old male with a past medical history significant for bilateral diabetic foot infection in this patient who currently did have a wound on the left foot and medial aspect at the base of the big toe as well as left foot plantar aspect at the base of the fifth toe and a wound on the right foot lateral border for which the patient to follow with us at the [facility] wound care patient was seen in the wound center on Friday and did have debridement of his left foot wound at that point the patient did not have any cellulitis was advised local wound care with the Aquacel silver dressing and we were in the process of arranging for total contact cast, patient now presenting to [facility] wound care center with fever and chills that have been going on for the last 2 days along with swelling and redness Of the left foot, patient did have diabetic neuropathy and still has significant pain to the left foot area swelling is mostly diffuse and swelling and is mostly around the left foot medial border wound at the base of the big toe. No purulent drainage from it or any foul-smelling patient was evaluated by the ER physician on arrival. The patient is afebrile he did have elevated white count patient did have x-rays of the left foot did not show any bony changes he was started on vancomycin and Zosyn has been admitted to the hospital infectious disease was consulted further management of antibiotic therapy and local wound care Review of Systems Positive point has been mentioned in the HPI rest of the systems are negative Past Medical History Past Medical History: Coronary Artery Disease (CAD), Diabetes Mellitus, Hyperlipidemia, Hypertension Additional Past Medical History / Comment(s): PANCREATITIS (2008), SOB, kidney stones, neuropathy History of Any Multi-Drug Resistant Organisms: None Reported Past Surgical History: Cholecystectomy, Coronary Bypass/CABG, Tonsillectomy Past Anesthesia/Blood Transfusion Reactions: No Reported Reaction Past Psychological History: No Psychological Hx Reported Smoking Status: Never smoker Past Alcohol Use History: Occasional Additional Past Alcohol Use History / Comment(s): QUIT SMOKING 10 YRS AGO (2008), was a "some day" smoker-since age 14 Past Drug Use History: None Reported - Past Family History Mother Family Medical History: Deep Vein Thrombosis (DVT) Sister(s) Family Medical History: Coronary Artery Disease (CAD), Deep Vein Thrombosis (DVT) Additional Family Medical History / Comment(s): sister with diagnosed coronary artery disease in her early 50s Father Family Medical History: Coronary Artery Disease (CAD), Hyperlipidemia, Hypertension Additional Family Medical History / Comment(s): CABG Medications and Allergies Home Medications Medication Instructions Recorded Confirmed Type Ascorbic Acid [Vitamin C] 1,000 mg PO DAILY 03/13/18 10/02/19 History Atorvastatin [Lipitor] 80 mg PO HS 03/13/18 10/02/19 History Fish Oil/Dha/Epa [Fish Oil 1,200 1,200 mg PO DAILY 03/13/18 10/02/19 History mg Fish Oil] Multivit-Min/Folic/Vit K/Lycop 1 tab PO DAILY 03/13/18 10/02/19 History [Men's Multivitamin Tablet] Vitamin B Complex 1 cap PO DAILY 03/13/18 10/02/19 History Clopidogrel [Plavix] 75 mg PO DAILY #30 tab 01/23/19 10/02/19 Rx Diltiazem Cd [Cardizem CD] 120 mg PO DAILY #30 cap.er.24h 01/23/19 10/02/19 Rx Pantoprazole [Protonix] 40 mg PO AC-BRKFST #30 tablet.dr 01/23/19 10/02/19 Rx Tamsulosin [Flomax] 0.4 mg PO PC-BRKFST #30 cap.er.24h 01/23/19 10/02/19 Rx glipiZIDE [Glucotrol] 5 mg PO AC-BID #30 tab 01/23/19 10/02/19 Rx Acetaminophen Tab [Tylenol] 1,000 mg PO Q6HR PRN 08/22/19 10/02/19 History Aspirin EC [Ecotrin] 325 mg PO DAILY 08/22/19 10/02/19 History Furosemide [Lasix] 20 mg PO BID 08/22/19 10/02/19 History Ipratropium-Albuterol Nebulize 3 ml INHALATION RT-QID PRN 08/22/19 10/02/19 History [Duoneb 0.5 mg-3 mg/3 ml Soln] Metoprolol Tartrate [Lopressor] 12.5 mg PO BID 08/22/19 10/02/19 History Sennosides-Docusate Sodium 2 tab PO HS PRN 08/22/19 10/02/19 History [Senokot-S] Ubidecarenone [Co Q-10] 100 mg PO DAILY 08/22/19 10/02/19 History lisinopriL [Zestril] 5 mg PO HS 08/22/19 10/02/19 History metFORMIN HCL [Glucophage] 500 mg PO BID 08/22/19 10/02/19 History Allergies Allergy/AdvReac Type Severity Reaction Status Date / Time adhesive tape Allergy Rash/Hives Verified 10/02/19 12:38 latex AdvReac Unknown Itching Verified 10/02/19 12:38 Physical Exam Vitals: Vital Signs Temp Pulse Resp BP Pulse Ox 10/02/19 11:18 86 16 132/86 99 10/02/19 09:44 98.1 F 70 16 131/68 96 Intake and Output 10/02/19 10/02/19 10/02/19 06:59 14:59 22:59 Other: Weight 122.47 kg GENERAL DESCRIPTION: An elderly male lying in bed, no distress. No tachypnea or accessory muscle of respiration use. HEENT: Shows Pallor , no scleral icterus. Oral mucous membrane is dry. No pharyngeal erythema or thrush NECK: Trachea central, no thyromegaly. LUNGS: Unlabored breathing. Clear to auscultation anteriorly. No wheeze or crackle. HEART: S1, S2, regular rate and rhythm. No loud murmur ABDOMEN: Soft, no tenderness , guarding or rigidity, no organomegaly EXTREMITIES: Left foot did have diffuse swelling and redness mostly concentrated at the left foot and medial margin wound at the base of the big toe there is no purulent drainage the wound on the plantar aspect of the right foot wound base looks clean with no cellulitis SKIN: No rash, no masses palpable. NEUROLOGICAL: The patient is awake, alert, oriented x3, mood and affect normal. Results CBC & Chem 7: 10/02/19 10:27 10/02/19 10:27 Labs: Abnormal Lab Results - Last 24 Hours (Table) 10/02/19 10/02/19 10/02/19 Range/Units 10:27 10:27 12:08 WBC 12.1 H (3.8-10.6) k/uL Hct 38.5 L (39.0-53.0) % Neutrophils # 9.4 H (1.3-7.7) k/uL ESR 74 H (0-15) mm/hr Glucose 230 H (74-99) mg/dL POC Glucose (mg/dL) 207 H (75-99) mg/dL Total Bilirubin 1.9 H (0.2-1.3) mg/dL C-Reactive Protein 187.4 H (<10.0) mg/L Assessment and Plan Assessment: 1-patient with left diabetic foot infection in this patient is in the hospital with cellulitis of the left foot with fever and elevated white count x-rays were negative for any bony changes only, the left foot medial wound does not look deep or trending down to the bone however with underlying diffuse swelling redness, will need further workup to rule out any abscess or possible osteomyelitis and will need to cover for gram-positive skin qing gram-negative infection less likely but not entirely excluded (1) Cellulitis of left foot Current Visit: Yes Status: Acute Code(s): L03.116 - CELLULITIS OF LEFT LOWER LIMB SNOMED Code(s): 211056118 (2) Diabetic infection of left foot Current Visit: Yes Status: Acute Code(s): E11.628 - TYPE 2 DIABETES MELLITUS WITH OTHER SKIN COMPLICATIONS; L08.9 - LOCAL INFECTION OF THE SKIN AND SUBCUTANEOUS TISSUE, UNSP SNOMED Code(s): 31040168 (3) Foot ulcer, left Current Visit: Yes Status: Acute Code(s): L97.529 - NON-PRESSURE CHRONIC ULCER OTH PRT LEFT FOOT W UNSP SEVERITY SNOMED Code(s): 89191867 (4) Foot ulcer, right Current Visit: Yes Status: Acute Code(s): L97.519 - NON-PRS CHRONIC ULCER OTH PRT RIGHT FOOT W UNSP SEVERITY SNOMED Code(s): 24355688 Plan: 1- we will obtain a CT of the left foot to make sure no evidence of any abscess or bony erosion 2-Vancomycin pharmacy to dose target trough of 15 while watching his kidney function and Vanco trough closely 3- discontinue Zosyn and diffuse discomfort persistent and Unasyn 4- local wound care with dry Aquacel silver dressing to be changed every 48 hour 5- metformin to be put on hold for 48 hours with his contrast exposure We will follow on clinical condition and cultures to further adjust medication if needed Thank you for this consultation will follow this patient with you Time with Patient: Greater than 30
[2019-10-03] MEDS: VANCOMYCIN 2,250 MG in SODIUM CHLORIDE 0.9% 500 ML 500 ML IVPB SCH ×2 (01:24→16:09)
[2019-10-03] MEDS: traMADol 50 MG TAB PO PRN (04:36)
[2019-10-03] MEDS: AMPICILLIN-SULBACTAM 3 GM in SODIUM CHLORIDE 0.9% 100 ML IVPB SCH ×4 (05:14→23:14)
[2019-10-03] MEDS: SODIUM CHLORIDE 0.9% 1,000 ML IV SCH ×2 (05:29→22:31)
[2019-10-03 07:03] LABS: Basophils % (A) 0 %; Eosinophils # (A) 0.2 k/uL (0-0.7); Eosinophils % (A) 2 %; HCT 35.9 % (39.0-53.0); HGB 11.9 gm/dL (13.0-17.5); Lymphocytes # (A) 0.9 k/uL (1.0-4.8); Lymphocytes % (A) 9 %; MCH 28.9 pg (25.0-35.0); MCHC 33.2 g/dL (31.0-37.0); Mean Platelet Volume 8.8; Monocytes # (A) 0.7 k/uL (0-1.0); Monocytes % (A) 8 %; Neutrophils # (A) 7.9 k/uL (1.3-7.7); Neutrophils % (A) 79 %; Platelet Count 178 k/uL (150-450); RBC 4.12 m/uL (4.30-5.90); RDW 13.1 % (11.5-15.5); WBC 9.9 k/uL (3.8-10.6)
[2019-10-03 07:06] LABS: Glucose,Whole Blood 156 mg/dL (75-99)
[2019-10-03 07:17] LABS: African American GFR (CKD) >90 (>60 ml/min/1.73 sqM); Anion Gap 7 mmol/L; Blood Urea Nitrogen 13 mg/dL (9-20); Calcium 8.3 mg/dL (8.4-10.2); Carbon Dioxide 25 mmol/L (22-30); Chloride 103 mmol/L (98-107); Glucose 148 mg/dL (74-99); Non-African American GFR(CKD) 80 (>60 ml/min/1.73 sqM); Potassium 3.5 mmol/L (3.5-5.1); Sodium 135 mmol/L (137-145)
[2019-10-03] MEDS: FUROSEMIDE 20 MG TAB PO SCH ×2 (08:02→19:57)
[2019-10-03] MEDS: ASPIRIN 325 MG TAB PO SCH (08:02)
[2019-10-03] MEDS: glipiZIDE 5 MG TAB PO SCH ×2 (08:02→17:21)
[2019-10-03] MEDS: DILTIAZEM CD 120 MG CAP.ER.24H PO SCH (08:02)
[2019-10-03] MEDS: CLOPIDOGREL 75 MG TAB PO SCH (08:02)
[2019-10-03] MEDS: METOPROLOL TARTRATE 12.5 MG TAB PO SCH ×2 (08:02→19:57)
[2019-10-03] MEDS: INSULIN ASPART (NovoLOG) 100 UNIT/ML VIAL SQ SCH ×4 (08:02→19:56)
[2019-10-03 11:35] LABS: Glucose,Whole Blood 183 mg/dL (75-99)
--- NOTE | 2019-10-03 12:12 | P.PN ---
Subjective This is a pleasant 74 years old male with past medical history of coronary artery disease and diabetes mellitus, hyperlipidemia, hypertension. His PCP is Dr. Cary at the [facility] and he is been seen by Dr. Elizondo before. This problem started in his both feet about 7 weeks ago when he was working in the garden wearing his diabetic boot, and he developed blisters in his feet which opened up and towards and ulcer, nonhealing however the last few days he noticed redness in the distal part of the left forefoot, with pain, redness swelling and tenderness. Knee has 3 blisters on the lateral side of distal foot bilaterally and on the medial side of the distal left foot. He denies smoking, alcohol or illicit drugs Vitals are stable and patient is afebrile. He has mild leukocytosis at 12.1 K, rest of CBC, BMP and never enzymes were unremarkable Elevated ESR of 74 Sugar on the high side 187-207 CT of the left foot with contrast showing soft tissue swelling and subcutaneous edema with no fracture or evidence of osteomyelitis On admission he was started on Unasyn per ID team recommendation. And IV vancomycin with normal saline at 60 mL per hour 10/03/2019 Patient is awake, still complaining of from cellulitis signs and symptoms in his left foot, he spiked fever yesterday at 1.01 as per patient although there is no documentation. Rest of vitals are stable. CBC and BMP looks stable and WBC back to normal and sugars controlled Infectious disease team input is appreciated, patient is on Unasyn and vancomycin . Review of Systems CONSTITUTIONAL: No fever, no malaise, no fatigue. HEENT: No recent visual problems or hearing problems. Denied any sore throat. CARDIOVASCULAR: No orthopnea, PND, no palpitations, no syncope. PULMONARY: No shortness of breath, no cough, no hemoptysis. GASTROINTESTINAL: No diarrhea, no nausea, no vomiting, no abdominal pain. Normoactive bowel sounds. NEUROLOGICAL: No headaches, no weakness, no numbness. HEMATOLOGICAL: Denies any bleeding or petechiae. GENITOURINARY: Denies any burning micturition, frequency, or urgency. MUSCULOSKELETAL/RHEUMATOLOGICAL: Denies any joint pain, swelling, or any muscle pain. ENDOCRINE: Denies any polyuria or polydipsia. Active Medications Generic Name Dose Route Start Last Admin Trade Name Freq PRN Reason Stop Dose Admin Acetaminophen 650 mg 10/02/19 12:08 10/02/19 21:15 Tylenol Tab PO 650 mg Q6HR PRN Administration Mild Pain or Fever > 100.5 Aspirin 325 mg 10/03/19 09:00 10/03/19 08:02 Aspirin PO 325 mg DAILY DEX Administration Atorvastatin Calcium 80 mg 10/02/19 21:00 10/02/19 20:13 Lipitor PO 80 mg HS DEX Administration Clopidogrel Bisulfate 75 mg 10/03/19 09:00 10/03/19 08:02 Plavix PO 75 mg DAILY DEX Administration Diltiazem HCl 120 mg 10/03/19 09:00 10/03/19 08:02 Cardizem Cd PO 120 mg DAILY DEX Administration Furosemide 20 mg 10/02/19 21:00 10/03/19 08:02 Lasix PO 20 mg BID DEX Administration Glipizide 5 mg 10/02/19 17:30 10/03/19 08:02 Glucotrol PO 5 mg AC-BID DEX Administration Sodium Chloride 1,000 mls @ 60 mls/hr 10/02/19 12:15 10/03/19 05:29 Saline 0.9% IV Not Given .[id number] DEX Vancomycin HCl 2,250 mg/ 500 mls @ 167 mls/hr 10/03/19 02:00 10/03/19 01:24 Sodium Chloride IVPB 167 mls/hr Q12H DEX Administration Ampicillin Sodium/Sulbactam 100 mls @ 200 mls/hr 10/02/19 18:00 10/03/19 12:05 Sodium 3 gm/ Sodium Chloride IVPB 200 mls/hr Q6HR DEX Administration Insulin Aspart 0 unit 10/03/19 07:30 10/03/19 12:04 Novolog SQ 3 unit ACHS DEX Administration Protocol Lisinopril 5 mg 10/02/19 21:00 10/02/19 20:13 Zestril PO 5 mg HS DEX Administration Metoprolol Tartrate 12.5 mg 10/02/19 21:00 10/03/19 08:02 Lopressor PO 12.5 mg BID DEX Administration Morphine Sulfate 4 mg 10/02/19 12:08 10/03/19 05:15 Morphine Sulfate (Inj) IV 4 mg Q4HR PRN Administration Severe Pain Naloxone HCl 0.2 mg 10/02/19 12:08 Narcan IV Q2M PRN Opioid Reversal Ondansetron HCl 4 mg 10/02/19 12:08 Zofran IVP Q8HR PRN Nausea And Vomiting Tramadol HCl 50 mg 10/02/19 12:08 10/03/19 04:36 Ultram PO 50 mg Q6H PRN Administration Moderate Pain Objective - Vital Signs Vital signs: Vital Signs Temp 98.9 F 10/03/19 07:00 Pulse 73 10/03/19 07:00 Resp 18 10/03/19 07:00 BP 131/68 10/03/19 07:00 Pulse Ox 94 L 10/03/19 07:00 Intake & Output 10/02/19 10/03/19 10/03/19 18:59 06:59 18:59 Intake Total 720 Balance 720 Weight 122.47 kg Intake: Intake, IV Titration 720 Amount Ampicillin-Sulbactam 3 gm 100 In Sodium Chloride 0.9% 100 ml @ 200 mls/hr IVPB Q6HR DEX Rx#:[id number] Sodium Chloride 0.9% 1, 120 000 ml @ 60 mls/hr IV . [id number] DEX Rx#:[id number] Vancomycin 2,250 mg In 500 Sodium Chloride 0.9% 500 ml 500 ml @ 167 mls/hr IVPB Q12H [facility] Rx#: [id number] Other: Voiding Method Toilet Toilet Urinal # Voids 2 - Exam GENERAL: The patient is alert and oriented x3, not in any acute distress. Well developed, well nourished. HEENT: Pupils are round and equally reacting to light. EOMI. No scleral icterus. No conjunctival pallor. Normocephalic, atraumatic. No pharyngeal erythema. No thyromegaly. CARDIOVASCULAR: S1 and S2 present. No murmurs, rubs, or gallops. PULMONARY: Chest is clear to auscultation, no wheezing or crackles. ABDOMEN: Soft, nontender, nondistended, normoactive bowel sounds. No palpable organomegaly. MUSCULOSKELETAL: No joint swelling or deformity. -EXTREMITIES: No cyanosis, clubbing, or pedal edema. Diabetic foot ulcers on either side of the distal part of the left foot, and on the lateral side of the distal part of the right foot. Signs of cellulitis on the distal half of the left forefoot, with redness swelling, tenderness NEUROLOGICAL: Gross neurological examination did not reveal any focal deficits. SKIN: No rashes. No petechiae - Labs CBC & Chem 7: 10/03/19 06:14 10/03/19 06:14 Labs: Abnormal Lab Results - Last 24 Hours (Table) 10/02/19 10/02/19 10/02/19 Range/Units 10:27 12:08 16:57 RBC (4.30-5.90) m/uL Hgb (13.0-17.5) gm/dL Hct (39.0-53.0) % Neutrophils # (1.3-7.7) k/uL Lymphocytes # (1.0-4.8) k/uL ESR 74 H (0-15) mm/hr Sodium (137-145) mmol/L Glucose (74-99) mg/dL POC Glucose (mg/dL) 207 H 187 H (75-99) mg/dL Calcium (8.4-10.2) mg/dL 10/02/19 10/03/19 10/03/19 Range/Units 20:23 06:14 06:14 RBC 4.12 L (4.30-5.90) m/uL Hgb 11.9 L (13.0-17.5) gm/dL Hct 35.9 L (39.0-53.0) % Neutrophils # 7.9 H (1.3-7.7) k/uL Lymphocytes # 0.9 L (1.0-4.8) k/uL ESR (0-15) mm/hr Sodium 135 L (137-145) mmol/L Glucose 148 H (74-99) mg/dL POC Glucose (mg/dL) 199 H (75-99) mg/dL Calcium 8.3 L (8.4-10.2) mg/dL 10/03/19 10/03/19 Range/Units 06:50 11:29 RBC (4.30-5.90) m/uL Hgb (13.0-17.5) gm/dL Hct (39.0-53.0) % Neutrophils # (1.3-7.7) k/uL Lymphocytes # (1.0-4.8) k/uL ESR (0-15) mm/hr Sodium (137-145) mmol/L Glucose (74-99) mg/dL POC Glucose (mg/dL) 156 H 183 H (75-99) mg/dL Calcium (8.4-10.2) mg/dL Microbiology - Last 24 Hours (Table) 10/02/19 10:27 Gram Stain - Preliminary Ankle - Left Wound Culture - Preliminary Gram Neg Bacilli Gram Neg Bacilli#2 Assessment and Plan Assessment: Multiple diabetic foot ulcers, 2 on the left distal foot and one on the distal right foot Cellulitis of the distal part of the left foot Diabetes mellitus with hyperglycemia Hypertension Hyperlipidemia History of coronary artery disease Plan: This is a pleasant 75 years old male who presents with left foot cellulitis and diabetic foot ulcers on both sides. Continue with antibiotic Unasyn and vancomycin as per ID team recommendation. Continue with insulin and sliding scale Labs and medication were reviewed.. Continue same treatment. Continue with symptomatic treatment. Resume home medication. Monitor lytes and vitals. DVT and GI prophylaxis. Further recommendations of the clinical course of the patient DVT prophylaxis: Subcutaneous heparin GI Prophylaxis: Pepcid PT/OT: Pending
[2019-10-03 16:41] LABS: Glucose,Whole Blood 127 mg/dL (75-99)
[2019-10-03 19:53] LABS: Glucose,Whole Blood 204 mg/dL (75-99)
[2019-10-03] MEDS: lisinopriL 5 MG TAB PO SCH (19:57)
[2019-10-03] MEDS: ATORVASTATIN 80 MG TAB PO SCH (19:57)
--- NOTE | 2019-10-04 00:16 | PN ---
PROGRESS NOTE DATE OF SERVICE: 10/03/2019 REASON FOR FOLLOWUP: 1. Bilateral diabetic foot wound. 2. Left diabetic foot wound infection. INTERVAL HISTORY: The patient is currently afebrile. The patient is breathing comfortably. The patient denies having any chest pain or shortness of breath or cough. No nausea, vomiting. No abdominal pain. Still complaining of some throbbing pain to the left foot, though controlled with pain medication. PHYSICAL EXAMINATION: Blood pressure 137/76, pulse of 72, temperature 99.5. He is 93% on room air. General description is an elderly male lying in bed in no distress. RESPIRATORY SYSTEM: Unlabored breathing, clear to auscultation anteriorly. HEART: S1, S2. Regular rate and rhythm. ABDOMEN: Soft, no tenderness. Left medial foot wound and surrounding redness slightly decreased. LABS: Hemoglobin 11.9, white count 9.9. BUN of 13, creatinine 0.95. Wound culture showing Gram-negative bacilli. DIAGNOSTIC IMPRESSION AND PLAN: Patient with left diabetic foot infection with secondary cellulitis, culture showing Gram-negative bacilli, covered with Unasyn and vancomycin to continue. Local care with Aquacel dressing. Antibiotic adjusted further based on culture report. at the bedside with multiple questions, those were answered in layman's terms. MMODL / IJN: [id number] /
[2019-10-04] MEDS: VANCOMYCIN 2,250 MG in SODIUM CHLORIDE 0.9% 500 ML 500 ML IVPB SCH ×2 (01:57→14:20)
[2019-10-04] MEDS: AMPICILLIN-SULBACTAM 3 GM in SODIUM CHLORIDE 0.9% 100 ML IVPB SCH ×4 (05:11→23:30)
[2019-10-04 06:51] LABS: Glucose,Whole Blood 126 mg/dL (75-99)
[2019-10-04] MEDS: INSULIN ASPART (NovoLOG) 100 UNIT/ML VIAL SQ SCH ×4 (06:58→20:33)
[2019-10-04] MEDS: FUROSEMIDE 20 MG TAB PO SCH ×2 (07:45→20:34)
[2019-10-04] MEDS: ASPIRIN 325 MG TAB PO SCH (07:45)
[2019-10-04] MEDS: METOPROLOL TARTRATE 12.5 MG TAB PO SCH ×2 (07:45→20:34)
[2019-10-04] MEDS: glipiZIDE 5 MG TAB PO SCH ×2 (07:45→16:34)
[2019-10-04] MEDS: CLOPIDOGREL 75 MG TAB PO SCH (07:46)
[2019-10-04] MEDS: DILTIAZEM CD 120 MG CAP.ER.24H PO SCH (07:46)
[2019-10-04 07:51] LABS: Basophils % (A) 1 %; Eosinophils # (A) 0.4 k/uL (0-0.7); Eosinophils % (A) 5 %; HGB 12.3 gm/dL (13.0-17.5); Lymphocytes # (A) 1.4 k/uL (1.0-4.8); Lymphocytes % (A) 17 %; MCH 28.5 pg (25.0-35.0); MCHC 32.5 g/dL (31.0-37.0); MCV 87.5 fL (80.0-100.0); Mean Platelet Volume 8.6; Monocytes # (A) 0.6 k/uL (0-1.0); Monocytes % (A) 7 %; Neutrophils # (A) 5.4 k/uL (1.3-7.7); Neutrophils % (A) 68 %; Platelet Count 204 k/uL (150-450); RBC 4.34 m/uL (4.30-5.90); RDW 13.1 % (11.5-15.5)
[2019-10-04 08:00] LABS: African American GFR (CKD) >90 (>60 ml/min/1.73 sqM); Anion Gap 8 mmol/L; Blood Urea Nitrogen 14 mg/dL (9-20); Calcium 8.5 mg/dL (8.4-10.2); Carbon Dioxide 26 mmol/L (22-30); Chloride 105 mmol/L (98-107); Glucose 121 mg/dL (74-99); Non-African American GFR(CKD) 78 (>60 ml/min/1.73 sqM); Potassium 3.7 mmol/L (3.5-5.1); Sodium 139 mmol/L (137-145)
[2019-10-04 11:13] LABS: Glucose,Whole Blood 232 mg/dL (75-99)
[2019-10-04] MEDS: SODIUM CHLORIDE 0.9% 1,000 ML IV SCH (14:20)
[2019-10-04 16:30] LABS: Glucose,Whole Blood 194 mg/dL (75-99)
[2019-10-04 20:24] LABS: Glucose,Whole Blood 143 mg/dL (75-99)
[2019-10-04] MEDS: lisinopriL 5 MG TAB PO SCH (20:34)
[2019-10-04] MEDS: ATORVASTATIN 80 MG TAB PO SCH (20:34)
[2019-10-04] MEDS ORDERED: IPRATROPIUM-ALBUTEROL 3 ML NEB INHALATION PRN (21:57)
[2019-10-04] MEDS ORDERED: SENNOSIDES-DOCUSATE SODIUM 1 EACH TAB PO PRN (21:57)
--- NOTE | 2019-10-04 22:00 | P.PN ---
Subjective This is a pleasant 74 years old male with past medical history of coronary artery disease and diabetes mellitus, hyperlipidemia, hypertension. His PCP is Dr. Cary at the [facility] and he is been seen by Dr. Elizondo before. This problem started in his both feet about 7 weeks ago when he was working in the garden wearing his diabetic boot, and he developed blisters in his feet which opened up and towards and ulcer, nonhealing however the last few days he noticed redness in the distal part of the left forefoot, with pain, redness swelling and tenderness. Knee has 3 blisters on the lateral side of distal foot bilaterally and on the medial side of the distal left foot. He denies smoking, alcohol or illicit drugs Vitals are stable and patient is afebrile. He has mild leukocytosis at 12.1 K, rest of CBC, BMP and never enzymes were unremarkable Elevated ESR of 74 Sugar on the high side 187-207 CT of the left foot with contrast showing soft tissue swelling and subcutaneous edema with no fracture or evidence of osteomyelitis On admission he was started on Unasyn per ID team recommendation. And IV vancomycin with normal saline at 60 mL per hour 10/03/2019 Patient is awake, still complaining of from cellulitis signs and symptoms in his left foot, he spiked fever yesterday at 1.01 as per patient although there is no documentation. Rest of vitals are stable. CBC and BMP looks stable and WBC back to normal and sugars controlled Infectious disease team input is appreciated, patient is on Unasyn and vancomycin 10/04/2019 Patient is still being treated for his diabetic foot ulcers and left foot cellulitis Blood culture is positive for Proteus mirabilis and MRSA Patient is currently on IV vancomycin and Unasyn Vital signs Stable, creatinine stable and normal Sugar is controlled, continue with same dose of insulin sliding scale and glipizide 5 mg twice daily and will resume his dose of metformin 500 mg twice a day. Check hemoglobin A1c Objective - Vital Signs Vital signs: Vital Signs Temp 98.9 F 10/04/19 14:49 Pulse 66 10/04/19 14:49 Resp 18 10/04/19 14:49 BP 137/72 10/04/19 14:49 Pulse Ox 97 10/04/19 14:49 Intake & Output 10/03/19 10/04/19 10/04/19 18:59 06:59 18:59 Intake Total 500 Balance 500 Intake: Intake, IV Titration 500 Amount Vancomycin 2,250 mg In 500 Sodium Chloride 0.9% 500 ml 500 ml @ 167 mls/hr IVPB Q12H [facility] Rx#: [id number] Other: Voiding Method Toilet Toilet # Voids 3 1 - Exam GENERAL: The patient is alert and oriented x3, not in any acute distress. Well developed, well nourished. HEENT: Pupils are round and equally reacting to light. EOMI. No scleral icterus. No conjunctival pallor. Normocephalic, atraumatic. No pharyngeal erythema. No thyromegaly. CARDIOVASCULAR: S1 and S2 present. No murmurs, rubs, or gallops. PULMONARY: Chest is clear to auscultation, no wheezing or crackles. ABDOMEN: Soft, nontender, nondistended, normoactive bowel sounds. No palpable organomegaly. MUSCULOSKELETAL: No joint swelling or deformity. -EXTREMITIES: No cyanosis, clubbing, or pedal edema. Diabetic foot ulcers on either side of the distal part of the left foot, and on the lateral side of the distal part of the right foot. Signs of cellulitis on the distal half of the left forefoot, with redness swelling, tenderness NEUROLOGICAL: Gross neurological examination did not reveal any focal deficits. SKIN: No rashes. No petechiae - Labs CBC & Chem 7: 10/04/19 07:02 10/04/19 07:02 Labs: Abnormal Lab Results - Last 24 Hours (Table) 10/03/19 10/04/19 10/04/19 Range/Units 19:52 06:50 07:02 Hgb 12.3 L (13.0-17.5) gm/dL Hct 38.0 L (39.0-53.0) % Glucose (74-99) mg/dL POC Glucose (mg/dL) 204 H 126 H (75-99) mg/dL 10/04/19 10/04/19 10/04/19 Range/Units 07:02 11:12 16:29 Hgb (13.0-17.5) gm/dL Hct (39.0-53.0) % Glucose 121 H (74-99) mg/dL POC Glucose (mg/dL) 232 H 194 H (75-99) mg/dL Microbiology - Last 24 Hours (Table) 10/02/19 10:52 Blood Culture - Preliminary Blood No Growth after 48 hours 10/02/19 10:27 Gram Stain - Preliminary Ankle - Left Wound Culture - Preliminary Proteus mirabilis Gram Neg Bacilli Methicillin resist S. aureus Assessment and Plan Assessment: Multiple diabetic foot ulcers, 2 on the left distal foot and one on the distal right foot. Wound culture is growing MRSA and Proteus Cellulitis of the distal part of the left foot Diabetes mellitus with hyperglycemia Hypertension Hyperlipidemia History of coronary artery disease Plan: This is a pleasant 75 years old male who presents with left foot cellulitis and diabetic foot ulcers on both sides. Continue with antibiotic Unasyn and vancomycin as per ID team recommendation. Continue with insulin and sliding scale Labs and medication were reviewed.. Continue same treatment. Continue with symptomatic treatment. Resume home medication. Monitor lytes and vitals. DVT and GI prophylaxis. Further recommendations of the clinical course of the patient DVT prophylaxis: Subcutaneous heparin GI Prophylaxis: Pepcid PT/OT: Pending
--- NOTE | 2019-10-04 22:13 | PN ---
PROGRESS NOTE DATE OF SERVICE: 10/04/2019 REASON FOR FOLLOWUP: Left diabetic foot infection MRSA. INTERVAL HISTORY: The patient is currently afebrile. The patient is breathing comfortably. The patient denies having any chest pain or shortness of breath or cough. No nausea, vomiting or abdominal pain. Some pain to the left foot, but no worsening. PHYSICAL EXAMINATION: Blood pressure 110/67 with a pulse of 59, temperature 99.1. He is 96% on room air. General description is an elderly male lying in bed in no distress. RESPIRATORY SYSTEM: Unlabored breathing. Clear to auscultation anteriorly. HEART: S1, S2. Regular rate and rhythm. ABDOMEN: Soft. No tenderness. Left foot swelling and redness persist. No drainage. LABS: Hemoglobin is 12.3, white count 8.0, BUN of 14, creatinine 0.97. Local wound culture with proteus and MRSA. DIAGNOSTIC IMPRESSION AND PLAN: Patient with a left diabetic foot infection with infected foot ulcer. Cultures with proteus, Gram-negative and MRSA. The patient is covered with vancomycin and Unasyn. He will need a PICC line for outpatient antibiotic therapy, on which the patient's assistant case manager is working. Local care to continue as ordered. Continue with supportive care. MMODL / IJN: [id number] /
[2019-10-04] MEDS: metFORMIN 500 MG TAB PO SCH (23:30)
[2019-10-05] MEDS ORDERED: VANCOMYCIN TROUGH DUE 1 EACH MISC MISCELLANE ONE (01:00)
[2019-10-05] MEDS: VANCOMYCIN 2,250 MG in SODIUM CHLORIDE 0.9% 500 ML 500 ML IVPB SCH ×2 (02:11→13:25)
[2019-10-05] MEDS: AMPICILLIN-SULBACTAM 3 GM in SODIUM CHLORIDE 0.9% 100 ML IVPB SCH ×2 (05:43→11:28)
[2019-10-05 06:35] LABS: Glucose,Whole Blood 138 mg/dL (75-99)
[2019-10-05] MEDS: INSULIN ASPART (NovoLOG) 100 UNIT/ML VIAL SQ SCH ×4 (07:13→20:22)
[2019-10-05] MEDS: FUROSEMIDE 20 MG TAB PO SCH ×2 (07:19→20:29)
[2019-10-05] MEDS: ASPIRIN 325 MG TAB PO SCH (07:19)
[2019-10-05] MEDS: glipiZIDE 5 MG TAB PO SCH ×2 (07:19→16:45)
[2019-10-05] MEDS: DILTIAZEM CD 120 MG CAP.ER.24H PO SCH (07:20)
[2019-10-05] MEDS: TAMSULOSIN 0.4 MG CAP.ER.24H PO SCH (07:20)
[2019-10-05] MEDS: CLOPIDOGREL 75 MG TAB PO SCH (07:20)
[2019-10-05] MEDS: METOPROLOL TARTRATE 12.5 MG TAB PO SCH ×2 (07:20→20:29)
[2019-10-05] MEDS: metFORMIN 500 MG TAB PO SCH ×2 (07:20→16:45)
[2019-10-05] MEDS: SODIUM CHLORIDE 0.9% 1,000 ML IV SCH ×2 (07:21→22:25)
[2019-10-05 08:16] LABS: African American GFR (CKD) >90 (>60 ml/min/1.73 sqM); Anion Gap 9 mmol/L; Blood Urea Nitrogen 14 mg/dL (9-20); Calcium 8.7 mg/dL (8.4-10.2); Carbon Dioxide 27 mmol/L (22-30); Chloride 104 mmol/L (98-107); Glucose 131 mg/dL (74-99); Non-African American GFR(CKD) 84 (>60 ml/min/1.73 sqM); Sodium 140 mmol/L (137-145)
[2019-10-05] MEDS ORDERED: NALOXONE 0.4 MG/ML 1 ML VIAL IV PRN (09:38)
[2019-10-05] MEDS ORDERED: ONDANSETRON 4 MG/2 ML VIAL IVP PRN (09:38)
[2019-10-05 11:20] LABS: Glucose,Whole Blood 194 mg/dL (75-99)
[2019-10-05 11:22] LABS: INR 1.2 (<1.2); Prothrombin Time 11.7 sec (9.0-12.0)
[2019-10-05] MEDS: CEFEPIME 2 GM in SODIUM CHLORIDE 0.9% 100 ML IVPB SCH (13:26)
[2019-10-05 14:54] VITALS: BMI 35.6
[2019-10-05] MEDS: metroNIDAZOLE 500 MG TAB PO SCH ×2 (15:23→22:23)
--- NOTE | 2019-10-05 15:36 | PN ---
PROGRESS NOTE DATE OF SERVICE: 10/05/2019 REASON FOR FOLLOWUP: Left diabetic foot infection, MRSA and Pseudomonas. INTERVAL HISTORY: The patient is currently afebrile. The patient is breathing comfortably. The patient denies having any chest pain or shortness of breath or cough. No nausea, no vomiting, no abdominal pain, or any worsening pain to the left foot area. PHYSICAL EXAMINATION: Blood pressure 137/74 with a pulse of 67, temperature 98.3. He is 95% on room air. General description is an elderly male lying in bed in no distress. RESPIRATORY SYSTEM: Unlabored breathing. Clear to auscultation anteriorly. HEART: S1, S2. Regular rate and rhythm. ABDOMEN: Soft. No tenderness. Left foot medial border wound still has slight drainage and some redness, not foul- smelling. LABS: BUN of 14, creatinine 0.91. White count normal. Wound culture finalized with Pseudomonas aeruginosa in addition to the Proteus and MRSA. Blood culture has been negative. DIAGNOSTIC IMPRESSION AND PLAN: Patient with left diabetic a foot infection with an infected wound. No evidence of any abscess or cellulitis CT. Blood culture has been negative. Local culture now showing Pseudomonas. We will add cefepime 2 grams q.12 to cover for the Pseudomonas and discontinue Unasyn, add oral Flagyl and continue the vancomycin. Possible PICC line tomorrow. He will need at least 2-4 weeks of IV antibiotic, depending on his clinical response. Local wound care with a Aquacel Silver dressing. Continue with supportive care. MMODL / IJN: [id number] /
--- NOTE | 2019-10-05 15:50 | P.PN ---
Subjective Progress Note Date: 10/05/19 Principal diagnosis: This is a pleasant 74 years old male with past medical history of coronary artery disease and diabetes mellitus, hyperlipidemia, hypertension. His PCP is Dr. Cary at the [facility] and he is been seen by Dr. Elizondo before. This problem started in his both feet about 7 weeks ago when he was working in the garden wearing his diabetic boot, and he developed blisters in his feet which opened up and towards and ulcer, nonhealing however the last few days he noticed redness in the distal part of the left forefoot, with pain, redness swelling and tenderness. Knee has 3 blisters on the lateral side of distal foot bilaterally and on the medial side of the distal left foot. He denies smoking, alcohol or illicit drugs Vitals are stable and patient is afebrile. He has mild leukocytosis at 12.1 K, rest of CBC, BMP and never enzymes were unremarkable Elevated ESR of 74 Sugar on the high side 187-207 CT of the left foot with contrast showing soft tissue swelling and subcutaneous edema with no fracture or evidence of osteomyelitis On admission he was started on Unasyn per ID team recommendation. And IV vancomycin with normal saline at 60 mL per hour 10/03/2019 Patient is awake, still complaining of from cellulitis signs and symptoms in his left foot, he spiked fever yesterday at 1.01 as per patient although there is no documentation. Rest of vitals are stable. CBC and BMP looks stable and WBC back to normal and sugars controlled Infectious disease team input is appreciated, patient is on Unasyn and vancomycin 10/04/2019 Patient is still being treated for his diabetic foot ulcers and left foot cellulitis Blood culture is positive for Proteus mirabilis and MRSA Patient is currently on IV vancomycin and Unasyn Vital signs Stable, creatinine stable and normal Sugar is controlled, continue with same dose of insulin sliding scale and glipi zide 5 mg twice daily and will resume his dose of metformin 500 mg twice a day. Check hemoglobin A1c 10/05/2019 Patient is seen and evaluated and follow-up currently awaiting to receive a PICC line today. Per nursing staff PICC line will be scheduled for tomorrow morning. Patient does follow with the [facility] in case management following working on authorization for IV antibiotic infusion in the outpatient setting. Patient's wound cultures positive for Proteus mirabilis, Pseudomonas aeruginosa, and MRSA. Infectious disease is following. Patient is maintained on cefepime and vancomycin and will continue this time. Continue to monitor blood sugars and continue sliding scale and home dose of oral diabetic medications have been resumed. Review of systems: Constitutional: No reports of fatigue, fever, or chills Cardiovascular: No reports of chest pain or palpitations Respiratory: No reports of shortness of breath or cough GI: No reports of nausea, vomiting, or diarrhea : No reports of dysuria or retention Neurovascular: No reports of weakness or numbness All medications have been reviewed Objective - Vital Signs Vital signs: Vital Signs Temp 97.8 F 10/05/19 06:54 Pulse 70 10/05/19 06:54 Resp 14 10/05/19 06:54 BP 130/81 10/05/19 06:54 Pulse Ox 94 L 10/05/19 06:54 Intake & Output 10/04/19 10/05/19 10/05/19 18:59 06:59 18:59 Intake Total 400 Balance 400 Intake: Oral 400 Other: # Voids 1 1 - Exam GENERAL: The patient is alert and oriented x3, not in any acute distress. Well developed, well nourished. HEENT: Pupils are round and equally reacting to light. EOMI. No scleral icterus. No conjunctival pallor. Normocephalic, atraumatic. No pharyngeal erythema. No thyromegaly. CARDIOVASCULAR: S1 and S2 present. No murmurs, rubs, or gallops. PULMONARY: Chest is clear to auscultation, no wheezing or crackles. ABDOMEN: Soft, nontender, nondistended, normoactive bowel sounds. No palpable organomegaly. MUSCULOSKELETAL: No joint swelling or deformity. EXTREMITIES: No cyanosis, clubbing, or pedal edema. Diabetic foot ulcers on either side of the distal part of the left foot, and on the lateral side of the distal part of the right foot. Signs of cellulitis on the distal half of the left forefoot, with redness swelling, tenderness, dressing is dry and intact NEUROLOGICAL: Gross neurological examination did not reveal any focal deficits. SKIN: No rashes. No petechiae - Labs CBC & Chem 7: 10/04/19 07:02 10/05/19 07:09 Labs: Abnormal Lab Results - Last 24 Hours (Table) 10/04/19 10/04/19 10/05/19 Range/Units 16:29 20:23 06:33 INR (<1.2) Glucose (74-99) mg/dL POC Glucose (mg/dL) 194 H 143 H 138 H (75-99) mg/dL 10/05/19 10/05/19 10/05/19 Range/Units 07:09 10:53 11:19 INR 1.2 H (<1.2) Glucose 131 H (74-99) mg/dL POC Glucose (mg/dL) 194 H (75-99) mg/dL Microbiology - Last 24 Hours (Table) 10/02/19 10:27 Gram Stain - Final Ankle - Left Wound Culture - Final Proteus mirabilis Pseudomonas aeruginosa Methicillin resist S. aureus 10/02/19 10:52 Blood Culture - Preliminary Blood No Growth after 48 hours Assessment and Plan Assessment: Multiple diabetic foot ulcers, 2 on the left distal foot and one on the distal right foot. Wound culture is growing MRSA and Proteus, and Pseudomonas Cellulitis of the distal part of the left foot Diabetes mellitus with hyperglycemia Hypertension Hyperlipidemia History of coronary artery disease GI prophylaxis: Pepcid DVT prophylaxis: Subcu heparin Plan: Continue current medications, management, symptomatic treatment. Patient is maintained on IV vancomycin along with continue at this time. Infectious disease is following. Wound cultures finalized showing Proteus mirabilis, Pseudomonas aeruginosa, and MRSA. Case management and social work also following [facility] setting. Paperwork was submitted today. We'll continue to monitor closely and continue to monitor blood sugars closely and continue with sliding scale at this time. Will repeat a.m. labs. Further recommendations to follow.
[2019-10-05 16:38] LABS: Glucose,Whole Blood 109 mg/dL (75-99)
[2019-10-05 20:10] LABS: Glucose,Whole Blood 101 mg/dL (75-99)
[2019-10-05] MEDS: ATORVASTATIN 80 MG TAB PO SCH (20:29)
[2019-10-05] MEDS: lisinopriL 5 MG TAB PO SCH (20:29)
[2019-10-06] MEDS: VANCOMYCIN 2,250 MG in SODIUM CHLORIDE 0.9% 500 ML 500 ML IVPB SCH ×2 (02:02→14:07)
[2019-10-06] MEDS: CEFEPIME 2 GM in SODIUM CHLORIDE 0.9% 100 ML IVPB SCH ×2 (02:03→14:07)
[2019-10-06 06:35] LABS: Glucose,Whole Blood 137 mg/dL (75-99)
[2019-10-06] MEDS: INSULIN ASPART (NovoLOG) 100 UNIT/ML VIAL SQ SCH ×4 (07:19→20:46)
[2019-10-06] MEDS: metroNIDAZOLE 500 MG TAB PO SCH ×3 (07:20→20:55)
[2019-10-06] MEDS: TAMSULOSIN 0.4 MG CAP.ER.24H PO SCH (07:20)
[2019-10-06] MEDS: metFORMIN 500 MG TAB PO SCH ×2 (07:20→17:04)
[2019-10-06] MEDS: CLOPIDOGREL 75 MG TAB PO SCH (07:20)
[2019-10-06] MEDS: METOPROLOL TARTRATE 12.5 MG TAB PO SCH ×2 (07:20→20:55)
[2019-10-06] MEDS: ASPIRIN 325 MG TAB PO SCH (07:20)
[2019-10-06] MEDS: FUROSEMIDE 20 MG TAB PO SCH ×2 (07:20→20:56)
[2019-10-06] MEDS: DILTIAZEM CD 120 MG CAP.ER.24H PO SCH (07:20)
[2019-10-06] MEDS: glipiZIDE 5 MG TAB PO SCH ×2 (07:21→17:04)
[2019-10-06] MEDS ORDERED: LIDOCAINE 1% INJ 10MG/ML (20 ML MDV) ONE (09:09)
[2019-10-06] MEDS ORDERED: LIDOCAINE 1% INJ 10MG/ML (20 ML MDV) SQ ONE (09:42)
[2019-10-06 11:07] LABS: Glucose,Whole Blood 197 mg/dL (75-99)
--- NOTE | 2019-10-06 13:29 | IR ---
EXAMINATION TYPE: IR cvc insert >=5 years DATE OF EXAM: 10/06/2019 COMPARISON: Chest radiograph 02/02/2019 CLINICAL HISTORY: Infection, long-term antibiotics CLAIM SPECIALIST: Dr. Zunilda King PROCEDURE: Maximal barrier technique utilized. After informed consent, the skin overlying the left brachial vein was localized with ultrasound and noted to be compressible and patent. An ultrasound image was obta ined and submitted on the patient's chart. Sterile technique utilized with the ultrasound machine. Th e skin overlying was prepped and draped and Lidocaine used for local anesthesia. Access was gained to the vein under ultrasound guidance with a 21 gauge needle and a 0.018 inch wire was advanced. A skin gurdeep was made with a scalpel. Access site was dilated with Peel-Away sheath. [address] tailored to the appropriate length of 49 cm and advanced such that the distal tip is at the cavoa trial junction. Spot image was obtained verifying PICC placement. Catheter was fixed to the skin and a sterile dressing was placed following hemostasis. Catheter was aspirated and flushed with saline. P bull was discharged from the radiology department in stable condition without immediate complicatio n. Fluoro time: 0.3 minutes Fluoroscopic images obtained: 27 IMPRESSION: Status post ultrasound-guided and fluoroscopic-guided PICC placement, ready for use.
--- NOTE | 2019-10-06 13:46 | P.PN ---
Subjective Progress Note Date: 10/06/19 Principal diagnosis: This is a pleasant 74 years old male with past medical history of coronary artery disease and diabetes mellitus, hyperlipidemia, hypertension. His PCP is Dr. Cary at the [facility] and he is been seen by Dr. Elizondo before. This problem started in his both feet about 7 weeks ago when he was working in the garden wearing his diabetic boot, and he developed blisters in his feet which opened up and towards and ulcer, nonhealing however the last few days he noticed redness in the distal part of the left forefoot, with pain, redness swelling and tenderness. Knee has 3 blisters on the lateral side of distal foot bilaterally and on the medial side of the distal left foot. He denies smoking, alcohol or illicit drugs Vitals are stable and patient is afebrile. He has mild leukocytosis at 12.1 K, rest of CBC, BMP and never enzymes were unremarkable Elevated ESR of 74 Sugar on the high side 187-207 CT of the left foot with contrast showing soft tissue swelling and subcutaneous edema with no fracture or evidence of osteomyelitis On admission he was started on Unasyn per ID team recommendation. And IV vancomycin with normal saline at 60 mL per hour 10/03/2019 Patient is awake, still complaining of from cellulitis signs and symptoms in his left foot, he spiked fever yesterday at 1.01 as per patient although there is no documentation. Rest of vitals are stable. CBC and BMP looks stable and WBC back to normal and sugars controlled Infectious disease team input is appreciated, patient is on Unasyn and vancomycin 10/04/2019 Patient is still being treated for his diabetic foot ulcers and left foot cellulitis Blood culture is positive for Proteus mirabilis and MRSA Patient is currently on IV vancomycin and Unasyn Vital signs Stable, creatinine stable and normal Sugar is controlled, continue with same dose of insulin sliding scale and glipi zide 5 mg twice daily and will resume his dose of metformin 500 mg twice a day. Check hemoglobin A1c 10/05/2019 Patient is seen and evaluated and follow-up currently awaiting to receive a PICC line today. Per nursing staff PICC line will be scheduled for tomorrow morning. Patient does follow with the [facility] in case management following working on authorization for IV antibiotic infusion in the outpatient setting. Patient's wound cultures positive for Proteus mirabilis, Pseudomonas aeruginosa, and MRSA. Infectious disease is following. Patient is maintained on cefepime and vancomycin and will continue this time. Continue to monitor blood sugars and continue sliding scale and home dose of oral diabetic medications have been resumed. Review of systems: Constitutional: No reports of fatigue, fever, or chills Cardiovascular: No reports of chest pain or palpitations Respiratory: No reports of shortness of breath or cough GI: No reports of nausea, vomiting, or diarrhea : No reports of dysuria or retention Neurovascular: No reports of weakness or numbness All medications have been reviewed 10/06/2019 Patient is seen in follow-up with no acute overnight issues. Patient is scheduled to receive a PICC line today for continued IV antibiotic therapy in the outpatient setting. Infectious Disease is following. Patient is maintained on IV cefepime along with oral Flagyl and IV vancomycin and will continue at this time. Case management and social work following making arrangements with the [facility] for IV antibiotic therapy in the outpatient setting. Currently patient has no reports of chest pain, shortness of breath, or palpitations. Patient is afebrile. No reports of nausea or vomiting and patient is tolerating diet. Today's labs were within normal limits. We'll continue to monitor blood sugars closely and continue with current medication regimen. Objective - Vital Signs Vital signs: Vital Signs Temp 97.8 F 10/06/19 06:59 Pulse 75 10/06/19 06:59 Resp 12 10/06/19 06:59 BP 128/68 10/06/19 06:59 Pulse Ox 95 10/06/19 06:59 Intake & Output 10/05/19 10/06/19 10/06/19 18:59 06:59 18:59 Intake Total 640 480 250 Balance 640 480 250 Weight 122.47 kg Intake: Intake, IV Titration 480 Amount Sodium Chloride 0.9% 1, 480 000 ml @ 60 mls/hr IV . [id number] [facility] Rx#:[id number] Oral 640 250 Other: Voiding Method Toilet Toilet # Voids 1 2 - Exam GENERAL: The patient is alert and oriented x3, not in any acute distress. Well developed, well nourished. HEENT: Pupils are round and equally reacting to light. EOMI. No scleral icterus. No conjunctival pallor. Normocephalic, atraumatic. No pharyngeal erythema. No thyromegaly. CARDIOVASCULAR: S1 and S2 present. No murmurs, rubs, or gallops. PULMONARY: Chest is clear to auscultation, no wheezing or crackles. ABDOMEN: Soft, nontender, nondistended, normoactive bowel sounds. No palpable organomegaly. MUSCULOSKELETAL: No joint swelling or deformity. EXTREMITIES: No cyanosis, clubbing, or pedal edema. Diabetic foot ulcers on eith er side of the distal part of the left foot, and on the lateral side of the distal part of the right foot. Signs of cellulitis on the distal half of the left forefoot, with redness swelling, tenderness, dressing is dry and intact NEUROLOGICAL: Gross neurological examination did not reveal any focal deficits. SKIN: No rashes. No petechiae - Labs CBC & Chem 7: 10/04/19 07:02 10/05/19 07:09 Labs: Abnormal Lab Results - Last 24 Hours (Table) 10/05/19 10/05/19 10/05/19 Range/Units 07:09 10:53 11:19 INR 1.2 H (<1.2) POC Glucose (mg/dL) 194 H (75-99) mg/dL Hemoglobin A1c 7.0 H (4.0-6.0) % 10/05/19 10/05/19 10/06/19 Range/Units 16:36 20:08 06:34 INR (<1.2) POC Glucose (mg/dL) 109 H 101 H 137 H (75-99) mg/dL Hemoglobin A1c (4.0-6.0) % Microbiology - Last 24 Hours (Table) 10/02/19 10:52 Blood Culture - Preliminary Blood No Growth after 72 hours 10/02/19 10:27 Gram Stain - Final Ankle - Left Wound Culture - Final Proteus mirabilis Pseudomonas aeruginosa Methicillin resist S. aureus Assessment and Plan Assessment: Multiple diabetic foot ulcers, 2 on the left distal foot and one on the distal right foot. Wound culture is growing MRSA and Proteus, and Pseudomonas Cellulitis of the distal part of the left foot Diabetes mellitus with hyperglycemia Hypertension Hyperlipidemia History of coronary artery disease GI prophylaxis: Pepcid DVT prophylaxis: Subcu heparin Plan: Continue current medications, management, symptomatic treatment. Patient is maintained on IV vancomycin along with cefepime and oral Flagyl and will annmarie nue at this time. Infectious disease is following. Wound cultures finalized showing Proteus mirabilis, Pseudomonas aeruginosa, and MRSA. Case management and social work also following [facility]. Paperwork was submitted today. Patient did receive a PICC line today. We'll continue to monitor closely and continue to monitor blood sugars closely and continue with sliding scale at this time. Further recommendations to follow. Possible discharge in 24-48 hours.
--- NOTE | 2019-10-06 14:17 | XR ---
EXAMINATION TYPE: XR chest 1V confirm line [facility] DATE OF EXAM: 10/06/2019 COMPARISON: 01/23/2019 INDICATION: PICC line placement TECHNIQUE: Single frontal view of the chest is obtained. FINDINGS: The heart size is normal. The pulmonary vasculature is normal. The lungs are clear. No pneumothorax is evident. Landers on the left with the tip in the distal superior vena cava region. 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 IMPRESSION: 1. No acute pulmonary process. 2. Left-sided PICC line with the tip in the region of the distal superior vena cava region.
[2019-10-06] MEDS: SODIUM CHLORIDE 0.9% 1,000 ML IV SCH (16:02)
[2019-10-06 16:46] LABS: Glucose,Whole Blood 87 mg/dL (75-99)
--- NOTE | 2019-10-06 17:05 | PN ---
PROGRESS NOTE DATE OF SERVICE: 10/06/2019 REASON FOR FOLLOWUP: Left diabetic foot infection, MRSA and Pseudomonas. INTERVAL HISTORY: The patient is currently afebrile, has been breathing comfortably. Denies having any chest pain or cough. No nausea, no vomiting, no abdominal pain. Overall pain to the left foot has improved. PHYSICAL EXAMINATION: Blood pressure 122/67, pulse of 64, temperature 98.1, he is 97% on room air. General description is an elderly male, up in the chair in no distress. RESPIRATORY SYSTEM: Unlabored breathing, clear to auscultation anteriorly. HEART: S1, S2. Regular rate and rhythm. ABDOMEN: Soft, no tenderness. Left foot swelling has decreased. LABS: No new labs have been obtained today. DIAGNOSTIC IMPRESSION AND PLAN: Patient with diabetic foot infection. No evidence of any osteomyelitis on abscess. Wound culture showing MRSA and Pseudomonas. Patient plan is for vancomycin, pharmacy to dose, cefepime 2 g q.12 and oral Flagyl for 2 weeks. Local wound care with dry Aquacel dressing. Once antibiotic arranged, he will be able to go home from ID standpoint. MMODL / IJN: [id number] /
[2019-10-06 20:42] LABS: Glucose,Whole Blood 129 mg/dL (75-99)
[2019-10-06] MEDS: lisinopriL 5 MG TAB PO SCH (20:55)
[2019-10-06] MEDS: ATORVASTATIN 80 MG TAB PO SCH (20:56)
[2019-10-07] MEDS: VANCOMYCIN 2,250 MG in SODIUM CHLORIDE 0.9% 500 ML 500 ML IVPB SCH ×2 (01:08→13:08)
[2019-10-07] MEDS: CEFEPIME 2 GM in SODIUM CHLORIDE 0.9% 100 ML IVPB SCH ×2 (01:08→13:07)
[2019-10-07 06:49] LABS: Glucose,Whole Blood 118 mg/dL (75-99)
[2019-10-07] MEDS: INSULIN ASPART (NovoLOG) 100 UNIT/ML VIAL SQ SCH ×2 (07:14→11:40)
[2019-10-07 07:59] VITALS: BP 121/69; PULSE 68; RESP 16; TEMP 98
[2019-10-07] MEDS: metFORMIN 500 MG TAB PO SCH (08:04)
[2019-10-07] MEDS: ASPIRIN 325 MG TAB PO SCH (08:04)
[2019-10-07] MEDS: metroNIDAZOLE 500 MG TAB PO SCH ×2 (08:04→16:48)
[2019-10-07] MEDS: glipiZIDE 5 MG TAB PO SCH (08:04)
[2019-10-07] MEDS: METOPROLOL TARTRATE 12.5 MG TAB PO SCH (08:04)
[2019-10-07] MEDS: CLOPIDOGREL 75 MG TAB PO SCH (08:04)
[2019-10-07] MEDS: TAMSULOSIN 0.4 MG CAP.ER.24H PO SCH (08:04)
[2019-10-07] MEDS: FUROSEMIDE 20 MG TAB PO SCH (08:04)
[2019-10-07] MEDS: DILTIAZEM CD 120 MG CAP.ER.24H PO SCH (08:04)
[2019-10-07 09:24] LABS: Basophils # (A) 0.1 k/uL (0-0.2); Basophils % (A) 1 %; Eosinophils # (A) 0.5 k/uL (0-0.7); Eosinophils % (A) 7 %; HCT 36.7 % (39.0-53.0); HGB 12.3 gm/dL (13.0-17.5); Lymphocytes # (A) 1.1 k/uL (1.0-4.8); Lymphocytes % (A) 16 %; MCHC 33.6 g/dL (31.0-37.0); MCV 86.5 fL (80.0-100.0); Monocytes # (A) 0.4 k/uL (0-1.0); Monocytes % (A) 6 %; Neutrophils # (A) 4.7 k/uL (1.3-7.7); Neutrophils % (A) 69 %; Platelet Count 266 k/uL (150-450); RBC 4.24 m/uL (4.30-5.90); WBC 6.8 k/uL (3.8-10.6)
[2019-10-07 09:36] LABS: African American GFR (CKD) >90 (>60 ml/min/1.73 sqM); Anion Gap 6 mmol/L; Blood Urea Nitrogen 19 mg/dL (9-20); Calcium 8.4 mg/dL (8.4-10.2); Carbon Dioxide 28 mmol/L (22-30); Chloride 102 mmol/L (98-107); Glucose 173 mg/dL (74-99); Non-African American GFR(CKD) 88 (>60 ml/min/1.73 sqM); Sodium 136 mmol/L (137-145)
[2019-10-07 11:25] LABS: Glucose,Whole Blood 159 mg/dL (75-99)
--- NOTE | 2019-10-07 12:56 | P.DS ---
Providers Date of admission: 10/04/19 09:26 Expected date of discharge: 10/07/19 Attending physician: Zeeshan De Luna MD Consults: 10/02/19 12:08 Consult Physician Stat Consulting Provider: Tram Barrios Consult Reason/Comments: left leg cellulitis, diabetic ulcers Do you want consulting provider notified?: Yes 10/02/19 13:57 Consult Physician Urgent Consulting Provider: Tram Barrios Consult Reason/Comments: cellulitis Do you want consulting provider notified?: Yes Primary care physician: [facility] Hospital Course: Final diagnosis Multiple diabetic foot ulcers, 2 on the left distal foot and one on the distal right foot. Wound culture is growing MRSA and Proteus, and Pseudomonas Cellulitis of the distal part of the left foot Diabetes mellitus with hyperglycemia Hypertension Hyperlipidemia History of coronary artery disease GI prophylaxis DVT prophylaxis Discharge disposition Patient [facility] with [facility] upon discharge. Patient is to continue with home care that has been arranged with the [facility]. Patient will continue with IV antibiotics per infectious disease recommendations. Total time taken is greater than 35 minutes. History of present illness This is a 74-year-old male who was recently admitted with nonhealing ulcers in lower left extremity cellulitis and was being closely monitored. Patient was seen and evaluated by infectious disease and initiated on IV antibiotic therapy. Patient did receive a PICC line and will be continuing on IV antibiotic therapy in the form of cefepime, oral Flagyl, and vancomycin in the outpatient setting as wound cultures finalized showing Proteus mirabilis, pseudomonas aeruginosa, and MRSA. Patient does have history of diabetes and instructed to continue monitoring blood sugars before meals at bedtime and keep a diary for primary care follow-up. Patient is working with the [facility] for IV antibiotic therapy in the outpatient setting along with home care through them. Case management has been following and arranging for this form. Patient also to continue with local wound care and will be following up in the outpatient setting. Patient would like to go home today. Currently no reports of chest pain, shortness of breath, or palpitations. Patient is afebrile. No reports of nausea or vomiting and patient is tolerating diet. Patient will be discharged home today. On exam vital signs are stable. Temp is 98.0F, pulse is 68, respirations are 16, blood pressure is 121/69, oxygen saturation is 96% on room air. Cardio S1, S2 are muffled. Respiratory system shows diminished breath sounds at the bases with no wheezing or rhonchi noted. Abdomen is soft and obese, and nontender. Nervous system shows no focal deficits. Please refer to medication reconciliation sheet for a list of medications. Patient Condition at Discharge: Good Plan - Discharge Summary Discharge Rx Participant: Yes New Discharge Prescriptions: New Vancomycin HCl in 5 % Dextrose [Vancomycin 1 Gram/250 ml-D5w] 2 gm IV BID #28 plast..bag Continue Multivit-Min/Folic/Vit K/Lycop [Men's Multivitamin Tablet] 1 tab PO DAILY Fish Oil/Dha/Epa [Fish Oil 1,200 mg Fish Oil] 1,200 mg PO DAILY Atorvastatin [Lipitor] 80 mg PO HS Ascorbic Acid [Vitamin C] 1,000 mg PO DAILY Vitamin B Complex 1 cap PO DAILY Diltiazem Cd [Cardizem CD] 120 mg PO DAILY #30 cap.er.24h Tamsulosin [Flomax] 0.4 mg PO PC-BRKFST #30 cap.er.24h Clopidogrel [Plavix] 75 mg PO DAILY #30 tab Pantoprazole [Protonix] 40 mg PO AC-BRKFST #30 tablet. glipiZIDE [Glucotrol] 5 mg PO AC-BID #30 tab metFORMIN HCL [Glucophage] 500 mg PO BID Sennosides-Docusate Sodium [Senokot-S] 2 tab PO HS PRN PRN Reason: Constipation Acetaminophen Tab [Tylenol] 1,000 mg PO Q6HR PRN PRN Reason: Pain Metoprolol Tartrate [Lopressor] 12.5 mg PO BID Aspirin EC [Ecotrin] 325 mg PO DAILY Ubidecarenone [Co Q-10] 100 mg PO DAILY lisinopriL [Zestril] 5 mg PO HS Furosemide [Lasix] 20 mg PO BID Ipratropium-Albuterol Nebulize [Duoneb 0.5 mg-3 mg/3 ml Soln] 3 ml INHALATION RT-QID PRN PRN Reason: Shortness Of Breath Discharge Medication List Ascorbic Acid [Vitamin C] 1,000 mg PO DAILY 03/13/18 [History] Atorvastatin [Lipitor] 80 mg PO HS 03/13/18 [History] Fish Oil/Dha/Epa [Fish Oil 1,200 mg Fish Oil] 1,200 mg PO DAILY 03/13/18 [History] Multivit-Min/Folic/Vit K/Lycop [Men's Multivitamin Tablet] 1 tab PO DAILY 03/13/18 [History] Vitamin B Complex 1 cap PO DAILY 03/13/18 [History] Clopidogrel [Plavix] 75 mg PO DAILY #30 tab 01/23/19 [Rx] Diltiazem Cd [Cardizem CD] 120 mg PO DAILY #30 cap.er.24h 01/23/19 [Rx] Pantoprazole [Protonix] 40 mg PO AC-BRKFST #30 tablet.dr 01/23/19 [Rx] Tamsulosin [Flomax] 0.4 mg PO PC-BRKFST #30 cap.er.24h 01/23/19 [Rx] glipiZIDE [Glucotrol] 5 mg PO AC-BID #30 tab 01/23/19 [Rx] Acetaminophen Tab [Tylenol] 1,000 mg PO Q6HR PRN 08/22/19 [History] Aspirin EC [Ecotrin] 325 mg PO DAILY 08/22/19 [History] Furosemide [Lasix] 20 mg PO BID 08/22/19 [History] Ipratropium-Albuterol Nebulize [Duoneb 0.5 mg-3 mg/3 ml Soln] 3 ml INHALATION RT-QID PRN 08/22/19 [History] Metoprolol Tartrate [Lopressor] 12.5 mg PO BID 08/22/19 [History] Sennosides-Docusate Sodium [Senokot-S] 2 tab PO HS PRN 08/22/19 [History] Ubidecarenone [Co Q-10] 100 mg PO DAILY 08/22/19 [History] lisinopriL [Zestril] 5 mg PO HS 08/22/19 [History] metFORMIN HCL [Glucophage] 500 mg PO BID 08/22/19 [History] Vancomycin HCl in 5 % Dextrose [Vancomycin 1 Gram/250 ml-D5w] 2 gm IV BID #28 plast..bag 10/04/19 [Rx] Follow up Appointment(s)/Referral(s): [facility],Clinic [Primary Care Provider] - 1-2 days (office will call with appointment time) Activity/Diet/Wound Care/Special Instructions: [facility] for IV antibiotic supplies: [phone]. They will deliver supplies tonight (10/07/2019) at: Home Care will begin visits on the morning of 10/08/2019 to begin IV antibiotic infusions and teaching. Activity Limited until follow-up Continue current diabetic diet Continue to monitor blood sugars and keep a diary for primary care follow-up Continue with IV antibiotic therapy per infectious disease Follow-up with primary care provider upon discharge Discharge Disposition: HOME SELF-CARE
--- NOTE | 2019-10-07 16:32 | PN ---
PROGRESS NOTE DATE OF SERVICE: 10/07/2019 REASON FOR FOLLOWUP: Left diabetic foot infection with cellulitis. INTERVAL HISTORY: The patient is currently afebrile. The patient is feeling better, breathing comfortably. Denies having any chest pain, shortness of breath or cough. No nausea, vomiting abdominal pain or any worsening pain to the left foot. PHYSICAL EXAMINATION: Blood pressure 121/69, pulse 68, temperature 98. He is 96% on room air. General description is an elderly male lying in bed in no distress. RESPIRATORY SYSTEM: Unlabored breathing. Clear to auscultation anteriorly. HEART: S1, S2. Regular rate and rhythm. ABDOMEN: Soft. No tenderness. Left foot is currently dressed up. No obvious drainage on the dressing. LABS: BUN of 19, creatinine 0.84. CRP was 187. DIAGNOSTIC IMPRESSION AND PLAN: Patient with left diabetic foot infection. Culture has been positive for Pseudomonas, MRSA, and currently covered with cefepime 2 grams q.12 and vancomycin, Pharmacy to dose. To continue for 2 weeks along with oral Flagyl. Local care with dry Aquacel Silver dressing to be changed q.48 hours and follow up in the wound care center next week. His questions and concerns were answered. MMODL / IJN: [id number] /
[2019-10-08] MEDS ORDERED: VANCOMYCIN TROUGH DUE 1 EACH MISC MISCELLANE ONE (13:00)
== END 2019-10-07 17:24 | disposition home health service (06) | DRG 638 ==
LOC: EC 09:42 → 1SOBS 12:06 → 4SSUR 12:28 → OBSVTOIN 10-04 09:26 → 4SSUR 10-04 20:41
PROVIDERS: ADMIT Internal Medicine; ATTEND Internal Medicine
PROC: 02HV33Z Insertion of Infusion Device into Superior Vena Cava, Percutaneous Approach (ICD-10-PCS; principal; 2019-10-06 08:45)
DX: E11.621 Type 2 diabetes mellitus with foot ulcer (principal); L03.116 Cellulitis of left lower limb; L97.529 Non-pressure chronic ulcer of other part of left foot with unspecified severity; L97.519 Non-pressure chronic ulcer of other part of right foot with unspecified severity; E11.40 Type 2 diabetes mellitus with diabetic neuropathy, unspecified; E11.628 Type 2 diabetes mellitus with other skin complications; E11.65 Type 2 diabetes mellitus with hyperglycemia; I25.10 Atherosclerotic heart disease of native coronary artery without angina pectoris; I10 Essential (primary) hypertension; E78.5 Hyperlipidemia, unspecified; E66.9 Obesity, unspecified; B95.62 Methicillin resistant Staphylococcus aureus infection as the cause of diseases classified elsewhere; B96.5 Pseudomonas (aeruginosa) (mallei) (pseudomallei) as the cause of diseases classified elsewhere; Z71.3 Dietary counseling and surveillance; Z68.35 Body mass index [BMI] 35.0-35.9, adult; Z79.899 Other long term (current) drug therapy; Z79.82 Long term (current) use of aspirin; Z79.84 Long term (current) use of oral hypoglycemic drugs; Z79.02 Long term (current) use of antithrombotics/antiplatelets; Z87.442 Personal history of urinary calculi; Z87.19 Personal history of other diseases of the digestive system; Z90.49 Acquired absence of other specified parts of digestive tract; Z95.1 Presence of aortocoronary bypass graft; Z98.890 Other specified postprocedural states; Z91.040 Latex allergy status; Z91.048 Other nonmedicinal substance allergy status; Z82.49 Family history of ischemic heart disease and other diseases of the circulatory system; Z83.438 Family history of other disorder of lipoprotein metabolism and other lipidemia
CPT/HCPCS: 36415; 36573; 80048; 80053; 80202; 83036; 83605; 85025; 85610; 85652; 85730; 86140; 87040; 87070; 87077; 87186; 87205; 96361; 96374; 99284